=== PATIENT | male | born 1960 | race Caucasian/White ===

== ENCOUNTER 2016-04-25 15:50 | Emergency (ER) | payer MEDICARE, BC ==
[2016-04-25 16:09] VITALS: BP 117/59
--- NOTE | 2016-04-25 18:42 | RAD ---
Indication: Weakness. Single frontal view of the chest performed at 1829 hours was reviewed. Comparison is made with previous exam dated April 07, 2016. There is increasing left pleural effusion noted which is a moderate size. Likely underlying atelectasis is noted. Right lung field is clear. IMPRESSION: INCREASING LEFT PLEURAL EFFUSION.
[2016-04-25 19:37] LABS: Hematocrit 28 % (42-52); Hemoglobin 9.5 g/dl (14.0-18.0); Mean Corpuscular HGB Conc 33 g/dl (31-36); Mean Corpuscular Hemoglobin 38 pg (27-31); Mean Platelet Volume 9 um3 (7.4-10.4); Red Blood Count 2.53 10^6/ul (4.0-5.4); Red Cell Distribution Width 19 % (10.5-15); White Blood Count 5.4 10^3/ul (3.5-10.8)
[2016-04-25 19:39] LABS: Mean Corpuscular Volume 113 fL (80-94)
[2016-04-25 19:52] LABS: ALT 26 U/L (7-52); AST 47 U/L (13-39); Albumin 2.4 g/dL (3.2-5.2); Alkaline Phosphatase 97 U/L (34-104); Amylase 44 U/L (29-103); Anion Gap 3 mmol/L (2-11); BUN/Creatinine Ratio 27.3 (8-20); Blood Urea Nitrogen 21 mg/dL (6-24); C Reactive Protein 50.62 mg/L (< 5.00); CO2 Carbon Dioxide 26 mmol/L (22-32); Calcium 8.6 mg/dL (8.6-10.3); Chloride 103 mmol/L (101-111); EGFR African American 134.4 (>60); EGFR Non-African American 104.5 (>60); Globulin 3.7 g/dL (2-4); Glucose 81 mg/dL (70-100); Lipase < 10 U/L (11.0-82.0); Potassium 4.2 mmol/L (3.5-5.0); Sodium 132 mmol/L (133-145); Total Protein 6.1 g/dL (6.4-8.9)
[2016-04-25 20:06] LABS: Ammonia 77 mol/L (16-53)
[2016-04-25 20:11] LABS: B Type Natriuretic Peptide 315 pg/mL
--- NOTE | 2016-04-25 20:23 | ED ---
Yung Benites Adam, scribed for Jesus Arndt MD on 04/25/16 at 1757 . Complex/Multi-Sys Presentation - HPI Summary HPI Summary: Pt is a 55 year old male sent from his PCP with concerns about his blood work. He went to a routine appt today and his doctor discovered that his WBC count was elevated. Pt also has a decubitus ulcer on his buttocks and states that his PCP was concerned about infection. He denies abdominal pain, N/V/D, constipation , cough, fever, chills, and any other pain. Pt is on the liver transplant list for end stage cirrhosis of the liver. He states that he stopped drinking 1.5 years ago. PMHx also includes anemia, hemachromatosis, pancytopenia, hyponatremia, portal HTN, and esophageal varices. - History Of Current Complaint Chief Complaint: EDGeneral Time Seen by Provider: 04/25/16 17:51 Hx Obtained From: Patient Onset/Duration: Gradual Onset, Lasting Hours, Still Present Timing: Constant Severity Currently: Moderate Severity Initially: Moderate Associated Signs And Symptoms: Negative: Nausea, Vomiting, Diarrhea, Abdominal Pain, Fever - Allergies/Home Medications Allergies/Adverse Reactions: Allergies Allergy/AdvReac Type Severity Reaction Status Date / Time Acetaminophen [From Tylenol] Allergy AVOIDS Verified 04/25/16 15:56 NSAIDs Allergy AVOIDS Verified 04/25/16 15:56 PMH/Surg Hx/FS Hx/Imm Hx Endocrine/Hematology History: Reports: Hx Anemia, Other Endocrine/Hematological Disorders - Hemachromatosis Denies: Hx Anticoagulant Therapy, Hx Blood Transfusions, Hx Diabetes, Hx Systemic Lupus Erythematosus, Hx Thyroid Disease Cardiovascular History: Reports: Hx Hypertension Denies: Hx Aneurysm, Hx Angina, Hx Angioplasty, Hx Auto Implanted Cardiovert Defib, Hx Congestive Heart Failure, Hx Pacemaker/ICD Respiratory History: Denies: Hx Asthma, Hx Chronic Obstructive Pulmonary Disease (COPD) GI History: Reports: Hx Cirrhosis, Hx Gastrointestinal Bleed, Hx Jaundice, Hx Ulcer, Other GI Disorders - esophagitis, ANEMIC, esoophageal varices, hemochromatosis Denies: Hx Gastroesophageal Reflux Disease Comment Only: Hx Diverticulosis - family history of History: Denies: Hx Dialysis, Hx Renal Disease Musculoskeletal History: Reports: Other Musculoskeletal History - right hip, knees have discomfort/pain at times Denies: Hx Rheumatoid Arthritis Sensory History: Reports: Hx Contacts or Glasses Denies: Hx Hearing Aid Opthamlomology History: Reports: Hx Contacts or Glasses Neurological History: Reports: Hx Seizures, Other Neuro Impairments/Disorders - Affected by chronic high ammonia levels Denies: Hx Dementia Psychiatric History: Reports: Hx Anxiety, Hx Depression, Hx Substance Abuse Denies: Hx Panic Disorder - Cancer History Cancer Type, Location and Year: hemochromotosis- high iron levels Hx Chemotherapy: No - Surgical History Surgery Procedure, Year, and Place[facility]: No - Immunization History Date of Tetanus Vaccine: sister states up to date Infectious Disease History: No Infectious Disease History: Denies: Hx Hepatitis, Hx Human Immunodeficiency Virus (HIV), Traveled Outside the [place] in Last 30 Days - Family History Known Family History: Positive: Other - Father 65 with liver CA. - Social History Occupation: Employed Part-time - Self-employed Lives: Alone Alcohol Use: Formerly Hx Substance Use: No Substance Use Type: Reports: None Hx Tobacco Use: No Smoking Status (MU): Never Smoked Tobacco Review of Systems Negative: Fever, Chills Negative: Cough Gastrointestinal: Negative Negative: Abdominal Pain, Vomiting, Diarrhea, Nausea Negative: Arthralgia, Myalgia All Other Systems Reviewed And Are Negative: Yes Physical Exam - Summary Physical Exam Summary: VITAL SIGNS: Reviewed. GENERAL: Patient is a well developed and nourished male who is lying comfortable in the stretcher. Patient is not in any acute respiratory distress. HEAD AND FACE: No signs of trauma. No ecchymosis, hematomas or skull depressions. No sinus tenderness. EYES: PERRLA, EOMI x 2, EARS: Hearing grossly intact. Ear canals and tympanic membranes are within normal limits. MOUTH: Oropharynx within normal limits. NECK: Supple, trachea is midline, no adenopathy, no JVD, no carotid bruit, no c- spine tenderness, neck with full ROM. CHEST: Symmetric, no tenderness at palpation LUNGS: Clear to auscultation bilaterally. No wheezing or crackles. CVS: Regular rate and rhythm, S1 and S2 present, no murmurs or gallops appreciated. ABDOMEN: Soft, non-tender. No signs of distention. No rebound no guarding, and no masses palpated. Bowel sounds are normal. EXTREMITIES: FROM in all major joints, no edema, no cyanosis or clubbing. NEURO: Alert and oriented x 3. No acute neurological deficits. Speech is normal and follows commands. SKIN: Dry and warm, positive jaundice. Positive decubitis ulcer w/o discharge. Triage Information Reviewed: Yes Vital Signs On Initial Exam: Initial Vitals Temp Pulse Resp BP Pulse Ox 97.9 F 77 16 117/59 100 04/25/16 15:59 04/25/16 15:59 04/25/16 15:59 04/25/16 15:59 04/25/16 15:59 Vital Signs Reviewed: Yes Diagnostics - Vital Signs Vital Signs Temp Pulse Resp BP Pulse Ox 04/25/16 15:59 97.9 F 77 16 117/59 100 - Laboratory Lab Results: Lab Results 04/25/16 04/25/16 04/25/16 Range/Units 19:21 19:21 19:21 WBC 5.4 (3.5-10.8) 10^3/ul RBC 2.53 L (4.0-5.4) 10^6/ul Hgb 9.5 L (14.0-18.0) g/dl Hct 28 L (42-52) % MCV 113 H (80-94) fL MCH 38 H (27-31) pg MCHC 33 (31-36) g/dl RDW 19 H (10.5-15) % Plt Count 60 L (150-450) 10^3/ul MPV 9 (7.4-10.4) um3 Neut % (Auto) 68.4 (38-83) % Lymph % (Auto) 14.9 L (25-47) % [place] % (Auto) 12.7 H (1-9) % Eos % (Auto) 3.0 (0-6) % Baso % (Auto) 1.0 (0-2) % Absolute Neuts (auto) 3.7 (1.5-7.7) 10^3/ul Absolute Lymphs (auto) 0.8 L (1.0-4.8) 10^3/ul Absolute Monos (auto) 0.7 (0-0.8) 10^3/ul Absolute Eos (auto) 0.2 (0-0.6) 10^3/ul Absolute Basos (auto) 0.1 (0-0.2) 10^3/ul Absolute Nucleated RBC 0.01 10^3/ul Nucleated RBC % 0.2 Sodium 132 L (133-145) mmol/L Potassium 4.2 (3.5-5.0) mmol/L Chloride 103 (101-111) mmol/L Carbon Dioxide 26 (22-32) mmol/L Anion Gap 3 (2-11) mmol/L BUN 21 (6-24) mg/dL Creatinine 0.77 (0.67-1.17) mg/dL Est GFR ( Amer) 134.4 (>60) Est GFR (Non-Af Amer) 104.5 (>60) BUN/Creatinine Ratio 27.3 H (8-20) Glucose 81 (70-100) mg/dL Lactic Acid (0.5-2.0) mmol/L Calcium 8.6 (8.6-10.3) mg/dL Magnesium 2.0 (1.9-2.7) mg/dL Total Bilirubin 4.20 H (0.2-1.0) mg/dL AST 47 H (13-39) U/L ALT 26 (7-52) U/L Alkaline Phosphatase 97 (34-104) U/L Ammonia 77 H (16-53) mol/L C-Reactive Protein 50.62 H (< 5.00) mg/L B-Natriuretic Peptide Pending Total Protein 6.1 L (6.4-8.9) g/dL Albumin 2.4 L (3.2-5.2) g/dL Globulin 3.7 (2-4) g/dL Albumin/Globulin Ratio 0.6 L (1-3) Amylase 44 (29-103) U/L Lipase < 10 L (11.0-82.0) U/L 04/25/16 Range/Units 19:21 WBC (3.5-10.8) 10^3/ul RBC (4.0-5.4) 10^6/ul Hgb (14.0-18.0) g/dl Hct (42-52) % MCV (80-94) fL MCH (27-31) pg MCHC (31-36) g/dl RDW (10.5-15) % Plt Count (150-450) 10^3/ul MPV (7.4-10.4) um3 Neut % (Auto) (38-83) % Lymph % (Auto) (25-47) % [place] % (Auto) (1-9) % Eos % (Auto) (0-6) % Baso % (Auto) (0-2) % Absolute Neuts (auto) (1.5-7.7) 10^3/ul Absolute Lymphs (auto) (1.0-4.8) 10^3/ul Absolute Monos (auto) (0-0.8) 10^3/ul Absolute Eos (auto) (0-0.6) 10^3/ul Absolute Basos (auto) (0-0.2) 10^3/ul Absolute Nucleated RBC 10^3/ul Nucleated RBC % Sodium (133-145) mmol/L Potassium (3.5-5.0) mmol/L Chloride (101-111) mmol/L Carbon Dioxide (22-32) mmol/L Anion Gap (2-11) mmol/L BUN (6-24) mg/dL Creatinine (0.67-1.17) mg/dL Est GFR ( Amer) (>60) Est GFR (Non-Af Amer) (>60) BUN/Creatinine Ratio (8-20) Glucose (70-100) mg/dL Lactic Acid 2.1 H* (0.5-2.0) mmol/L Calcium (8.6-10.3) mg/dL Magnesium (1.9-2.7) mg/dL Total Bilirubin (0.2-1.0) mg/dL AST (13-39) U/L ALT (7-52) U/L Alkaline Phosphatase (34-104) U/L Ammonia (16-53) mol/L C-Reactive Protein (< 5.00) mg/L B-Natriuretic Peptide Total Protein (6.4-8.9) g/dL Albumin (3.2-5.2) g/dL Globulin (2-4) g/dL Albumin/Globulin Ratio (1-3) Amylase (29-103) U/L Lipase (11.0-82.0) U/L Result Diagrams: 04/25/16 19:21 04/25/16 19:21 Lab Statement: Any lab studies that have been ordered have been reviewed, and results considered in the medical decision making process. - Radiology CXR Radiology Interpretation Completed By: Radiologist - IMPRESSION: INCREASING LEFT PLEURAL EFFUSION Complex Multi-Symp Course/Dx Assessment/Plan: Pt is a 55 year old male sent from his PCP with concerns about his blood work. He went to a routine appt today and his doctor discovered that his WBC count was elevated. Pt also has a decubitus ulcer on his buttocks and states that his PCP was concerned about infection. He denies abdominal pain, N/V /D, constipation, cough, fever, chills, and any other pain. Pt is on the liver transplant list for end stage cirrhosis of the liver. Blood work at his base line. WBCs are normal. He has a mild anemia but its at his base line. Ammonia level also at his base line. I discussed all my findings and test results with the patient. Patient understands and agrees. Patient was instructed to return to the emergency room immediately if any of the symptoms return or worsens. Patient understands and agrees. Plan of care was discussed with the patient and patient understands and agrees with the plan of care. All questions were answered at patient satisfaction. There were no further complaints or concerns. Patient was instructed to follow up with primary care physician within 3 to 5 days. Patient is hemodynamically stable. Patient is alert and oriented x 3. No acute neurological deficits - Diagnoses Provider Diagnoses: Weakness, End-stage liver disease Discharge - Discharge Plan Condition: Stable Disposition: HOME Patient Education Materials: Weakness (ED), Cirrhosis (ED) Referrals: Deya Alvarez MD [Primary Care Provider] - Additional Instructions: Follow up with Dr. Alvarez. The documentation as recorded by the Yung chahal Adam accurately reflects the service I personally performed and the decisions made by me, Jesus Arndt MD.
== END 2016-04-25 20:56 | disposition home or self-care (01) ==
LOC: ED 15:50
DX: K72.90 Hepatic failure, unspecified without coma (principal); J90 Pleural effusion, not elsewhere classified; R53.1 Weakness
CPT/HCPCS: 36415; 71010; 80053; 82140; 82150; 83605; 83690; 83735; 83880; 85025; 86140; 87040; 99283

== ENCOUNTER 2016-05-01 12:32 | Inpatient (IN) | payer MEDICARE, BC ==
[2016-05-01 13:00] LABS: Hematocrit 30 % (42-52); Hemoglobin 10.2 g/dl (14.0-18.0); Mean Corpuscular HGB Conc 34 g/dl (31-36); Mean Corpuscular Hemoglobin 37 pg (27-31); Mean Platelet Volume 9 um3 (7.4-10.4); Red Blood Count 2.74 10^6/ul (4.0-5.4); Red Cell Distribution Width 19 % (10.5-15)
[2016-05-01 13:03] LABS: Comments Flag Yes
[2016-05-01 13:04] LABS: Mean Corpuscular Volume 111 fL (80-94)
[2016-05-01 13:05] LABS: White Blood Count 3.4 10^3/ul (3.5-10.8)
[2016-05-01 13:11] LABS: ALT 25 U/L (7-52); AST 43 U/L (13-39); Albumin 2.2 g/dL (3.2-5.2); Alkaline Phosphatase 84 U/L (34-104); Anion Gap 3 mmol/L (2-11); BUN/Creatinine Ratio 15.9 (8-20); Blood Urea Nitrogen 10 mg/dL (6-24); CO2 Carbon Dioxide 26 mmol/L (22-32); Calcium 9.1 mg/dL (8.6-10.3); Chloride 108 mmol/L (101-111); EGFR African American 169.4 (>60); EGFR Non-African American 131.7 (>60); Globulin 3.6 g/dL (2-4); Glucose 91 mg/dL (70-100); Sodium 137 mmol/L (133-145); Total Protein 5.8 g/dL (6.4-8.9)
[2016-05-01 13:37] LABS: Alcohol < 10 mg/dL (<10)
--- NOTE | 2016-05-01 13:50 | RAD ---
Indication: Confusion. CT of the brain was performed without IV contrast. Ventricular structures are midline. No midline shift is noted. The extra-axial spaces are unremarkable. The study is limited due to motion artifact. No obvious hemorrhage is noted. No midline shift is noted. The paranasal sinuses were visualized are unremarkable. Bony calvaria, ethmoid air cells and frontal sinuses are clear. IMPRESSION: Limited evaluation due to motion artifact with no definite hemorrhage is identified in the visualized portions of the brain.
--- NOTE | 2016-05-01 14:10 | RAD ---
INDICATION: Altered mental status. COMPARISON: Comparison is made with a prior chest x-ray study from April 25, 2016. TECHNIQUE: A portable view of the chest was obtained. FINDINGS: The heart appears to be within normal limits in size. There is a moderate size left pleural effusion which is unchanged from the prior exam. The right lung appears clear. IMPRESSION: MODERATE SIZE LEFT PLEURAL EFFUSION, UNCHANGED.
[2016-05-01] MEDS: Collagenase 250 MG/GM OINT* 30 GM TOPICAL SCH ×2 (20:19→20:29)
[2016-05-01] MEDS: RiFAXimin* 550 MG TAB PO SCH (20:20)
[2016-05-01] MEDS: Silver Sulfadiazine 1%* 20 GM TOPICAL SCH (20:20)
--- NOTE | 2016-05-01 22:34 | HP ---
HISTORY AND PHYSICAL: DATE OF ADMISSION: 05/01/16 TIME OF EVALUATION: 3:45 p.m. PRIMARY CARE PROVIDER: Dr. Deya Alvarez. CHIEF COMPLAINT: Altered mental status. HISTORY OF PRESENT ILLNESS: Mr. Quevedo is a 55-year-old male, well-known to me from multiple prior admissions, who presented to the emergency room with altered mental status. He was [place] [facility] [place] 04/14/16 with hepatic encephalopathy, stage 2 decubitus ulcer, severe protein calorie malnutrition, possible upper GI bleed, and was discharged to [facility] for rehab. The history is obtained from his sister (Shalini Quevedo) at bedside. She states we transferred him to [facility] and 1 hour after discharge, the patient signed out against medical advice and went back home. She states that she has been working with visiting nurses trying to set up his medications and visiting him frequently, but she states that sometime he can be very difficult. At this point, our conversation on his discharge when I told him that I believe he is not safe to drive at this time, he continued to do so and actually drove himself to his appointment with Dr. Alvarez and then did not feel well enough to drive back home, so he called his sister who had to go and pick him up. She thinks he probably stopped taking his lactulose over the weekend as he was expecting visitors to watch the football game with him on Saturday. Yesterday, on Saturday, he went to his appointment at [facility] and at that time, his oil field operator stated that the patient needs to show that he is going to be compliant with treatment. His sister thinks that if he does not show signs of improvement of his compliant in 3 months, [place] may discharge him from their program. She states that at home, he went back to his old habits despite the education he received regarding the importance of a low salt diet. He continued to buy frozen dinners and other foods with high sodium amount. She states that she is being checking his weight at home and he has gained at least 9 pounds since discharge. She states that yesterday she saw that probably his encephalopathy was coming back as he was a little bit more sluggish, but he was able to get back inside his home and took his lactulose. She called him this morning and as he did not pickle maker, she went to check him and found him unresponsive in bed and EMS was called. In the emergency room, his workup was remarkable for elevated ammonia level of 101 and he is being readmitted under the impression of another episode of hepatic encephalopathy secondary to noncompliance. PAST MEDICAL HISTORY: 1. Hemochromatosis. 2. Prior history of alcohol abuse. 3. Liver cirrhosis. 4. Prolonged admission to [facility] in January with serratia infection ( pleural/ascites). 5. Status post TIPS. 6. Multiple admission for frequent episodes of hepatic encephalopathy, most of them associated with noncompliance. 7. Severe protein calorie malnutrition. 8. Stage 2 decubitus ulcer, present on admission. MEDICATION LIST: 1. Acetaminophen 650 mg p.o. q.6 hours p.r.n. pain or fever. 2. Folic acid 1 mg p.o. daily. 3. Furosemide 40 mg p.o. q.a.m. 4. Lactulose 45 mL p.o. t.i.d. 5. Multivitamin 1 tablet p.o. daily. 6. Omeprazole 40 mg p.o. daily. 7. Rifaximin 550 mg p.o. b.i.d. 8. Silvadene to sacral decubitus twice a day. 9. Spironolactone 100 mg p.o. daily. 10. Thiamine 100 mg p.o. daily. ALLERGIES: The patient avoids NSAIDs. FAMILY HISTORY: Mother has a history of colon cancer and father has bladder cancer. SOCIAL HISTORY: Obtained from the sister, he had a history of alcohol abuse. No history of tobacco abuse. Surrogate decision maker is his sister, Shalini Quevedo. Phone number is [phone]. REVIEW OF SYSTEMS: I am unable to obtain due to the patient's altered mental status. PHYSICAL EXAMINATION GENERAL: The patient is a middle-aged male lying in the stretcher, in no acute distress. VITAL SIGNS: Temperature 98.1, heart rate is 74, respiratory rate 16, oxygen saturation is 100% on room air, blood pressure is 113/62. HEENT: Pupils are equal. There is scleral icterus. Mucous membranes are moist. CHEST: Breath sounds present bilaterally with no added sounds. CVS: Normal S1 and S2. Regular rate and rhythm. ABDOMEN: Soft, nontender. There is [id number] amount of ascites, but with no tenderness and bowel sounds are present. EXTREMITIES: There is [id number] bilateral lower extremity edema. NEUROLOGIC: The patient is lethargic, arousable to voice, but very confused. There is asterixis. LABORATORY AND IMAGING DATA: The patient had a CBC that showed WBC of 3.4, hemoglobin of 10.2, hematocrit of 30, platelets of 74. Chemistries showed sodium 137, potassium of 4, chloride of 108, bicarb 26, BUN of 10, creatinine of 0.6, glucose of 91, lactic acid of 1.2. LFTs showed a total bilirubin of 4.6 , AST of 43, ammonia of 101, troponin is 0, albumin is 2.2. Serum alcohol level is less than 10. EKG done on 05/01/16 at 1220 shows normal sinus rhythm at 68 beats per minute with no ST-T changes. No significant change when compared to his prior EKG from 04/09/16. Chest x-ray showed moderate size left pleural effusion unchanged. CT of the brain with limited evaluation due to motion artifact with no definite hemorrhage identified on the visualized portions of the brain. ASSESSMENT AND PLAN: Mr. Quevedo is a 55-year-old male with past medical history of hemochromatosis prior history of alcohol abuse, liver cirrhosis, status post TIPS, multiple admissions for hepatic encephalopathy most of them secondary to noncompliance who presents to the emergency room with another episode. 1. Hepatic encephalopathy. This is most likely secondary to noncompliance. He has no signs of infection or bleeding at this time. He is going to be restarted on lactulose and rifaximin and he usually responds pretty well to treatment. The major question at this time is we need to discuss with the patient and his family what his goal of care is at this time. On his prior admission, my impression was that he had no capacity to refuse SNF placement for rehab considering my concerns of his safety at home and the fact that he had been admitted more than 5 times since November 2014. His protein calorie malnutrition, medication noncompliance, signs of skin breakdown, and although initially he declined intermediate placement, he later on agreed with it and Psychiatry felt that the patient had capacity to make decisions, but it is apparent that his stayed in the intermediate for one hour only. The question at this time is once again if he has capacity to decline those interventions and if he does, he may be a candidate for hospice as he seems to be more interested in quality of life than quantity of life. He has not been compliant with his low salt diet and has told his sister that he could not be on a low salt diet. This subject was already broached on his last visit at [place] and his sister is under the impression that if he continues with his pattern of noncompliance, he will probably be discharged from [place]'s program. She actually says that they offered to close his TIPS to see if he would have less episodes of hepatic encephalopathy, but knowing that his fluid status is going to be difficult to manage as it was before TIPS was done. 2. Stage 2 decubitus ulcer, present on admission. We will continue wound care. 3. Liver cirrhosis. Continue supportive care. 4. Pancytopenia. Secondary to cirrhosis portal hypertension. We will continue to monitor. 5. Severe protein calorie malnutrition. I will check a prealbumin level as he was less than 3 on his prior admission. 6. History of upper GI bleed/erosive esophagitis. We will continue PPI. 7. DVT prophylaxis. The patient has a score of 2 on the DVT prophylaxis Risk Assessment Guide and pharmacological prophylaxis contraindicated due to his thrombocytopenia and history of GI bleed. He will have SCDs. 8. Code status is full at this time. When the patient's mental status is back at baseline, we are going to have a family meeting regarding his code status. TIME SPENT: Approximately 70 minutes were spent with the patient and sister interview, medical records review, physical examination to complete this admission and more than half this time was spent [id number] with the patient and his sister in coordination of care. CC: Dr. Deya Alvarez; Dr. Eloy Tao, [place], [facility] * [id number]/[facility] #: [id number] [facility]
--- NOTE | 2016-05-01 22:37 | RAD ---
INDICATION: Bruising to left ankle and great toe after a fall. COMPARISON: None. TECHNIQUE: 3 views of the left foot and 3 views of the left ankle were obtained. FINDINGS: The ankle mortise is symmetrically aligned. There is no acute fracture or dislocation involving the ankle. Degenerative changes of the foot include enthesophyte formation on the calcaneal tubercle at the origin of the plantar fascia. There is bony reconstruction involving the distal phalanges of the left great toe as well as the second and third toes. The left great toe distal phalanx is subluxation laterally relative to the proximal phalanx. Additional degenerative changes include narrowing of the intertarsal and tarsometatarsal joints. IMPRESSION: DEGENERATIVE CHANGES OF THE LEFT FOOT AND ANKLE DESCRIBED ABOVE INCLUDING APPARENT PARTIAL DISTAL BONY RESORPTION OF THE DISTAL PHALANGES INVOLVING THE GREAT, SECOND AND THIRD LEFT TOES. If the patient's symptoms persist, follow-up imaging is recommended.
[2016-05-02 04:38] LABS: Urine Bilirubin Negative (Negative); Urine Glucose Negative (Negative); Urine Nitrite Negative (Negative)
[2016-05-02 05:26] LABS: Hematocrit 25 % (42-52); Hemoglobin 8.7 g/dl (14.0-18.0); Mean Corpuscular HGB Conc 34 g/dl (31-36); Mean Corpuscular Hemoglobin 37 pg (27-31); Mean Platelet Volume 8 um3 (7.4-10.4); Red Blood Count 2.34 10^6/ul (4.0-5.4); Red Cell Distribution Width 17 % (10.5-15); White Blood Count 3.9 10^3/ul (3.5-10.8)
[2016-05-02 05:27] LABS: Comments Flag Yes; Mean Corpuscular Volume 109 fL (80-94)
[2016-05-02 05:45] LABS: ALT 21 U/L (7-52); AST 36 U/L (13-39); Alkaline Phosphatase 75 U/L (34-104); Anion Gap 3 mmol/L (2-11); BUN/Creatinine Ratio 19.4 (8-20); Blood Urea Nitrogen 12 mg/dL (6-24); CO2 Carbon Dioxide 24 mmol/L (22-32); Calcium 8.8 mg/dL (8.6-10.3); Chloride 109 mmol/L (101-111); EGFR African American 172.6 (>60); EGFR Non-African American 134.2 (>60); Globulin 3.3 g/dL (2-4); Glucose 80 mg/dL (70-100); Sodium 136 mmol/L (133-145); Total Protein 5.3 g/dL (6.4-8.9)
[2016-05-02 06:03] LABS: Prealbumin < 3 mg/dL (18-38)
[2016-05-02] MEDS: Thiamine TAB* 100 MG TAB PO SCH (10:23)
[2016-05-02] MEDS: Omeprazole CAP* 20 MG PO SCH (10:23)
[2016-05-02] MEDS: Spironolactone TAB* 25 MG PO SCH (10:23)
[2016-05-02] MEDS: RiFAXimin* 550 MG TAB PO SCH ×2 (10:24→20:36)
[2016-05-02] MEDS: Silver Sulfadiazine 1%* 20 GM TOPICAL SCH ×2 (10:24→20:45)
[2016-05-02] MEDS: Folic Acid TAB* 1 MG PO SCH (10:24)
[2016-05-02] MEDS: Multivitamins/Minerals TAB PO SCH (14:01)
--- NOTE | 2016-05-02 16:03 | PN ---
Subjective Date of Service: 05/02/16 Interval History: HOSPITALIST PROGRESS NOTE Patient seen and examined at bedside. He is more awake today, but still very confused. Tolerated diet well. Offers no complaints at this time. Family History: Unchanged from Admission Social History: Unchanged from Admission Past Medical History: Unchanged from Admission Objective Active Medications: Folic Acid (Folvite Tab*) 1 mg PO DAILY [facility] Last Admin: 05/02/16 10:24 Dose: 1 mg Lactulose (Lactulose*) 45 ml PO TID [facility] Last Admin: 05/02/16 14:01 Dose: 45 ml Multivitamins/Minerals (Theragran/Minerals Tab*) 1 tab PO DAILY [facility] Last Admin: 05/02/16 14:01 Dose: 1 tab Omeprazole (Prilosec Cap*) 40 mg PO DAILY@0730 [facility] Last Admin: 05/02/16 10:23 Dose: 40 mg Rifaximin (Xifaxan*) 550 mg PO BID [facility] Last Admin: 05/02/16 10:24 Dose: 550 mg Silver Sulfadiazine (Silvadine 1%*) 1 applic TOPICAL BID [facility] Last Admin: 05/02/16 10:24 Dose: 1 applic Spironolactone (Aldactone Tab*) 100 mg PO DAILY [facility] Last Admin: 05/02/16 10:23 Dose: 100 mg Thiamine HCl (Vitamin B-1 Tab*) 100 mg PO DAILY [facility] Last Admin: 05/02/16 10:23 Dose: 100 mg Vital Signs 05/02/16 05/02/16 05/02/16 07:58 08:00 15:35 Temperature 97.8 F Pulse Rate 91 97 Respiratory 16 16 Rate Blood Pressure 125/66 122/64 (mmHg) O2 Sat by Pulse 98 100 Oximetry Oxygen Devices in Use Now: None Appearance: Middle aged male sitting up in bed in NAD. Eyes: - - Scleral icterus Neck: Trachea Midline Respiratory: Symmetrical Chest Expansion and Respiratory Effort, Clear to Auscultation Cardiovascular: RRR - Normal S1 and S2 Abdominal: - - Soft, NT, ascites is present, BS+ Extremities: - - Mild to moderate bilateral LE edema Neurological: - - AAOx2 (self and place), REYES, +asterix Lines/Tubes/Other Access: Clean, Dry and Intact Peripheral IV Nutrition: Taking PO's Result Diagrams: 05/02/16 05:18 05/02/16 05:18 Assess/Plan/Problems-Billing Assessment: Mr. Quevedo is a 55yo M with PMH of hemochromatosis, prior h/o alcohol abuse, liver cirrhosis, prolonged admission to [place] in January with Serratia infection (pleural/ascites), s/p TIPS, hepatic encephalopathy, who presents with another episode of hepatic encephalopathy. - Patient Problems (1) Hepatic encephalopathy Comment: - Probably secondary to non-compliance. - No signs of infection or GI bleed at this time. - Mental status is improving, but not back to baseline. - Continue lactulose and rifaximin. (2) Stage II decubitus ulcer Comment: - Present on admission. - Wound care consult requested. (3) Liver cirrhosis Comment: - Continue supportive care. (4) Pancytopenia Comment: - Secondary to cirrhosis/portal HTN. - Stable. (5) Severe protein-calorie malnutrition Comment: - Weight was 230lbs in November, down to 170lbsin March and now up to 196lbs, but this is due to fluid (ascites and LE edema present at this time). - Prealbumin is still <3. - Will follow dietary recommendations. (6) Safety impairment Comment: - On his prior admission I had concerns with patient's safey at home: this is now his 6th admission here since November (plus he had a prolonged admission at [facility] in January), his nutritional status is declining with prealbumin <3 and skin breakdown, he continues to be non-complaint with low salt diet (has gained more than 20lbs since discharge in March), non- compliant with medications as evidenced by another episode of hepatic encephalopathy. Despite our conversation about my opinion he's not safe to drive , he continued to do so and had to request his sister's help to return home. He went to his appointment at [facility] on 04/30 and his sister tells me they told him to return in 3 months showing he is comitted to his treatment or otherwise he may be discharged from the transplant program for non-compliance. Despite our conversations on his prior admission and his answers during Psychiatry evaluation, he went to [facility] but signed himself out in 1 hour and went home , returning to his pattern of non-compliance. I'm concerned with his safety at home and with the progression of his disease, and if he continues on this downward spiral I'm afraid he'll . He would benefit of a supervised setting for his post hospital care to assist with compliance with diet, medications, appointments, and for rehabilitation needs. Will wait for his encephalopathy to resolve and evaluate his capacity again. If I feel he doesn't have capacity will request Psych eval again. If he's felt to have capacity and refuses SNF placement and all other measures, maybe we should start talking about Palliative care. Status and Disposition: Inpatient. Sister (Antonietta) updated at bedside.
[2016-05-03] MEDS: Spironolactone TAB* 25 MG PO SCH (07:56)
[2016-05-03] MEDS: RiFAXimin* 550 MG TAB PO SCH ×2 (07:56→20:33)
[2016-05-03] MEDS: Thiamine TAB* 100 MG TAB PO SCH (07:57)
[2016-05-03] MEDS: Omeprazole CAP* 20 MG PO SCH (07:57)
[2016-05-03] MEDS: Folic Acid TAB* 1 MG PO SCH (07:57)
[2016-05-03] MEDS: Multivitamins/Minerals TAB PO SCH (07:58)
[2016-05-03] MEDS: Silver Sulfadiazine 1%* 20 GM TOPICAL SCH ×2 (08:03→20:33)
--- NOTE | 2016-05-03 13:31 | PN ---
Subjective Date of Service: 05/03/16 Interval History: HOSPITALIST PROGRESS NOTE Patient seen and examined at bedside. He feels better today, but does not recall the events leading to his hospitalization. Still a little confused. Denies abdominal pain, N/V. Tolerating diet well. Family History: Unchanged from Admission Social History: Unchanged from Admission Past Medical History: Unchanged from Admission Objective Active Medications: Folic Acid (Folvite Tab*) 1 mg PO DAILY [facility] Last Admin: 05/03/16 07:57 Dose: 1 mg Lactulose (Lactulose*) 45 ml PO TID [facility] Last Admin: 05/03/16 07:59 Dose: 45 ml Multivitamins/Minerals (Theragran/Minerals Tab*) 1 tab PO DAILY [facility] Last Admin: 05/03/16 07:58 Dose: 1 tab Omeprazole (Prilosec Cap*) 40 mg PO DAILY@0730 [facility] Last Admin: 05/03/16 07:57 Dose: 40 mg Rifaximin (Xifaxan*) 550 mg PO BID [facility] Last Admin: 05/03/16 07:56 Dose: 550 mg Silver Sulfadiazine (Silvadine 1%*) 1 applic TOPICAL BID [facility] Last Admin: 05/03/16 08:03 Dose: 1 applic Spironolactone (Aldactone Tab*) 100 mg PO DAILY [facility] Last Admin: 05/03/16 07:56 Dose: 100 mg Thiamine HCl (Vitamin B-1 Tab*) 100 mg PO DAILY [facility] Last Admin: 05/03/16 07:57 Dose: 100 mg Vital Signs 05/02/16 05/02/16 05/02/16 15:35 20:00 23:27 Temperature 97.8 F Pulse Rate 97 87 Respiratory 20 20 Rate Blood Pressure 122/64 126/66 (mmHg) O2 Sat by Pulse 100 98 Oximetry 05/03/16 05/03/16 06:51 08:00 Temperature 98.3 F Pulse Rate 75 Respiratory 20 18 Rate Blood Pressure 108/58 (mmHg) O2 Sat by Pulse 98 Oximetry Oxygen Devices in Use Now: None Appearance: Middle aged male sitting up in bed in NAD. Eyes: - - Scleral icterus Ears/Nose/Mouth/Throat: Mucous Membranes Moist Neck: Trachea Midline Respiratory: Symmetrical Chest Expansion and Respiratory Effort, Clear to Auscultation Cardiovascular: RRR - Normal S1 and S2 Abdominal: - - Soft, +ascites, not tender, BS+ Extremities: - - Mild bilateral LE edema Neurological: - - AAOx2 (self and place), REYES Lines/Tubes/Other Access: Clean, Dry and Intact Peripheral IV Nutrition: Taking PO's Result Diagrams: 05/02/16 05:18 05/02/16 05:18 Assess/Plan/Problems-Billing Assessment: Mr. Quevedo is a 55yo M with PMH of hemochromatosis, prior h/o alcohol abuse, liver cirrhosis, prolonged admission to [place] in January with Serratia infection (pleural/ascites), s/p TIPS, hepatic encephalopathy, who presents with another episode of hepatic encephalopathy. - Patient Problems (1) Hepatic encephalopathy Comment: - Probably secondary to non-compliance. - No signs of infection or GI bleed at this time. - Mental status is improving, but not yet back to baseline. - Continue lactulose and rifaximin. (2) Stage II decubitus ulcer Comment: - Present on admission. - Wound care consult appreciated. (3) Liver cirrhosis Comment: - Continue supportive care. (4) Pancytopenia Comment: - Secondary to cirrhosis/portal HTN. - Stable. (5) Severe protein-calorie malnutrition Comment: - Weight was 230lbs in November, down to 170lbsin March and now up to 196lbs, but this is due to fluid (ascites and LE edema present at this time). - Prealbumin is still <3. - Will follow dietary recommendations. (6) Safety impairment Comment: - On his prior admission I had concerns with patient's safey at home: this is now his 6th admission here since November (plus he had a prolonged admission at [place] in January), his nutritional status is declining with prealbumin <3 and skin breakdown, he continues to be non-complaint with low salt diet (has gained more than 20lbs since discharge in March), non- compliant with medications as evidenced by another episode of hepatic encephalopathy. Despite our conversation about my opinion he's not safe to drive , he continued to do so and had to request his sister's help to return home. He went to his appointment at [place] on 04/30 and his sister tells me they told him to return in 3 months showing he is comitted to his treatment or otherwise he may be discharged from the transplant program for non-compliance. Despite our conversations on his prior admission and his answers during Psychiatry evaluation, he went to [facility] but signed himself out AMA in 1 hour and went home, returning to his pattern of non-compliance. I'm concerned with his safety at home and with the progression of his disease, and if he continues on this downward spiral I'm afraid he'll . He would benefit of a supervised setting for his post hospital care to assist with compliance with diet, medications, appointments, and for rehabilitation needs. Will wait for his encephalopathy to resolve and evaluate his capacity again. If I feel he doesn't have capacity will request Psych eval again. If he's felt to have capacity and refuses SNF placement and all other measures, maybe we should start talking about Palliative care. Status and Disposition: Inpatient.
[2016-05-04 05:46] LABS: BUN/Creatinine Ratio 16.1 (8-20); Calcium 8.3 mg/dL (8.6-10.3); EGFR African American 194.1 (>60); EGFR Non-African American 150.9 (>60); Potassium 4.3 mmol/L (3.5-5.0)
[2016-05-04] MEDS: Spironolactone TAB* 25 MG PO SCH (08:19)
[2016-05-04] MEDS: Omeprazole CAP* 20 MG PO SCH (08:19)
[2016-05-04] MEDS: Multivitamins/Minerals TAB PO SCH (08:19)
[2016-05-04] MEDS: Silver Sulfadiazine 1%* 20 GM TOPICAL SCH ×2 (08:19→21:03)
[2016-05-04] MEDS: Thiamine TAB* 100 MG TAB PO SCH (08:20)
[2016-05-04] MEDS: RiFAXimin* 550 MG TAB PO SCH ×2 (08:20→21:17)
[2016-05-04] MEDS: Folic Acid TAB* 1 MG PO SCH (08:20)
--- NOTE | 2016-05-04 16:55 | PN ---
Subjective Date of Service: 05/04/16 Interval History: He offers no c/o. Family History: Unchanged from Admission Social History: Unchanged from Admission Past Medical History: Unchanged from Admission Objective Active Medications: Folic Acid (Folvite Tab*) 1 mg PO DAILY [facility] Last Admin: 05/04/16 08:20 Dose: 1 mg Lactulose (Lactulose*) 45 ml PO TID [facility] Last Admin: 05/04/16 13:37 Dose: 45 ml Multivitamins/Minerals (Theragran/Minerals Tab*) 1 tab PO DAILY [facility] Last Admin: 05/04/16 08:19 Dose: 1 tab Omeprazole (Prilosec Cap*) 40 mg PO DAILY@0730 [facility] Last Admin: 05/04/16 08:19 Dose: 40 mg Rifaximin (Xifaxan*) 550 mg PO BID [facility] Last Admin: 05/04/16 08:20 Dose: 550 mg Silver Sulfadiazine (Silvadine 1%*) 1 applic TOPICAL BID [facility] Last Admin: 05/04/16 08:19 Dose: 1 applic Spironolactone (Aldactone Tab*) 100 mg PO DAILY [facility] Last Admin: 05/04/16 08:19 Dose: 100 mg Thiamine HCl (Vitamin B-1 Tab*) 100 mg PO DAILY [facility] Last Admin: 05/04/16 08:20 Dose: 100 mg Vital Signs 05/03/16 05/03/16 05/04/16 20:00 23:27 07:47 Temperature 98.1 F 97.6 F Pulse Rate 90 83 Respiratory 18 19 16 Rate Blood Pressure 99/43 109/58 (mmHg) O2 Sat by Pulse 96 97 Oximetry 05/04/16 05/04/16 08:20 15:29 Temperature 97.9 F Pulse Rate 93 Respiratory 18 16 Rate Blood Pressure 124/63 (mmHg) O2 Sat by Pulse 100 Oximetry Oxygen Devices in Use Now: None Appearance: Alert, partly up in bed. In good spirits. Looks comfortable. Eyes: No Scleral Icterus Ears/Nose/Mouth/Throat: Clear Oropharnyx, Mucous Membranes Moist Neck: NL Appearance and Movements; NL JVP, No Thyroid Enlargement, Masses Respiratory: Symmetrical Chest Expansion and Respiratory Effort, Clear to Auscultation, Clear to Percussion Extremities: No Edema, No Clubbing, Cyanosis, - Skin: No Rash or Ulcers, No Nodules or Sclerosis, - Neurological: Alert and Oriented x 3, NL Sensation Result Diagrams: 05/02/16 05:18 05/04/16 05:23 Additional Lab and Data: Lab Results 05/01/16 Range/Units 12:41 WBC 3.4 L (3.5-10.8) 10^3/ul RBC 2.74 L (4.0-5.4) 10^6/ul Hgb 10.2 L (14.0-18.0) g/dl Hct 30 L (42-52) % MCV 111 H (80-94) fL MCH 37 H (27-31) pg MCHC 34 (31-36) g/dl RDW 19 H (10.5-15) % Plt Count 74 L (150-450) 10^3/ul MPV 9 (7.4-10.4) um3 Neut % (Auto) 64.1 (38-83) % Lymph % (Auto) 21.8 L (25-47) % [place] % (Auto) 10.2 H (1-9) % Eos % (Auto) 2.8 (0-6) % Baso % (Auto) 1.1 (0-2) % Absolute Neuts (auto) 2.2 (1.5-7.7) 10^3/ul Absolute Lymphs (auto) 0.7 L (1.0-4.8) 10^3/ul Absolute Monos (auto) 0.3 (0-0.8) 10^3/ul Absolute Eos (auto) 0.1 (0-0.6) 10^3/ul Absolute Basos (auto) 0 (0-0.2) 10^3/ul Absolute Nucleated RBC 0 10^3/ul Nucleated RBC % 0.1 Assess/Plan/Problems-Billing Assessment: Mr. Quevedo is a 55yo M with PMH of hemochromatosis, prior h/o alcohol abuse, liver cirrhosis, prolonged admission to [place] in January with Serratia infection (pleural/ascites), s/p TIPS, hepatic encephalopathy, who presents with another episode of hepatic encephalopathy. - Patient Problems (1) Hepatic encephalopathy Current Visit: Yes Status: Chronic Code(s): K72.90 - HEPATIC FAILURE, UNSPECIFIED WITHOUT COMA SNOMED Code(s): 00663476 Comment: - Probably secondary to non-compliance. - No signs of infection or GI bleed at this time. - Mental status is improving, but not yet back to baseline. - Continue lactulose and rifaximin. Low protein diet (2) Stage II decubitus ulcer Current Visit: Yes Status: Acute Code(s): L89.92 - PRESSURE ULCER OF UNSPECIFIED SITE, STAGE 2 SNOMED Code(s): 113743507 Comment: - Present on admission. - Wound care consult appreciated. (3) Pancytopenia Current Visit: Yes Status: Chronic Code(s): D61.818 - OTHER PANCYTOPENIA SNOMED Code(s): 935039266 Comment: - Secondary to cirrhosis/portal HTN. - Stable. (4) Severe protein-calorie malnutrition Current Visit: Yes Status: Acute Code(s): E43 - UNSPECIFIED SEVERE PROTEIN- CALORIE MALNUTRITION SNOMED Code(s): 628211140 Comment: - Weight was 230lbs in November, down to 170lbsin March and now up to 196lbs, but this is due to fluid (ascites and LE edema present at this time) . - Prealbumin is still <3. - Will follow dietary recommendations. Status and Disposition: Inpatient.
--- NOTE | 2016-05-04 17:04 | PN ---
Subjective Date of Service: 05/04/16 Interval History: He denies pain, offers no c/o. Family History: Unchanged from Admission Social History: Unchanged from Admission Past Medical History: Unchanged from Admission Objective Active Medications: Folic Acid (Folvite Tab*) 1 mg PO DAILY [facility] Last Admin: 05/04/16 08:20 Dose: 1 mg Lactulose (Lactulose*) 45 ml PO TID [facility] Last Admin: 05/04/16 13:37 Dose: 45 ml Multivitamins/Minerals (Theragran/Minerals Tab*) 1 tab PO DAILY [facility] Last Admin: 05/04/16 08:19 Dose: 1 tab Omeprazole (Prilosec Cap*) 40 mg PO DAILY@0730 [facility] Last Admin: 05/04/16 08:19 Dose: 40 mg Rifaximin (Xifaxan*) 550 mg PO BID [facility] Last Admin: 05/04/16 08:20 Dose: 550 mg Silver Sulfadiazine (Silvadine 1%*) 1 applic TOPICAL BID [facility] Last Admin: 05/04/16 08:19 Dose: 1 applic Spironolactone (Aldactone Tab*) 100 mg PO DAILY [facility] Last Admin: 05/04/16 08:19 Dose: 100 mg Thiamine HCl (Vitamin B-1 Tab*) 100 mg PO DAILY [facility] Last Admin: 05/04/16 08:20 Dose: 100 mg Vital Signs 05/03/16 05/03/16 05/04/16 20:00 23:27 07:47 Temperature 98.1 F 97.6 F Pulse Rate 90 83 Respiratory 18 19 16 Rate Blood Pressure 99/43 109/58 (mmHg) O2 Sat by Pulse 96 97 Oximetry 05/04/16 05/04/16 08:20 15:29 Temperature 97.9 F Pulse Rate 93 Respiratory 18 16 Rate Blood Pressure 124/63 (mmHg) O2 Sat by Pulse 100 Oximetry Oxygen Devices in Use Now: None Appearance: Alert, partly up in bed. In good spirits. Looks comfortable. Eyes: No Scleral Icterus Respiratory: Symmetrical Chest Expansion and Respiratory Effort, Clear to Auscultation, Clear to Percussion Cardiovascular: NL Sounds; No Murmurs; No JVD, RRR, No Edema, - Extremities: No Edema, No Clubbing, Cyanosis Skin: No Nodules or Sclerosis, - - Surgical scar L medial ankle, sl red Neurological: Alert and Oriented x 3, NL Sensation Result Diagrams: 05/02/16 05:18 05/04/16 05:23 Additional Lab and Data: Lab Results 05/01/16 Range/Units 12:41 WBC 3.4 L (3.5-10.8) 10^3/ul RBC 2.74 L (4.0-5.4) 10^6/ul Hgb 10.2 L (14.0-18.0) g/dl Hct 30 L (42-52) % MCV 111 H (80-94) fL MCH 37 H (27-31) pg MCHC 34 (31-36) g/dl RDW 19 H (10.5-15) % Plt Count 74 L (150-450) 10^3/ul MPV 9 (7.4-10.4) um3 Neut % (Auto) 64.1 (38-83) % Lymph % (Auto) 21.8 L (25-47) % [place] % (Auto) 10.2 H (1-9) % Eos % (Auto) 2.8 (0-6) % Baso % (Auto) 1.1 (0-2) % Absolute Neuts (auto) 2.2 (1.5-7.7) 10^3/ul Absolute Lymphs (auto) 0.7 L (1.0-4.8) 10^3/ul Absolute Monos (auto) 0.3 (0-0.8) 10^3/ul Absolute Eos (auto) 0.1 (0-0.6) 10^3/ul Absolute Basos (auto) 0 (0-0.2) 10^3/ul Absolute Nucleated RBC 0 10^3/ul Nucleated RBC % 0.1 Assess/Plan/Problems-Billing Assessment: Mr. Quevedo is a 55yo M with PMH of hemochromatosis, prior h/o alcohol abuse, liver cirrhosis, prolonged admission to [place] in January with Serratia infection (pleural/ascites), s/p TIPS, hepatic encephalopathy, who presents with another episode of hepatic encephalopathy. - Patient Problems (1) Hepatic encephalopathy Current Visit: Yes Status: Chronic Code(s): K72.90 - HEPATIC FAILURE, UNSPECIFIED WITHOUT COMA SNOMED Code(s): 90767612 Comment: - Probably secondary to non-compliance. - No signs of infection or GI bleed at this time. - Mental status is improving, but not yet back to baseline. - Continue lactulose and rifaximin. Low protein diet (2) Stage II decubitus ulcer Current Visit: Yes Status: Acute Code(s): L89.92 - PRESSURE ULCER OF UNSPECIFIED SITE, STAGE 2 SNOMED Code(s): 340982938 Comment: - Present on admission. - Wound care consult appreciated. (3) Pancytopenia Current Visit: Yes Status: Chronic Code(s): D61.818 - OTHER PANCYTOPENIA SNOMED Code(s): 682520562 Comment: - Secondary to cirrhosis/portal HTN. - Stable. (4) Severe protein-calorie malnutrition Current Visit: Yes Status: Acute Code(s): E43 - UNSPECIFIED SEVERE PROTEIN- CALORIE MALNUTRITION SNOMED Code(s): 157524610 Comment: - Weight was 230lbs in November, down to 170lbsin March and now up to 196lbs, but this is due to fluid (ascites and LE edema present at this time) . - Prealbumin is still <3. - Will follow dietary recommendations. Status and Disposition: Inpatient.
[2016-05-05] MEDS: Spironolactone TAB* 25 MG PO SCH (08:54)
[2016-05-05] MEDS: Thiamine TAB* 100 MG TAB PO SCH (08:54)
[2016-05-05] MEDS: RiFAXimin* 550 MG TAB PO SCH ×2 (08:54→20:27)
[2016-05-05] MEDS: Multivitamins/Minerals TAB PO SCH (08:54)
[2016-05-05] MEDS: Omeprazole CAP* 20 MG PO SCH (08:54)
[2016-05-05] MEDS: Folic Acid TAB* 1 MG PO SCH (08:54)
[2016-05-05] MEDS: Silver Sulfadiazine 1%* 20 GM TOPICAL SCH ×2 (08:56→23:16)
--- NOTE | 2016-05-05 15:33 | PN ---
Subjective Date of Service: 05/05/16 Interval History: No c/o. Pt states he had 2 BM's today. He states he walked around the block twice today. Family History: Unchanged from Admission Social History: Unchanged from Admission Past Medical History: Unchanged from Admission Objective Active Medications: Folic Acid (Folvite Tab*) 1 mg PO DAILY [facility] Last Admin: 05/05/16 08:54 Dose: 1 mg Lactulose (Lactulose*) 45 ml PO TID [facility] Last Admin: 05/05/16 14:41 Dose: 45 ml Multivitamins/Minerals (Theragran/Minerals Tab*) 1 tab PO DAILY [facility] Last Admin: 05/05/16 08:54 Dose: 1 tab Omeprazole (Prilosec Cap*) 40 mg PO DAILY@0730 [facility] Last Admin: 05/05/16 08:54 Dose: 40 mg Rifaximin (Xifaxan*) 550 mg PO BID [facility] Last Admin: 05/05/16 08:54 Dose: 550 mg Silver Sulfadiazine (Silvadine 1%*) 1 applic TOPICAL BID [facility] Last Admin: 05/05/16 08:56 Dose: Not Given Spironolactone (Aldactone Tab*) 100 mg PO DAILY [facility] Last Admin: 05/05/16 08:54 Dose: 100 mg Thiamine HCl (Vitamin B-1 Tab*) 100 mg PO DAILY [facility] Last Admin: 05/05/16 08:54 Dose: 100 mg Vital Signs 05/04/16 05/04/16 05/05/16 22:23 23:20 07:42 Temperature 98.2 F 98.0 F Pulse Rate 87 78 Respiratory 18 16 16 Rate Blood Pressure 110/62 118/61 (mmHg) O2 Sat by Pulse 97 95 Oximetry 05/05/16 08:00 Temperature Pulse Rate Respiratory 16 Rate Blood Pressure (mmHg) O2 Sat by Pulse Oximetry Oxygen Devices in Use Now: None Appearance: Alert, partly up in bed. In good spirits. Looks comfortable. Eyes: - - mild icterus Respiratory: Symmetrical Chest Expansion and Respiratory Effort, Clear to Auscultation, Clear to Percussion Extremities: No Edema, No Clubbing, Cyanosis, - Skin: No Rash or Ulcers, No Nodules or Sclerosis, - Neurological: Alert and Oriented x 3 - mild asterixis., NL Sensation Result Diagrams: 05/02/16 05:18 05/04/16 05:23 Additional Lab and Data: Lab Results 05/01/16 Range/Units 12:41 WBC 3.4 L (3.5-10.8) 10^3/ul RBC 2.74 L (4.0-5.4) 10^6/ul Hgb 10.2 L (14.0-18.0) g/dl Hct 30 L (42-52) % MCV 111 H (80-94) fL MCH 37 H (27-31) pg MCHC 34 (31-36) g/dl RDW 19 H (10.5-15) % Plt Count 74 L (150-450) 10^3/ul MPV 9 (7.4-10.4) um3 Neut % (Auto) 64.1 (38-83) % Lymph % (Auto) 21.8 L (25-47) % [place] % (Auto) 10.2 H (1-9) % Eos % (Auto) 2.8 (0-6) % Baso % (Auto) 1.1 (0-2) % Absolute Neuts (auto) 2.2 (1.5-7.7) 10^3/ul Absolute Lymphs (auto) 0.7 L (1.0-4.8) 10^3/ul Absolute Monos (auto) 0.3 (0-0.8) 10^3/ul Absolute Eos (auto) 0.1 (0-0.6) 10^3/ul Absolute Basos (auto) 0 (0-0.2) 10^3/ul Absolute Nucleated RBC 0 10^3/ul Nucleated RBC % 0.1 Assess/Plan/Problems-Billing Assessment: Mr. Quevedo is a 55yo M with PMH of hemochromatosis, prior h/o alcohol abuse, liver cirrhosis, prolonged admission to [place] in January with Serratia infection (pleural/ascites), s/p TIPS, hepatic encephalopathy, who presents with another episode of hepatic encephalopathy. - Patient Problems (1) Hepatic encephalopathy Current Visit: Yes Status: Chronic Code(s): K72.90 - HEPATIC FAILURE, UNSPECIFIED WITHOUT COMA SNOMED Code(s): 67671924 Comment: - Probably secondary to non-compliance. - No signs of infection or GI bleed at this time. - Continue lactulose and rifaximin. Low protein diet He is probably somewhat impaired due to his hyperammonemia. (2) Stage II decubitus ulcer Current Visit: Yes Status: Acute Code(s): L89.92 - PRESSURE ULCER OF UNSPECIFIED SITE, STAGE 2 SNOMED Code(s): 345789335 Comment: - Present on admission. - Wound care consult appreciated. (3) Pancytopenia Current Visit: Yes Status: Chronic Code(s): D61.818 - OTHER PANCYTOPENIA SNOMED Code(s): 458878065 Comment: - Secondary to cirrhosis/portal HTN. - Stable. (4) Severe protein-calorie malnutrition Current Visit: Yes Status: Acute Code(s): E43 - UNSPECIFIED SEVERE PROTEIN- CALORIE MALNUTRITION SNOMED Code(s): 675339757 Comment: - Weight was 230lbs in November, down to 170lbsin March and now up to 196lbs, but this is due to fluid (ascites and LE edema present at this time) . - Prealbumin is still <3. His liver likely has very impaired protein synthesis , as indicated by high INR. - Will follow dietary recommendations. Status and Disposition: Inpatient.
--- NOTE | 2016-05-05 17:51 | CONSULT ---
Identification - Patient Identification Reason for Psychiatric Consultation: Other - Capacity to make informed medical decisions -: Patient is a 55 year old, M admitted on 05/01/16. 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 He was previously discharged from this hospital last month to [facility] because of his inability to care for himself at home. He reportedly signed himself out the same day and returned home. He is looked after by his sister and has VNS in place. He asserts to he has no objections to going to a Group Home Facility "if that's was recommended." He denies having used alcohol in the past 1.5 years because he understands this will further harm his liver and exacerbate his encephalopathy. He started drinking in his teen years, asserts that his drinking has always been social. He denies legal consequences. He denies the use of tobacco, illicit drugs or prescription medications. He denies previous psychiatric diagnosis other than alcohol dependence, he denies having ever been psychiatrically hospitalized, or received outpatient psychiatric care or taken psychotropic medications. He denies previous pacheco suicide attempt. He is the father of 3 adult daughters, all living independently. He has a sister (who is his healthcare proxy) and a brother, living locally. 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 Past Medical History: Refer to Hospitalist H&P and progress notes. Lab Results: Laboratory Tests 05/02/16 05/02/16 05/02/16 03:55 05:18 05:18 WBC 3.9 RBC 2.34 L Hgb 8.7 L Hct 25 L MCV 109 H MCH 37 H MCHC 34 RDW 17 H Plt Count 73 L MPV 8 Neut % (Auto) 59.5 Lymph % (Auto) 24.9 L [place] % (Auto) 10.4 H Eos % (Auto) 3.9 Baso % (Auto) 1.3 Absolute Neuts (auto) 2.3 Absolute Lymphs (auto) 1.0 Absolute Monos (auto) 0.4 Absolute Eos (auto) 0.2 Absolute Basos (auto) 0.1 Absolute Nucleated RBC 0 Nucleated RBC % 0 INR (Anticoag Therapy) Sodium Potassium Chloride Carbon Dioxide Anion Gap BUN Creatinine Est GFR ( Amer) Est GFR (Non-Af Amer) BUN/Creatinine Ratio Glucose Calcium Total Bilirubin AST ALT Alkaline Phosphatase Ammonia 72 H Total Protein Albumin Globulin Albumin/Globulin Ratio Prealbumin Urine Color Yellow Urine Appearance Clear Urine pH 7.0 Ur Specific [place] 1.011 Urine Protein Negative Urine Ketones Negative Urine Blood Negative Urine Nitrate Negative Urine Bilirubin Negative Urine Urobilinogen Positive H Ur Leukocyte Esterase Negative Urine Glucose Negative 05/02/16 05/02/16 05/03/16 05:18 05:18 05:14 WBC RBC Hgb Hct MCV MCH MCHC RDW Plt Count MPV Neut % (Auto) Lymph % (Auto) [place] % (Auto) Eos % (Auto) Baso % (Auto) Absolute Neuts (auto) Absolute Lymphs (auto) Absolute Monos (auto) Absolute Eos (auto) Absolute Basos (auto) Absolute Nucleated RBC Nucleated RBC % INR (Anticoag Therapy) 1.66 H Sodium 136 Potassium 4.0 Chloride 109 Carbon Dioxide 24 Anion Gap 3 BUN 12 Creatinine 0.62 L Est GFR ( Amer) 172.6 Est GFR (Non-Af Amer) 134.2 BUN/Creatinine Ratio 19.4 Glucose 80 Calcium 8.8 Total Bilirubin 4.60 H AST 36 ALT 21 Alkaline Phosphatase 75 Ammonia 109 H Total Protein 5.3 L Albumin 2.0 L Globulin 3.3 Albumin/Globulin Ratio 0.6 L Prealbumin < 3 L Urine Color Urine Appearance Urine pH Ur Specific [place] Urine Protein Urine Ketones Urine Blood Urine Nitrate Urine Bilirubin Urine Urobilinogen Ur Leukocyte Esterase Urine Glucose 05/04/16 05/04/16 05:23 05:23 WBC RBC Hgb Hct MCV MCH MCHC RDW Plt Count MPV Neut % (Auto) Lymph % (Auto) [place] % (Auto) Eos % (Auto) Baso % (Auto) Absolute Neuts (auto) Absolute Lymphs (auto) Absolute Monos (auto) Absolute Eos (auto) Absolute Basos (auto) Absolute Nucleated RBC Nucleated RBC % INR (Anticoag Therapy) Sodium 131 L Potassium 4.3 Chloride 104 Carbon Dioxide 26 Anion Gap 1 L BUN 9 Creatinine 0.56 L Est GFR ( Amer) 194.1 Est GFR (Non-Af Amer) 150.9 BUN/Creatinine Ratio 16.1 Glucose 100 Calcium 8.3 L Total Bilirubin AST ALT Alkaline Phosphatase Ammonia 134 H Total Protein Albumin Globulin Albumin/Globulin Ratio Prealbumin Urine Color Urine Appearance Urine pH Ur Specific [place] Urine Protein Urine Ketones Urine Blood Urine Nitrate Urine Bilirubin Urine Urobilinogen Ur Leukocyte Esterase Urine Glucose Exam Appearance: Other - Bedriden, but not any acute distress; Hygiene: Normal Grooming: Well Kept Psychomotor Activities: Normal Exhibits Abnormal Movement: No Attitude and Relatedness: Cooperative Eye Contact: Good - Speech Quality: Unpressured Latencies: Normal Quantity: Appropriate Patient's Decription of Mood: "Okay" Observed Affect: Non-labile Patient's Thought Process: Coherent, Goal Directed Thought Content: No Passive Wish, No Suicidal Planning, No Homicidal Ideation, No Paranoid Ideation Experiencing Hallucinations: No, Sensorium is Clear Level of Consciousness: Alert Orientation: Yes Intact Impulse Control: Intact Insight and Judgement: Fair - The patient scores 24/30 on the MMSE, losing points for attention, delayed recall and following commands. Impression - Impression Clinical Impression: 55-year-old man seen in consultation to determine his capacity to make informed medical decisions, given history of signing himself out of a nursing facility after last discharge from this hospital and returning home where he was unable to independently care for himself. During our interview: he was alert, oriented in all spheres, explained in great details that he has liver disease and hepatic encephalopathy and other complications. He avidly denied being suicidal , reported wanting to get well and having a lot to live for. He denied being opposed to placement in a SNF at the time of our interview. I find him capable of making informed medical decisions. He impresses as a previously high functioning individual who is struggling with perceived loss of independence. Suicide Risk Assessment: Static Risk Factors: male, , Dynamic Risk Factors: worsening health issues, threats of losing his independence, shame/guilt. Protective Factors: making future plans, verbalizes hope, responsibility to family, embedded in supportive network, fear of unknown. Suicide Risk: Low at this time 60 min of clinical time spent on this consult. Thank you for the opportunity. Inpatient DSM-IV Dx: Alcohol deprendence in sustained remission; Merits Inpatient Hospitalization: No Plan - Treatment Plan Treatment Plan: As per Hospitalist Service. Medications: Current Medications Folic Acid (Folvite Tab*) 1 mg PO DAILY [facility] Last Admin: 05/05/16 08:54 Dose: 1 mg Lactulose (Lactulose*) 45 ml PO TID [facility] Last Admin: 05/05/16 14:41 Dose: 45 ml Multivitamins/Minerals (Theragran/Minerals Tab*) 1 tab PO DAILY [facility] Last Admin: 05/05/16 08:54 Dose: 1 tab Omeprazole (Prilosec Cap*) 40 mg PO DAILY@0730 [facility] Last Admin: 05/05/16 08:54 Dose: 40 mg Rifaximin (Xifaxan*) 550 mg PO BID [facility] Last Admin: 05/05/16 08:54 Dose: 550 mg Silver Sulfadiazine (Silvadine 1%*) 1 applic TOPICAL BID [facility] Last Admin: 05/05/16 08:56 Dose: Not Given Spironolactone (Aldactone Tab*) 100 mg PO DAILY [facility] Last Admin: 05/05/16 08:54 Dose: 100 mg Thiamine HCl (Vitamin B-1 Tab*) 100 mg PO DAILY [facility] Last Admin: 05/05/16 08:54 Dose: 100 mg
--- NOTE | 2016-05-06 08:41 | PN ---
Subjective Date of Service: 05/06/16 Interval History: No new c/o. Pt states he had 4 BM's yesterday. Pt states he had no idea how he got sick at home. He stopped his lactulose for 1 day when he watched a basketball game with some friends, but that was about a week before he was admitted. Family History: Unchanged from Admission Social History: Unchanged from Admission Past Medical History: Unchanged from Admission Objective Active Medications: Folic Acid (Folvite Tab*) 1 mg PO DAILY [facility] Last Admin: 05/05/16 08:54 Dose: 1 mg Lactulose (Lactulose*) 45 ml PO TID [facility] Last Admin: 05/05/16 20:27 Dose: 45 ml Multivitamins/Minerals (Theragran/Minerals Tab*) 1 tab PO DAILY [facility] Last Admin: 05/05/16 08:54 Dose: 1 tab Omeprazole (Prilosec Cap*) 40 mg PO DAILY@0730 [facility] Last Admin: 05/05/16 08:54 Dose: 40 mg Rifaximin (Xifaxan*) 550 mg PO BID [facility] Last Admin: 05/05/16 20:27 Dose: 550 mg Silver Sulfadiazine (Silvadine 1%*) 1 applic TOPICAL BID [facility] Last Admin: 05/05/16 23:16 Dose: 1 applic Spironolactone (Aldactone Tab*) 100 mg PO DAILY [facility] Last Admin: 05/05/16 08:54 Dose: 100 mg Thiamine HCl (Vitamin B-1 Tab*) 100 mg PO DAILY [facility] Last Admin: 05/05/16 08:54 Dose: 100 mg Vital Signs 05/05/16 05/05/16 05/05/16 15:36 20:00 23:30 Temperature 97.5 F 97.6 F Pulse Rate 88 84 Respiratory 20 18 18 Rate Blood Pressure 122/56 104/55 (mmHg) O2 Sat by Pulse 97 99 Oximetry Oxygen Devices in Use Now: None Appearance: Alert, in a chair. In good spirits. Looks comfortable. Eyes: - - mild icterus Neck: NL Appearance and Movements; NL JVP, No Thyroid Enlargement, Masses Respiratory: Symmetrical Chest Expansion and Respiratory Effort, Clear to Auscultation, Clear to Percussion Extremities: No Edema, No Clubbing, Cyanosis, - Skin: No Rash or Ulcers, No Nodules or Sclerosis, - Neurological: Alert and Oriented x 3, NL Sensation Result Diagrams: 05/02/16 05:18 05/04/16 05:23 Additional Lab and Data: Lab Results 05/01/16 Range/Units 12:41 WBC 3.4 L (3.5-10.8) 10^3/ul RBC 2.74 L (4.0-5.4) 10^6/ul Hgb 10.2 L (14.0-18.0) g/dl Hct 30 L (42-52) % MCV 111 H (80-94) fL MCH 37 H (27-31) pg MCHC 34 (31-36) g/dl RDW 19 H (10.5-15) % Plt Count 74 L (150-450) 10^3/ul MPV 9 (7.4-10.4) um3 Neut % (Auto) 64.1 (38-83) % Lymph % (Auto) 21.8 L (25-47) % [place] % (Auto) 10.2 H (1-9) % Eos % (Auto) 2.8 (0-6) % Baso % (Auto) 1.1 (0-2) % Absolute Neuts (auto) 2.2 (1.5-7.7) 10^3/ul Absolute Lymphs (auto) 0.7 L (1.0-4.8) 10^3/ul Absolute Monos (auto) 0.3 (0-0.8) 10^3/ul Absolute Eos (auto) 0.1 (0-0.6) 10^3/ul Absolute Basos (auto) 0 (0-0.2) 10^3/ul Absolute Nucleated RBC 0 10^3/ul Nucleated RBC % 0.1 Assess/Plan/Problems-Billing Assessment: Mr. Quevedo is a 55yo M with PMH of hemochromatosis, prior h/o alcohol abuse, liver cirrhosis, prolonged admission to [facility] in January with Serratia infection (pleural/ascites), s/p TIPS, hepatic encephalopathy, who presents with another episode of hepatic encephalopathy. - Patient Problems (1) Hepatic encephalopathy Current Visit: Yes Status: Chronic Code(s): K72.90 - HEPATIC FAILURE, UNSPECIFIED WITHOUT COMA SNOMED Code(s): 11957820 Comment: - Probably secondary to non-compliance. - No signs of infection or GI bleed at this time. - Continue lactulose and rifaximin. Low protein diet He is probably somewhat impaired due to his hyperammonemia. I had a lengthy discussion with him about why his present living arrangement is unsafe for him. I think he understands my arguments but still wants to go home. (2) Stage II decubitus ulcer Current Visit: Yes Status: Acute Code(s): L89.92 - PRESSURE ULCER OF UNSPECIFIED SITE, STAGE 2 SNOMED Code(s): 303544638 Comment: - Present on admission. - Wound care consult appreciated. Nurse will remove mepilex and examine wound 05/06. (3) Pancytopenia Current Visit: Yes Status: Chronic Code(s): D61.818 - OTHER PANCYTOPENIA SNOMED Code(s): 588745016 Comment: - Secondary to cirrhosis/portal HTN. - Stable. (4) Severe protein-calorie malnutrition Current Visit: Yes Status: Acute Code(s): E43 - UNSPECIFIED SEVERE PROTEIN- CALORIE MALNUTRITION SNOMED Code(s): 732614630 Comment: - Weight was 230lbs in November, down to 170lbsin March and now up to 196lbs, but this is due to fluid (ascites and LE edema present at this time) . - Prealbumin is still <3. His liver likely has very impaired protein synthesis , as indicated by high INR. - Will follow dietary recommendations. (5) Hyponatremia Current Visit: No Status: Acute Code(s): E87.1 - HYPO-OSMOLALITY AND HYPONATREMIA SNOMED Code(s): 42767792 Comment: BMP 05/07/16. (6) Anemia Current Visit: No Status: Acute Code(s): D64.9 - ANEMIA, UNSPECIFIED SNOMED Code(s): 904680403 Comment: CBC 05/07/16. Status and Disposition: Inpatient.
[2016-05-06] MEDS: Folic Acid TAB* 1 MG PO SCH (09:40)
[2016-05-06] MEDS: Omeprazole CAP* 20 MG PO SCH (09:40)
[2016-05-06] MEDS: RiFAXimin* 550 MG TAB PO SCH (09:40)
[2016-05-06] MEDS: Spironolactone TAB* 25 MG PO SCH (09:40)
[2016-05-06] MEDS: Multivitamins/Minerals TAB PO SCH (09:40)
[2016-05-06] MEDS: Thiamine TAB* 100 MG TAB PO SCH (09:40)
[2016-05-06] MEDS: Silver Sulfadiazine 1%* 20 GM TOPICAL SCH (09:45)
[2016-05-06 09:56] VITALS: BP 100/46
--- NOTE | 2016-05-06 10:08 | PN ---
Progress Note - Progress Note Note: Time spent on discharge 50 minutes.
--- NOTE | 2016-05-06 13:36 | DS ---
CC: Dr. Alvarez; Dr. Contreras DISCHARGE SUMMARY: DATE OF ADMISSION: DATE OF DISCHARGE: 05/06/16 HISTORY: The patient was admitted with altered mental status due to hepatic encephalopathy. I note that it is his 6th admission in 6 months for essentially the same problem. After his last discharge, he was transferred directly to [facility]. After 1 hour there, he signed out against medical advice. He was not well and sister thinks he had not taken his lactulose over the weekend, as he was expecting visitors to watch a sports game on TV. The patient says to me, he did not take his lactulose for entire day. I suspect that it may have been more than that. The patient's presentation was similar to previous times. He was restarted on his exact regimen of lactulose and rifaximin. His ammonia level on admission was 101, it tended to fluctuate. It has not been in the normal range other than once being 53 since November of last year. He was seen by the psychiatrist, who felt that he was mentating normally and had capacity to make medical judgments. I agree that the patient seemed mentally clear. He did have mild asterixis, but appeared to be thinking and reasoning normally. I explained to him that it seemed likely that by not taking his medications properly at home, he was getting sick. He was little surprised to hear that he had been admitted 6 times in 6 months. I encouraged him to make a change in his home living situation, but he was not interested in doing so. There may be financial barriers to this as well. I spoke to his sister who will come to take him home and try to make sure that he complies with his medications. The patient was found to have a stage II buttock ulcer, Mepilex was placed on it , and it seemed to be healing. The visiting nurse can follow up with this on Saturday. He also has an appointment to see Dr. Contreras this coming week. FINAL DIAGNOSES: 1. Hepatic encephalopathy. 2. Stage II decubitus ulcer. 3. Pancytopenia due to cirrhosis. 4. Severe protein-calorie malnutrition. 5. Hyponatremia. 6. Anemia. DISCHARGE MEDICATIONS: 1. Furosemide 40 mg daily. 2. Omeprazole 40 mg daily. 3. Rifaximin 550 mg b.i.d. 4. Multivitamin with mineral 1 tablet daily. 5. Spironolactone 100 mg daily. 6. Silvadene to affected area b.i.d. 7. Thiamine 100 mg daily. 8. Lactulose 45 mL t.i.d. 9. Folic acid 1 mg daily. 10. Acetaminophen 650 mg every 6 hours. [id number]/[facility] #: [id number] [facility]
--- NOTE | 2016-05-16 23:46 | ED ---
IWarren,Nahomy, scribed for Silver Barcenas MD on 05/01/16 at 1317 . Altered Mental Status - HPI Summary HPI Summary: LEVEL 5 CAVEAT secondary to AMS. This 55 y/o male presents to ED via ambulance for AMS. Pt was found by his sister this morning in bed, unable to ambulate out. He appears extremely disoriented at time of initial evaluation, unable to follow any commands and only answering "yes" to all questions. Pt was last seen normal yesterday evening after his appointment at hospital's transplant clinic. PMHx is significant for hemachromatosis, alcoholic cirrhosis, and PUD. He is currently being considered for liver transplant, but he is not on the list as of yet. Sister reports noncompliance to diet. Pt is currently on lactulose and spironolactone, but sister suspects that he has been inconsistently taking it. - History Of Current Complaint Chief Complaint: EDAltMentalStatus Stated Complaint: AMS Hx Obtained From: Family/Blood Splatter Analyst - sister present at bedside, Medical Records Hx From Patient Unobtainable Due To: Altered Mental Status Onset/Duration: Unknown Timing: Constant, Lasting Hours Severity Initially: Moderate Severity Currently: Moderate - Allergies/Home Medications Allergies/Adverse Reactions: Allergies Allergy/AdvReac Type Severity Reaction Status Date / Time Acetaminophen [From Tylenol] Allergy AVOIDS Verified 04/25/16 15:56 NSAIDs Allergy AVOIDS Verified 04/25/16 15:56 Home Medications: Home Medications Acetaminophen TAB* [Tylenol TAB*] 650 mg PO Q6H PRN 05/01/16 [History Confirmed 05/01/16] PMH/Surg Hx/FS Hx/Imm Hx Endocrine/Hematology History: Reports: Hx Anemia, Other Endocrine/Hematological Disorders - Hemachromatosis Denies: Hx Anticoagulant Therapy, Hx Blood Transfusions, Hx Diabetes, Hx Systemic Lupus Erythematosus, Hx Thyroid Disease Cardiovascular History: Reports: Hx Hypertension Denies: Hx Aneurysm, Hx Angina, Hx Angioplasty, Hx Auto Implanted Cardiovert Defib, Hx Congestive Heart Failure, Hx Pacemaker/ICD Respiratory History: Denies: Hx Asthma, Hx Chronic Obstructive Pulmonary Disease (COPD) GI History: Reports: Hx Cirrhosis, Hx Gastrointestinal Bleed, Hx Jaundice, Hx Ulcer, Other GI Disorders - esophagitis, ANEMIC, esoophageal varices, hemochromatosis Denies: Hx Gastroesophageal Reflux Disease Comment Only: Hx Diverticulosis - family history of History: Denies: Hx Dialysis, Hx Renal Disease Musculoskeletal History: Reports: Other Musculoskeletal History - right hip, knees have discomfort/pain at times Denies: Hx Rheumatoid Arthritis Sensory History: Reports: Hx Contacts or Glasses Denies: Hx Hearing Aid Opthamlomology History: Reports: Hx Contacts or Glasses Neurological History: Reports: Hx Seizures, Other Neuro Impairments/Disorders - Affected by chronic high ammonia levels Denies: Hx Dementia Psychiatric History: Reports: Hx Anxiety, Hx Depression, Hx Substance Abuse Denies: Hx Panic Disorder - Cancer History Cancer Type, Location and Year: hemochromotosis- high iron levels Hx Chemotherapy: No - Surgical History Surgery Procedure, Year, and Place: LEFT HAND RING FINGER TENDON [facility] Anesthesia Reactions: No - Immunization History Date of Tetanus Vaccine: sister states up to date Infectious Disease History: Unable to Obtain/Confirm Infectious Disease History: Denies: Hx Hepatitis, Hx Human Immunodeficiency Virus (HIV), Traveled Outside the [place] in Last 30 Days - UNABLE TO CONFIRM AMS - Family History Known Family History: Positive: Other - Father 65 with liver CA. - Social History Alcohol Use: UNKNOWN; PATIENT UNRESPONSIVE Alcohol Amount: former Hx Substance Use: No Substance Use Type: Reports: None Smoking Status (MU): Unknown if Ever Smoked - LEVEL 5 CAVEAT secondary to AMS Review of Systems - ROS Summary Review of Systems Summary: LEVEL 5 CAVEAT secondary to AMS. Negative: Fever Positive: Other - AMS All Other Systems Reviewed And Are Negative: No Physical Exam - Summary Physical Exam Summary: Constitutional: Well-developed, Well-nourished, Alert. (-) Distressed Skin: Warm, Dry, Scleroderma noted HENT: Eyes: Conjunctiva normal Neck: Musculoskeletal ROM normal neck. (-) JVD, (-) Stridor, (-) Tracheal deviation Cardio: Rhythm regular, rate normal, Heart sounds normal; Intact distal pulses; The pedal pulses are 2+ and symmetric. Radial pulses are 2+ and symmetric. (-) Murmur Pulmonary/Chest wall: Effort normal. (-) Respiratory distress, (-) Wheezes, (-) Rales Abd: Soft. (-) Tenderness, (+) Distension, (-) Guarding, (-) Rebound Musculoskeletal: (-) Edema Lymph: (-) Cervical adenopathy Neuro: Alert, Extremely disoriented, unable to follow any commands or answer any questions, (-) Sensory deficit, Psych: Mood and affect Normal Triage Information Reviewed: Yes Vital Signs On Initial Exam: Initial Vitals Temp Pulse Resp BP Pulse Ox 98.1 F 68 12 111/67 100 05/01/16 12:48 05/01/16 12:48 05/01/16 12:48 05/01/16 12:48 05/01/16 12:48 Vital Signs Reviewed: Yes - Anny Coma Scale Coma Scale Total: 12 Diagnostics - Vital Signs Vital Signs Temp Pulse Resp BP Pulse Ox 05/01/16 12:48 98.1 F 68 12 111/ 100 - Laboratory Lab Results: Lab Results 05/01/16 Range/Units 12:41 WBC 3.4 L (3.5-10.8) 10^3/ul RBC 2.74 L (4.0-5.4) 10^6/ul Hgb 10.2 L (14.0-18.0) g/dl Hct 30 L (42-52) % MCV 111 H (80-94) fL MCH 37 H (27-31) pg MCHC 34 (31-36) g/dl RDW 19 H (10.5-15) % Plt Count 74 L (150-450) 10^3/ul MPV 9 (7.4-10.4) um3 Neut % (Auto) 64.1 (38-83) % Lymph % (Auto) 21.8 L (25-47) % [place] % (Auto) 10.2 H (1-9) % Eos % (Auto) 2.8 (0-6) % Baso % (Auto) 1.1 (0-2) % Absolute Neuts (auto) 2.2 (1.5-7.7) 10^3/ul Absolute Lymphs (auto) 0.7 L (1.0-4.8) 10^3/ul Absolute Monos (auto) 0.3 (0-0.8) 10^3/ul Absolute Eos (auto) 0.1 (0-0.6) 10^3/ul Absolute Basos (auto) 0 (0-0.2) 10^3/ul Absolute Nucleated RBC 0 10^3/ul Nucleated RBC % 0.1 Result Diagrams: 05/01/16 12:41 05/01/16 12:41 Lab Statement: Any lab studies that have been ordered have been reviewed, and results considered in the medical decision making process. - Radiology CXR Xray Interpretation: No Acute Changes - MODERATE SIZE LEFT PLEURAL EFFUSION, UNCHANGED. Radiology Interpretation Completed By: Radiologist - CT Brain CT Interpretation: No Acute Changes - Limited evaluation due to motion artifact with no definite hemorrhage is identified in the visualized portions of the brain. CT Interpretation Completed By: Radiologist - EKG 1220 Cardiac Rate: NL - 68 bpm EKG Rhythm: Sinus Rhythm Altered Mental Statu Course/Dx - Course Assessment/Plan: This 55 y/o male presents to ED with moderate to severe altered mental status. Pt is unable to follow commands or answer any questions, and most of collateral is obtained from his sister, who is pt's healthcare proxy. Sister reports considerable noncompliance to diet and his medications, lactulose and spironolactone. Pt is currently being considered for liver transplant, but is not on the list. CXR indicates moderate right sided pleural effusion. CT Brain is limited by motion artifact but indicates negative. Sister states that pt is unable to care for himself. Physical exam findings and bloodwork/imaging findings are discussed with Dr. Hwang, who accepts admission of the pt. - Diagnoses Discharge Diagnoses: Hepatic encephalopathy, medicine noncompliance - Provider Notifications Discussed Care Of Patient With: Dr. Hwang (Hospitalist) at 1515 PM Time Discussed With Above Provider: 15:15 Instructed by Provider To: Admit As Inpatient Discharge - Discharge Plan Condition: Stable Disposition: ADMITTED TO [facility] Referrals: Deya Alvarez MD [Primary Care Provider] - The documentation as recorded by the Warren chahal Soohyun accurately reflects the service I personally performed and the decisions made by , Silver Barcenas MD.
== END 2016-05-06 14:00 | disposition home health service (06) | DRG 441 ==
LOC: ED 12:32 → MED 15:43
PROVIDERS: ADMIT Internal Medicine; ATTEND Internal Medicine
DX: K72.90 Hepatic failure, unspecified without coma (principal); E43 Unspecified severe protein-calorie malnutrition; L89.302 Pressure ulcer of unspecified buttock, stage 2; D61.818 Other pancytopenia; R18.8 Other ascites; E87.1 Hypo-osmolality and hyponatremia; F10.21 Alcohol dependence, in remission; K74.60 Unspecified cirrhosis of liver; Z68.28 Body mass index [BMI] 28.0-28.9, adult; Z91.14 Patient's other noncompliance with medication regimen; Z79.1 Long term (current) use of non-steroidal anti-inflammatories (NSAID); Z79.899 Other long term (current) drug therapy; Z88.6 Allergy status to analgesic agent; Z80.0 Family history of malignant neoplasm of digestive organs; Z80.52 Family history of malignant neoplasm of bladder
CPT/HCPCS: 36415; 70450; 71010; 80048; 80053; 80320; 81003; 82140; 83605; 84134; 84484; 85025; 85610; 87040; 93005; A9270-GY; G0480

== ENCOUNTER 2016-05-21 10:19 | Inpatient (IN) | payer MEDICARE, BC ==
[2016-05-21 11:02] LABS: Hematocrit 29 % (42-52); Hemoglobin 9.9 g/dl (14.0-18.0); Mean Corpuscular HGB Conc 34 g/dl (31-36); Mean Corpuscular Hemoglobin 36 pg (27-31); Mean Platelet Volume 8 um3 (7.4-10.4); Red Blood Count 2.73 10^6/ul (4.0-5.4); Red Cell Distribution Width 17 % (10.5-15); White Blood Count 4.2 10^3/ul (3.5-10.8)
[2016-05-21 11:03] LABS: Comments Flag Yes
[2016-05-21 11:04] LABS: Mean Corpuscular Volume 108 fL (80-94)
[2016-05-21 11:17] LABS: ALT 29 U/L (7-52); AST 50 U/L (13-39); Albumin 2.5 g/dL (3.2-5.2); Alkaline Phosphatase 113 U/L (34-104); Anion Gap 3 mmol/L (2-11); BUN/Creatinine Ratio 23.3 (8-20); Blood Urea Nitrogen 17 mg/dL (6-24); CO2 Carbon Dioxide 28 mmol/L (22-32); Calcium 9.3 mg/dL (8.6-10.3); Chloride 103 mmol/L (101-111); Creatine Kinase 108 U/L (10-223); EGFR African American 142.9 (>60); EGFR Non-African American 111.1 (>60); Globulin 4.1 g/dL (2-4); Glucose 95 mg/dL (70-100); Potassium 4.6 mmol/L (3.5-5.0); Sodium 134 mmol/L (133-145); Total Protein 6.6 g/dL (6.4-8.9)
[2016-05-21 11:18] LABS: Troponin I 0.01 ng/mL (<0.04)
--- NOTE | 2016-05-21 11:36 | RAD ---
Indication: Hepatic encephalopathy. CT of the brain was performed without IV contrast. Comparison is made with previous exam dated May 01, 2016. Ventricular structures are midline. No midline shift is noted. Central and cortical atrophy is noted. Calcification is noted in the right basal ganglia. There is no evidence of intracranial mass or hemorrhage. The study is somewhat limited due to motion artifact. IMPRESSION: No definite intracranial mass or hemorrhage is noted.
[2016-05-21 11:43] LABS: Alcohol < 10 mg/dL (<10)
--- NOTE | 2016-05-21 12:59 | ED ---
Yung Benites Adam, scribed for Amos Nugent MD on 05/21/16 at 1119 . Altered Mental Status - HPI Summary HPI Summary: Pt is a 55 year old male with hepatic encephalopathy presenting with AMS. The pt is confused and the Hx was obtained from his sister. She states that his ammonia levels were high last week so Dr. Alvarez increased his lactulose dosage. His levels continued to fluctuate, though, and when his sister checked on him today she could tell that he had not taken his medication since at least 14:00 yesterday. She also reports finding feces all over the bed, floor, and bathroom. Pt's sister also states that the pt fell sometime recently and sustained wounds to his head, right forearm, and buttocks. The pt is confused but answers basic questions. He states that the fall occurred yesterday and he did hit his head. He states that he currently feels good, has a normal appetite , and has been taking his meds. He reports positive leg edema but states that he is able to walk. He lives alone and has to use stairs there. Negative tobacco use. - History Of Current Complaint Chief Complaint: EDAltMentalStatus Stated Complaint: AMS, FALL YESTERDAY Time Seen by Provider: 05/21/16 11:05 Hx Obtained From: Family/Brim Edge Trimmer Hx From Patient Unobtainable Due To: Altered Mental Status - Level 5 Caveat Onset/Duration: Still Present Timing: Constant, Lasting Days Severity Initially: Moderate Severity Currently: Moderate Character: Confusion Aggravating Factor(s): Medication Change - Noncompliant Alleviating Factor(s): Medication Associated Signs And Symptoms: Positive: Recent Trauma - Fall Related History: Similar Episode/Diagnosed As: - Multiple recent visits with similar presentation related to to hepatic encephalopathy - Allergies/Home Medications Allergies/Adverse Reactions: Allergies Allergy/AdvReac Type Severity Reaction Status Date / Time Acetaminophen [From Tylenol] Allergy AVOIDS Verified 04/25/16 15:56 NSAIDs Allergy AVOIDS Verified 04/25/16 15:56 Home Medications: Home Medications Furosemide TAB* [Lasix TAB*] 45 mg PO Q6HR 05/21/16 [History Confirmed 05/21/16] Lactulose* 40 ml PO TID 05/21/16 [History Confirmed 05/21/16] PMH/Surg Hx/FS Hx/Imm Hx Endocrine/Hematology History: Reports: Hx Anemia, Other Endocrine/Hematological Disorders - Hemachromatosis Denies: Hx Anticoagulant Therapy, Hx Blood Transfusions, Hx Diabetes, Hx Systemic Lupus Erythematosus, Hx Thyroid Disease Cardiovascular History: Reports: Hx Hypertension Denies: Hx Aneurysm, Hx Angina, Hx Angioplasty, Hx Auto Implanted Cardiovert Defib, Hx Congestive Heart Failure, Hx Pacemaker/ICD Respiratory History: Denies: Hx Asthma, Hx Chronic Obstructive Pulmonary Disease (COPD) GI History: Reports: Hx Cirrhosis, Hx Gastrointestinal Bleed, Hx Jaundice, Hx Ulcer, Other GI Disorders - esophagitis, ANEMIC, esoophageal varices, hemochromatosis Denies: Hx Gastroesophageal Reflux Disease Comment Only: Hx Diverticulosis - family history of History: Denies: Hx Dialysis, Hx Renal Disease Musculoskeletal History: Reports: Other Musculoskeletal History - right hip, knees have discomfort/pain at times Denies: Hx Rheumatoid Arthritis Sensory History: Reports: Hx Contacts or Glasses Denies: Hx Hearing Aid Opthamlomology History: Reports: Hx Contacts or Glasses Neurological History: Reports: Hx Seizures, Other Neuro Impairments/Disorders - Affected by chronic high ammonia levels Denies: Hx Dementia Psychiatric History: Reports: Hx Anxiety, Hx Depression, Hx Substance Abuse Denies: Hx Panic Disorder - Cancer History Cancer Type, Location and Year: hemochromotosis- high iron levels Hx Chemotherapy: No - Surgical History Surgery Procedure, Year, and Place[facility] Anesthesia Reactions: No - Immunization History Date of Tetanus Vaccine: sister states up to date Infectious Disease History: No Infectious Disease History: Denies: Hx Hepatitis, Hx Human Immunodeficiency Virus (HIV), Traveled Outside the [place] in Last 30 Days - Family History Known Family History: Positive: Other - Father 65 with liver CA. Diverticulosis. - Social History Occupation: Employed Part-time - Self-employed Lives: Alone Alcohol Amount: Unable to obtain - level 5 caveat Hx Substance Use: No Substance Use Type: Reports: None Hx Tobacco Use: No Smoking Status (MU): Never Smoked Tobacco Review of Systems - ROS Summary Review of Systems Summary: Level 5 Caveat due to AMS Positive: Edema Neurological: Other - Confusion All Other Systems Reviewed And Are Negative: No Physical Exam - Summary Physical Exam Summary: The patient is well-nourished in no acute distress and in no acute pain. The skin is warm and dry and skin color reflects adequate perfusion. HEENT: Conjunctivae jaundiced. Oral mucosa dry. Neck vein distension. Respiratory: Chest is non-tender. Lungs are clear to auscultation and breath sounds are symmetrical and equal. Cardiovascular: Heart is regular rate and rhythm. There is no murmur or rub auscultated. Abdomen: Ascites. Musculoskeletal: Pitting edema in BLE. 3 second capillary refill. Sacral decubitus on left buttocks, almost superficial, pink, good granulation. Small superficial laceration to the left forehead. Skin tags on right arm. Neurological: Patient is confused. Psychiatric: The patient has an appropriate affect and does not exhibit any anxiety or depression. Triage Information Reviewed: Yes Vital Signs On Initial Exam: Initial Vitals Temp Pulse Resp BP Pulse Ox 98.7 F 75 14 112/63 98 05/21/16 10:21 05/21/16 10:21 05/21/16 10:21 05/21/16 10:21 05/21/16 10:21 Vital Signs Reviewed: Yes Completion Of Physical Exam Limited Due To: Level 5 - AMS - [place] Coma Scale Coma Scale Total: 14 Diagnostics - Vital Signs Vital Signs Temp Pulse Resp BP Pulse Ox 05/21/16 10:21 98.7 F 75 14 112/63 98 - Laboratory Lab Results: Lab Results 05/21/16 05/21/16 05/21/16 Range/Units 10:48 10:48 10:48 WBC 4.2 (3.5-10.8) 10^3/ul RBC 2.73 L (4.0-5.4) 10^6/ul Hgb 9.9 L (14.0-18.0) g/dl Hct 29 L (42-52) % MCV 108 H (80-94) fL MCH 36 H (27-31) pg MCHC 34 (31-36) g/dl RDW 17 H (10.5-15) % Plt Count 80 L (150-450) 10^3/ul MPV 8 (7.4-10.4) um3 Neut % (Auto) 66.2 (38-83) % Lymph % (Auto) 18.2 L (25-47) % Cochran % (Auto) 11.9 H (1-9) % Eos % (Auto) 2.6 (0-6) % Baso % (Auto) 1.1 (0-2) % Absolute Neuts (auto) 2.8 (1.5-7.7) 10^3/ul Absolute Lymphs (auto) 0.8 L (1.0-4.8) 10^3/ul Absolute Monos (auto) 0.5 (0-0.8) 10^3/ul Absolute Eos (auto) 0.1 (0-0.6) 10^3/ul Absolute Basos (auto) 0 (0-0.2) 10^3/ul Absolute Nucleated RBC 0.01 10^3/ul Nucleated RBC % 0.2 INR (Anticoag Therapy) (0.89-1.11) Sodium 134 (133-145) mmol/L Potassium 4.6 (3.5-5.0) mmol/L Chloride 103 (101-111) mmol/L Carbon Dioxide 28 (22-32) mmol/L Anion Gap 3 (2-11) mmol/L BUN 17 (6-24) mg/dL Creatinine 0.73 (0.67-1.17) mg/dL Est GFR ( Amer) 142.9 (>60) Est GFR (Non-Af Amer) 111.1 (>60) BUN/Creatinine Ratio 23.3 H (8-20) Glucose 95 (70-100) mg/dL Lactic Acid 1.4 (0.5-2.0) mmol/L Calcium 9.3 (8.6-10.3) mg/dL Total Bilirubin 3.10 H (0.2-1.0) mg/dL AST 50 H (13-39) U/L ALT 29 (7-52) U/L Alkaline Phosphatase 113 H (34-104) U/L Ammonia (16-53) mol/L Total Creatine Kinase 108 (10-223) U/L Troponin I Pending Total Protein 6.6 (6.4-8.9) g/dL Albumin 2.5 L (3.2-5.2) g/dL Globulin 4.1 H (2-4) g/dL Albumin/Globulin Ratio 0.6 L (1-3) Serum Alcohol Pending 05/21/16 05/21/16 Range/Units 10:48 10:48 WBC (3.5-10.8) 10^3/ul RBC (4.0-5.4) 10^6/ul Hgb (14.0-18.0) g/dl Hct (42-52) % MCV (80-94) fL MCH (27-31) pg MCHC (31-36) g/dl RDW (10.5-15) % Plt Count (150-450) 10^3/ul MPV (7.4-10.4) um3 Neut % (Auto) (38-83) % Lymph % (Auto) (25-47) % Cochran % (Auto) (1-9) % Eos % (Auto) (0-6) % Baso % (Auto) (0-2) % Absolute Neuts (auto) (1.5-7.7) 10^3/ul Absolute Lymphs (auto) (1.0-4.8) 10^3/ul Absolute Monos (auto) (0-0.8) 10^3/ul Absolute Eos (auto) (0-0.6) 10^3/ul Absolute Basos (auto) (0-0.2) 10^3/ul Absolute Nucleated RBC 10^3/ul Nucleated RBC % INR (Anticoag Therapy) 1.38 H (0.89-1.11) Sodium (133-145) mmol/L Potassium (3.5-5.0) mmol/L Chloride (101-111) mmol/L Carbon Dioxide (22-32) mmol/L Anion Gap (2-11) mmol/L BUN (6-24) mg/dL Creatinine (0.67-1.17) mg/dL Est GFR ( Amer) (>60) Est GFR (Non-Af Amer) (>60) BUN/Creatinine Ratio (8-20) Glucose (70-100) mg/dL Lactic Acid (0.5-2.0) mmol/L Calcium (8.6-10.3) mg/dL Total Bilirubin (0.2-1.0) mg/dL AST (13-39) U/L ALT (7-52) U/L Alkaline Phosphatase (34-104) U/L Ammonia 207 H (16-53) mol/L Total Creatine Kinase (10-223) U/L Troponin I Total Protein (6.4-8.9) g/dL Albumin (3.2-5.2) g/dL Globulin (2-4) g/dL Albumin/Globulin Ratio (1-3) Serum Alcohol Result Diagrams: 05/21/16 10:48 05/21/16 10:48 Lab Statement: Any lab studies that have been ordered have been reviewed, and results considered in the medical decision making process. - CT BRAIN CT Interpretation Completed By: Radiologist - IMPRESSION: NO DEFINITE INTRACRANIAL MASS OR HEMORRHAGE IS NOTED. - EKG 10:23 Cardiac Rate: NL - 77 BPM EKG Rhythm: Sinus Rhythm - Normal EKG Interpretation: Normal axis. Poor R wave progression - Additional Comments Diagnostic Additional Comments: Troponin I - 0.01 Ammonia - 207 Altered Mental Statu Course/Dx - Course Course Of Treatment: 11:30 - Hospitalist will admit. - Diagnoses Differential Diagnosis/HQI/PQRI: Hypoglycemia, Intracranial Bleed, Metabolic Disorder, Other - hepatic encephalopathy Discharge Diagnoses: Hepatic encephalopathy Discharge - Discharge Plan Condition: Stable Disposition: ADMITTED TO [facility] Referrals: Deya Alvarez MD [Primary Care Provider] - The documentation as recorded by the Yung chahal Adam accurately reflects the service I personally performed and the decisions made by me, Amos Nugent MD.
[2016-05-21] MEDS ORDERED: NS 0.9% 1000 ML* 1,000 ML IV SCH (13:00)
[2016-05-21 13:27] LABS: Magnesium 1.7 mg/dL (1.9-2.7)
[2016-05-21] MEDS ORDERED: Enoxaparin(*) 40 MG/0.4 ML SYR SUBCUT SCH (14:00)
[2016-05-21] MEDS ORDERED: Magnesium Sulfate 2 GM IV* 2 GM/50 ML BAG IVPB ONE (14:39)
--- NOTE | 2016-05-21 16:59 | HP ---
ADMISSION HISTORY AND PHYSICAL: PRIMARY CARE PROVIDER: Dr. Alvarez. ADMITTING PROVIDER: DHAVAL Shoemaker ATTENDING PHYSICIAN: Lucien Hwang MD * (DICTATED BY DHAVAL SHOEMAKER) CHIEF COMPLAINT: Altered mental status. HISTORY OF PRESENT ILLNESS: This is a 55-year-old gentleman with a history of chronic liver failure secondary to liver cirrhosis, secondary to hemochromatosis , and history of alcohol abuse who is status post TIPS and has had frequent hospital admissions for hepatic encephalopathy. The patient's sister who acts as primary packing and stamping machine operator, found the patient earlier this morning in his own feces and was barely arousable. EMS was called and he was transported to the emergency department. The patient has been admitted 6 times since November with hepatic encephalopathy, mostly due to medication noncompliance. The patient lives at home alone and there has been numerous attempts to place him in a shelter facility, but the patient has refused these attempts and continues to return home, basically failing and returning to the emergency department. The patient is followed chronically by primary care provider, Dr. Alvarez, who did labs last week and according to his sister, his ammonia levels were approximately 160. At that time, his lactulose was increased from 3 times daily to every 6 hours and he was also noted to have increased ascites last week and his spironolactone was increased to 125 mg daily, which does seem to have helped. The patient's sister saw him last yesterday afternoon and he had fallen and hit his head and seemed a bit more confused and lethargic. She gave him some lactulose at that time and laid out his additional doses for the rest of the day. When she returned this morning, it did not appear that he taken any of the additional doses that she had laid out for him. The patient is also followed by a photolettering machine operator at [facility]. He did undergo a TIPS procedure approximately 6 months ago and has been considered for transplant, but his question of medication compliance has been a major hindrance to moving forward with advancing on a list for transplant. The patient 's sister has tried on numerous occasions and have a more detailed discussion with Giovanni about his treatment goals for the future. He is not only noncompliant with medications, but also with diet. But his sister states that he simply ignores her when that conversation is brought up. Apparently similar conversations have been broached with his photolettering machine operator at [facility] and is considered closing his TIPS in order to decrease the frequency and severity of his encephalopathy, but the patient was not agreeable to that. The patient's sister states that there have been no signs of recent acute illness and no complaints of abdominal pain, nausea, or vomiting. He does have frequent soft stools related to his lactulose. She also believes that his abdomen looks slightly less distended after increasing his spironolactone as well. PAST MEDICAL HISTORY: 1. Chronic liver failure secondary to liver cirrhosis, secondary to hemochromatosis with history of alcohol abuse, who is now sober. 2. Frequent hospital admissions for hepatic encephalopathy. PAST SURGICAL HISTORY: TIPS in January 2016. HOME MEDICATIONS: 1. Acetaminophen 325 mg p.o. q.6 hours as needed for pain. 2. Folic acid 1 mg p.o. daily. 3. Furosemide 40 mg p.o. daily. 4. Lactulose 45 mL p.o. q.6 hours. 5. Omeprazole 40 mg p.o. daily. 6. Rifaximin 550 mg p.o. twice daily. 7. Spironolactone 125 mg p.o. daily. 8. Thiamine 100 mg p.o. daily. SOCIAL HISTORY: The patient lives alone. He has a sister, Antonietta Quevedo, who is healthy care proxy and really his primary packing and stamping machine operator who lives locally and one other brother. He have 2 other brothers that live out of town as well. The patient's sister states that he is sober and no history of tobacco abuse. REVIEW OF SYSTEMS: As noted above in HPI and is otherwise negative. PHYSICAL EXAMINATION GENERAL: This is a middle-aged gentleman with a kind of waxing and weaning level of alertness, but is in no acute distress, accompanied by his sister, Antonietta. VITAL SIGNS: Initial vitals - temperature 98.7 degrees Fahrenheit, pulse 75 beats per minute, respiratory rate 14 , oxygen saturation 98% on room air, and blood pressure 112/63 mmHg. HEENT: Head is normocephalic. He does have what looks to be a fairly new injury to the left frontal area with some dry blood surrounding, no significant ecchymosis. No significant hematoma appreciated. The patient states that it is nontender in the area. Mucous membranes are pink and moist, however. NECK: Supple and free of lymphadenopathy. No obvious JVD. RESPIRATORY: Lungs are clear to auscultation without wheezes, crackles, or rhonchi. CARDIOVASCULAR: Heart is regular rate and rhythm without murmurs, rubs, or gallops. ABDOMEN: Soft. No obvious ascites and seems to be nontender to palpation. EXTREMITIES: There is trace lower extremity edema noted bilaterally. NEURO: The patient has positive asterixis. He is intermittently alert, but obviously confused. No focal neurologic deficits, but was unable to complete a full neurologic exam due to patient's level of confusion. SKIN: The patient is mildly jaundiced. LABORATORY EVALUATION: CBC shows a white blood cell count of 4,200; hemoglobin of 9.9 g/dL; and platelet count of 80,000. INR is slightly elevated at 1.38. Comprehensive metabolic panel shows a normal sodium of 134 mmol/L, potassium 4.6 mmol/L, BUN 17, and creatinine 0.73. Lactic acid is normal at 1.4. Magnesium is pending. Total bilirubin at 3.1. AST mildly elevated at 50, ALT normal at 29, and alk phos mildly elevated at 113. Ammonia significantly elevated at 207. Serum alcohol level is negative. DIAGNOSTIC STUDIES/IMAGING: CT of the brain shows no acute process. EKG shows a normal sinus rhythm. ASSESSMENT AND PLAN: This is a 55-year-old gentleman well known to our hospital with frequent admissions for hepatic encephalopathy with a history of chronic liver failure secondary to cirrhosis, secondary to hemochromatosis, and alcohol abuse who returns with altered mental status and significantly elevated ammonia at presentation consistent with hepatic encephalopathy. 1. Hepatic encephalopathy - appears to be related to noncompliance with home medications. The patient's level of alertness requires rectal lactulose. He is able to answer some yes or no questions and does respond to his name at this point. I anticipate, he will likely be able to take his oral medications either later this evening or perhaps tomorrow morning. some light maintenance fluids as I do not anticipate him taking anything orally, today just a total of a liter fluids at 75 mL per hour or resume his typical diuretics and a slow- salt diet tomorrow. 2. Chronic liver failure secondary to cirrhosis, secondary to hemochromatosis, and alcohol abuse: The patient is followed by hepatology at [facility] and he is reportedly sober per his sister. 3. Pancytopenia: Secondary to liver failure. 4. Coagulopathy: Secondary to his liver failure. INR is currently 1.38. No obvious signs of bleeding. 5. He has chronic wounds to his right forearm and buttock. Wound Care has been seeing him at home several times weekly and applying Mepilex dressings to each that will be continued during hospital stay. 6. Palliative consult - the patient has frequent hospital admissions and his goals of care do not seem to be entirely clear. The patient's sister has tried to have this conversations with him as well as some of his other medical providers. It seems like he maybe appropriate for hospital service if he does not desire further intervention for his chronic liver disease. We will request a palliative consult to at least discuss a MOLST form. His sister believes that he would like to be a full code, but does not desire any life sustaining measures such as a feeding tube is that required. Now is not the appropriate time to engage patient in conversation due to his level of confusion. 7. Code status. The patient is full code. 8. Health care proxy: The patient's sister, Antonietta. 9. DVT prophylaxis: He is at modest risk despite his coagulopathy and chronic thrombocytopenia for DVT and will be placed on Lovenox 40 mg subcu daily as his platelets are so greater than 50,000. DISPOSITION: The patient is being admitted to inpatient status. ANTICIPATED LENGTH OF STAY: Greater than 2 days for hepatic encephalopathy. DHAVAL SHOEMAKER CC: Dr. Alvarez* [id number]/[facility] #: [id number] MARCO ANTONIO
[2016-05-21] MEDS ORDERED: Lactulose 300 ML for PR* 10 GM/15 ML BTL PR SCH ×2 (17:00)
[2016-05-21] MEDS: Lactulose* 15 ML UDC PO SCH (18:16)
[2016-05-21] MEDS: RiFAXimin* 550 MG TAB PO SCH (20:43)
[2016-05-22] MEDS: Lactulose* 15 ML UDC PO SCH ×4 (00:42→17:00)
[2016-05-22 03:46] LABS: Urine Bilirubin Negative (Negative); Urine Glucose Negative (Negative); Urine Nitrite Negative (Negative)
[2016-05-22] MEDS ORDERED: NS 0.9% 1000 ML* 1,000 ML IV SCH (05:15)
[2016-05-22 06:05] LABS: Hematocrit 28 % (42-52); Hemoglobin 9.2 g/dl (14.0-18.0); Mean Corpuscular HGB Conc 34 g/dl (31-36); Mean Corpuscular Hemoglobin 36 pg (27-31); Mean Platelet Volume 8 um3 (7.4-10.4); Red Blood Count 2.57 10^6/ul (4.0-5.4); Red Cell Distribution Width 17 % (10.5-15); White Blood Count 3.6 10^3/ul (3.5-10.8)
[2016-05-22 06:09] LABS: Comments Flag Yes
[2016-05-22 06:10] LABS: Mean Corpuscular Volume 107 fL (80-94)
[2016-05-22 06:25] LABS: Albumin 2.1 g/dL (3.2-5.2); BUN/Creatinine Ratio 23.2 (8-20); Calcium 8.9 mg/dL (8.6-10.3); EGFR African American 194.1 (>60); EGFR Non-African American 150.9 (>60); Globulin 3.6 g/dL (2-4); Magnesium 1.7 mg/dL (1.9-2.7); Total Bilirubin 3.2 mg/dL (0.2-1.0); Total Protein 5.7 g/dL (6.4-8.9)
[2016-05-22] MEDS: Spironolactone TAB* 25 MG PO SCH (08:49)
[2016-05-22] MEDS: Folic Acid TAB* 1 MG PO SCH (08:49)
[2016-05-22] MEDS: Thiamine TAB* 100 MG TAB PO SCH (08:50)
[2016-05-22] MEDS: Omeprazole CAP* 20 MG PO SCH (08:50)
[2016-05-22] MEDS: Furosemide TAB* 40 MG PO SCH (08:50)
[2016-05-22] MEDS: RiFAXimin* 550 MG TAB PO SCH ×2 (08:50→21:56)
--- NOTE | 2016-05-22 12:47 | PN ---
Subjective Date of Service: 05/22/16 Interval History: Patient seen this afternoon. He denies any complaints. As per nursing he is more alert than this AM although still very slow to respond. No pain. Can tell me where he is, struggles with other orientation questions. Many blank stares. Family History: Unchanged from Admission Social History: Unchanged from Admission Past Medical History: Unchanged from Admission Objective Active Medications: Enoxaparin Sodium (Lovenox(*)) 40 mg SUBCUT Q24H [facility] Last Admin: 05/21/16 13:30 Dose: 40 mg Folic Acid (Folvite Tab*) 1 mg PO DAILY [facility] Last Admin: 05/22/16 08:49 Dose: 1 mg Furosemide (Lasix Tab*) 40 mg PO DAILY [facility] Last Admin: 05/22/16 08:50 Dose: 40 mg Magnesium Sulfate (Magnesium Sulfate 2 Gm Iv*) 2 gm in 50 mls @ 50 mls/hr IVPB ONCE ONE Stop: 05/22/16 13:59 Lactulose (Lactulose*) 45 ml PO Q6H [facility] Last Admin: 05/22/16 11:59 Dose: 45 ml Omeprazole (Prilosec Cap*) 40 mg PO DAILY [facility] Last Admin: 05/22/16 08:50 Dose: 40 mg Rifaximin (Xifaxan*) 550 mg PO BID [facility] Last Admin: 05/22/16 08:50 Dose: 550 mg Spironolactone (Aldactone Tab*) 125 mg PO DAILY [facility] Last Admin: 05/22/16 08:49 Dose: 125 mg Thiamine HCl (Vitamin B-1 Tab*) 100 mg PO DAILY [facility] Last Admin: 05/22/16 08:50 Dose: 100 mg Vital Signs 05/21/16 05/21/16 05/21/16 13:00 13:30 13:57 Temperature Pulse Rate 69 69 68 Respiratory 11 13 13 Rate Blood Pressure 91/55 85/48 93/51 (mmHg) O2 Sat by Pulse 99 100 98 Oximetry 05/22/16 05/22/16 07:46 09:11 Temperature 97.8 F Pulse Rate 80 Respiratory 16 Rate Blood Pressure 122/60 (mmHg) O2 Sat by Pulse 100 Oximetry Oxygen Devices in Use Now: None Appearance: Middle-aged, M, sitting in chair in NAD Eyes: No Scleral Icterus Ears/Nose/Mouth/Throat: Mucous Membranes Moist Neck: NL Appearance and Movements; NL JVP Respiratory: Symmetrical Chest Expansion and Respiratory Effort, Clear to Auscultation Cardiovascular: NL Sounds; No Murmurs; No JVD, RRR Abdominal: NL Sounds; No Tenderness; No Distention Lymphatic: No Cervical Adenopathy Extremities: No Edema Skin: No Rash or Ulcers Neurological: - - Alert, oriented to self and place only, very slow to respond to questioning Result Diagrams: 05/22/16 05:49 05/22/16 05:49 Additional Lab and Data: Assess/Plan/Problems-Billing Assessment: Hepatic encephalopathy in a 55 yo M with hx of cirrhosis (2/2 EtOH and ?HH) - Patient Problems (1) Hepatic encephalopathy Current Visit: No Comment: - Probably secondary to non-compliance. - No signs of infection or GI bleed at this time. - Continue lactulose and rifaximin. - PC consult placed due to repeated hospitalizations and continued non- compliance (2) Cirrhosis Current Visit: No Comment: - Secondary to hemochromatosis and alcoholism. - Continue Furosemide, Aldactone (3) DVT prophylaxis Current Visit: No Status: Acute Priority: Low Onset Date: 12/05/14 Code( s): IBM3384 - SNOMED Code(s): 910713784 Comment: SCDs.
[2016-05-22] MEDS ORDERED: Magnesium Sulfate 2 GM IV* 2 GM/50 ML BAG IVPB ONE (13:00)
[2016-05-23] MEDS: Lactulose* 15 ML UDC PO SCH ×4 (00:39→17:15)
[2016-05-23] MEDS: Furosemide TAB* 40 MG PO SCH (08:05)
[2016-05-23] MEDS: Thiamine TAB* 100 MG TAB PO SCH (08:05)
[2016-05-23] MEDS: Omeprazole CAP* 20 MG PO SCH (08:05)
[2016-05-23] MEDS: Spironolactone TAB* 25 MG PO SCH (08:05)
[2016-05-23] MEDS: RiFAXimin* 550 MG TAB PO SCH (08:05)
[2016-05-23] MEDS: Folic Acid TAB* 1 MG PO SCH (08:05)
--- NOTE | 2016-05-23 10:44 | PN ---
Subjective Date of Service: 05/23/16 Interval History: Patient seen this morning. Says he is feeling better. Seems a bit quicker to respond. Had long discussion about patient's repeated hospitalizations and how he seems to continue to prove that he is unable to stay on top of his medications at home. Discussed rehab options to which he was initially agreeable , however after I made it clear that the plan would be to go there directly from the hospital he as more hesitant. Family History: Unchanged from Admission Social History: Unchanged from Admission Past Medical History: Unchanged from Admission Objective Active Medications: Folic Acid (Folvite Tab*) 1 mg PO DAILY [facility] Last Admin: 05/23/16 08:05 Dose: 1 mg Furosemide (Lasix Tab*) 40 mg PO DAILY [facility] Last Admin: 05/23/16 08:05 Dose: 40 mg Lactulose (Lactulose*) 45 ml PO Q6H [facility] Last Admin: 05/23/16 06:20 Dose: 45 ml Omeprazole (Prilosec Cap*) 40 mg PO DAILY [facility] Last Admin: 05/23/16 08:05 Dose: 40 mg Rifaximin (Xifaxan*) 550 mg PO BID [facility] Last Admin: 05/23/16 08:05 Dose: 550 mg Spironolactone (Aldactone Tab*) 125 mg PO DAILY [facility] Last Admin: 05/23/16 08:05 Dose: 125 mg Thiamine HCl (Vitamin B-1 Tab*) 100 mg PO DAILY [facility] Last Admin: 05/23/16 08:05 Dose: 100 mg Vital Signs 05/22/16 05/22/16 05/22/16 16:01 20:00 20:50 Temperature 97.2 F 97.7 F Pulse Rate 71 76 Respiratory 16 16 16 Rate Blood Pressure 116/64 126/62 (mmHg) O2 Sat by Pulse 100 98 Oximetry 05/22/16 05/23/16 05/23/16 23:58 07:31 08:00 Temperature 97.5 F 98.1 F Pulse Rate 80 87 Respiratory 16 16 Rate Blood Pressure 107/53 121/69 (mmHg) O2 Sat by Pulse 98 97 Oximetry Oxygen Devices in Use Now: None Appearance: Middle-aged, M, sitting in chair in NAD Eyes: No Scleral Icterus Ears/Nose/Mouth/Throat: Mucous Membranes Moist Neck: NL Appearance and Movements; NL JVP Respiratory: Symmetrical Chest Expansion and Respiratory Effort, Clear to Auscultation Cardiovascular: NL Sounds; No Murmurs; No JVD, RRR Abdominal: NL Sounds; No Tenderness; No Distention Lymphatic: No Cervical Adenopathy Extremities: No Edema Skin: No Rash or Ulcers Neurological: - - Alert, oriented, no asterixis Result Diagrams: 05/22/16 05:49 05/22/16 05:49 Additional Lab and Data: Assess/Plan/Problems-Billing Assessment: Hepatic encephalopathy in a 55 yo M with hx of cirrhosis (2/2 EtOH and ?HH) - Patient Problems (1) Hepatic encephalopathy Current Visit: No Comment: - Probably secondary to non-compliance. - No signs of infection or GI bleed at this time. - Continue lactulose and rifaximin. - PC consult placed due to repeated hospitalizations and continued non- compliance - Will discuss further with patient's sister. Awaiting OT eval. (2) Cirrhosis Current Visit: No Comment: - Secondary to hemochromatosis and alcoholism. - Continue Furosemide, Aldactone (3) DVT prophylaxis Current Visit: No Status: Acute Priority: Low Onset Date: 12/05/14 Code( s): [id number] - SNOMED Code(s): 719511192 Comment: SCDs. Status and Disposition: Pending OT eval and ?recommended need for rehab
--- NOTE | 2016-05-23 17:15 | DCNOTE ---
Notified in the afternoon that patient was anxious to leave. On my exam he seemed to be slightly slow to respond still however was completely oriented and appropriate in his answers. He was able to tell me the correct year, month, day of the week and name of the hospital, he did state that Juan Benitez was president (which he stated to OT earlier). He stated that he understood he may need some additional help in order to keep on top of his medications. He is open to someone coming to his house to try to assist. He seemed agreeable to an BRAVO however he refuses to consider going there straight from the hospital. He understands the risks of missing his medications and that his resultant encephalopathy could lead to , especially if his sister is no longer checking in on him. Based on my conversation I felt Mr. Quevedo had decision- making capacity which is in accordance with his multiple psychiatric assessments as well. We do not have the ability to keep him in the hospital against his will and I think the encephalopathy he had on admission has cleared to the point where further monitoring in the hospital is not warranted and would likely just agitate Mr. Quevedo. I spoke with his sister to let her know we would be discharging him and she says she will make sure he has a scheduled appointment with his PCP. I've also sent refills of his Rifaximin and Lactulose to the pharmacy. Hopefully he will heed some of the advice from his family and myself and seriously consider moving into a HLOC soon.
[2016-05-23 17:18] VITALS: BP 115/70
--- NOTE | 2016-05-24 13:02 | DS ---
CC: Dr. Alvarez DISCHARGE SUMMARY: DATE OF ADMISSION: 05/21/16 DATE OF DISCHARGE: 05/23/16 PRIMARY CARE PHYSICIAN: Dr. Alvarez. PRINCIPAL DISCHARGE DIAGNOSIS: Hepatic encephalopathy. SECONDARY DIAGNOSIS: Cirrhosis secondary to hemochromatosis and alcohol abuse. DISCHARGE MEDICATION REGIMEN: 1. Lactulose 45 mL by mouth every 6 hours. 2. Rifaximin 550 mg by mouth two times daily. 3. Tylenol 325 mg by mouth every 6 hours as needed for pain. 4. Thiamine 100 mg by mouth daily. 5. Folic acid 1 mg by mouth daily. 6. Omeprazole 40 mg by mouth daily. 7. Lasix 40 mg by mouth daily. 8. Spironolactone 125 mg by mouth daily. STUDIES DONE DURING HOSPITALIZATION: Head CT, impression: No definite intracranial mass or hemorrh ages noted. HISTORY OF PRESENT ILLNESS AND HOSPITAL SUMMARY: Please see the full history and physical by Skip Moore for full details. Briefly, Mr. Quevedo is a 55-year-old man with past medical history as ab ove and repeated hospitalization for hepatic encephalopathy, who presents to the hospital after his sister found him at home in his own feces and was difficult to arouse. The patient was noted on adm ission to have an elevated ammonia of 207. He was started on his home lactulose with improvement in his encephalopathy over the following 2 days. The patient was evaluated by Physical Therapy and Oc cupational Therapy and cleared for home. He has had repeated psychiatric evaluations for capacity, the last of which was a little over two weeks ago, which all find that the patient has capacity for decision making despite making repeated poor decisions for himself. I had a long conversation with the patient on the day of discharge. He was demanding to leave the h ospital and on my evaluation I felt that his encephalopathy had resolved to the point where keeping him in the hospital was not warranted and may in fact just cause him to become more agitated. I spo ke at length with him about considering moving to an assisted living facility, which he says he woul d certainly consider; however, he refuses to move there straight from the hospital as he states he h as too much to do at home. I spoke at length with his sister, Antonietta, who is becoming very frustrated with the situation as she feels like she is doing all she can to help him; however, he continues to be noncompliant with his m edications at home. The patient will be sent home with the visiting nurse and will try to set up as many services as possible to try to keep him out of the hospital. Occupational Therapy recommended trying to use his phone as an alarm to remember to take his medications. I sent refills of his rif aximin and lactulose to the pharmacy, and Antonietta states that she will ensure that he follows up with Dr. Alvarez in the clinic. TIME SPENT: Total time spent on this discharge, 45 minutes. This is a summary of the hospitalizati on. Please see the full medical record for further details. [id number]/[facility] #: [id number]
== END 2016-05-23 18:05 | disposition home health service (06) | DRG 442 ==
LOC: ED 10:19 → MED 12:34
PROVIDERS: ADMIT Internal Medicine; ATTEND Hospitalist
DX: K72.90 Hepatic failure, unspecified without coma (principal); D61.818 Other pancytopenia; K70.30 Alcoholic cirrhosis of liver without ascites; I10 Essential (primary) hypertension; E83.119 Hemochromatosis, unspecified; Z88.8 Allergy status to other drugs, medicaments and biological substances; F41.9 Anxiety disorder, unspecified; F32.9 Major depressive disorder, single episode, unspecified; S51.801A Unspecified open wound of right forearm, initial encounter; S31.819A Unspecified open wound of right buttock, initial encounter; X58.XXXA Exposure to other specified factors, initial encounter; Z80.0 Family history of malignant neoplasm of digestive organs; Z91.11 Patient's noncompliance with dietary regimen; Z91.14 Patient's other noncompliance with medication regimen; Y92.9 Unspecified place or not applicable
CPT/HCPCS: 36415; 70450; 80053; 80320; 81003; 82140; 82550; 83605; 83735; 84484; 85025; 85610; 93005; A9270-GY; G0480; J1650

== ENCOUNTER 2016-07-07 13:16 | Inpatient (IN) | payer MEDICARE, BC ==
[2016-07-07 14:11] LABS: Comments Flag Yes; Hematocrit 31 % (42-52); Hemoglobin 10.4 g/dl (14.0-18.0); Mean Corpuscular HGB Conc 33 g/dl (31-36); Mean Corpuscular Hemoglobin 35 pg (27-31); Mean Corpuscular Volume 105 fL (80-94); Mean Platelet Volume 9 um3 (7.4-10.4); Red Blood Count 2.97 10^6/ul (4.0-5.4); Red Cell Distribution Width 17 % (10.5-15); White Blood Count 5.7 10^3/ul (3.5-10.8)
[2016-07-07 14:12] LABS: Add Diff/Slide Review? Slide Review Added
[2016-07-07] MEDS ORDERED: LACTULOSE* 30 ML UDC PO ONE (14:12)
[2016-07-07 14:22] LABS: ALT 43 U/L (7-52); Albumin 2.7 g/dL (3.2-5.2); Alkaline Phosphatase 81 U/L (34-104); Blood Urea Nitrogen 19 mg/dL (6-24); CO2 Carbon Dioxide 24 mmol/L (22-32); Calcium 8.6 mg/dL (8.6-10.3); Chloride 108 mmol/L (101-111); EGFR African American 99.4 (>60); EGFR Non-African American 77.3 (>60); Globulin 3.7 g/dL (2-4); Glucose 112 mg/dL (70-100); Sodium 139 mmol/L (133-145); Total Protein 6.4 g/dL (6.4-8.9)
[2016-07-07 14:24] LABS: Troponin I 0.01 ng/mL (<0.04)
[2016-07-07 14:37] LABS: Alcohol < 10 mg/dL (<10)
--- NOTE | 2016-07-07 14:55 | RAD ---
INDICATION: Altered mental status COMPARISON: Multiple previous brain CTs, most recently dated May 21, 2006 TECHNIQUE: Contiguous axial sections of the brain were obtained from the skull base to the vertex without contrast. FINDINGS: The ventricles, cisterns and sulci exhibit involutional changes to a similar degree as the previous CT examination. Periventricular and subcortical white matter hypoattenuation is similar to the previous CT examination and can be seen with chronic microvascular disease. The santizo-white matter differentiation is adequately maintained and there is no sulcal effacement. No significant focal abnormality or mass effect is present. There is no evidence for intracranial hemorrhage. No significant focal osseous abnormality is present. The visualized portion of the paranasal sinuses and mastoid air cells appear clear. IMPRESSION: Stable chronic findings as described above without identification of acute intracranial abnormality.
[2016-07-07] MEDS ORDERED: NS 0.9% IV ONE (15:00)
--- NOTE | 2016-07-07 15:00 | RAD ---
INDICATION: Altered mental status and confusion COMPARISON: Chest x-ray dated May 01, 2016 TECHNIQUE: Single AP view of the chest was obtained. FINDINGS: The heart and mediastinum exhibit normal size and contour. There is persistent faint density overlying the left lung base but overall aeration is improved when compared to the most recent comparison chest x-ray. Elsewhere the lungs are clear. There is no evidence of a large pleural effusion. Visualized bones are normal for the patient's age. IMPRESSION: FAINT PERSISTENT DENSITY AT THE LEFT LUNG BASE BUT WITH OVERALL IMPROVED AERATION WHEN COMPARED TO THE MAY 01, 2016 CHEST X-RAY. ETIOLOGIES COULD INCLUDE PERSISTENT CONSOLIDATION OR ATELECTASIS.
[2016-07-07] MEDS ORDERED: cefTRIAXone(*) 1 GM in NS 0.9% 50 ML* 50 ML IVPB ONE (15:01)
[2016-07-07] MEDS ORDERED: Ondansetron INJ* 2 MG/ML VIAL IV PRN (15:42)
[2016-07-07 15:45] LABS: Magnesium 1.7 mg/dL (1.9-2.7)
[2016-07-07] MEDS ORDERED: NS 0.9% 1000 ML* 1,000 ML IV SCH (15:45)
[2016-07-07 15:47] LABS: Urine Bacteria 1+ (Absent); Urine Bilirubin 1+ (Negative); Urine Glucose Negative (Negative); Urine Nitrite Negative (Negative)
[2016-07-07 16:06] LABS: Benzodiazepine Urine Screen None Detected (None Detect)
[2016-07-07] MEDS ORDERED: LACTULOSE* 30 ML UDC PO SCH (17:00)
[2016-07-07] MEDS: LACTULOSE* 30 ML UDC PO SCH ×2 (18:11→20:06)
[2016-07-07] MEDS: Polymyx/Trimethoprim OPTH* 10 ML BTL LEFT EYE SCH ×2 (18:11→20:18)
[2016-07-07] MEDS: Azithromycin IV(*) 500 MG in NS 0.9% 250 ML* 250 ML IVPB SCH (18:17)
[2016-07-07] MEDS ORDERED: Magnesium Sulfate 2 GM IV* 2 GM/50 ML BAG IVPB ONE (19:26)
--- NOTE | 2016-07-07 19:47 | HP ---
HISTORY AND PHYSICAL: DATE OF ADMISSION: 07/07/16 PRIMARY CARE PROVIDER: Deya Alvarez MD ATTENDING PHYSICIAN WHILE IN THE HOSPITAL: Jenae Alvarado MD* (report dictated by Zack Dockery NP). CHIEF COMPLAINT: Altered mental status. HISTORY OF PRESENTING ILLNESS: Mr. Giovanni Quevedo is a 55-year-old male patient with a history of chronic liver failure secondary to hemochromatosis and EtOH abuse. He comes in with frequent bouts of hepatic encephalopathy. He comes in to the ER today and the sister is stating that he has not been acting himself the last couple of days. He fell 2 days ago, hit his head. He did refuse to come into the ER. He was found down for an undisclosed period of time. His sister got him up and he did fine after that, but she has noticed that when she talks to him on the phone, he has been talking more slow. He has been more confused and acting like he normally does when his ammonia gets high. The patient states that he may have missed some of his medications. He notices that he has been more confused, more tired, more drowsy. He does state that he fell. He states he has been feeling more weak. He denied having any abdominal pain. He states that his legs have increased in size and swelling. He denies any swelling of his abdomen. He states that he has not been feeling short of breath or having any chest pain. Sister states that she has noticed a cough. There has been no recent sick contacts that she is aware of and there has been no reported fevers at home. The patient and his sister do state that they have noticed some erythema and discharge to his left eye and that he has again just seemed more confused, weak, and he has been falling. He denied any chest pain or any nausea, vomiting or diarrhea. He came to the ER today. There was concern because he had altered mental status. He was confused and not near his baseline, so the hospitalist service was asked to evaluate for admission. PAST MEDICAL HISTORY: Significant for; 1. Chronic liver failure. 2. Hemochromatosis. 3. EtOH abuse. 4. Hepatic encephalopathy. PAST SURGICAL HISTORY: 1. The patient has had a TIPS. 2. He has had a Pleurx catheter placed on the left side and removed. 3. He has had a hernia repair. HOME MEDICATIONS: Include; 1. Thiamine 100 mg p.o. daily. 2. Spironolactone 125 mg p.o. daily. 3. Rifaximin 550 mg p.o. b.i.d. 4. Prilosec 40 mg p.o. daily. 5. Lactulose 45 cc p.o. every 6 hours. 6. Lasix 40 mg daily. 7. Folic acid 1 mg p.o. daily. 8. Acetaminophen 325 mg p.o. every 6 hours as needed. ALLERGIES TO MEDICATIONS: Include TYLENOL and NSAIDS. FAMILY HISTORY: His mother had a history of coronary artery disease. Father had a history of bladder cancer. SOCIAL HISTORY: He does live alone. He denies drinking alcohol anymore and he does not smoke cigarettes. Surrogate decision maker is his sister, Antonietta. REVIEW OF SYSTEMS: There is no documented fever, just a fever here of 100.7. There is no significant weight change. No double vision. There is no ear discharge. No rhinorrhea. No sore throat. No thyroid enlargement. He denied having any chest pain. There is orthopnea. No nocturnal dyspnea. There is no abdominal pain, no nausea, no vomiting, no dysuria, no frequency. There was no loss of consciousness, no pruritus, no skin ulcerations. Review of 14 systems completed, all others were negative. PHYSICAL EXAMINATION GENERAL: At this time, Mr. Quevedo is a 55-year-old male patient. He is chronically ill appearing. He is sitting in the ER stretcher. He does not appear to be in any acute distress. VITAL SIGNS: Blood pressure 126/66 with a pulse of 83, respirations 16, O2 sat 98%, and temperature of 100.1. HEENT: Head is atraumatic with exception that he does have an abrasion to the top of his head from the fall. Eyes: Sclerae are anicteric. He does have erythema noted to the conjunctiva to the left eye and some discharge as well. EOMs are intact. Pupils react to light. NECK: Supple. Throat: Oral mucosa appears to be moist. No oropharyngeal erythema. LUNGS: He had crackles noted in the right base and rhonchi. He had equal diaphragmatic expansion. HEART: Sounds S1, S2. Regular rate and rhythm. No murmurs, rubs or gallops. ABDOMEN: His abdomen was soft, it was nondistended. Bowel sounds were present. No ascites was present. EXTREMITIES: He did have 2+ pitting edema bilaterally. He is able to move all 4 extremities with 5/5 strength. NEUROLOGICAL: He will awaken to his name. He is alert to time and place. He is certainly drowsy. He had no gross focal deficits. SKIN: His skin is intact with the exception he has got an abrasion to his right shoulder and he also has an abrasion to the top of his head on the right side and also to the left back as well just underneath the left shoulder blade. Otherwise, his skin is intact. DIAGNOSTIC STUDIES/LAB DATA: Today revealed WBC of 5.7, RBC of 2.97, hemoglobin 10.4, hematocrit 31, and platelet count 91. The INR was 1.65. Sodium 139, potassium pending, chloride 108, bicarb 24, BUN 19, creatinine 1, glucose of 112, lactic 2.3, and calcium 8.6. Total bili 5.60. Mag pending. ALT 43, alk phos 81. His ammonia was 79, it is certainly not the highest it has ever been. His troponin was 0.01. Albumin 2.7. Toxicology negative. He had a brain CT obtained today, which revealed stable chronic findings as described above without identification of acute intracranial abnormality. Chest x- ray today showed same persistent density at the left lung base, but overall with improvement in aeration compared to May 01 exam. Etiologies include persistent consolidation or atelectasis. Old medical records were reviewed. ASSESSMENT AND PLAN: Mr. Quevedo is a 55-year-old male patient with a history of chronic liver disease secondary to hemochromatosis and EtOH abuse, status post TIPS procedure in January, coming in today for complaints of altered mental status. He will be admitted under observation status for: 1. Altered mental status: At this point, he does appear to be encephalopathic , but he had that low-grade fever, so I would like to make that he does not have any underlying infection. I do think a flu swab is appropriate, blood cultures, in addition to this try to get sputum legionella, strep antigens as well and legionella antigens. I think he did have crackles on that right base, so I would like to go ahead and put him empirically on Rocephin and azithromycin and see if a source presents itself. I have increased his lactulose to every 4 hours for the time being. He did say that he may have missed some medications and I will repeat the ammonia in the morning. 2. Chronic liver failure: Again at this point, we will continue his meds as prescribed. I am holding the Lasix in the setting of this acute illness. We will continue the spironolactone and rifaximin, and we will diurese him as needed. He does appear to be on the dry side. 3. History of EtOH abuse: Not an active issue currently. 4. Hemochromatosis: Again, he can follow with his primary. 5. Hepatic encephalopathy: Again, I think this may ultimately be the cause for his altered mental status. Again, I have increased the lactulose. We will continue with this for now. We will repeat his ammonia in the morning, and we will follow his mentation. 6. DVT prophylaxis: I will place him on SCDs. 7. Code status: Full code. 8. Fluids, electrolytes, and nutrition: He can have a low protein diet. TIME SPENT: Time spent on the admission was approximately 60 minutes; greater than half of the time was spent [id number] with the patient obtaining my history and physical, the other half time is spent going over the plan of care with the patient and implementing plan of care. I did discuss the plan of care with my attending, Dr. Alvarado, she is in agreement. ZACK DOCKERY NP CC: Deya Alvarez MD * [id number]/[facility] #: [id number] MARCO ANTONIO
[2016-07-07] MEDS: RiFAXimin* 550 MG TAB PO SCH (20:06)
[2016-07-08] MEDS: LACTULOSE* 30 ML UDC PO SCH ×7 (00:07→23:21)
[2016-07-08] MEDS: Polymyx/Trimethoprim OPTH* 10 ML BTL LEFT EYE SCH ×7 (00:08→23:21)
[2016-07-08 07:05] LABS: Hematocrit 26 % (42-52); Hemoglobin 8.8 g/dl (14.0-18.0); Mean Corpuscular HGB Conc 34 g/dl (31-36); Mean Corpuscular Hemoglobin 36 pg (27-31); Mean Corpuscular Volume 105 fL (80-94); Mean Platelet Volume 8 um3 (7.4-10.4); Red Blood Count 2.47 10^6/ul (4.0-5.4); Red Cell Distribution Width 18 % (10.5-15); White Blood Count 5.5 10^3/ul (3.5-10.8)
[2016-07-08 07:06] LABS: Comments Flag Yes
[2016-07-08 07:07] LABS: Add Diff/Slide Review? Slide Review Added
[2016-07-08 07:19] LABS: BUN/Creatinine Ratio 25.4 (8-20); Calcium 7.9 mg/dL (8.6-10.3); EGFR African American 157.8 (>60); EGFR Non-African American 122.7 (>60); Potassium 3.3 mmol/L (3.5-5.0)
[2016-07-08] MEDS: Spironolactone TAB* 25 MG PO SCH (08:49)
[2016-07-08] MEDS: Thiamine TAB* 100 MG TAB PO SCH (08:49)
[2016-07-08] MEDS: Omeprazole CAP* 20 MG PO SCH (08:50)
[2016-07-08] MEDS: Folic Acid TAB* 1 MG PO SCH (08:50)
[2016-07-08] MEDS: RiFAXimin* 550 MG TAB PO SCH ×2 (08:50→20:15)
[2016-07-08] MEDS: Potassium Chlor TAB* 20 MEQ TAB.ER PO SCH ×2 (08:58→20:16)
--- NOTE | 2016-07-08 09:55 | PN ---
Subjective Date of Service: 07/08/16 Interval History: HOSPITALIST PROGRESS NOTE Patient seen and examined at bedside. He offers no complaints today. Admits he skipped lactulose doses because he doesn't like the diarrhea. States he received a letter from [place] a month ago discharging him from the program. Family History: Unchanged from Admission Social History: Unchanged from Admission Past Medical History: Unchanged from Admission Objective Active Medications: Folic Acid (Folvite Tab*) 1 mg PO DAILY [facility] Last Admin: 07/08/16 08:50 Dose: 1 mg Sodium Chloride (Ns 0.9% 1000 Ml*) 1,000 mls @ 75 mls/hr IV PER RATE [facility] Last Admin: 07/07/16 18:25 Dose: 75 mls/hr Azithromycin 500 mg/ Sodium (Chloride) 250 mls @ 250 mls/hr IVPB Q24H [facility] Last Admin: 07/07/16 18:17 Dose: 250 mls/hr Lactulose (Lactulose*) 30 ml PO Q4H [facility] Last Admin: 07/08/16 08:49 Dose: 30 ml Omeprazole (Prilosec Cap*) 40 mg PO DAILY [facility] Last Admin: 07/08/16 08:50 Dose: 40 mg Ondansetron HCl (Zofran Inj*) 4 mg IV Q6H PRN PRN Reason: NAUSEA Polymyxin/Trimethoprim Sulfate (Polytrim Ophth*) 1 drop LEFT EYE Q4H [facility] Last Admin: 07/08/16 08:50 Dose: 1 drop Potassium Chloride (Klor Con Er Tab*) 40 meq PO BID [facility] Stop: 07/08/16 21:01 Last Admin: 07/08/16 08:58 Dose: 40 meq Rifaximin (Xifaxan*) 550 mg PO BID [facility] Last Admin: 07/08/16 08:50 Dose: 550 mg Spironolactone (Aldactone Tab*) 125 mg PO DAILY [facility] Last Admin: 07/08/16 08:49 Dose: 125 mg Thiamine HCl (Vitamin B-1 Tab*) 100 mg PO DAILY [facility] Last Admin: 07/08/16 08:49 Dose: 100 mg Vital Signs 07/07/16 07/08/16 07/08/16 23:34 03:25 07:45 Temperature 99.1 F 97.3 F Pulse Rate 94 78 74 Respiratory 16 16 20 Rate Blood Pressure 117/50 106/55 106/56 (mmHg) O2 Sat by Pulse 96 99 99 Oximetry Oxygen Devices in Use Now: None Appearance: Middle aged male, appears older than stated age, sitting up in a chair eating breakfast. Eyes: No Scleral Icterus Ears/Nose/Mouth/Throat: Mucous Membranes Moist Neck: Trachea Midline Respiratory: Symmetrical Chest Expansion and Respiratory Effort, Clear to Auscultation Cardiovascular: RRR - Normal S1 and S2 Abdominal: NL Sounds; No Tenderness; No Distention Skin: - - Right frontal abrasion Neurological: - - AAOx2 (self and place), REYES Lines/Tubes/Other Access: Clean, Dry and Intact Peripheral IV Nutrition: Taking PO's Result Diagrams: 07/08/16 06:57 07/08/16 06:57 Assess/Plan/Problems-Billing Assessment: Mr. Quevedo is a 55yo M with PMH of hemochromatosis, prior h/o alcohol abuse, liver cirrhosis, s/p TIPS, multiple admission for hepatic encephalopathy secondary to non-compliance, who presents with altered MS. - Patient Problems (1) Hepatic encephalopathy Comment: - His ammonia it's not at its highest, but he has had altered MS with lower ammonia levels and normal MS with higher ones. - No other cause for confusion at this time. - CT brain negative. - Probably secondary to non-compliance. - No signs of infection or GI bleed at this time. - Continue lactulose and rifaximin. (2) Cirrhosis Current Visit: No Status: Acute Comment: - Secondary to hemochromatosis and alcoholism. - Continue Aldactone. (3) DVT prophylaxis Comment: - SCDs. (4) Patient is full code Status and Disposition: Inpatient.
[2016-07-08] MEDS ORDERED: NS 0.9% 1000 ML* 1,000 ML IV SCH (14:00)
[2016-07-08] MEDS: Azithromycin IV(*) 500 MG in NS 0.9% 250 ML* 250 ML IVPB SCH (17:02)
[2016-07-08] MEDS ORDERED: Acetaminophen TAB* 325 MG PO PRN (23:34)
[2016-07-09] MEDS: LACTULOSE* 30 ML UDC PO SCH ×5 (04:59→19:54)
[2016-07-09] MEDS: Polymyx/Trimethoprim OPTH* 10 ML BTL LEFT EYE SCH ×5 (04:59→19:54)
[2016-07-09 06:28] LABS: BUN/Creatinine Ratio 25.4 (8-20); Calcium 7.9 mg/dL (8.6-10.3); EGFR African American 182.7 (>60); EGFR Non-African American 142.1 (>60); Potassium 4.1 mmol/L (3.5-5.0)
[2016-07-09] MEDS: Folic Acid TAB* 1 MG PO SCH (08:19)
[2016-07-09] MEDS: Furosemide TAB* 40 MG PO SCH (08:20)
[2016-07-09] MEDS: RiFAXimin* 550 MG TAB PO SCH ×2 (08:21→19:54)
[2016-07-09] MEDS: Omeprazole CAP* 20 MG PO SCH (08:21)
[2016-07-09] MEDS: Spironolactone TAB* 25 MG PO SCH (08:22)
[2016-07-09] MEDS: Thiamine TAB* 100 MG TAB PO SCH (08:23)
--- NOTE | 2016-07-09 10:54 | PN ---
Subjective Date of Service: 07/09/16 Interval History: HOSPITALIST PROGRESS NOTE Patient seen and examined at bedside. He offers no new complaints at this time. Less confused, close to his baseline. Tolerating diet well. Family History: Unchanged from Admission Social History: Unchanged from Admission Past Medical History: Unchanged from Admission Objective Active Medications: Acetaminophen (Tylenol Tab*) 325 mg PO Q6H PRN PRN Reason: FEVER/PAIN Last Admin: 07/08/16 23:45 Dose: 325 mg Folic Acid (Folvite Tab*) 1 mg PO DAILY [facility] Last Admin: 07/09/16 08:19 Dose: 1 mg Furosemide (Lasix Tab*) 40 mg PO DAILY [facility] Last Admin: 07/09/16 08:20 Dose: 40 mg Lactulose (Lactulose*) 30 ml PO Q4H [facility] Last Admin: 07/09/16 08:18 Dose: 30 ml Omeprazole (Prilosec Cap*) 40 mg PO DAILY [facility] Last Admin: 07/09/16 08:21 Dose: 40 mg Ondansetron HCl (Zofran Inj*) 4 mg IV Q6H PRN PRN Reason: NAUSEA Polymyxin/Trimethoprim Sulfate (Polytrim Ophth*) 1 drop LEFT EYE Q4H [facility] Last Admin: 07/09/16 08:19 Dose: 1 drop Rifaximin (Xifaxan*) 550 mg PO BID [facility] Last Admin: 07/09/16 08:21 Dose: 550 mg Spironolactone (Aldactone Tab*) 125 mg PO DAILY [facility] Last Admin: 07/09/16 08:22 Dose: 125 mg Thiamine HCl (Vitamin B-1 Tab*) 100 mg PO DAILY [facility] Last Admin: 07/09/16 08:23 Dose: 100 mg Vital Signs 07/09/16 07/09/16 07/09/16 07:31 08:06 09:31 Temperature 97.9 F Pulse Rate 77 Respiratory 16 Rate Blood Pressure 111/55 (mmHg) O2 Sat by Pulse 98 99 95 Oximetry Oxygen Devices in Use Now: None Appearance: Middle aged male sitting up in a chair in NAD. Eyes: - - Mild jaundice Ears/Nose/Mouth/Throat: Mucous Membranes Moist Neck: Trachea Midline Respiratory: Symmetrical Chest Expansion and Respiratory Effort, Clear to Auscultation Cardiovascular: NL Sounds; No Murmurs; No JVD, RRR Abdominal: NL Sounds; No Tenderness; No Distention Extremities: - - Trace to mild edema Neurological: Alert and Oriented x 3, NL Muscle Strength and Tone Lines/Tubes/Other Access: Clean, Dry and Intact Peripheral IV Nutrition: Taking PO's Result Diagrams: 07/08/16 06:57 07/09/16 05:58 Assess/Plan/Problems-Billing Assessment: Mr. Quevedo is a 55yo M with PMH of hemochromatosis, prior h/o alcohol abuse, liver cirrhosis, s/p TIPS, multiple admission for hepatic encephalopathy secondary to non-compliance, who presents with altered MS. - Patient Problems (1) Hepatic encephalopathy Comment: - His ammonia it's not at its highest, but he has had altered MS with lower ammonia levels and normal MS with higher ones. - No other cause for confusion at this time. - CT brain negative. - Probably secondary to non-compliance. - No signs of infection or GI bleed at this time. - Continue lactulose and rifaximin. - Improving. (2) Cirrhosis (3) DVT prophylaxis Comment: - SCDs. (4) Patient is full code (5) Physical deconditioning Comment: - PT input appreciated - recommended STR - patient in agreement at this time. Status and Disposition: Inpatient.
[2016-07-10] MEDS: Polymyx/Trimethoprim OPTH* 10 ML BTL LEFT EYE SCH ×4 (00:29→11:59)
[2016-07-10] MEDS: LACTULOSE* 30 ML UDC PO SCH ×4 (00:29→11:59)
[2016-07-10 08:05] VITALS: BP 129/59
[2016-07-10] MEDS: Omeprazole CAP* 20 MG PO SCH (08:15)
[2016-07-10] MEDS: Thiamine TAB* 100 MG TAB PO SCH (08:15)
[2016-07-10] MEDS: Spironolactone TAB* 25 MG PO SCH (08:16)
[2016-07-10] MEDS: RiFAXimin* 550 MG TAB PO SCH (08:16)
[2016-07-10] MEDS: Furosemide TAB* 40 MG PO SCH (08:19)
[2016-07-10] MEDS: Folic Acid TAB* 1 MG PO SCH (08:19)
--- NOTE | 2016-07-10 10:48 | PN ---
Subjective Date of Service: 07/10/16 Interval History: HOSPITALIST PROGRESS NOTE Patient seen and examined at bedside. He feels well today, denies complaints. Family History: Unchanged from Admission Social History: Unchanged from Admission Past Medical History: Unchanged from Admission Objective Active Medications: Acetaminophen (Tylenol Tab*) 325 mg PO Q6H PRN PRN Reason: FEVER/PAIN Last Admin: 07/08/16 23:45 Dose: 325 mg Folic Acid (Folvite Tab*) 1 mg PO DAILY [facility] [place] Last Admin: 07/10/16 08:19 Dose: 1 mg Furosemide (Lasix Tab*) 40 mg PO DAILY [facility] [place] Last Admin: 07/10/16 08:19 Dose: 40 mg Lactulose (Lactulose*) 30 ml PO Q4H [facility] [place] Last Admin: 07/10/16 08:18 Dose: 30 ml Omeprazole (Prilosec Cap*) 40 mg PO DAILY [facility] [place] Last Admin: 07/10/16 08:15 Dose: 40 mg Ondansetron HCl (Zofran Inj*) 4 mg IV Q6H PRN PRN Reason: NAUSEA Polymyxin/Trimethoprim Sulfate (Polytrim Ophth*) 1 drop LEFT EYE Q4H [facility] [place] Last Admin: 07/10/16 08:18 Dose: 1 drop Rifaximin (Xifaxan*) 550 mg PO BID [facility] [place] Last Admin: 07/10/16 08:16 Dose: 550 mg Spironolactone (Aldactone Tab*) 125 mg PO DAILY [facility] [place] Last Admin: 07/10/16 08:16 Dose: 125 mg Thiamine HCl (Vitamin B-1 Tab*) 100 mg PO DAILY [facility] [place] Last Admin: 07/10/16 08:15 Dose: 100 mg Vital Signs 07/09/16 07/09/16 07/09/16 15:40 19:10 20:00 Temperature 97.5 F 97.8 F Pulse Rate 83 81 Respiratory 16 16 18 Rate Blood Pressure 111/59 118/52 (mmHg) O2 Sat by Pulse 98 99 Oximetry 07/09/16 07/09/16 07/10/16 20:12 23:43 07:40 Temperature 98.9 F 98.0 F Pulse Rate 90 90 Respiratory 14 18 Rate Blood Pressure 119/51 129/59 (mmHg) O2 Sat by Pulse 99 95 96 Oximetry Oxygen Devices in Use Now: None Appearance: Middle aged male sitting up in a chair in NAD. Eyes: - - Mild jaundice Ears/Nose/Mouth/Throat: Mucous Membranes Moist Neck: Trachea Midline Respiratory: Symmetrical Chest Expansion and Respiratory Effort, Clear to Auscultation Cardiovascular: RRR - Normal S1 and S2 Abdominal: NL Sounds; No Tenderness; No Distention Extremities: No Edema Neurological: Alert and Oriented x 3, NL Muscle Strength and Tone Lines/Tubes/Other Access: Clean, Dry and Intact Peripheral IV Nutrition: Taking PO's Result Diagrams: 07/08/16 06:57 07/09/16 05:58 Assess/Plan/Problems-Billing Assessment: Mr. Quevedo is a 55yo M with PMH of hemochromatosis, prior h/o alcohol abuse, liver cirrhosis, s/p TIPS, multiple admission for hepatic encephalopathy secondary to non-compliance, who presents with altered MS. - Patient Problems (1) Hepatic encephalopathy Comment: - No other cause for confusion at this time. - CT brain negative. - Probably secondary to non-compliance. - No signs of infection or GI bleed at this time. - Continue lactulose and rifaximin. - Improving. (2) Cirrhosis (3) DVT prophylaxis Comment: - SCDs. (4) Patient is full code (5) Physical deconditioning Comment: - PT input appreciated - recommended STR - patient in agreement at this time. Status and Disposition: Inpatient.
--- NOTE | 2016-07-10 12:08 | DS ---
DATE OF ADMISSION: 07/07/2016. DATE OF DISCHARGE: 07/10/2016. DISCHARGE DIAGNOSES: Episode of hepatic encephalopathy, secondary to noncompliance; mild left eye conjunctivitis. SECONDARY DIAGNOSES: 1. Hemochromatosis. 2. Prior history of alcohol abuse. 3. Liver cirrhosis, status post TIPS. 4. Multiple admissions for hepatic encephalopathy secondary to noncompliance. MEDICATIONS: 1. Acetaminophen 325 mg p.o. q.6 hours prn pain or fever. 2. Folic acid 1 mg p.o. daily. 3. Furosemide 40 mg p.o. daily. 4. Lactulose 45 ml p.o. q.6 hours. 5. Omeprazole 40 mg p.o. daily. 6. Polytrim ophthalmological one drop to the left eye q.4 hour for 5 days. 7. Rifaximin 550 mg p.o. b.i.d. 8. Spironolactone 125 mg p.o. daily. 9. Thiamine 100 mg p.o. daily. HOSPITAL COURSE: Mr. Quevedo is a 55-year-old male well-known to the hospitalist service with a past medical history as stated above who presented to the emergency room after being found in his bathtub by his sister. The patient has had almost monthly admissions with similar presentations since February 2016. The usual culprit is hepatic encephalopathy secondary to noncompliance with Lactulose and Rifaximin. On this admission, his ammonia level was 79 and he has had much higher values in the past, but it is also true that he has had episodes of encephalopathy with a lower ammonia and a normal mental status with a much higher ammonia level. His H and H was at its baseline and did not suggest a GI bleed. He did not have any signs of infection and after his TIPS, he has been doing well on a fluid status point of view with no more ascites and lower extremity edema. The patient was started on Lactulose and he had significant improvement of his mental status and is now back to his baseline. He does admit skipping multiple doses of Lactulose to avoid diarrhea. His urine culture grew E. coli, but only 10 to 25,000 colonies and this does not suggest urinary tract infection. The patient continues to have progressive decline at home. He has shown further signs of skin breakdown with abrasions on his back and buttocks, a blister on his left heel, and an abrasion to his forehead. He was noted to be weak and although he was able to ambulate, he did complain that his legs were weak towards the end of his walking. He was seen in consultation by Physical Therapy and felt to have physical therapy needs. He is in agreement to returning to [facility] [place] at this time for rehabilitation. The patient states that he was discharged from the program at [facility] and this is confirmed by his sister. On his last visit with the liver transplant service, they felt that he was not showing the compliance needed to be a transplant candidate and the top steep tender felt that at this point the best option would be to discharge him. The patient was seen by Psychiatry multiple times on prior admission and I believe he does have the capacity at this time to continue to make bad decisions after discharge as he has been doing for a while. He is aware of the risks (including but not limited to worsening of his liver disease, progression of disease and ), but he is not willing to change his ways at this point. PHYSICAL EXAMINATION: General: The patient is a middle-aged male, sitting up in a chair in no acute distress. Vital Signs: Temperature 98.0, heart rate is 90, respiratory rate is 18, oxygen saturation is 96 percent on room air, blood pressure is 129/59. CVS: Normal S1, S2. Regular rate and rhythm. Chest: Breath sounds present bilaterally with no added sounds. Abdomen: Soft, bowel sounds are present. Extremities: No edema. Neuro: He is alert, awake and oriented times three. Able to move all four extremities. DIET: Low salt diet. ACTIVITY: As tolerated. DISPOSITION: To home. STATUS WHILE IN HOSPITAL: Inpatient. Please keep in mind this is a summarized version of this patient's hospital stay. If you need more information, please feel free to call me at [phone] or please obtain the full medical records. Approximately 45 minutes were spent to complete this discharge. CC: Dr. Alvarez; Dr. Troy Covarrubias; [facility] [place]* [id number]/[facility] #: [id number] [facility]win
--- NOTE | 2016-07-12 11:46 | ED ---
Matthew Benites Michael, scribed for Rosalee Trimble MD on 07/07/16 at 1428 . Altered Mental Status - HPI Summary HPI Summary: 55 y/o male was BIBA to the ED presenting with AMS that started two days ago. The pt has had gradual increase in confusion and weakness per sister. Three days ago the pt had a mechanical fall and hit his head. The fall was unwitnessed , but the sister states she saw a "pool" of blood on the floor when she visited him. Then the pt could not remember how to make phone calls 2 days ago. Then today, the pt had another unwitnessed fall, and the sister found him in the bathtub. The pt had abrasions on his back and right forehead. The PMHx is significant for alcohol abuse and hemochromatosis. - History Of Current Complaint Chief Complaint: EDAltMentalStatus Stated Complaint: AMS/WEAKNESS Time Seen by Provider: 07/07/16 14:02 Hx Obtained From: Family/Bookkeeper - sister, Medical Records Hx From Patient Unobtainable Due To: Altered Mental Status Onset/Duration: Gradually Timing: Constant Severity Initially: Mild Severity Currently: Moderate Character: Confusion Aggravating Factor(s): Unknown Alleviating Factor(s): Nothing Associated Signs And Symptoms: Negative: Negative - confusion. weakness. abrasions. - Allergies/Home Medications Allergies/Adverse Reactions: Allergies Allergy/AdvReac Type Severity Reaction Status Date / Time Acetaminophen [From Tylenol] Allergy AVOIDS Verified 04/25/16 15:56 NSAIDs Allergy AVOIDS Verified 04/25/16 15:56 PMH/Surg Hx/FS Hx/Imm Hx Endocrine/Hematology History: Reports: Hx Anemia, Other Endocrine/Hematological Disorders - Hemachromatosis Denies: Hx Anticoagulant Therapy, Hx Blood Transfusions, Hx Diabetes, Hx Systemic Lupus Erythematosus, Hx Thyroid Disease Cardiovascular History: Reports: Hx Hypertension Denies: Hx Aneurysm, Hx Angina, Hx Angioplasty, Hx Auto Implanted Cardiovert Defib, Hx Congestive Heart Failure, Hx Pacemaker/ICD Respiratory History: Denies: Hx Asthma, Hx Chronic Obstructive Pulmonary Disease (COPD) GI History: Reports: Hx Cirrhosis, Hx Gastrointestinal Bleed, Hx Jaundice, Hx Ulcer Denies: Hx Gastroesophageal Reflux Disease Comment Only: Hx Diverticulosis - family history of, Other GI Disorders - Hepatic enchephalopathy History: Denies: Hx Dialysis, Hx Renal Disease Musculoskeletal History: Reports: Other Musculoskeletal History - right hip, knees have discomfort/pain at times Denies: Hx Rheumatoid Arthritis Sensory History: Reports: Hx Contacts or Glasses Denies: Hx Hearing Aid Opthamlomology History: Reports: Hx Contacts or Glasses Neurological History: Reports: Hx Seizures, Other Neuro Impairments/Disorders - Affected by chronic high ammonia levels Denies: Hx Dementia Psychiatric History: Reports: Hx Anxiety, Hx Depression, Hx Substance Abuse Denies: Hx Panic Disorder - Cancer History Cancer Type, Location and Year: hemochromotosis- high iron levels Hx Chemotherapy: No - Surgical History Surgery Procedure, Year, and Place: LEFT HAND RING FINGER TENDON ATTACHEMENT- [facility] Anesthesia Reactions: No - Immunization History Date of Tetanus Vaccine: sister states up to date Infectious Disease History: No Infectious Disease History: Denies: Hx Hepatitis, Hx Human Immunodeficiency Virus (HIV), Traveled Outside the [place] in Last 30 Days - Family History Known Family History: Positive: Other - Father 65 with liver CA. Diverticulosis. - Social History Occupation: Unemployed Lives: Alone Alcohol Use: Unable to confirm Alcohol Amount: Unable to obtain - level 5 caveat Hx Substance Use: No Substance Use Type: Reports: None Hx Tobacco Use: No Smoking Status (MU): Never Smoked Tobacco Review of Systems Positive: Other - abrasions Neurological: Other - confusion Positive: Weakness All Other Systems Reviewed And Are Negative: Yes Physical Exam Triage Information Reviewed: Yes Vital Signs On Initial Exam: Initial Vitals Temp Pulse Resp BP Pulse Ox 100.1 F 79 16 126/66 98 07/07/16 13:53 07/07/16 13:53 07/07/16 13:53 07/07/16 13:53 07/07/16 13:53 Vital Signs Reviewed: Yes Appearance: Positive: Well-Appearing, No Pain Distress Skin: Positive: Warm, Skin Color Reflects Adequate Perfusion, Dry, Other - 4 cm tear left side on rib 6 mid posterior-4cm circumference. Abrasion posterior right shoulder-3cm. contusion left shoulder. scap with abrasion right forehead 5 cm. Eyes: Positive: Discharge - left conjunctiva ENT: Positive: Hearing grossly normal, TMs normal Neck: Positive: Supple, Nontender Respiratory/Lung Sounds: Positive: Clear to Auscultation, Breath Sounds Present. Negative: Rales, Rhonchi Cardiovascular: Positive: RRR, Other - no gallops. Negative: Murmur, Rub Abdomen Description: Positive: Nontender, Soft, Other: - no rebound. Negative: Guarding Bowel Sounds: Positive: Present Musculoskeletal: Positive: Strength/ROM Intact, Other - 2+ pitting edema going up to buttock Neurological: Positive: Sensory/Motor Intact, Alert, Oriented to Person Place, Time, CN Intact II-III Psychiatric: Positive: Affect/Mood Appropriate Diagnostics - Vital Signs Vital Signs Temp Pulse Resp BP Pulse Ox 07/07/16 13:53 100.1 F 79 16 126/66 98 - Laboratory Lab Results: Lab Results 07/07/16 07/07/16 07/07/16 Range/Units 13:47 13:47 13:47 WBC 5.7 (3.5-10.8) 10^3/ul RBC 2.97 L (4.0-5.4) 10^6/ul Hgb 10.4 L (14.0-18.0) g/dl Hct 31 L (42-52) % MCV 105 H (80-94) fL MCH 35 H (27-31) pg MCHC 33 (31-36) g/dl RDW 17 H (10.5-15) % Plt Count 91 L (150-450) 10^3/ul MPV 9 (7.4-10.4) um3 Neut % (Auto) 73.2 (38-83) % Lymph % (Auto) 11.2 L (25-47) % [place] % (Auto) 14.6 H (1-9) % Eos % (Auto) 0.4 (0-6) % Baso % (Auto) 0.6 (0-2) % Absolute Neuts (auto) 4.1 (1.5-7.7) 10^3/ul Absolute Lymphs (auto) 0.6 L (1.0-4.8) 10^3/ul Absolute Monos (auto) 0.8 (0-0.8) 10^3/ul Absolute Eos (auto) 0 (0-0.6) 10^3/ul Absolute Basos (auto) 0 (0-0.2) 10^3/ul Absolute Nucleated RBC 0.01 10^3/ul Nucleated RBC % 0.1 INR (Anticoag Therapy) 1.65 H (0.89-1.11) Sodium 139 (133-145) mmol/L Potassium TNP Chloride 108 (101-111) mmol/L Carbon Dioxide 24 (22-32) mmol/L Anion Gap TNP BUN 19 (6-24) mg/dL Creatinine 1.00 (0.67-1.17) mg/dL Est GFR ( Amer) 99.4 (>60) Est GFR (Non-Af Amer) 77.3 (>60) BUN/Creatinine Ratio 19.0 (8-20) Glucose 112 H (70-100) mg/dL Lactic Acid (0.5-2.0) mmol/L Calcium 8.6 (8.6-10.3) mg/dL Magnesium TNP Total Bilirubin 5.60 H (0.2-1.0) mg/dL AST TNP ALT 43 (7-52) U/L Alkaline Phosphatase 81 (34-104) U/L Ammonia Total Creatine Kinase (10-223) U/L Troponin I 0.01 (<0.04) ng/mL Total Protein 6.4 (6.4-8.9) g/dL Albumin 2.7 L (3.2-5.2) g/dL Globulin 3.7 (2-4) g/dL Albumin/Globulin Ratio 0.7 L (1-3) Urine Color Urine Appearance Urine pH (5-9) Ur Specific [place] (1.010-1.030) Urine Protein (Negative) Urine Ketones (Negative) Urine Blood (Negative) Urine Nitrate (Negative) Urine Bilirubin (Negative) Urine Urobilinogen (Negative) Ur Leukocyte Esterase (Negative) Urine WBC (Auto) (Absent) Urine RBC (Auto) (Absent) Ur Squamous Epith Cells (Absent) Urine Bacteria (Absent) Urine Glucose (Negative) Urine Ascorbic Acid (Negative) Urine Opiates Screen (None Detect) Ur Barbiturates Screen (None Detect) Ur Phencyclidine Scrn (None Detect) Ur Amphetamines Screen (None Detect) U Benzodiazepines Scrn (None Detect) Urine Cocaine Screen (None Detect) U Cannabinoids Screen (None Detect) Serum Alcohol < 10 (<10) mg/dL Influenza A (Rapid) (Negative) Influenza B (Rapid) (Negative) 07/07/16 07/07/16 07/07/16 Range/Units 13:47 13:47 14:50 WBC (3.5-10.8) 10^3/ul RBC (4.0-5.4) 10^6/ul Hgb (14.0-18.0) g/dl Hct (42-52) % MCV (80-94) fL MCH (27-31) pg MCHC (31-36) g/dl RDW (10.5-15) % Plt Count (150-450) 10^3/ul MPV (7.4-10.4) um3 Neut % (Auto) (38-83) % Lymph % (Auto) (25-47) % [place] % (Auto) (1-9) % Eos % (Auto) (0-6) % Baso % (Auto) (0-2) % Absolute Neuts (auto) (1.5-7.7) 10^3/ul Absolute Lymphs (auto) (1.0-4.8) 10^3/ul Absolute Monos (auto) (0-0.8) 10^3/ul Absolute Eos (auto) (0-0.6) 10^3/ul Absolute Basos (auto) (0-0.2) 10^3/ul Absolute Nucleated RBC 10^3/ul Nucleated RBC % INR (Anticoag Therapy) (0.89-1.11) Sodium (133-145) mmol/L Potassium 3.7 Chloride (101-111) mmol/L Carbon Dioxide (22-32) mmol/L Anion Gap BUN (6-24) mg/dL Creatinine (0.67-1.17) mg/dL Est GFR ( Amer) (>60) Est GFR (Non-Af Amer) (>60) BUN/Creatinine Ratio (8-20) Glucose (70-100) mg/dL Lactic Acid 2.3 H* (0.5-2.0) mmol/L Calcium (8.6-10.3) mg/dL Magnesium 1.7 L Total Bilirubin (0.2-1.0) mg/dL AST 114 H ALT (7-52) U/L Alkaline Phosphatase (34-104) U/L Ammonia TNP Total Creatine Kinase 3135 H (10-223) U/L Troponin I (<0.04) ng/mL Total Protein (6.4-8.9) g/dL Albumin (3.2-5.2) g/dL Globulin (2-4) g/dL Albumin/Globulin Ratio (1-3) Urine Color Urine Appearance Urine pH (5-9) Ur Specific [place] (1.010-1.030) Urine Protein (Negative) Urine Ketones (Negative) Urine Blood (Negative) Urine Nitrate (Negative) Urine Bilirubin (Negative) Urine Urobilinogen (Negative) Ur Leukocyte Esterase (Negative) Urine WBC (Auto) (Absent) Urine RBC (Auto) (Absent) Ur Squamous Epith Cells (Absent) Urine Bacteria (Absent) Urine Glucose (Negative) Urine Ascorbic Acid (Negative) Urine Opiates Screen (None Detect) Ur Barbiturates Screen (None Detect) Ur Phencyclidine Scrn (None Detect) Ur Amphetamines Screen (None Detect) U Benzodiazepines Scrn (None Detect) Urine Cocaine Screen (None Detect) U Cannabinoids Screen (None Detect) Serum Alcohol (<10) mg/dL Influenza A (Rapid) (Negative) Influenza B (Rapid) (Negative) 07/07/16 07/07/16 07/07/16 Range/Units 14:50 15:36 15:36 WBC (3.5-10.8) 10^3/ul RBC (4.0-5.4) 10^6/ul Hgb (14.0-18.0) g/dl Hct (42-52) % MCV (80-94) fL MCH (27-31) pg MCHC (31-36) g/dl RDW (10.5-15) % Plt Count (150-450) 10^3/ul MPV (7.4-10.4) um3 Neut % (Auto) (38-83) % Lymph % (Auto) (25-47) % [place] % (Auto) (1-9) % Eos % (Auto) (0-6) % Baso % (Auto) (0-2) % Absolute Neuts (auto) (1.5-7.7) 10^3/ul Absolute Lymphs (auto) (1.0-4.8) 10^3/ul Absolute Monos (auto) (0-0.8) 10^3/ul Absolute Eos (auto) (0-0.6) 10^3/ul Absolute Basos (auto) (0-0.2) 10^3/ul Absolute Nucleated RBC 10^3/ul Nucleated RBC % INR (Anticoag Therapy) (0.89-1.11) Sodium (133-145) mmol/L Potassium Chloride (101-111) mmol/L Carbon Dioxide (22-32) mmol/L Anion Gap BUN (6-24) mg/dL Creatinine (0.67-1.17) mg/dL Est GFR ( Amer) (>60) Est GFR (Non-Af Amer) (>60) BUN/Creatinine Ratio (8-20) Glucose (70-100) mg/dL Lactic Acid (0.5-2.0) mmol/L Calcium (8.6-10.3) mg/dL Magnesium Total Bilirubin (0.2-1.0) mg/dL AST ALT (7-52) U/L Alkaline Phosphatase (34-104) U/L Ammonia 79 H Total Creatine Kinase (10-223) U/L Troponin I (<0.04) ng/mL Total Protein (6.4-8.9) g/dL Albumin (3.2-5.2) g/dL Globulin (2-4) g/dL Albumin/Globulin Ratio (1-3) Urine Color Radha Urine Appearance Cloudy Urine pH 5.0 (5-9) Ur Specific [place] 1.030 (1.010-1.030) Urine Protein 1+(30 mg/dl) H (Negative) Urine Ketones Trace H (Negative) Urine Blood Negative (Negative) Urine Nitrate Negative (Negative) Urine Bilirubin 1+ (Negative) Urine Urobilinogen Positive H (Negative) Ur Leukocyte Esterase Negative (Negative) Urine WBC (Auto) Trace(0-5/hpf) (Absent) Urine RBC (Auto) 2+(6-10/hpf) H (Absent) Ur Squamous Epith Cells Present H (Absent) Urine Bacteria 1+ H (Absent) Urine Glucose Negative (Negative) Urine Ascorbic Acid * H (Negative) Urine Opiates Screen None detected (None Detect) Ur Barbiturates Screen None detected (None Detect) Ur Phencyclidine Scrn None detected (None Detect) Ur Amphetamines Screen None detected (None Detect) U Benzodiazepines Scrn None detected (None Detect) Urine Cocaine Screen None detected (None Detect) U Cannabinoids Screen None detected (None Detect) Serum Alcohol (<10) mg/dL Influenza A (Rapid) (Negative) Influenza B (Rapid) (Negative) 07/07/16 07/08/16 07/08/16 Range/Units 15:36 06:57 06:57 WBC 5.5 (3.5-10.8) 10^3/ul RBC 2.47 L (4.0-5.4) 10^6/ul Hgb 8.8 L (14.0-18.0) g/dl Hct 26 L (42-52) % MCV 105 H (80-94) fL MCH 36 H (27-31) pg MCHC 34 (31-36) g/dl RDW 18 H (10.5-15) % Plt Count 56 L (150-450) 10^3/ul MPV 8 (7.4-10.4) um3 Neut % (Auto) 59.6 (38-83) % Lymph % (Auto) 21.2 L (25-47) % [place] % (Auto) 13.5 H (1-9) % Eos % (Auto) 4.4 (0-6) % Baso % (Auto) 1.3 (0-2) % Absolute Neuts (auto) 3.3 (1.5-7.7) 10^3/ul Absolute Lymphs (auto) 1.2 (1.0-4.8) 10^3/ul Absolute Monos (auto) 0.7 (0-0.8) 10^3/ul Absolute Eos (auto) 0.2 (0-0.6) 10^3/ul Absolute Basos (auto) 0.1 (0-0.2) 10^3/ul Absolute Nucleated RBC 0.01 10^3/ul Nucleated RBC % 0.1 INR (Anticoag Therapy) 1.78 H (0.89-1.11) Sodium (133-145) mmol/L Potassium Chloride (101-111) mmol/L Carbon Dioxide (22-32) mmol/L Anion Gap BUN (6-24) mg/dL Creatinine (0.67-1.17) mg/dL Est GFR ( Amer) (>60) Est GFR (Non-Af Amer) (>60) BUN/Creatinine Ratio (8-20) Glucose (70-100) mg/dL Lactic Acid (0.5-2.0) mmol/L Calcium (8.6-10.3) mg/dL Magnesium Total Bilirubin (0.2-1.0) mg/dL AST ALT (7-52) U/L Alkaline Phosphatase (34-104) U/L Ammonia Total Creatine Kinase (10-223) U/L Troponin I (<0.04) ng/mL Total Protein (6.4-8.9) g/dL Albumin (3.2-5.2) g/dL Globulin (2-4) g/dL Albumin/Globulin Ratio (1-3) Urine Color Urine Appearance Urine pH (5-9) Ur Specific [place] (1.010-1.030) Urine Protein (Negative) Urine Ketones (Negative) Urine Blood (Negative) Urine Nitrate (Negative) Urine Bilirubin (Negative) Urine Urobilinogen (Negative) Ur Leukocyte Esterase (Negative) Urine WBC (Auto) (Absent) Urine RBC (Auto) (Absent) Ur Squamous Epith Cells (Absent) Urine Bacteria (Absent) Urine Glucose (Negative) Urine Ascorbic Acid (Negative) Urine Opiates Screen (None Detect) Ur Barbiturates Screen (None Detect) Ur Phencyclidine Scrn (None Detect) Ur Amphetamines Screen (None Detect) U Benzodiazepines Scrn (None Detect) Urine Cocaine Screen (None Detect) U Cannabinoids Screen (None Detect) Serum Alcohol (<10) mg/dL Influenza A (Rapid) Negative (Negative) Influenza B (Rapid) Negative (Negative) 07/08/16 07/08/16 07/09/16 Range/Units 06:57 06:57 05:58 WBC (3.5-10.8) 10^3/ul RBC (4.0-5.4) 10^6/ul Hgb (14.0-18.0) g/dl Hct (42-52) % MCV (80-94) fL MCH (27-31) pg MCHC (31-36) g/dl RDW (10.5-15) % Plt Count (150-450) 10^3/ul MPV (7.4-10.4) um3 Neut % (Auto) (38-83) % Lymph % (Auto) (25-47) % [place] % (Auto) (1-9) % Eos % (Auto) (0-6) % Baso % (Auto) (0-2) % Absolute Neuts (auto) (1.5-7.7) 10^3/ul Absolute Lymphs (auto) (1.0-4.8) 10^3/ul Absolute Monos (auto) (0-0.8) 10^3/ul Absolute Eos (auto) (0-0.6) 10^3/ul Absolute Basos (auto) (0-0.2) 10^3/ul Absolute Nucleated RBC 10^3/ul Nucleated RBC % INR (Anticoag Therapy) (0.89-1.11) Sodium 137 133 (133-145) mmol/L Potassium 3.3 L 4.1 Chloride 108 107 (101-111) mmol/L Carbon Dioxide 25 23 (22-32) mmol/L Anion Gap 4 3 BUN 17 15 (6-24) mg/dL Creatinine 0.67 0.59 L (0.67-1.17) mg/dL Est GFR ( Amer) 157.8 182.7 (>60) Est GFR (Non-Af Amer) 122.7 142.1 (>60) BUN/Creatinine Ratio 25.4 H 25.4 H (8-20) Glucose 123 H 93 (70-100) mg/dL Lactic Acid (0.5-2.0) mmol/L Calcium 7.9 L 7.9 L (8.6-10.3) mg/dL Magnesium Total Bilirubin (0.2-1.0) mg/dL AST ALT (7-52) U/L Alkaline Phosphatase (34-104) U/L Ammonia 80 H Total Creatine Kinase 1716 H 1101 H (10-223) U/L Troponin I (<0.04) ng/mL Total Protein (6.4-8.9) g/dL Albumin (3.2-5.2) g/dL Globulin (2-4) g/dL Albumin/Globulin Ratio (1-3) Urine Color Urine Appearance Urine pH (5-9) Ur Specific [place] (1.010-1.030) Urine Protein (Negative) Urine Ketones (Negative) Urine Blood (Negative) Urine Nitrate (Negative) Urine Bilirubin (Negative) Urine Urobilinogen (Negative) Ur Leukocyte Esterase (Negative) Urine WBC (Auto) (Absent) Urine RBC (Auto) (Absent) Ur Squamous Epith Cells (Absent) Urine Bacteria (Absent) Urine Glucose (Negative) Urine Ascorbic Acid (Negative) Urine Opiates Screen (None Detect) Ur Barbiturates Screen (None Detect) Ur Phencyclidine Scrn (None Detect) Ur Amphetamines Screen (None Detect) U Benzodiazepines Scrn (None Detect) Urine Cocaine Screen (None Detect) U Cannabinoids Screen (None Detect) Serum Alcohol (<10) mg/dL Influenza A (Rapid) (Negative) Influenza B (Rapid) (Negative) 07/09/16 Range/Units 05:58 WBC (3.5-10.8) 10^3/ul RBC (4.0-5.4) 10^6/ul Hgb (14.0-18.0) g/dl Hct (42-52) % MCV (80-94) fL MCH (27-31) pg MCHC (31-36) g/dl RDW (10.5-15) % Plt Count (150-450) 10^3/ul MPV (7.4-10.4) um3 Neut % (Auto) (38-83) % Lymph % (Auto) (25-47) % [place] % (Auto) (1-9) % Eos % (Auto) (0-6) % Baso % (Auto) (0-2) % Absolute Neuts (auto) (1.5-7.7) 10^3/ul Absolute Lymphs (auto) (1.0-4.8) 10^3/ul Absolute Monos (auto) (0-0.8) 10^3/ul Absolute Eos (auto) (0-0.6) 10^3/ul Absolute Basos (auto) (0-0.2) 10^3/ul Absolute Nucleated RBC 10^3/ul Nucleated RBC % INR (Anticoag Therapy) (0.89-1.11) Sodium (133-145) mmol/L Potassium Chloride (101-111) mmol/L Carbon Dioxide (22-32) mmol/L Anion Gap BUN (6-24) mg/dL Creatinine (0.67-1.17) mg/dL Est GFR ( Amer) (>60) Est GFR (Non-Af Amer) (>60) BUN/Creatinine Ratio (8-20) Glucose (70-100) mg/dL Lactic Acid (0.5-2.0) mmol/L Calcium (8.6-10.3) mg/dL Magnesium Total Bilirubin (0.2-1.0) mg/dL AST ALT (7-52) U/L Alkaline Phosphatase (34-104) U/L Ammonia 68 H Total Creatine Kinase (10-223) U/L Troponin I (<0.04) ng/mL Total Protein (6.4-8.9) g/dL Albumin (3.2-5.2) g/dL Globulin (2-4) g/dL Albumin/Globulin Ratio (1-3) Urine Color Urine Appearance Urine pH (5-9) Ur Specific [place] (1.010-1.030) Urine Protein (Negative) Urine Ketones (Negative) Urine Blood (Negative) Urine Nitrate (Negative) Urine Bilirubin (Negative) Urine Urobilinogen (Negative) Ur Leukocyte Esterase (Negative) Urine WBC (Auto) (Absent) Urine RBC (Auto) (Absent) Ur Squamous Epith Cells (Absent) Urine Bacteria (Absent) Urine Glucose (Negative) Urine Ascorbic Acid (Negative) Urine Opiates Screen (None Detect) Ur Barbiturates Screen (None Detect) Ur Phencyclidine Scrn (None Detect) Ur Amphetamines Screen (None Detect) U Benzodiazepines Scrn (None Detect) Urine Cocaine Screen (None Detect) U Cannabinoids Screen (None Detect) Serum Alcohol (<10) mg/dL Influenza A (Rapid) (Negative) Influenza B (Rapid) (Negative) Result Diagrams: 07/08/16 06:57 07/09/16 05:58 Lab Statement: Any lab studies that have been ordered have been reviewed, and results considered in the medical decision making process. - Radiology CXR Xray Interpretation: Positive (See Comments) - FAINT PERSISTENT DENSITY AT THE LEFT LUNG BASE BUT WITH OVERALL IMPROVED AERATION WHEN COMPARED TO THE MAY 01, 2016 CHEST X-RAY. ETIOLOGIES COULD INCLUDE PERSISTENT CONSOLIDATION OR ATELECTASIS. Radiology Interpretation Completed By: Radiologist - CT Brain CT CT Interpretation: No Acute Changes - Stable chronic findings as described above without identification of acute intracranial abnormality. CT Interpretation Completed By: Radiologist Altered Mental Statu Course/Dx - Diagnoses Discharge Diagnoses: Hepatic encephalopathy, Head injury Discharge - Discharge Plan Condition: Stable Disposition: ADMITTED TO [facility] Discharge Disposition Comment: Pt is accepted by Hospitalist as an admission The documentation as recorded by the Matthew chahal Michael accurately reflects the service I personally performed and the decisions made by me, Rosalee Trimble MD.
== END 2016-07-10 13:30 | disposition home or self-care (01) | DRG 443 ==
LOC: ED 13:16 → MED 15:13 → OBSVTOIN 07-09 07:11
PROVIDERS: ADMIT Internal Medicine; ATTEND Internal Medicine
DX: K72.90 Hepatic failure, unspecified without coma (principal); E83.119 Hemochromatosis, unspecified; H10.9 Unspecified conjunctivitis; K70.30 Alcoholic cirrhosis of liver without ascites; F10.10 Alcohol abuse, uncomplicated; Z79.1 Long term (current) use of non-steroidal anti-inflammatories (NSAID); Z79.899 Other long term (current) drug therapy; Z88.6 Allergy status to analgesic agent; Z88.8 Allergy status to other drugs, medicaments and biological substances; Z82.49 Family history of ischemic heart disease and other diseases of the circulatory system; Z80.52 Family history of malignant neoplasm of bladder
CPT/HCPCS: 36415; 70450; 71010; 80048; 80053; 80307; 80320; 81003; 81015; 82140; 82550; 83605; 83735; 84484; 85025; 85610; 87040; 87077; 87086; 87186; 87502; 87899; 94760; A9270-GY; G0378; G0480; J0456; J0696

== ENCOUNTER 2016-07-15 19:03 | Emergency (ER) | payer MEDICARE, BC ==
[2016-07-15] MEDS ORDERED: methylPREDNISolone SOD SUCC* 125 MG 2 ML VIAL IV ONE (19:20)
--- NOTE | 2016-07-15 19:48 | RAD ---
INDICATION: Shortness of breath. COMPARISON: There is is made with a prior chest x-ray study from July 07, 2016. TECHNIQUE: Dual-energy PA and lateral views of the chest were obtained. FINDINGS: The heart appears to be within normal limits in size. The lungs are underinflated. There is a moderate size left pleural effusion which has increased in size from the prior exam. There is a small associated infiltrate most consistent with atelectasis. The right lung appears clear. IMPRESSION: MODERATE SIZE LEFT PLEURAL EFFUSION INCREASED IN SIZE.
[2016-07-15 19:57] LABS: Hematocrit 29 % (42-52); Hemoglobin 9.3 g/dl (14.0-18.0); Mean Corpuscular HGB Conc 33 g/dl (31-36); Mean Corpuscular Hemoglobin 35 pg (27-31); Mean Platelet Volume 8 um3 (7.4-10.4); Red Blood Count 2.71 10^6/ul (4.0-5.4); Red Cell Distribution Width 18 % (10.5-15); White Blood Count 7.8 10^3/ul (3.5-10.8)
[2016-07-15 19:58] LABS: Comments Flag Yes; Mean Corpuscular Volume 106 fL (80-94)
[2016-07-15 20:13] LABS: Albumin 2.3 g/dL (3.2-5.2); BUN/Creatinine Ratio 16.9 (8-20); Calcium 8.1 mg/dL (8.6-10.3); EGFR African American 123.3 (>60); EGFR Non-African American 95.8 (>60); Globulin 3.4 g/dL (2-4); Potassium 3.8 mmol/L (3.5-5.0); Total Bilirubin 3.7 mg/dL (0.2-1.0); Total Protein 5.7 g/dL (6.4-8.9)
[2016-07-15 20:14] LABS: Troponin I 0.01 ng/mL (<0.04)
--- NOTE | 2016-07-15 21:15 | ED ---
Tori Benites Erika, scribed for Chong Borja MD on 07/15/16 at 1943 . Shortness of Breath - HPI Summary HPI Summary: Patient is a 55-year-old male presenting to the ED with a CC of SOB. Per [place], patient has been wheezing and had SOB the past few days, and has been given multiple nebulizer treatments. Symptoms worsened this afternoon so patient was brought to the ED. Pt reports he was coughing a lot before transfer. EMS reports that they gave patient 2 duoneb treatments en route, which partially alleviated the symptoms. - History of Current Complaint Chief Complaint: EDShortnessOfBreath Time Seen by Provider: 07/15/16 19:15 Hx Obtained From: Patient, EMS, Medical Records Onset/Duration: Gradual Onset, Lasting Days, Worse Since - this afternoon Timing: Intermittent Episodes Lasting: - minutes/hours Current Severity: Moderate Dyspnea At: Rest Alleviating Factors: EMS Tx Associated Signs & Symptoms: Cough (Nonproductive), Wheezing - Allergy/Home Medications Allergies/Adverse Reactions: Allergies Allergy/AdvReac Type Severity Reaction Status Date / Time Acetaminophen [From Tylenol] Allergy AVOIDS Verified 04/25/16 15:56 NSAIDs Allergy AVOIDS Verified 04/25/16 15:56 PMH/Surg Hx/FS Hx/Imm Hx Endocrine/Hematology History: Reports: Hx Anemia, Other Endocrine/Hematological Disorders - Hemochromatosis Denies: Hx Anticoagulant Therapy, Hx Blood Transfusions, Hx Diabetes, Hx Systemic Lupus Erythematosus, Hx Thyroid Disease Cardiovascular History: Reports: Hx Hypertension Denies: Hx Aneurysm, Hx Angina, Hx Angioplasty, Hx Auto Implanted Cardiovert Defib, Hx Congestive Heart Failure, Hx Pacemaker/ICD Respiratory History: Reports: Hx Pleural Effusion Denies: Hx Asthma, Hx Chronic Obstructive Pulmonary Disease (COPD) GI History: Reports: Hx Cirrhosis, Hx Gastrointestinal Bleed, Hx Jaundice, Hx Ulcer Denies: Hx Gastroesophageal Reflux Disease Comment Only: Hx Diverticulosis - family history of, Other GI Disorders - Hepatic enchephalopathy History: Denies: Hx Dialysis, Hx Renal Disease Musculoskeletal History: Reports: Other Musculoskeletal History - right hip, knees have discomfort/pain at times Denies: Hx Rheumatoid Arthritis Sensory History: Reports: Hx Contacts or Glasses Denies: Hx Hearing Aid Opthamlomology History: Reports: Hx Contacts or Glasses Neurological History: Reports: Hx Seizures, Other Neuro Impairments/Disorders - Affected by chronic high ammonia levels Denies: Hx Dementia Psychiatric History: Reports: Hx Anxiety, Hx Depression, Hx Substance Abuse Denies: Hx Panic Disorder - Cancer History Cancer Type, Location and Year: hemochromotosis- high iron levels Hx Chemotherapy: No - Surgical History Surgery Procedure, Year, and Place: LEFT HAND RING FINGER TENDON ATTACHEMENT- [facility] Anesthesia Reactions: No - Immunization History Date of Tetanus Vaccine: sister states up to date Infectious Disease History: No Infectious Disease History: Denies: Hx Hepatitis, Hx Human Immunodeficiency Virus (HIV), Traveled Outside the [place] in Last 30 Days - Family History Known Family History: Positive: Other - Father 65 with liver CA. Diverticulosis. - Social History [facility]: [facility] Hx Substance Use: No Substance Use Type: Reports: None Hx Tobacco Use: No Smoking Status (MU): Never Smoked Tobacco Review of Systems Positive: Fever Respiratory: Other - wheezing Positive: Shortness Of Breath, Cough All Other Systems Reviewed And Are Negative: Yes Physical Exam Triage Information Reviewed: Yes Vital Signs On Initial Exam: Initial Vitals Temp Pulse Resp BP Pulse Ox 100 F 96 24 146/72 100 07/15/16 19:10 07/15/16 19:10 07/15/16 19:10 07/15/16 19:10 07/15/16 19:10 Vital Signs Reviewed: Yes Appearance: Positive: No Pain Distress, Ill-Appearing - chronically Skin: Positive: Warm, Pale Head/Face: Positive: Normal Head/Face Inspection Eyes: Positive: JU ENT: Positive: Pharynx normal Neck: Positive: Supple Respiratory/Lung Sounds: Positive: Wheezes - few bilat exp, mild decrease bs lt lower lung field Cardiovascular: Positive: RRR Abdomen Description: Positive: Nontender, Soft Musculoskeletal: Positive: Strength/ROM Intact Neurological: Positive: Alert, Oriented to Person Place, Time Diagnostics - Vital Signs Vital Signs Temp Pulse Resp BP Pulse Ox 07/15/16 19:10 100 F 95 24 146/72 100 - Laboratory Lab Results: Lab Results 07/15/16 07/15/16 07/15/16 Range/Units 19:50 19:50 19:50 WBC 7.8 (3.5-10.8) 10^3/ul RBC 2.71 L (4.0-5.4) 10^6/ul Hgb 9.3 L (14.0-18.0) g/dl Hct 29 L (42-52) % MCV 106 H (80-94) fL MCH 35 H (27-31) pg MCHC 33 (31-36) g/dl RDW 18 H (10.5-15) % Plt Count 72 L D (150-450) 10^3/ul MPV 8 (7.4-10.4) um3 Neut % (Auto) 67.1 (38-83) % Lymph % (Auto) 11.9 L (25-47) % Terrell % (Auto) 18.1 H (1-9) % Eos % (Auto) 2.1 (0-6) % Baso % (Auto) 0.8 (0-2) % Absolute Neuts (auto) 5.3 (1.5-7.7) 10^3/ul Absolute Lymphs (auto) 0.9 L (1.0-4.8) 10^3/ul Absolute Monos (auto) 1.4 H (0-0.8) 10^3/ul Absolute Eos (auto) 0.2 (0-0.6) 10^3/ul Absolute Basos (auto) 0.1 (0-0.2) 10^3/ul Absolute Nucleated RBC 0 10^3/ul Nucleated RBC % 0 Sodium 130 L (133-145) mmol/L Potassium 3.8 (3.5-5.0) mmol/L Chloride 99 L (101-111) mmol/L Carbon Dioxide 27 (22-32) mmol/L Anion Gap 4 (2-11) mmol/L BUN 14 (6-24) mg/dL Creatinine 0.83 (0.67-1.17) mg/dL Est GFR ( Amer) 123.3 (>60) Est GFR (Non-Af Amer) 95.8 (>60) BUN/Creatinine Ratio 16.9 (8-20) Glucose 124 H (70-100) mg/dL Lactic Acid 2.2 H* (0.5-2.0) mmol/L Calcium 8.1 L (8.6-10.3) mg/dL Total Bilirubin 3.70 H (0.2-1.0) mg/dL AST 93 H (13-39) U/L ALT 51 (7-52) U/L Alkaline Phosphatase 98 (34-104) U/L Troponin I 0.01 (<0.04) ng/mL Total Protein 5.7 L (6.4-8.9) g/dL Albumin 2.3 L (3.2-5.2) g/dL Globulin 3.4 (2-4) g/dL Albumin/Globulin Ratio 0.7 L (1-3) Result Diagrams: 07/15/16 19:50 07/15/16 19:50 Lab Statement: Any lab studies that have been ordered have been reviewed, and results considered in the medical decision making process. - Radiology CXR Radiology Interpretation Completed By: Radiologist - IMPRESSION: MODERATE SIZE LEFT PLEURAL EFFUSION INCREASED IN SIZE. - EKG 20:30 Cardiac Rate: NL - at 93 bpm EKG Rhythm: Sinus Rhythm Re-Evaluation - Re-Evaluation First Eval Re-Evaluation Time: 20:50 Comment: Discussed results with patient. Will trial taking patient off O2 and re -evaluate Second Eval Re-Evaluation Time: 21:13 Change: Improved Comment: Patient will be discharged Course/Dx - Course Assessment/Plan: A 55 y/o M presents to the ED with a CC of SOB. Patient has a Hx pleural effusion. He is given duoneb treatments by EMS and receives solumedrol in the ED. EKG shows NSR. CXR shows pleural effusion. Patient is taken of O2 in the ED and does well, so is discharged with closer follow up. - Diagnoses Provider Diagnoses: Pleural effusion, left, Liver cirrhosis Discharge - Discharge Plan Condition: Stable Disposition: HOME Patient Education Materials: Dyspnea (ED), Pleural Effusion (ED) Referrals: Deya Alvarez MD [Primary Care Provider] - Additional Instructions: Please follow up with your PCP this week. The documentation as recorded by the Tori chahal Erika accurately reflects the service I personally performed and the decisions made by me, Chong Borja MD.
[2016-07-15 23:31] VITALS: BP 123/65
== END 2016-07-15 22:30 | disposition home or self-care (01) ==
LOC: ED 19:03
DX: J90 Pleural effusion, not elsewhere classified (principal); K74.60 Unspecified cirrhosis of liver; R06.02 Shortness of breath; R05 Cough; R06.2 Wheezing; R50.9 Fever, unspecified
CPT/HCPCS: 36415; 71020; 80053; 83605; 84484; 85025; 93005; 96374; 99282; J2930

== ENCOUNTER 2016-08-21 11:34 | Inpatient (IN) | payer MEDICARE, BC, OTHER ==
[2016-08-21] MEDS: NS 0.9% 1000 ML* 1,000 ML IV SCH ×2 (12:55→19:44)
[2016-08-21 13:37] LABS: Hematocrit 31 % (42-52); Hemoglobin 10.5 g/dl (14.0-18.0); Mean Corpuscular HGB Conc 34 g/dl (31-36); Mean Corpuscular Hemoglobin 35 pg (27-31); Mean Corpuscular Volume 103 fL (80-94); Mean Platelet Volume 8 um3 (7.4-10.4); Red Blood Count 3.02 10^6/ul (4.0-5.4); Red Cell Distribution Width 18 % (10.5-15)
--- NOTE | 2016-08-21 13:40 | RAD ---
HISTORY: Altered mental status COMPARISONS: None TECHNIQUE: Multiple contiguous axial CT scans were obtained of the head without intravenous contrast. FINDINGS: HEMORRHAGE/INFARCT: There is no hemorrhage or acute infarct. MASSES/SHIFT: There is no mass or shift. EXTRA-AXIAL SPACES: There are no extra-axial fluid collections. SULCI AND VENTRICLES: The sulci and ventricles are normal in size and position for the patient's stated age. CEREBRUM: There are no focal parenchymal abnormalities. BRAINSTEM: There are no focal parenchymal abnormalities. CEREBELLUM: There are no focal parenchymal abnormalities. VESSELS: The vessels are grossly normal. PARANASAL SINUSES: The paranasal sinuses are clear. ORBITS: The orbits are unremarkable. BONES AND SOFT TISSUE: No bone or soft tissue abnormalities are noted. OTHER: None IMPRESSION: NO ACUTE INTRACRANIAL PATHOLOGY.
--- NOTE | 2016-08-21 13:47 | RAD ---
INDICATION: Altered mental status COMPARISON: Chest x-ray July 15, 2016; chest x-ray May 01, 2016 TECHNIQUE: An AP portable view obtained at 1315 hours is submitted. FINDINGS: Bones/Soft Tissues: There are no acute bony findings. Cardiomediastinal: The cardiomediastinal silhouette is normal. Lungs: There is minimal atelectasis left lung base perhaps with a tiny pleural effusion. There is significantly improved aeration. The remaining lungs are clear. Pleura: There are no pleural effusions. Other: The soft tissues are unchanged with a presumed portosystemic shunt and evidence of prior embolization procedure. IMPRESSION: COMPLETE RESOLUTION OF LEFT BASILAR ABNORMALITIES. THE EXAMINATION IS OTHERWISE UNCHANGED.
[2016-08-21 13:51] LABS: ALT 24 U/L (7-52); AST 52 U/L (13-39); Albumin 2.4 g/dL (3.2-5.2); Alkaline Phosphatase 103 U/L (34-104); Anion Gap 5 mmol/L (2-11); BUN/Creatinine Ratio 25.7 (8-20); Blood Urea Nitrogen 18 mg/dL (6-24); C Reactive Protein 19.38 mg/L (< 5.00); CO2 Carbon Dioxide 25 mmol/L (22-32); Calcium 9.3 mg/dL (8.6-10.3); Chloride 105 mmol/L (101-111); Creatine Kinase 81 U/L (10-223); EGFR Non-African American 116.7 (>60); Globulin 3.8 g/dL (2-4); Glucose 94 mg/dL (70-100); Lipase < 10 U/L (11.0-82.0); Magnesium 1.8 mg/dL (1.9-2.7); Potassium 4.4 mmol/L (3.5-5.0); Sodium 135 mmol/L (133-145); Total Protein 6.2 g/dL (6.4-8.9)
[2016-08-21 13:52] LABS: Acetaminophen < 15 mcg/mL; Alcohol < 10 mg/dL (<10)
[2016-08-21 13:52] LABS: Ammonia 70 mol/L (16-53)
[2016-08-21 13:57] LABS: B Type Natriuretic Peptide 70 pg/mL
[2016-08-21 14:02] LABS: TSH (Thyroid Stimulating Horm) 0.07 mcIU/mL (0.34-5.60)
--- NOTE | 2016-08-21 14:45 | ED ---
Lourdes Benites Auryana, scribed for Reji Yan MD on 08/21/16 at 1245 . Altered Mental Status - HPI Summary HPI Summary: 55 year old male VERENA with weakness and AMS. He was last seen normal at 14:30 yesterday by home healthcare aids - found AMS today by aids at 10:30. Sister states that he is currently on Tramadol for his right ankle and is in home PT x2 week- typically walks with a walker but was unable to walk today. Patient denies any pain today. Sister states that home RN/Aids were concerned about a wound on his buttock. His sister states that he has missed the lsat 2 days of medication and has had similar episodes of AMS and confusion with missed doses. PMHx of hepatic encephalopathy. History given by EMS and sister. Patient is a level 5 caveat due to AMS and confusion. - History Of Current Complaint Chief Complaint: EDWeakness Stated Complaint: WEAKNESS, GENERAL ILLNESS Time Seen by Provider: 08/21/16 12:25 Hx Obtained From: Family/Cycling Instructor - sister, EMS Hx From Patient Unobtainable Due To: Altered Mental Status Last Known Well Date: yesterday at 14:30 Onset/Duration: Still Present Severity Initially: Mild Severity Currently: Mild Character: Confusion Aggravating Factor(s): Unknown, Medication Change - possibly due to missed doses of daily medication - for 2 days Alleviating Factor(s): Unknown Associated Signs And Symptoms: Positive: Negative - denies any pain Related History: Similar Episode/Diagnosed As: - see HPI - Allergies/Home Medications Allergies/Adverse Reactions: Allergies Allergy/AdvReac Type Severity Reaction Status Date / Time Acetaminophen [From Tylenol] Allergy AVOIDS Verified 04/25/16 15:56 NSAIDs Allergy AVOIDS Verified 04/25/16 15:56 Home Medications: Home Medications Multivitamins/Minerals TAB* [Theragran/minerals TAB*] 1 tab PO DAILY 08/21/16 [ History Confirmed 08/21/16] PMH/Surg Hx/FS Hx/Imm Hx Endocrine/Hematology History: Reports: Hx Anemia, Other Endocrine/Hematological Disorders - Hemochromatosis Denies: Hx Anticoagulant Therapy, Hx Blood Transfusions, Hx Diabetes, Hx Systemic Lupus Erythematosus, Hx Thyroid Disease Cardiovascular History: Reports: Hx Hypertension Denies: Hx Aneurysm, Hx Angina, Hx Angioplasty, Hx Auto Implanted Cardiovert Defib, Hx Congestive Heart Failure, Hx Pacemaker/ICD Respiratory History: Reports: Hx Pleural Effusion Denies: Hx Asthma, Hx Chronic Obstructive Pulmonary Disease (COPD) GI History: Reports: Hx Cirrhosis, Hx Gastrointestinal Bleed, Hx Jaundice, Hx Ulcer Denies: Hx Gastroesophageal Reflux Disease Comment Only: Hx Diverticulosis - family history of, Other GI Disorders - Hepatic enchephalopathy History: Denies: Hx Dialysis, Hx Renal Disease Musculoskeletal History: Reports: Other Musculoskeletal History - right hip, knees have discomfort/pain at times Denies: Hx Rheumatoid Arthritis Sensory History: Reports: Hx Contacts or Glasses Denies: Hx Hearing Aid Opthamlomology History: Reports: Hx Contacts or Glasses Neurological History: Reports: Hx Seizures, Other Neuro Impairments/Disorders - Affected by chronic high ammonia levels Denies: Hx Dementia Psychiatric History: Reports: Hx Anxiety, Hx Depression, Hx Substance Abuse Denies: Hx Panic Disorder - Cancer History Cancer Type, Location and Year: hemochromotosis- high iron levels Hx Chemotherapy: No - Surgical History Surgery Procedure, Year, and Place: LEFT HAND RING FINGER TENDON ATTACHEMENT- [facility] Anesthesia Reactions: No - Immunization History Date of Tetanus Vaccine: sister states up to date Infectious Disease History: No Infectious Disease History: Denies: Hx Hepatitis, Hx Human Immunodeficiency Virus (HIV), Traveled Outside the [place] in Last 30 Days - Family History Known Family History: Positive: Other - Father 65 with liver CA. Diverticulosis. - Social History Occupation: Retired Lives: Assisted Living - home health care Aids, RN , and PT Alcohol Use: None Alcohol Amount: Unable to obtain - level 5 caveat Hx Substance Use: No Substance Use Type: Reports: None Hx Tobacco Use: No Smoking Status (MU): Never Smoked Tobacco Review of Systems - ROS Summary Review of Systems Summary: PATIENT IS A LEVEL 5 CAVEAT DUE TO AMS AND CONFUSION Negative: Fever Negative: Arthralgia, Myalgia Positive: Other - WOUND O BUTTOCK - PER SISTER AND HOME HEALTHCARE AIDS All Other Systems Reviewed And Are Negative: No Physical Exam Triage Information Reviewed: Yes Vital Signs On Initial Exam: Initial Vitals Temp Pulse Resp BP Pulse Ox 97 F 80 16 124/78 100 08/21/16 11:53 08/21/16 11:53 08/21/16 11:53 08/21/16 11:53 08/21/16 11:53 Vital Signs Reviewed: Yes Appearance: Positive: Well-Appearing, No Pain Distress Skin: Positive: Warm, Skin Color Reflects Adequate Perfusion, Dry, Other - 2 IN X 1.5 IN X INCH DEEP wound on the buttock - no drainage - minimal surrounding erythema Head/Face: Positive: Normal Head/Face Inspection Eyes: Positive: EOMI, JU ENT: Positive: Normal ENT inspection Neck: Positive: Supple, Nontender Respiratory/Lung Sounds: Positive: Clear to Auscultation, Breath Sounds Present Cardiovascular: Positive: RRR Musculoskeletal: Positive: Normal, Strength/ROM Intact - moves all 4 extremities Neurological: Positive: Sensory/Motor Intact, Other - patient is confused. Negative: Alert, Oriented to Person Place, Time Diagnostics - Vital Signs Vital Signs Temp Pulse Resp BP Pulse Ox 08/21/16 12:00 97.8 F 80 16 124/78 100 08/21/16 11:53 97 F 80 16 124/78 100 - Laboratory Lab Results: Lab Results 08/21/16 08/21/16 08/21/16 Range/Units 12:47 12:47 13:00 WBC (3.5-10.8) 10^3/ul RBC (4.0-5.4) 10^6/ul Hgb (14.0-18.0) g/dl Hct (42-52) % MCV (80-94) fL MCH (27-31) pg MCHC (31-36) g/dl RDW (10.5-15) % Plt Count (150-450) 10^3/ul MPV (7.4-10.4) um3 Neut % (Auto) (38-83) % Lymph % (Auto) (25-47) % [place] % (Auto) (1-9) % Eos % (Auto) (0-6) % Baso % (Auto) (0-2) % Absolute Neuts (auto) (1.5-7.7) 10^3/ul Absolute Lymphs (auto) (1.0-4.8) 10^3/ul Absolute Monos (auto) (0-0.8) 10^3/ul Absolute Eos (auto) (0-0.6) 10^3/ul Absolute Basos (auto) (0-0.2) 10^3/ul Absolute Nucleated RBC 10^3/ul Nucleated RBC % INR (Anticoag Therapy) 1.45 H (0.89-1.11) APTT 36.5 H (26.0-36.3) seconds Sodium (133-145) mmol/L Potassium (3.5-5.0) mmol/L Chloride (101-111) mmol/L Carbon Dioxide (22-32) mmol/L Anion Gap (2-11) mmol/L BUN (6-24) mg/dL Creatinine (0.67-1.17) mg/dL Est GFR ( Amer) (>60) Est GFR (Non-Af Amer) (>60) BUN/Creatinine Ratio (8-20) Glucose (70-100) mg/dL Lactic Acid 2.0 (0.5-2.0) mmol/L Calcium (8.6-10.3) mg/dL Magnesium (1.9-2.7) mg/dL Total Bilirubin (0.2-1.0) mg/dL AST (13-39) U/L ALT (7-52) U/L Alkaline Phosphatase (34-104) U/L Ammonia 70 H (16-53) mol/L Total Creatine Kinase (10-223) U/L CK-MB (CK-2) (0.6-6.3) ng/mL Troponin I (<0.04) ng/mL C-Reactive Protein (< 5.00) mg/L B-Natriuretic Peptide 70 ( - 100) pg/mL Total Protein (6.4-8.9) g/dL Albumin (3.2-5.2) g/dL Globulin (2-4) g/dL Albumin/Globulin Ratio (1-3) Lipase (11.0-82.0) U/L TSH (0.34-5.60) mcIU/mL Acetaminophen mcg/mL Serum Alcohol (<10) mg/dL 08/21/16 08/21/16 Range/Units 13:00 13:26 WBC 5.0 (3.5-10.8) 10^3/ul RBC 3.02 L (4.0-5.4) 10^6/ul Hgb 10.5 L (14.0-18.0) g/dl Hct 31 L (42-52) % MCV 103 H (80-94) fL MCH 35 H (27-31) pg MCHC 34 (31-36) g/dl RDW 18 H (10.5-15) % Plt Count 100 L (150-450) 10^3/ul MPV 8 (7.4-10.4) um3 Neut % (Auto) 68.0 (38-83) % Lymph % (Auto) 19.5 L (25-47) % [place] % (Auto) 9.2 H (1-9) % Eos % (Auto) 2.1 (0-6) % Baso % (Auto) 1.2 (0-2) % Absolute Neuts (auto) 3.4 (1.5-7.7) 10^3/ul Absolute Lymphs (auto) 1.0 (1.0-4.8) 10^3/ul Absolute Monos (auto) 0.5 (0-0.8) 10^3/ul Absolute Eos (auto) 0.1 (0-0.6) 10^3/ul Absolute Basos (auto) 0.1 (0-0.2) 10^3/ul Absolute Nucleated RBC 0.01 10^3/ul Nucleated RBC % 0.3 INR (Anticoag Therapy) (0.89-1.11) APTT (26.0-36.3) seconds Sodium 135 (133-145) mmol/L Potassium 4.4 (3.5-5.0) mmol/L Chloride 105 (101-111) mmol/L Carbon Dioxide 25 (22-32) mmol/L Anion Gap 5 (2-11) mmol/L BUN 18 (6-24) mg/dL Creatinine 0.70 (0.67-1.17) mg/dL Est GFR ( Amer) 150.0 (>60) Est GFR (Non-Af Amer) 116.7 (>60) BUN/Creatinine Ratio 25.7 H (8-20) Glucose 94 (70-100) mg/dL Lactic Acid (0.5-2.0) mmol/L Calcium 9.3 (8.6-10.3) mg/dL Magnesium 1.8 L (1.9-2.7) mg/dL Total Bilirubin 5.70 H (0.2-1.0) mg/dL AST 52 H (13-39) U/L ALT 24 (7-52) U/L Alkaline Phosphatase 103 (34-104) U/L Ammonia (16-53) mol/L Total Creatine Kinase 81 (10-223) U/L CK-MB (CK-2) 4.9 (0.6-6.3) ng/mL Troponin I 0.00 (<0.04) ng/mL C-Reactive Protein 19.38 H (< 5.00) mg/L B-Natriuretic Peptide ( - 100) pg/mL Total Protein 6.2 L (6.4-8.9) g/dL Albumin 2.4 L (3.2-5.2) g/dL Globulin 3.8 (2-4) g/dL Albumin/Globulin Ratio 0.6 L (1-3) Lipase < 10 L (11.0-82.0) U/L TSH 0.07 L (0.34-5.60) mcIU/mL Acetaminophen < 15 mcg/mL Serum Alcohol < 10 (<10) mg/dL Result Diagrams: 08/21/16 13:26 08/21/16 13:00 Lab Statement: Any lab studies that have been ordered have been reviewed, and results considered in the medical decision making process. - Radiology CXR Xray Interpretation: No Acute Changes - IMPRESSION: COMPLETE RESOLUTION OF LEFT BASILAR ABNORMALITIES. THE EXAMINATION IS OTHERWISE UNCHANGED. Radiology Interpretation Completed By: Radiologist - CT BRAIN CT Interpretation: No Acute Changes CT Interpretation Completed By: Radiologist - EKG 12:25 EKG Interpretation: NSR @ 72 BPM, NML ST segment, no ectopy Altered Mental Statu Course/Dx - Course Course Of Treatment: NO CRITICAL CARE TIME Assessment/Plan: ADMIT HOSPITALIST STABLE - Diagnoses Discharge Diagnoses: Altered mental status, Hepatic encephalopathy Discharge - Discharge Plan Condition: Stable Disposition: ADMITTED TO [facility] Referrals: Deya Alvarez MD [Primary Care Provider] - The documentation as recorded by the Lourdes chahal Auryana accurately reflects the service I personally performed and the decisions made by , Reji Yan MD.
[2016-08-21] MEDS ORDERED: Magnesium Sulfate 2 GM IV* 2 GM/50 ML BAG IVPB ONE (15:54)
[2016-08-21 16:22] LABS: Urine Bilirubin Negative (Negative); Urine Glucose Negative (Negative); Urine Nitrite Negative (Negative)
[2016-08-21] MEDS: Lactulose* 15 ML UDC PO SCH ×2 (17:39→22:55)
[2016-08-21] MEDS ORDERED: Heparin VIAL(*) 5000 UNITS/ML VIAL (FIVE THOUSAND) SUBCUT SCH (22:00)
[2016-08-21] MEDS: Enoxaparin(*) 40 MG/0.4 ML SYR SUBCUT SCH (22:55)
[2016-08-21] MEDS: RiFAXimin* 550 MG TAB PO SCH (22:55)
--- NOTE | 2016-08-21 23:03 | HP ---
MEDICINE HISTORY AND PHYSICAL: DATE OF ADMISSION: 08/21/16 PROVIDER: Jazlyn Herring NP ATTENDING PHYSICIAN: Dr. Pavel Mulligan * (dictated by Jazlyn Herring NP). PRIMARY CARE PHYSICIAN: Dr. Deya Alvarez. CHIEF COMPLAINT: Altered mental status and weakness. HISTORY OF PRESENT ILLNESS: Mr. Quevedo is a 55-year-old male patient with a history significant for chronic liver failure secondary to alcohol abuse and hemochromatosis. The patient is significantly altered at this time and has been unable to provide much of a history. The patient's history of present illness was mostly provided by ER staff and the patient's sister and healthcare proxy, Antonietta. The patient's history reports that the patient was last seen normal at approximately 0230 yesterday on 08/20/16 by the home health nurses and aides that come to see him. The patient was found today by the physical therapist around 10:30 who noted that he was very somnolent and lying in bed. The patient had notable incontinence of both urine and stool. When the sister went to the house, she states that she looked at his medication box and noted that he has likely missed past two days of medications. The patient was recently hospitalized here at [facility] and discharged to [facility] on 07/10/16 where he stayed for approximately 28 days. Per the sister, the patient was offered assistance in placement and have looked at [facility]. However, the patient refused this and stated he wanted to go home. The patient met with [facility] staff and social workers and comp field case manager who helped to develop a "safe plan," which included home health aides and nursing for physical therapy, assistance with ADLs, wound care and medication management. The sister states, however, that the patient continues to appear unsafe at home. He is noncompliant with his walker. Apparently, he is noncompliant with his medications. She is concerned for his continued safety as this has happened multiple times and he continues to pose a safety risk. Mr. Quevedo does respond when asked questions, but is unable to tell me if anything is hurting him or if he has any acute complaints or concerns. He does , however, wince with certain movements. In the ER, the patient's ammonia was noted to be 70. PAST MEDICAL HISTORY: Significant for: 1. Chronic liver failure. 2. Alcohol abuse. 3. Hemochromatosis. 4. Hepatic encephalopathy with multiple admissions. PAST SURGICAL HISTORY: Includes: 1. TIPS procedure. 2. Pleurx catheter placement and removal. 3. Hernia repair. HOME MEDICATIONS: 1. Thiamine 100 mg daily. 2. Multivitamin 1 tab daily. 3. Rifaximin 550 mg b.i.d. 4. Omeprazole 40 mg daily. 5. Lactulose 45 mL q.6 hours. 6. Folic acid 1 mg daily. 7. Spironolactone 125 mg daily. 8. Furosemide 40 mg daily. ALLERGIES: Include ACETAMINOPHEN and NSAIDS which the patient should avoid given his medical history. FAMILY HISTORY: Per the record shows a history of coronary artery disease in the patient's mother and a father with a history of bladder cancer. SOCIAL HISTORY: Mr. Quevedo is living alone, although he does have home health aides and visiting nurse services. There is no apparent alcohol use, although he does have a history significant for alcohol use. He does not smoke cigarettes. His sister, Antonietta, is his surrogate decision maker and healthcare proxy. REVIEW OF SYSTEMS: The patient is unable to offer any significant or definite review of systems. The patient's sister reports the patient has complained of multiple wounds and bruising as well as weakness and gait instability. PHYSICAL EXAMINATION GENERAL: Mr. Quevedo is a 55-year-old male patient. He has jaundice and chronically ill appearing. He is lying in the ED stretcher in no acute distress. VITAL SIGNS: Temperature 97.8, heart rate 68, respiratory rate 16, blood pressure 136/61, and O2 saturation 99% on room air. HEENT: Head is atraumatic and normocephalic. Face is symmetrical. Pupils are equal, round, and reactive to light. There is scleral icterus. Extraocular movements are intact. Oral mucosa appears moist. NECK: Supple. No lymphadenopathy appreciated. RESPIRATORY: Lungs are clear to auscultation with no accessory muscle use. CARDIAC: S1, S2. Heart sounds regular rate and rhythm. No murmurs, rubs or gallops. The patient has 1+ distal pulses. No pitting edema. ABDOMEN: Soft, nondistended, nontender. Bowel sounds are present times all 4 quadrants. MUSCULOSKELETAL: The patient appears to have full range of motion. NEUROLOGIC: The patient is able to move all extremities. He is alert. He is slow with responses. No gross focal deficits noted. The patient has difficulty following directions. SKIN: The patient has multiple abrasions and ecchymotic areas to the face, bilateral upper extremities, abdomen, buttocks, bilateral hips, knees, and right ankle. The patient has a stage 1 pressure ulcer to the inner right buttock and stage 2 to 3 pressure ulcer that measures approximately 4 x 2 x 0.5 cm to the right lateral buttock. LABORATORY DATA AND DIAGNOSTIC STUDIES: CBC: WBC 5.0, hemoglobin 10.5, hematocrit 31, platelet count 100. INR 1.45, PTT 36.5. CMP: Sodium 135, potassium 4.4, chloride 105, CO2 25, BUN 18, creatinine 0.7, glucose 94. Lactic acid 2.0, calcium 9.3, magnesium 5.8. Total bilirubin is 5.7. AST 52, ALT 24, alk phos 103, ammonia 70, total CK 81, troponin 0.00. CRP 19.38, BNP 70 , albumin 2.4, lipase less than 10, TSH 0.07. Chest x-ray shows complete resolution of left basilar abnormalities. The examination is otherwise unchanged from previous. CT of the brain shows no acute intracranial pathology. EKG shows sinus rhythm, borderline low voltage. Old medical records were reviewed. ASSESSMENT AND PLAN: Mr. Quevedo is 55-year-old male patient with a history significant for chronic liver disease, hemochromatosis, alcohol abuse, status post TIPS procedure in January 2016 who presents today with concerns for altered mental status and weakness. We will admit him as an inpatient with anticipation for placement. Plan is as follows: 1. Hepatic encephalopathy. The patient does have elevated ammonia, which is likely secondary to medication nonadherence. We will continue him on his home lactulose dose of 45 mL q.6 hours and we may increase this in frequency as needed. Recheck his ammonia level tomorrow. I do not appreciate any other acute complaints. His bilirubin is elevated, which may be secondary to the patient's noncompliance of his medication regimen. We will recheck his LFTs tomorrow as well. 2. Altered mental status. Again, this does appear to be secondary to encephalopathy related to the patient's liver disease. He has no fever. We will check UA to check for another underlying infections. He has no acute respiratory concerns. He does have wounds that are concerning, so we will obtain a wound care consult for the pressure ulcers to his buttocks. We will also order neuro checks q.4 hours. 3. Chronic liver failure. Continue home medications as previously prescribed. 4. Hypomagnesemia. Replace mag. Recheck in the a.m. 5. Weakness appears to be secondary to patient's altered mental status and medication noncompliance. We will obtain a PT/OT consult. 6. DVT prophylaxis. The patient is ordered SCDs. 7. Code status. A MOLST was completed by the patient's sister per her request and indicates the patient is to be a full code with a trial of intubation. 8. Fluid, electrolyte, nutrition: The patient can have a low sodium diet. 9. Disposition: Admit to inpatient with potential placement. The patient's sister is very concerned for his safety at home and would like to proceed with additional placement opportunities for him. TIME SPENT: Time spent on this admission was approximately 70 minutes, more than half the time was spent [id number] with the patient obtaining history and physical, performing physical examination, and reviewing the plan of care. Plan of care was also reviewed with my attending, Dr. Mulligan, who is in agreement. JAZLYN HERRING NP CC: Dr. Deya Alvarez; Dr. Troy Covarrubias* [id number]/[facility] #: [id number] [facility] HILLSIDE HOSPITALGodwin
[2016-08-22] MEDS: NS 0.9% 1000 ML* 1,000 ML IV SCH ×2 (03:10→12:06)
[2016-08-22] MEDS: Lactulose* 15 ML UDC PO SCH ×5 (04:56→21:12)
[2016-08-22] MEDS: Omeprazole CAP* 20 MG PO SCH (05:28)
[2016-08-22 06:12] LABS: Comments Flag Yes; Hematocrit 27 % (42-52); Mean Corpuscular HGB Conc 34 g/dl (31-36); Mean Corpuscular Hemoglobin 35 pg (27-31); Mean Corpuscular Volume 103 fL (80-94); Mean Platelet Volume 8 um3 (7.4-10.4); Red Blood Count 2.59 10^6/ul (4.0-5.4); Red Cell Distribution Width 18 % (10.5-15); White Blood Count 4.6 10^3/ul (3.5-10.8)
[2016-08-22 06:29] LABS: Albumin 2.1 g/dL (3.2-5.2); BUN/Creatinine Ratio 18.8 (8-20); Calcium 8.4 mg/dL (8.6-10.3); Direct Bilirubin 1.6 mg/dL (0.03-0.18); EGFR African American 152.5 (>60); EGFR Non-African American 118.6 (>60); Globulin 3.4 g/dL (2-4); Indirect Bilirubin 2.6 mg/dL (0.3-1.0); Magnesium 1.8 mg/dL (1.9-2.7); Potassium 4.1 mmol/L (3.5-5.0); Total Bilirubin 4.2 mg/dL (0.2-1.0); Total Protein 5.5 g/dL (6.4-8.9)
[2016-08-22] MEDS ORDERED: Magnesium Sulfate 2 GM IV* 2 GM/50 ML BAG IVPB ONE (07:12)
[2016-08-22] MEDS: Multivitamins/Minerals TAB PO SCH (07:57)
[2016-08-22] MEDS: Folic Acid TAB* 1 MG PO SCH (07:57)
[2016-08-22] MEDS: RiFAXimin* 550 MG TAB PO SCH ×2 (07:57→21:12)
[2016-08-22] MEDS: Furosemide TAB* 40 MG PO SCH (07:57)
[2016-08-22] MEDS: Thiamine TAB* 100 MG TAB PO SCH (07:57)
[2016-08-22] MEDS: Spironolactone TAB* 25 MG PO SCH (07:57)
--- NOTE | 2016-08-22 09:37 | PN ---
Subjective Date of Service: 08/22/16 Interval History: Patient seen and examined at bedside. He is more alert today. When asked if he had any CP, SOB, or localized pain, he states, "No." He is eating breakfast and tolerating it well. I spoke with Antonietta, pt's sister/HCP, who has spoken to about placement. Patient is currently in agreement with this plan. She has also requested a palliative care consult. Family History: Unchanged from Admission Social History: Unchanged from Admission Past Medical History: Unchanged from Admission Objective Active Medications: Enoxaparin Sodium (Lovenox(*)) 40 mg SUBCUT Q24H [facility] Last Admin: 08/21/16 22:55 Dose: 40 mg Folic Acid (Folvite Tab*) 1 mg PO DAILY BEA Last Admin: 08/22/16 07:57 Dose: 1 mg Furosemide (Lasix Tab*) 40 mg PO DAILY BEA Last Admin: 08/22/16 07:57 Dose: 40 mg Sodium Chloride (Ns 0.9% 1000 Ml*) 1,000 mls @ 150 mls/hr IV PER RATE BEA Last Admin: 08/22/16 03:10 Dose: 150 mls/hr Lactulose (Lactulose*) 45 ml PO Q4H BEA Last Admin: 08/22/16 07:58 Dose: 45 ml Multivitamins/Minerals (Theragran/Minerals Tab*) 1 tab PO DAILY BEA Last Admin: 08/22/16 07:57 Dose: 1 tab Omeprazole (Prilosec Cap*) 40 mg PO DAILY@0600 BEA Last Admin: 08/22/16 05:28 Dose: 40 mg Rifaximin (Xifaxan*) 550 mg PO BID BEA Last Admin: 08/22/16 07:57 Dose: 550 mg Spironolactone (Aldactone Tab*) 125 mg PO DAILY BEA Last Admin: 08/22/16 07:57 Dose: 125 mg Thiamine HCl (Vitamin B-1 Tab*) 100 mg PO DAILY BEA Last Admin: 08/22/16 07:57 Dose: 100 mg Vital Signs 08/21/16 08/21/16 08/21/16 16:00 16:12 16:52 Temperature 97.7 F Pulse Rate 80 70 Respiratory 17 16 Rate Blood Pressure 136/61 132/66 (mmHg) O2 Sat by Pulse 100 Oximetry 08/21/16 08/21/16 08/21/16 16:57 20:00 20:28 Temperature 97.7 F 98.3 F Pulse Rate 70 82 Respiratory 16 18 16 Rate Blood Pressure 132/66 105/48 (mmHg) O2 Sat by Pulse 100 100 Oximetry 08/21/16 08/22/16 23:43 03:18 Temperature 97.9 F 97.7 F Pulse Rate 86 82 Respiratory 18 16 Rate Blood Pressure 121/67 112/54 (mmHg) O2 Sat by Pulse 100 100 Oximetry Oxygen Devices in Use Now: None Appearance: Jaundiced, chronically ill appearing male, sitting up in bed, NAD Eyes: - - scleral icterus present Ears/Nose/Mouth/Throat: Mucous Membranes Moist Neck: NL Appearance and Movements; NL JVP Respiratory: Symmetrical Chest Expansion and Respiratory Effort, Clear to Auscultation Cardiovascular: NL Sounds; No Murmurs; No JVD, RRR Abdominal: NL Sounds; No Tenderness; No Distention Extremities: No Edema Skin: - - multiple abrasions and bruises, stage 2-3 pressure ulcer to buttock Neurological: - - Alert, oriented to self, place, disoriented to time and situation Lines/Tubes/Other Access: Clean, Dry and Intact Peripheral IV Nutrition: Taking PO's Result Diagrams: 08/22/16 06:04 08/22/16 06:04 Additional Lab and Data: Lab Results 08/21/16 08/21/16 08/21/16 Range/Units 12:47 12:47 13:00 WBC (3.5-10.8) 10^3/ul RBC (4.0-5.4) 10^6/ul Hgb (14.0-18.0) g/dl Hct (42-52) % MCV (80-94) fL MCH (27-31) pg MCHC (31-36) g/dl RDW (10.5-15) % Plt Count (150-450) 10^3/ul MPV (7.4-10.4) um3 Neut % (Auto) (38-83) % Lymph % (Auto) (25-47) % Emery % (Auto) (1-9) % Eos % (Auto) (0-6) % Baso % (Auto) (0-2) % Absolute Neuts (auto) (1.5-7.7) 10^3/ul Absolute Lymphs (auto) (1.0-4.8) 10^3/ul Absolute Monos (auto) (0-0.8) 10^3/ul Absolute Eos (auto) (0-0.6) 10^3/ul Absolute Basos (auto) (0-0.2) 10^3/ul Absolute Nucleated RBC 10^3/ul Nucleated RBC % INR (Anticoag Therapy) 1.45 H (0.89-1.11) APTT 36.5 H (26.0-36.3) seconds Sodium (133-145) mmol/L Potassium (3.5-5.0) mmol/L Chloride (101-111) mmol/L Carbon Dioxide (22-32) mmol/L Anion Gap (2-11) mmol/L BUN (6-24) mg/dL Creatinine (0.67-1.17) mg/dL Est GFR ( Amer) (>60) Est GFR (Non-Af Amer) (>60) BUN/Creatinine Ratio (8-20) Glucose (70-100) mg/dL Lactic Acid 2.0 (0.5-2.0) mmol/L Calcium (8.6-10.3) mg/dL Magnesium (1.9-2.7) mg/dL Total Bilirubin (0.2-1.0) mg/dL AST (13-39) U/L ALT (7-52) U/L Alkaline Phosphatase (34-104) U/L Ammonia 70 H (16-53) mol/L Total Creatine Kinase (10-223) U/L CK-MB (CK-2) (0.6-6.3) ng/mL Troponin I (<0.04) ng/mL C-Reactive Protein (< 5.00) mg/L B-Natriuretic Peptide 70 ( - 100) pg/mL Total Protein (6.4-8.9) g/dL Albumin (3.2-5.2) g/dL Globulin (2-4) g/dL Albumin/Globulin Ratio (1-3) Lipase (11.0-82.0) U/L TSH (0.34-5.60) mcIU/mL Acetaminophen mcg/mL Serum Alcohol (<10) mg/dL 05/09/17 05/09/17 Range/Units 13:00 13:26 WBC 5.0 (3.5-10.8) 10^3/ul RBC 3.02 L (4.0-5.4) 10^6/ul Hgb 10.5 L (14.0-18.0) g/dl Hct 31 L (42-52) % MCV 103 H (80-94) fL MCH 35 H (27-31) pg MCHC 34 (31-36) g/dl RDW 18 H (10.5-15) % Plt Count 100 L (150-450) 10^3/ul MPV 8 (7.4-10.4) um3 Neut % (Auto) 68.0 (38-83) % Lymph % (Auto) 19.5 L (25-47) % Emery % (Auto) 9.2 H (1-9) % Eos % (Auto) 2.1 (0-6) % Baso % (Auto) 1.2 (0-2) % Absolute Neuts (auto) 3.4 (1.5-7.7) 10^3/ul Absolute Lymphs (auto) 1.0 (1.0-4.8) 10^3/ul Absolute Monos (auto) 0.5 (0-0.8) 10^3/ul Absolute Eos (auto) 0.1 (0-0.6) 10^3/ul Absolute Basos (auto) 0.1 (0-0.2) 10^3/ul Absolute Nucleated RBC 0.01 10^3/ul Nucleated RBC % 0.3 INR (Anticoag Therapy) (0.89-1.11) APTT (26.0-36.3) seconds Sodium 135 (133-145) mmol/L Potassium 4.4 (3.5-5.0) mmol/L Chloride 105 (101-111) mmol/L Carbon Dioxide 25 (22-32) mmol/L Anion Gap 5 (2-11) mmol/L BUN 18 (6-24) mg/dL Creatinine 0.70 (0.67-1.17) mg/dL Est GFR ( Amer) 150.0 (>60) Est GFR (Non-Af Amer) 116.7 (>60) BUN/Creatinine Ratio 25.7 H (8-20) Glucose 94 (70-100) mg/dL Lactic Acid (0.5-2.0) mmol/L Calcium 9.3 (8.6-10.3) mg/dL Magnesium 1.8 L (1.9-2.7) mg/dL Total Bilirubin 5.70 H (0.2-1.0) mg/dL AST 52 H (13-39) U/L ALT 24 (7-52) U/L Alkaline Phosphatase 103 (34-104) U/L Ammonia (16-53) mol/L Total Creatine Kinase 81 (10-223) U/L CK-MB (CK-2) 4.9 (0.6-6.3) ng/mL Troponin I 0.00 (<0.04) ng/mL C-Reactive Protein 19.38 H (< 5.00) mg/L B-Natriuretic Peptide ( - 100) pg/mL Total Protein 6.2 L (6.4-8.9) g/dL Albumin 2.4 L (3.2-5.2) g/dL Globulin 3.8 (2-4) g/dL Albumin/Globulin Ratio 0.6 L (1-3) Lipase < 10 L (11.0-82.0) U/L TSH 0.07 L (0.34-5.60) mcIU/mL Acetaminophen < 15 mcg/mL Serum Alcohol < 10 (<10) mg/dL Assess/Plan/Problems-Billing Assessment: Mr. Quevedo is a 55 yo male with a PMH of chronic liver disease s/p TIPS procedure, ETOH abuse, hemochromatosis, and hepatic encephalopathy who presented to the ED on 08/21/16 with AMS and weakness secondary to hepatic encephalopathy, likely secondary to medication nonadherence. - Patient Problems (1) Altered mental status Code(s): R41.82 - ALTERED MENTAL STATUS, UNSPECIFIED Comment: Improved today, likely secondary to hepatic encephalopathy from medication non- adherence. Ammonia 103 today, continue lactulose and rifaximin. UA negative, no other acute pathology noted. CT brain negative. (2) Hepatic encephalopathy Code(s): K72.90 - HEPATIC FAILURE, UNSPECIFIED WITHOUT COMA Comment: Appears improved today, following re-initiation of medications. Patient admits to not taking meds at home. No other cause for confusion at this time. CT brain negative. No other signs of infection. Continue lactulose and rifaximin. (3) Stage II decubitus ulcer Code(s): L89.92 - PRESSURE ULCER OF UNSPECIFIED SITE, STAGE 2 Comment: Present on admission. Wound care consult appreciated. Check prealbumin, patient appears to have protein-calorie malnutrition. (4) History of liver disease Code(s): Z87.19 - PERSONAL HISTORY OF OTHER DISEASES OF THE DIGESTIVE SYSTEM Comment: Continue spironolactone, furosemide, MVI, thiamine and omeprazole. (5) Liver cirrhosis Comment: Continue supportive care. (6) DVT prophylaxis Code(s): AAO5554 - Comment: SQ Lovenox with close monitoring of platelets (7) Full code status Code(s): Z78.9 - OTHER SPECIFIED HEALTH STATUS Status and Disposition: Inpatient admission. Anticipate LOS >2 days.
--- NOTE | 2016-08-22 15:53 | CONS ---
CONSULTATION REPORT: DATE OF CONSULT: 08/22/16 REASON FOR CONSULTATION: Hepatic encephalopathy, history of alcohol-induced cirrhosis. HISTORY OF PRESENT ILLNESS: Mr. Quevedo is a 55-year-old gentleman, well-known to me from previous admissions. He has a history of cirrhosis. He has a remote history of variceal bleed and had difficulty in 2016 with refractory ascites and therefore underwent a TIPS procedure. He has done well without any recurrence of ascites but he has had recurrent admissions of hepatic encephalopathy. He had been discharged to a shelter at which time he apparently was doing clinically well on a regimen of lactulose and Xifaxan. However in the last 2 weeks he was discharged home and apparently was noncompliant with several of his medicines including lactulose. He therefore came to the emergency room weak with evidence of encephalopathy and somnolence. His admission ammonia level was 70. He had no evidence of infection and was admitted and placed on lactulose. Clinically, he has improved in the last 24 hours. He is able to tell me at this point that he admits he was noncompliant with his medicines. He denies any evidence of GI bleeding, abdominal pain, fevers or chills. PAST MEDICAL HISTORY: Chronic liver disease from alcoholism. SURGICAL HISTORY: TIPS procedure. HOME MEDICATIONS: 1. Thiamine. 2. Multivitamin. 3. Rifaximin 550 twice a day. 4. Omeprazole. 5. Lactulose 45 mL every 6 hours. 6. Spironolactone. 7. Lasix. PHYSICAL EXAMINATION: He is a confused though awake gentleman. He recognized me and he is in no acute distress. He is icteric. His temperature is 98.2, blood pressure is 112/48, heart rate is 82 and regular. He has some small ecchymoses, some telangiectasias. The lungs are clear. His cardiac exam reveals a regular rhythm without murmurs. Abdomen shows no shifting dullness or tenderness. Extremities reveal no significant edema. He does have asterixes. DIAGNOSTIC STUDIES/LAB DATA: Data from this morning include a white count of 4.6, hemoglobin of 9. INR of 1.45. Bilirubin of 4.2, AST of 49, ALT of 23, ammonia of 103. Urinalysis negative for esterase. Chest x-ray clear. 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 The etiology likely is from noncompliance with his medicines. There is no evidence of infection or suggestions of a GI bleeding. At this point, I agree with reinitiating his medicines and enforcing the need for him to be on these therapies. He might require more home supports to supervise his taking of his medicines. [id number]/[facility] #: [id number] MARCO ANTONIO
[2016-08-22] MEDS: Enoxaparin(*) 40 MG/0.4 ML SYR SUBCUT SCH (18:01)
[2016-08-23] MEDS: Lactulose* 15 ML UDC PO SCH ×5 (01:28→18:06)
[2016-08-23] MEDS: Omeprazole CAP* 20 MG PO SCH (05:27)
[2016-08-23] MEDS: Thiamine TAB* 100 MG TAB PO SCH (07:49)
[2016-08-23] MEDS: Multivitamins/Minerals TAB PO SCH (07:49)
[2016-08-23] MEDS: RiFAXimin* 550 MG TAB PO SCH ×2 (07:49→21:27)
[2016-08-23] MEDS: Furosemide TAB* 40 MG PO SCH (07:50)
[2016-08-23] MEDS: Spironolactone TAB* 25 MG PO SCH (07:50)
[2016-08-23] MEDS: Folic Acid TAB* 1 MG PO SCH (07:50)
--- NOTE | 2016-08-23 11:48 | PN ---
Subjective Date of Service: 08/23/16 Interval History: Patient seen and examined at bedside. He is more alert and is able to better recall the events of yesterday. He admits to not taking his medication and states Dr. Hadley really stressed the importance of this. He states he is open to considering rehab at a different facility but states that he did not like [facility]. We discussed the concern that he has had multiple admissions and complications from medication non-adherence; he states he understands that this is a problem. He reports that "I need to take my meds." He is unable to offer suggestions at this time on how to improve his safety at home or to ensure that he can be compliant with medications. He states he is adverse to places like [place] because "there's a high geriatric population there" and felt like that's "not for me." I had a pacheco discussion with him and confronted him with the concern that he is at risk for injury or potentially if he goes home and does not follow his treatment/medication regimen. He states, "I know." He reports that he cooks and has access to food - he could not remember how he gets the food but states that his sister, Agustina, "takes care of me." He admits to having trouble picking out the right foods. He appreciated the nutrition consult today. Denies CP, SOB, abd pain, n/v. Patient's sister Agustina called after I left room. She reports that patient called her this morning and appears to be trying to "manipulate his way back home." She expressed frustration and asked if we could have someone determine his decision making capacity. I did explain that I did attempt to do this this morning, but she felt that an official psych consult may help her family in their next steps. We also discussed the possibility of referral to [facility]. She asked about palliative care; I explained that the patient appears fairly stable with liver disease (MELD 16) and may not qualify for palliative care. However, we have put the referral in. Family History: Unchanged from Admission Social History: Unchanged from Admission Past Medical History: Unchanged from Admission Objective Active Medications: Enoxaparin Sodium (Lovenox(*)) 40 mg SUBCUT Q24H [facility] Last Admin: 08/22/16 18:01 Dose: 40 mg Folic Acid (Folvite Tab*) 1 mg PO DAILY [facility] Last Admin: 08/23/16 07:50 Dose: 1 mg Furosemide (Lasix Tab*) 40 mg PO DAILY [facility] Last Admin: 08/23/16 07:50 Dose: 40 mg Lactulose (Lactulose*) 45 ml PO Q4H [facility] Last Admin: 08/23/16 07:50 Dose: 45 ml Multivitamins/Minerals (Theragran/Minerals Tab*) 1 tab PO DAILY [facility] Last Admin: 08/23/16 07:49 Dose: 1 tab Omeprazole (Prilosec Cap*) 40 mg PO DAILY@0600 [facility] Last Admin: 08/23/16 05:27 Dose: 40 mg Rifaximin (Xifaxan*) 550 mg PO BID [facility] Last Admin: 08/23/16 07:49 Dose: 550 mg Spironolactone (Aldactone Tab*) 125 mg PO DAILY [facility] Last Admin: 08/23/16 07:50 Dose: 125 mg Thiamine HCl (Vitamin B-1 Tab*) 100 mg PO DAILY [facility] Last Admin: 08/23/16 07:49 Dose: 100 mg Vital Signs 08/22/16 08/22/16 08/22/16 15:37 19:39 20:00 Temperature 98.3 F 98.0 F Pulse Rate 104 83 Respiratory 16 16 16 Rate Blood Pressure 123/50 120/59 (mmHg) O2 Sat by Pulse 96 100 Oximetry 08/22/16 08/23/16 08/23/16 23:16 03:34 07:09 Temperature 97.5 F 97.3 F 97.9 F Pulse Rate 81 73 85 Respiratory 16 16 18 Rate Blood Pressure 105/51 116/53 116/64 (mmHg) O2 Sat by Pulse 100 98 100 Oximetry 08/23/16 08:00 Temperature Pulse Rate Respiratory 16 Rate Blood Pressure (mmHg) O2 Sat by Pulse Oximetry Oxygen Devices in Use Now: None Appearance: Chronically ill appearing male, sitting up in bed, NAD Eyes: - - right eye discharge Ears/Nose/Mouth/Throat: Mucous Membranes Moist Respiratory: Symmetrical Chest Expansion and Respiratory Effort, Clear to Auscultation Cardiovascular: NL Sounds; No Murmurs; No JVD, RRR Abdominal: NL Sounds; No Tenderness; No Distention Extremities: - - 1+ BLE edema Neurological: - - Alert, oriented to self, place. Lines/Tubes/Other Access: Clean, Dry and Intact Peripheral IV Nutrition: Taking PO's Result Diagrams: 08/22/16 06:04 08/22/16 06:04 Additional Lab and Data: Lab Results 08/21/16 08/21/16 08/21/16 Range/Units 12:47 12:47 13:00 WBC (3.5-10.8) 10^3/ul RBC (4.0-5.4) 10^6/ul Hgb (14.0-18.0) g/dl Hct (42-52) % MCV (80-94) fL MCH (27-31) pg MCHC (31-36) g/dl RDW (10.5-15) % Plt Count (150-450) 10^3/ul MPV (7.4-10.4) um3 Neut % (Auto) (38-83) % Lymph % (Auto) (25-47) % Cooke % (Auto) (1-9) % Eos % (Auto) (0-6) % Baso % (Auto) (0-2) % Absolute Neuts (auto) (1.5-7.7) 10^3/ul Absolute Lymphs (auto) (1.0-4.8) 10^3/ul Absolute Monos (auto) (0-0.8) 10^3/ul Absolute Eos (auto) (0-0.6) 10^3/ul Absolute Basos (auto) (0-0.2) 10^3/ul Absolute Nucleated RBC 10^3/ul Nucleated RBC % INR (Anticoag Therapy) 1.45 H (0.89-1.11) APTT 36.5 H (26.0-36.3) seconds Sodium (133-145) mmol/L Potassium (3.5-5.0) mmol/L Chloride (101-111) mmol/L Carbon Dioxide (22-32) mmol/L Anion Gap (2-11) mmol/L BUN (6-24) mg/dL Creatinine (0.67-1.17) mg/dL Est GFR ( Amer) (>60) Est GFR (Non-Af Amer) (>60) BUN/Creatinine Ratio (8-20) Glucose (70-100) mg/dL Lactic Acid 2.0 (0.5-2.0) mmol/L Calcium (8.6-10.3) mg/dL Magnesium (1.9-2.7) mg/dL Total Bilirubin (0.2-1.0) mg/dL AST (13-39) U/L ALT (7-52) U/L Alkaline Phosphatase (34-104) U/L Ammonia 70 H (16-53) mol/L Total Creatine Kinase (10-223) U/L CK-MB (CK-2) (0.6-6.3) ng/mL Troponin I (<0.04) ng/mL C-Reactive Protein (< 5.00) mg/L B-Natriuretic Peptide 70 ( - 100) pg/mL Total Protein (6.4-8.9) g/dL Albumin (3.2-5.2) g/dL Globulin (2-4) g/dL Albumin/Globulin Ratio (1-3) Lipase (11.0-82.0) U/L TSH (0.34-5.60) mcIU/mL Acetaminophen mcg/mL Serum Alcohol (<10) mg/dL 08/21/16 08/21/16 Range/Units 13:00 13:26 WBC 5.0 (3.5-10.8) 10^3/ul RBC 3.02 L (4.0-5.4) 10^6/ul Hgb 10.5 L (14.0-18.0) g/dl Hct 31 L (42-52) % MCV 103 H (80-94) fL MCH 35 H (27-31) pg MCHC 34 (31-36) g/dl RDW 18 H (10.5-15) % Plt Count 100 L (150-450) 10^3/ul MPV 8 (7.4-10.4) um3 Neut % (Auto) 68.0 (38-83) % Lymph % (Auto) 19.5 L (25-47) % Cooke % (Auto) 9.2 H (1-9) % Eos % (Auto) 2.1 (0-6) % Baso % (Auto) 1.2 (0-2) % Absolute Neuts (auto) 3.4 (1.5-7.7) 10^3/ul Absolute Lymphs (auto) 1.0 (1.0-4.8) 10^3/ul Absolute Monos (auto) 0.5 (0-0.8) 10^3/ul Absolute Eos (auto) 0.1 (0-0.6) 10^3/ul Absolute Basos (auto) 0.1 (0-0.2) 10^3/ul Absolute Nucleated RBC 0.01 10^3/ul Nucleated RBC % 0.3 INR (Anticoag Therapy) (0.89-1.11) APTT (26.0-36.3) seconds Sodium 135 (133-145) mmol/L Potassium 4.4 (3.5-5.0) mmol/L Chloride 105 (101-111) mmol/L Carbon Dioxide 25 (22-32) mmol/L Anion Gap 5 (2-11) mmol/L BUN 18 (6-24) mg/dL Creatinine 0.70 (0.67-1.17) mg/dL Est GFR ( Amer) 150.0 (>60) Est GFR (Non-Af Amer) 116.7 (>60) BUN/Creatinine Ratio 25.7 H (8-20) Glucose 94 (70-100) mg/dL Lactic Acid (0.5-2.0) mmol/L Calcium 9.3 (8.6-10.3) mg/dL Magnesium 1.8 L (1.9-2.7) mg/dL Total Bilirubin 5.70 H (0.2-1.0) mg/dL AST 52 H (13-39) U/L ALT 24 (7-52) U/L Alkaline Phosphatase 103 (34-104) U/L Ammonia (16-53) mol/L Total Creatine Kinase 81 (10-223) U/L CK-MB (CK-2) 4.9 (0.6-6.3) ng/mL Troponin I 0.00 (<0.04) ng/mL C-Reactive Protein 19.38 H (< 5.00) mg/L B-Natriuretic Peptide ( - 100) pg/mL Total Protein 6.2 L (6.4-8.9) g/dL Albumin 2.4 L (3.2-5.2) g/dL Globulin 3.8 (2-4) g/dL Albumin/Globulin Ratio 0.6 L (1-3) Lipase < 10 L (11.0-82.0) U/L TSH 0.07 L (0.34-5.60) mcIU/mL Acetaminophen < 15 mcg/mL Serum Alcohol < 10 (<10) mg/dL Assess/Plan/Problems-Billing Assessment: Mr. Quevedo is a 55 yo male with a PMH of chronic liver disease s/p TIPS procedure, ETOH abuse, hemochromatosis, and hepatic encephalopathy who presented to the ED on 08/21/16 with AMS and weakness secondary to hepatic encephalopathy, likely secondary to medication nonadherence. - Patient Problems (1) Altered mental status Code(s): R41.82 - ALTERED MENTAL STATUS, UNSPECIFIED Comment: Improving, likely secondary to hepatic encephalopathy from medication non- adherence. Ammonia 64 today, continue lactulose and rifaximin. UA negative, no other acute pathology noted. CT brain negative. (2) Hepatic encephalopathy Code(s): K72.90 - HEPATIC FAILURE, UNSPECIFIED WITHOUT COMA Comment: Appears improved today, following re-initiation of medications. Patient admits to not taking meds at home. No other cause for confusion at this time. CT brain negative. No other signs of infection. Continue lactulose and rifaximin. (3) Stage II decubitus ulcer Code(s): L89.92 - PRESSURE ULCER OF UNSPECIFIED SITE, STAGE 2 Comment: Present on admission. Wound care consult appreciated. Prealbumin low, patient with protein-calorie malnutrition. Nutrition consult. (4) History of liver disease Code(s): Z87.19 - PERSONAL HISTORY OF OTHER DISEASES OF THE DIGESTIVE SYSTEM Comment: Continue spironolactone, furosemide, MVI, thiamine and omeprazole. (5) Liver cirrhosis Comment: Continue supportive care. (6) Severe protein-calorie malnutrition Code(s): E43 - UNSPECIFIED SEVERE PROTEIN-CALORIE MALNUTRITION Comment: Weight is 186, previously 170-196 per previous records. Suspect variation secondary to fluid retention in the past. Prealbumin is 4. His liver likely has very impaired protein synthesis. Nutrition consult, appreciate dietary recommendations. (7) DVT prophylaxis Code(s): QYZ1026 - Comment: SQ Lovenox with close monitoring of platelets (8) Full code status Code(s): Z78.9 - OTHER SPECIFIED HEALTH STATUS Status and Disposition: Inpatient admission. Anticipate LOS >2 days. Discharge planning in process. Psych consult requested by family. Plan for discharge to rehab vs home with services. ANDREA/CM following.
[2016-08-23 12:52] LABS: Add Diff/Slide Review? Manual Diff Added; Comments Flag Yes; Hematocrit 25 % (42-52); Hemoglobin 8.5 g/dl (14.0-18.0); Mean Corpuscular HGB Conc 33 g/dl (31-36); Mean Corpuscular Hemoglobin 35 pg (27-31); Mean Corpuscular Volume 104 fL (80-94); Mean Platelet Volume 8 um3 (7.4-10.4); Red Blood Count 2.45 10^6/ul (4.0-5.4); Red Cell Distribution Width 18 % (10.5-15); White Blood Count 4.4 10^3/ul (3.5-10.8)
[2016-08-23 13:42] LABS: Eosinophils % 1 % (0-6); Neutrophil % 63 % (38-83)
[2016-08-23 13:44] LABS: Add Path Review? YES; Macrocytosis 1+
[2016-08-23] MEDS: Ciprofloxacin 0.3% OPTH.SOL* 2.5 ML BTL RIGHT EYE SCH ×3 (13:47→21:27)
--- NOTE | 2016-08-23 16:53 | CONS ---
CC: Deya Alvarez MD PALLIATIVE CARE CONSULTATION: DATE OF CONSULT: 08/23/16 PRIMARY CARE PHYSICIAN: Deya Alvarez MD REQUESTING PHYSICIAN FOR CONSULTATION: Simona Nesbitt NP. HOSPITAL COURSE: This is a 55-year-old male with a past medical history of chronic liver failure secondary to hemochromatosis and alcohol use who has had recurrent admissions for hepatic encephalopathy, presented again to the emergency room on the for altered mental status and weakness. On admission , the patient was significantly altered and could not provide the history. His healthcare proxy is his sister, Antonietta, who states that the physical therapist noted him to be very somnolent, lying in bed and was incontinent of both urine and stool and it was noted that he missed 2 days of his medications. This is the patient's fourth admission this year for hepatic encephalopathy due to noncompliance of his medications. He was at [facility] and had the capacity to leave [facility]. He does not want to go to [place] and the daughter is trying to figure out a safe environment for him for concern of his noncompliance at home with his recent admissions. On my encounter, the patient states that when I asked why he does not take his medications, he states he has no good reason why. When I asked him what happens when he does not take his medications, he is not able to articulate the consequences of him ending up being in the hospital and getting sicker. He states that when he does not take them, he states that everything is status quo and everything is fine. I asked him why he is coming back to the hospital, he states that he thinks his sister just overreacts and that he is fine and that he does not feel like he needs to be in the halfway and he has been doing just fine at home and that he is still working and doing well. He states initially he had some pain in his feet on admission, but that has been better. He denies any falls. He is now using a walker when ambulating. When discussed his code status, he wants everything done. When explaining more in depth about with his comorbidities and my concern of survival, he started talking about his physical therapy and how he had been doing well. The patient denies any chest pain. No shortness of breath. Otherwise, remaining review of systems negative. PAST MEDICAL HISTORY: 1. Chronic liver failure. 2. History of alcohol abuse. 3. History of hemochromatosis. 4. This is his fourth admission this year for hepatic encephalopathy and altered mental status. PAST SURGICAL HISTORY: 1. TIPS in January 2016. 2. PleurX catheter placement and removal. 3. Hernia repair. MEDICATIONS: 1. Ciprofloxacin 1 drop to the right eye every 4 hours. 2. Lovenox 40 mg daily. 3. Folic acid 1 mg daily. 4. Lasix 40 mg daily. 5. Lactulose 45 mL q.6 hours. 6. Multivitamin. 7. Omeprazole 40 mg daily. 8. Rifaximin 550 mg p.o. b.i.d. 9. Spironolactone 125 mg daily. 10. Thiamine 100 mg daily. ALLERGIES: ACETAMINOPHEN and NSAIDs. FAMILY HISTORY: Reviewed and noncontributory. SOCIAL HISTORY: As mentioned, the patient lives at home alone. He has VNS services and PT services that come in to the house. His MOLST form is a full code. CPR with trial intubation. His healthcare proxy is his sister, Antonietta. Cellphone number is [phone]. He last drank alcohol 2 years ago. No history of smoking or illicit drug use. The patient ambulates with a walker. REVIEW OF SYSTEMS: As mentioned in the HPI. PHYSICAL EXAM: Vitals: Temperature 97.9, pulse rate 85, respiratory rate 18, oxygen saturation 100% on room air, blood pressure 116/64. General: No acute distress, but resting comfortably. HEENT: Pupils equal and reactive. Mild conjunctival icterus. Head normocephalic. Oropharynx: Mucous membranes moist. Neck: Supple. No lymphadenopathy. Cardiac: Soft systolic murmur heard throughout. Regular rate and rhythm. Respiratory: Diminished breath sounds. No wheezes, rhonchi, or rales. Abdomen: Soft, nondistended, nontender. Extremities: No clubbing, cyanosis, or edema. +1 DPs. Neurologic: Alert and oriented x3. No gross focal neurologic deficits. DIAGNOSTIC STUDIES/LAB DATA: White count 4.4, hemoglobin 8.5, hematocrit 25, platelets 90. INR is 1.45. Sodium 138, potassium 4.1, chloride 109, bicarb 24 , BUN 13, creatinine 0.69. Total bilirubin is 4.2. Total protein 2.4. TSH is 0.07. ASSESSMENT: This is a 55-year-old male with a past medical history of chronic liver disease with a remote history of alcohol use and hemochromatosis, who presents for the fourth time this year with altered mental status, found again to be in hepatic encephalopathy secondary to noncompliance. I am concerned the patient does not have capacity to make his own medical decisions at this time, and I agree with the Psychiatry evaluation. He did have Psych evaluate him back in April and he did have the capacity at that time. He was able to articulate his medical problems. At this time, he is not able to do that. He does not understand the consequences of his actions. There is reasonable and clear concern for his care at home with his pressure ulcers, abrasions, and his noncompliance and his recurrent admissions almost every month this past year that his being home is not a safe discharge plan unless there is more care at home. I was unable to get in touch with the sister, Antonietta, to discuss this further. I agree with Psych evaluating for capacity and if he does not have capacity, I would address his MOLST form with the sister. If he remains compliant and does well, he is not likely to be a candidate for hospice at this time. He is a good candidate for the [facility] program to follow him once he is in a safer environment with being compliant on his medications and follow up with him for hospice eligibility. I also took the liberty of adding on a free T4 in the setting of his low TSH, which could be complicating his presentation as well if does have any evidence of hyperthyroidism. I will try again to get in touch with the sister to discuss my findings and recommend following up psychiatry's evaluation. Thank you for this consultation. I will follow along with you. PATIENT TIME: Greater than 90 minutes spent doing the consultation, more than half the time spent in direct patient contact. [id number]/[facility] #: [id number] MARCO ANTONIO
[2016-08-23] MEDS: Enoxaparin(*) 40 MG/0.4 ML SYR SUBCUT SCH (18:07)
--- NOTE | 2016-08-23 21:03 | RAD ---
INDICATION: Distal RIGHT leg edema and pain. Assess for DVT. COMPARISON: April 13, 2012 TECHNIQUE: Mosley scale, color Doppler, and spectral analysis of the deep veins of the RIGHT lower extremity. Vessel compression, phasicity, and augmentation assessed. REPORT: The RIGHT common femoral, great saphenous, profunda femoral, femoral, popliteal, peroneal, and posterior tibial veins are patent. 5.6 x 2.5 x 4.7 cm complex RIGHT popliteal cyst similar to the prior exam. Extensive subcutaneous edema at the lateral distal RIGHT calf. Patency of the LEFT common femoral vein documented. IMPRESSION: 1. No evidence for RIGHT lower extremity deep venous thrombosis. 2. 5.6 x 2.5 x 4.7 cm complex RIGHT popliteal cyst similar to the prior exam. 3. Extensive subcutaneous edema at the lateral distal RIGHT calf.
[2016-08-24] MEDS: Ciprofloxacin 0.3% OPTH.SOL* 2.5 ML BTL RIGHT EYE SCH ×4 (01:16→14:10)
[2016-08-24] MEDS: Lactulose* 15 ML UDC PO SCH ×4 (01:16→14:08)
[2016-08-24] MEDS ORDERED: Morphine INJ* 2 MG/ML 1 ML SYRINGE ONE (04:16)
[2016-08-24 06:07] LABS: Hematocrit 24 % (42-52); Hemoglobin 8.3 g/dl (14.0-18.0); Mean Corpuscular HGB Conc 34 g/dl (31-36); Mean Corpuscular Hemoglobin 35 pg (27-31); Mean Corpuscular Volume 103 fL (80-94); Mean Platelet Volume 8 um3 (7.4-10.4); Red Blood Count 2.36 10^6/ul (4.0-5.4); Red Cell Distribution Width 18 % (10.5-15); White Blood Count 4.7 10^3/ul (3.5-10.8)
[2016-08-24 06:08] LABS: Comments Flag Yes
[2016-08-24] MEDS: Omeprazole CAP* 20 MG PO SCH (06:30)
[2016-08-24 06:36] LABS: Albumin 1.9 g/dL (3.2-5.2); EGFR African American 221.2 (>60); Globulin 3.2 g/dL (2-4); Potassium 4.2 mmol/L (3.5-5.0); Total Bilirubin 3.1 mg/dL (0.2-1.0); Total Protein 5.1 g/dL (6.4-8.9)
[2016-08-24] MEDS: Spironolactone TAB* 25 MG PO SCH (08:57)
[2016-08-24] MEDS: Folic Acid TAB* 1 MG PO SCH (08:58)
[2016-08-24] MEDS: Multivitamins/Minerals TAB PO SCH (08:58)
[2016-08-24] MEDS: Thiamine TAB* 100 MG TAB PO SCH (08:58)
[2016-08-24] MEDS: RiFAXimin* 550 MG TAB PO SCH (08:58)
[2016-08-24] MEDS: Furosemide TAB* 40 MG PO SCH (08:58)
--- NOTE | 2016-08-24 09:02 | PN ---
Subjective Date of Service: 08/24/16 Interval History: Patient seen and examined at bedside. He reports right knee pain, originally stating that "it just started hurting" but then amending this by stating "it's been happening for awhile." Patient is able to walk and weight bear on the knee. He admits to falling on the knee "awhile back." Denies CP, SOB, n/v. Family History: Unchanged from Admission Social History: Unchanged from Admission Past Medical History: Unchanged from Admission Objective Active Medications: Ciprofloxacin HCl (Cipro 0.3% Opth*) 1 drop RIGHT EYE Q4HR [facility] Last Admin: 08/24/16 06:31 Dose: 1 drop Enoxaparin Sodium (Lovenox(*)) 40 mg SUBCUT Q24H [facility] Last Admin: 08/23/16 18:07 Dose: 40 mg Folic Acid (Folvite Tab*) 1 mg PO DAILY [facility] Last Admin: 08/23/16 07:50 Dose: 1 mg Furosemide (Lasix Tab*) 40 mg PO DAILY [facility] Last Admin: 08/23/16 07:50 Dose: 40 mg Lactulose (Lactulose*) 45 ml PO Q4H [facility] Multivitamins/Minerals (Theragran/Minerals Tab*) 1 tab PO DAILY [facility] Last Admin: 08/23/16 07:49 Dose: 1 tab Omeprazole (Prilosec Cap*) 40 mg PO DAILY@0600 [facility] Last Admin: 08/24/16 06:30 Dose: 40 mg Rifaximin (Xifaxan*) 550 mg PO BID [facility] Last Admin: 08/23/16 21:27 Dose: 550 mg Spironolactone (Aldactone Tab*) 125 mg PO DAILY [facility] Last Admin: 08/23/16 07:50 Dose: 125 mg Thiamine HCl (Vitamin B-1 Tab*) 100 mg PO DAILY [facility] Last Admin: 08/23/16 07:49 Dose: 100 mg Vital Signs 08/23/16 08/23/16 08/23/16 16:36 19:38 20:00 Temperature 98.0 F 98.1 F Pulse Rate 101 93 Respiratory 16 20 20 Rate Blood Pressure 132/57 131/58 (mmHg) O2 Sat by Pulse 100 100 Oximetry 08/23/16 08/24/16 08/24/16 23:16 03:34 04:18 Temperature 98.2 F 98.5 F Pulse Rate 94 95 Respiratory 16 16 16 Rate Blood Pressure 102/50 127/50 (mmHg) O2 Sat by Pulse 95 98 Oximetry 08/24/16 05:18 Temperature Pulse Rate Respiratory 16 Rate Blood Pressure (mmHg) O2 Sat by Pulse Oximetry Oxygen Devices in Use Now: None Appearance: Chronically ill appearing male, lying in bed, NAD Eyes: PERRLA Ears/Nose/Mouth/Throat: Mucous Membranes Moist Neck: NL Appearance and Movements; NL JVP Respiratory: Symmetrical Chest Expansion and Respiratory Effort, Clear to Auscultation Cardiovascular: NL Sounds; No Murmurs; No JVD, RRR Abdominal: NL Sounds; No Tenderness; No Distention Extremities: - - BLE edema, R>L, right knee swelling Neurological: - - Alert, oriented to self/place. Mildly disoriented to time. Lines/Tubes/Other Access: Clean, Dry and Intact Peripheral IV Nutrition: Taking PO's Result Diagrams: 08/24/16 05:33 08/24/16 05:33 Additional Lab and Data: Lab Results 08/21/16 08/21/16 08/21/16 Range/Units 12:47 12:47 13:00 WBC (3.5-10.8) 10^3/ul RBC (4.0-5.4) 10^6/ul Hgb (14.0-18.0) g/dl Hct (42-52) % MCV (80-94) fL MCH (27-31) pg MCHC (31-36) g/dl RDW (10.5-15) % Plt Count (150-450) 10^3/ul MPV (7.4-10.4) um3 Neut % (Auto) (38-83) % Lymph % (Auto) (25-47) % Roberts % (Auto) (1-9) % Eos % (Auto) (0-6) % Baso % (Auto) (0-2) % Absolute Neuts (auto) (1.5-7.7) 10^3/ul Absolute Lymphs (auto) (1.0-4.8) 10^3/ul Absolute Monos (auto) (0-0.8) 10^3/ul Absolute Eos (auto) (0-0.6) 10^3/ul Absolute Basos (auto) (0-0.2) 10^3/ul Absolute Nucleated RBC 10^3/ul Nucleated RBC % INR (Anticoag Therapy) 1.45 H (0.89-1.11) APTT 36.5 H (26.0-36.3) seconds Sodium (133-145) mmol/L Potassium (3.5-5.0) mmol/L Chloride (101-111) mmol/L Carbon Dioxide (22-32) mmol/L Anion Gap (2-11) mmol/L BUN (6-24) mg/dL Creatinine (0.67-1.17) mg/dL Est GFR ( Amer) (>60) Est GFR (Non-Af Amer) (>60) BUN/Creatinine Ratio (8-20) Glucose (70-100) mg/dL Lactic Acid 2.0 (0.5-2.0) mmol/L Calcium (8.6-10.3) mg/dL Magnesium (1.9-2.7) mg/dL Total Bilirubin (0.2-1.0) mg/dL AST (13-39) U/L ALT (7-52) U/L Alkaline Phosphatase (34-104) U/L Ammonia 70 H (16-53) mol/L Total Creatine Kinase (10-223) U/L CK-MB (CK-2) (0.6-6.3) ng/mL Troponin I (<0.04) ng/mL C-Reactive Protein (< 5.00) mg/L B-Natriuretic Peptide 70 ( - 100) pg/mL Total Protein (6.4-8.9) g/dL Albumin (3.2-5.2) g/dL Globulin (2-4) g/dL Albumin/Globulin Ratio (1-3) Lipase (11.0-82.0) U/L TSH (0.34-5.60) mcIU/mL Acetaminophen mcg/mL Serum Alcohol (<10) mg/dL 08/21/16 08/21/16 Range/Units 13:00 13:26 WBC 5.0 (3.5-10.8) 10^3/ul RBC 3.02 L (4.0-5.4) 10^6/ul Hgb 10.5 L (14.0-18.0) g/dl Hct 31 L (42-52) % MCV 103 H (80-94) fL MCH 35 H (27-31) pg MCHC 34 (31-36) g/dl RDW 18 H (10.5-15) % Plt Count 100 L (150-450) 10^3/ul MPV 8 (7.4-10.4) um3 Neut % (Auto) 68.0 (38-83) % Lymph % (Auto) 19.5 L (25-47) % Roberts % (Auto) 9.2 H (1-9) % Eos % (Auto) 2.1 (0-6) % Baso % (Auto) 1.2 (0-2) % Absolute Neuts (auto) 3.4 (1.5-7.7) 10^3/ul Absolute Lymphs (auto) 1.0 (1.0-4.8) 10^3/ul Absolute Monos (auto) 0.5 (0-0.8) 10^3/ul Absolute Eos (auto) 0.1 (0-0.6) 10^3/ul Absolute Basos (auto) 0.1 (0-0.2) 10^3/ul Absolute Nucleated RBC 0.01 10^3/ul Nucleated RBC % 0.3 INR (Anticoag Therapy) (0.89-1.11) APTT (26.0-36.3) seconds Sodium 135 (133-145) mmol/L Potassium 4.4 (3.5-5.0) mmol/L Chloride 105 (101-111) mmol/L Carbon Dioxide 25 (22-32) mmol/L Anion Gap 5 (2-11) mmol/L BUN 18 (6-24) mg/dL Creatinine 0.70 (0.67-1.17) mg/dL Est GFR ( Amer) 150.0 (>60) Est GFR (Non-Af Amer) 116.7 (>60) BUN/Creatinine Ratio 25.7 H (8-20) Glucose 94 (70-100) mg/dL Lactic Acid (0.5-2.0) mmol/L Calcium 9.3 (8.6-10.3) mg/dL Magnesium 1.8 L (1.9-2.7) mg/dL Total Bilirubin 5.70 H (0.2-1.0) mg/dL AST 52 H (13-39) U/L ALT 24 (7-52) U/L Alkaline Phosphatase 103 (34-104) U/L Ammonia (16-53) mol/L Total Creatine Kinase 81 (10-223) U/L CK-MB (CK-2) 4.9 (0.6-6.3) ng/mL Troponin I 0.00 (<0.04) ng/mL C-Reactive Protein 19.38 H (< 5.00) mg/L B-Natriuretic Peptide ( - 100) pg/mL Total Protein 6.2 L (6.4-8.9) g/dL Albumin 2.4 L (3.2-5.2) g/dL Globulin 3.8 (2-4) g/dL Albumin/Globulin Ratio 0.6 L (1-3) Lipase < 10 L (11.0-82.0) U/L TSH 0.07 L (0.34-5.60) mcIU/mL Acetaminophen < 15 mcg/mL Serum Alcohol < 10 (<10) mg/dL Assess/Plan/Problems-Billing Assessment: Mr. Quevedo is a 55 yo male with a PMH of chronic liver disease s/p TIPS procedure, ETOH abuse, hemochromatosis, and hepatic encephalopathy who presented to the ED on 08/21/16 with AMS and weakness secondary to hepatic encephalopathy, likely secondary to medication nonadherence. - Patient Problems (1) Altered mental status Code(s): R41.82 - ALTERED MENTAL STATUS, UNSPECIFIED Comment: Improving, likely secondary to hepatic encephalopathy from medication non- adherence. Ammonia level does not appear to be directly correlated with patient's mental status. Continue lactulose and rifaximin. UA negative, no other acute pathology noted. CT brain negative. (2) Hepatic encephalopathy Code(s): K72.90 - HEPATIC FAILURE, UNSPECIFIED WITHOUT COMA Comment: Appears improved today, following re-initiation of medications. Patient admits to not taking meds at home. No other cause for confusion at this time. CT brain negative. No other signs of infection. Continue lactulose and rifaximin. (3) Stage II decubitus ulcer Code(s): L89.92 - PRESSURE ULCER OF UNSPECIFIED SITE, STAGE 2 Comment: Present on admission. Wound care consult appreciated. Continue mepilex. Prealbumin low, patient with protein-calorie malnutrition. Nutrition consult. (4) History of liver disease Code(s): Z87.19 - PERSONAL HISTORY OF OTHER DISEASES OF THE DIGESTIVE SYSTEM Comment: Continue spironolactone, furosemide, MVI, thiamine and omeprazole. (5) Liver cirrhosis Comment: Continue supportive care. (6) Severe protein-calorie malnutrition Code(s): E43 - UNSPECIFIED SEVERE PROTEIN-CALORIE MALNUTRITION Comment: Weight is 186, previously 170-196 per previous records. Suspect variation secondary to fluid retention in the past. Prealbumin is 4. His liver likely has very impaired protein synthesis. Nutrition consult, appreciate dietary recommendations. (7) DVT prophylaxis Code(s): XDD6366 - Comment: SQ Lovenox with close monitoring of platelets (8) Full code status Code(s): Z78.9 - OTHER SPECIFIED HEALTH STATUS Status and Disposition: Inpatient admission. Anticipate LOS >2 days. Discharge planning in process. Psych consult requested by family. Plan for discharge to rehab vs home with services. SW/CM following.
[2016-08-24 09:07] VITALS: BP 109/51
--- NOTE | 2016-08-24 10:08 | RAD ---
HISTORY: Right knee pain and swelling COMPARISONS: July 21, 2015 VIEWS: 2, Frontal and lateral views of the right knee FINDINGS: BONE DENSITY: Normal. BONES: There is no displaced fracture. JOINTS: There is moderate to advanced tricompartment lesser arthritis, most pronounced within the patellofemoral compartment. ALIGNMENT: There is no dislocation. SOFT TISSUES: Unremarkable. OTHER FINDINGS: None. IMPRESSION: OSTEOARTHRITIS. NO ACUTE OSSEOUS INJURY. IF SYMPTOMS PERSIST, RECOMMEND REPEAT IMAGING.
--- NOTE | 2016-08-24 12:07 | PN ---
Hospitalist Progress Note Patient with low TSH and elevated free T4. Results reviewed with attending. Due to acute illness, this may be a false representation of thyroid. TSH not previously elevated in records. Patient denies fever, neck/thyroid pain, chest pain, palpitations. Pt and family opted to pursue further testing as outpatient , which is reasonable, as patient is hemodynamically stable. Follow-up thyroid studies in 4 weeks, scripts included with discharge. Plan for d/c to [facility] for rehab. Patient is willing to go today. No other acute concerns.
--- NOTE | 2016-08-24 13:03 | DS ---
DATE OF ADMISSION: 08/21/2016. DATE OF DISCHARGE: 08/24/2016. PROVIDER: Jazlyn Herring NP. ATTENDING PHYSICIAN: Dr. Kenney Hwang* (as dictated by Jazlyn Herring NP). CONSULTING PHYSICIANS: Dr. Guevara Hadley, Gastroenterology and Dr. Chacha Galicia, Palliative Care. PRIMARY CARE PHYSICIAN: Dr. Deya Alvarez. PRIMARY DISCHARGE DIAGNOSES: 1. Hepatic encephalopathy likely secondary to medication nonadherence. 2. Severe protein calorie malnutrition. 3. Stage 2 decubitus ulcer. 4. Abnormal thyroid function tests SECONDARY DISCHARGE DIAGNOSES: 1. Chronic liver failure. 2. History of alcohol abuse. 3. Hemochromatosis. 4. History of TIPS procedure in 2016. HOME MEDICATIONS AT DISCHARGE: 1. Thiamin 100 mg daily. 2. Multivitamin one tab daily. 3. Rifaximin 550 mg b.i.d. 4. Omeprazole 40 mg daily. 5. Lactulose 45 ml q.6 hours. 6. Folic acid 1 mg daily. 7. Spironolactone 125 mg daily. 8. Furosemide 40 mg daily. NEW MEDICATION AT DISCHARGE: Ensure Enlive t.i.d. for treatment of malnutrition. HOSPITAL COURSE OF STAY: For full details, please refer to the history and physical provided on 08/21/2016. In summary, Mr. Quevedo is a 55-year-old male who has had multiple hospital admissions in the past secondary to chronic liver disease and hepatic encephalopathy secondary to medication nonadherence. The patient is status post a TIPS procedure in 2016. However, the patient has had issues with medication noncompliance and safety concerns at home. He was recently hospitalized at [facility] in June and discharged to [facility] on 07/10, where he stayed for approximately 28 days. The patient was recommended to stay at [facility] or be referred to assisted living; however, the patient refused and a safe discharge plan was attempted which included home health aids , physical therapy and nursing. However, the patient presented to the hospital on 08/21/2016 after being found at home, lying in bed, incontinent of his urine and stool. The patient was altered and apparently had missed multiple days of medication. The patient was admitted and restarted back on his home medications. We did increase the frequency of his Lactulose which did help with the patient's encephalopathy and mental state. The patient has continued to improve in his mental capacity and cognition with each passing day. Per the sister and per our observations here, the patient's ammonia level does not necessarily correlate to the patient's mental status. His ammonia level was high the following day, but the patient was clearer with mentation. However, it is clear that the patient does better when he is taking all of his medications as prescribed as opposed to when he misses doses. We appreciated a Gastroenterology consult by Dr. Hadley who indicated his concern for the patient 's noncompliance. It was recommended by GI that he requires more home support or a different home setting in order to supervise his taking of medications. The patient has no evidence of infection or suggestions of GI bleeding. Per the family's request, the patient did have a Palliative Care consult as a potential option if the patient refused placement. Concerns expressed by the Palliative Care team as well that the patient lacks capacity to make safe decisions. We did have a Psychiatry consult in order to determine the patient' s capacity. However, the patient's family met with him on 08/24/2012 and they discussed a transfer to [facility] for rehabilitation which the patient is in agreement with. They have requested that this be done as soon as possible and would prefer him to be there as opposed to staying here in the hospital. At this time, they are in agreement with holding off on the Psychiatry evaluation so transfer to [facility] can occur. T/he patient is in agreement with the plan to go to [facility]. It would be beneficial perhaps in the future to obtain another Psychiatry consult in order to evaluate for capacity. The patient did express his desire to be a full code at this time and was able to verbalize understanding of what this actually entails. A new MOLST was completed which indicates CPR and trial intubation and BiPAP. The patient did present to the hospital with a low TSH. A free T4 was added on and this morning was noted to be elevated at 2.11. I did discuss with the family that the patient may be at risk for thyroiditis and possibly hyperthyroidism. However, the patient has no neck pain, inflammation or notable goiter. He is not tachycardic and he is hemodynamically stable. This may more likely represent a thyroiditis or sick thyroid condition. We did discuss that the patient will require further evaluation. They are in agreement with having the patient have follow-up laboratory work in the next four weeks in order to recheck his thyroid functions. He may also require a nuclear medicine thyroid uptake scan in order to further evaluate this. This can be done as an outpatient. The patient appears to be within his baseline mental state per the family. He is afebrile. The patient did have complaints of lower extremity pain that comes and goes secondary to falls at home. His x-ray and venous Doppler studies are negative for DVT or any acute fractures. The patient is able to weight-bear on the effected extremity which is the right lower extremity. There is a notable right popliteal cyst that has been present for quite some time. No other new findings. DIAGNOSTIC TESTING DURING THIS ADMISSION: 1. CT brain: No acute intracranial pathology. 2. Chest x-ray: Complete resolution of the left basilar abnormalities. The examination is otherwise unchanged. 3. Venous Doppler study of the right lower extremity: (1) No evidence for right lower extremity DVT. (2) 5.6 x 2.5 x 4.7 cm complex right popliteal cyst similar to the prior exam. (3) Extensive subcutaneous edema at the lateral distal right calf. 4. Knee x-ray: Osteoarthritis. No acute osseous injury. If symptoms persist , recommend repeat imaging. CONCERNS AT DISCHARGE: Mr. Quevedo will be discharged to [facility] for rehab on 08/24/2016. He should follow-up with the facility provider or his primary care provider, Dr. Alvarez, within one week. TESTS TO FOLLOW-UP ON: The patient is to have repeat thyroid function test in four weeks. If he continues to have elevated T4 and low TSH, the patient is recommended to have a thyroid nuclear uptake scan. DIET: Low sodium, high protein diet. ACTIVITY: As tolerated. CONDITION ON DISCHARGE: Improved, stable. DISPOSITION: To [facility]. TIME SPENT: Time spent on this discharge was approximately 60 minutes. This includes [id number] time with the patient and family discussing discharge options and reviewing the plan of care. Over 35 minutes were spent in consultation with the family and patient. This is only a brief summary of the patient's hospital course of stay. For full details, please refer to the full medical record. If you have any further questions or need further assistance, please feel free to contact me at [phone]. JAZLYN HERRING NP CC: Dr. Troy Covarrubias; Dr. Deya Alvarez* [id number]/[facility] #: [id number] MARCO ANTONIO
== END 2016-08-24 14:30 | DRG 432 ==
LOC: ED 11:34 → MED 14:47 → OBSVTOIN 15:46
PROVIDERS: ADMIT Internal Medicine; ATTEND Internal Medicine
DX: K70.30 Alcoholic cirrhosis of liver without ascites (principal); E43 Unspecified severe protein-calorie malnutrition; K70.40 Alcoholic hepatic failure without coma; L89.312 Pressure ulcer of right buttock, stage 2; E83.119 Hemochromatosis, unspecified; I10 Essential (primary) hypertension; F41.9 Anxiety disorder, unspecified; F32.9 Major depressive disorder, single episode, unspecified; E83.42 Hypomagnesemia; M71.21 Synovial cyst of popliteal space [Baker], right knee; R32 Unspecified urinary incontinence; S00.81XA Abrasion of other part of head, initial encounter; S30.811A Abrasion of abdominal wall, initial encounter; S30.810A Abrasion of lower back and pelvis, initial encounter; S70.212A Abrasion, left hip, initial encounter; S70.211A Abrasion, right hip, initial encounter; S80.212A Abrasion, left knee, initial encounter; S80.211A Abrasion, right knee, initial encounter; S90.511A Abrasion, right ankle, initial encounter; R15.9 Full incontinence of feces; Z88.6 Allergy status to analgesic agent; Z88.8 Allergy status to other drugs, medicaments and biological substances; Z80.0 Family history of malignant neoplasm of digestive organs; Z83.79 Family history of other diseases of the digestive system; Z82.49 Family history of ischemic heart disease and other diseases of the circulatory system; Z80.52 Family history of malignant neoplasm of bladder; Z91.14 Patient's other noncompliance with medication regimen; Z68.23 Body mass index [BMI] 23.0-23.9, adult; E06.9 Thyroiditis, unspecified; M17.11 Unilateral primary osteoarthritis, right knee; Y92.9 Unspecified place or not applicable; X58.XXXA Exposure to other specified factors, initial encounter
CPT/HCPCS: 36415; 70450; 71010; 80048; 80053; 80076; 80320; 80329; 81003; 82140; 82550; 82553; 83605; 83690; 83735; 83880; 84134; 84439; 84443; 84484; 85025; 85060; 85610; 85730; 86140; 93005; A9270-GY; G0480; J1650; J2270

== ENCOUNTER 2016-09-22 21:15 | Inpatient (IN) | payer MEDICARE, OTHER ==
[2016-09-22] MEDS ORDERED: NS 0.9% 1000 ML* 1,000 ML IV ONE (21:17)
[2016-09-22] MEDS ORDERED: Thiamine IV* 100 MG, Folic Acid IV* 1 MG, Multiple Vitamin IV ADULT* 10 ML in NS 0.9% 1... IV ONE (21:25)
[2016-09-22] MEDS ORDERED: Magnesium Sulfate 2 GM IV* 2 GM/50 ML BAG IVPB ONE (21:26)
[2016-09-22 21:42] LABS: Hematocrit 30 % (42-52); Hemoglobin 10.3 g/dl (14.0-18.0); Mean Corpuscular HGB Conc 34 g/dl (31-36); Mean Corpuscular Hemoglobin 35 pg (27-31); Mean Corpuscular Volume 103 fL (80-94); Mean Platelet Volume 9 um3 (7.4-10.4); Red Blood Count 2.95 10^6/ul (4.0-5.4); Red Cell Distribution Width 17 % (10.5-15); White Blood Count 8.4 10^3/ul (3.5-10.8)
[2016-09-22 21:50] LABS: Comments Flag Yes
[2016-09-22 21:58] LABS: ALT 34 U/L (7-52); AST 59 U/L (13-39); Albumin 2.6 g/dL (3.2-5.2); Alkaline Phosphatase 106 U/L (34-104); Anion Gap 6 mmol/L (2-11); BUN/Creatinine Ratio 16.9 (8-20); Blood Urea Nitrogen 21 mg/dL (6-24); CO2 Carbon Dioxide 22 mmol/L (22-32); Calcium 9.3 mg/dL (8.6-10.3); Chloride 100 mmol/L (101-111); Creatine Kinase 80 U/L (10-223); EGFR African American 77.6 (>60); EGFR Non-African American 60.3 (>60); Globulin 3.3 g/dL (2-4); Glucose 109 mg/dL (70-100); Sodium 128 mmol/L (133-145); Total Protein 5.9 g/dL (6.4-8.9)
[2016-09-22 22:00] LABS: Troponin I 0.01 ng/mL (<0.04)
--- NOTE | 2016-09-22 22:01 | RAD ---
HISTORY: Altered mental status, history of hepatic encephalopathy COMPARISONS: August 21, 2016 TECHNIQUE: Multiple contiguous axial CT scans were obtained of the head without intravenous contrast. FINDINGS: HEMORRHAGE/INFARCT: There is no hemorrhage or acute infarct. MASSES/SHIFT: There is no mass or shift. EXTRA-AXIAL SPACES: There are no extra-axial fluid collections. SULCI AND VENTRICLES: There is diffuse and proportional enlargement of the sulci and ventricles. CEREBRUM: There are no focal parenchymal abnormalities. BRAINSTEM: There are no focal parenchymal abnormalities. CEREBELLUM: There are no focal parenchymal abnormalities. VESSELS: The vessels are grossly normal. PARANASAL SINUSES: The paranasal sinuses are clear. ORBITS: The orbits are unremarkable. BONES AND SOFT TISSUE: No bone or soft tissue abnormalities are noted. OTHER: None IMPRESSION: NO ACUTE INTRACRANIAL PATHOLOGY.
[2016-09-22 22:22] LABS: Acetaminophen < 15 mcg/mL; Alcohol < 10 mg/dL (<10)
[2016-09-22 23:18] LABS: Magnesium 1.8 mg/dL (1.9-2.7)
--- NOTE | 2016-09-23 00:08 | HP ---
H&P (Free Text) History and Physical: PCP: Tete Alvarez MD Date/Time of Evaluation: 09/22/2016 6317 CC: confusion HPI: Mr Quevedo is a 56YO male HX hemochromatosis w/ 2nd cirrhosis & chronic hepatic failure who is pleasantly confused, oriented to person only, and unable to participate in this history beyond current status information. Therefore this history is largely supplemented by ED staff and the available medical record. Mr Quevedo was admitted to [facility] 08/21-08/24/2016 for hepatic encephalopathy, transferred to [facility] on discharge at the encouragement of his sister/HCP , and discharged from [facility] 11 days ago. His sister has been checking on him noting progressive confusion over the past few days. Today she found him much more confused with unexplained LUE wounds. He has a history of self-D/C' ing his lactulose 2nd not likely the therapeutic effect of diarrhea. His ammonia level is 154. PMedHx hemochromotosis alcohol abuse cirrhosis hepatic encephalopathy GERD Ambulatory Orders Nursing to reconcile. Omeprazole CAP* [Prilosec CAP* 20 MG] 40 mg PO DAILY 06/11/12 RiFAXimin* [Xifaxan*] 550 mg PO BID #60 tab 01/01/16 Spironolactone (NF) [Spironolactone 50 MG (NF)] 125 mg PO DAILY 02/16/16 Thiamine TAB* [Vitamin B-1 TAB 100 MG*] 100 mg PO DAILY tab 03/07/16 Folic Acid TAB* [Folvite TAB*] 1 mg PO DAILY tab 04/13/16 Furosemide TAB* [Lasix TAB*] 40 mg PO DAILY 05/21/16 Lactulose* 45 ml PO Q6H #8 bottle 05/23/16 Multivitamins/Minerals TAB* [Theragran/minerals TAB*] 1 tab PO DAILY 08/21/16 Allergies Acetaminophen [From Tylenol] Allergy (Verified 04/25/16 15:56) AVOIDS NSAIDs Allergy (Verified 04/25/16 15:56) AVOIDS PSurgHx Pleurx cather placement & removal L hand surgery hernia repair TIPS SocHx: former smoker, quit alcohol ~1 year ago, no recreational drugs; lives with his ; full code status FamHx: positive for CAD & bladder CA ROS: as above, otherwise reviewed and all were negative Constitutional: NAD, normally developed, overweight white male vitals: Vital Signs Temp 36.7 C 09/22/16 21:21 Pulse 86 09/22/16 23:00 Resp 16 09/22/16 23:00 BP 114/56 09/22/16 21:24 Pulse Ox 98 09/22/16 23:00 Intake & Output 09/22/16 09/22/16 09/23/16 11:59 23:59 11:59 Weight 81.647 kg HEENM: atraumatic; sclera/conjunctiva: mildly icteric/mildly injected OU; hearing: clinically mildly decreased; oropharynx: clear, mucosa tacky Neck: soft tissue: no nuchal rigidity; thyroid: normal Pulmonary: clear to auscultation B, fair to good aeration, no accessory muscle use CV: RR/RR, normal S1S2, no carotid bruit, no jugular venous distention, 2+ B DP/ PT, no edema Abdominal: soft, non-distended, non-tender, no rebound/guarding/rigidity, normoactive bowel sounds, no hepatosplenomegaly or masses, no costovertebral angle tenderness Musculoskeletal: general: grossly intact; gait: borderline stability Integumental: normal appearance and texture, mild jaundice Psychiatric orientation: AA&O to person only affect: flat mood: acquiescent eye contact: fair content: unreliable responses: slowed insight: poor Testing: Lab Results 09/22/16 09/22/16 09/22/16 Range/Units 21:28 21:28 21:28 WBC 8.4 (3.5-10.8) 10^3/ul RBC 2.95 L (4.0-5.4) 10^6/ul Hgb 10.3 L (14.0-18.0) g/dl Hct 30 L (42-52) % MCV 103 H (80-94) fL MCH 35 H (27-31) pg MCHC 34 (31-36) g/dl RDW 17 H (10.5-15) % Plt Count 68 L (150-450) 10^3/ul MPV 9 (7.4-10.4) um3 Neut % (Auto) 79.1 (38-83) % Lymph % (Auto) 11.3 L (25-47) % [place] % (Auto) 8.7 (1-9) % Eos % (Auto) 0.7 (0-6) % Baso % (Auto) 0.2 (0-2) % Absolute Neuts (auto) 6.6 (1.5-7.7) 10^3/ul Absolute Lymphs (auto) 0.9 L (1.0-4.8) 10^3/ul Absolute Monos (auto) 0.7 (0-0.8) 10^3/ul Absolute Eos (auto) 0.1 (0-0.6) 10^3/ul Absolute Basos (auto) 0 (0-0.2) 10^3/ul Absolute Nucleated RBC 0 10^3/ul Nucleated RBC % 0 INR (Anticoag Therapy) 1.63 H (0.89-1.11) Sodium 128 L (133-145) mmol/L Potassium 5.0 (3.5-5.0) mmol/L Chloride 100 L (101-111) mmol/L Carbon Dioxide 22 (22-32) mmol/L Anion Gap 6 (2-11) mmol/L BUN 21 (6-24) mg/dL Creatinine 1.24 H (0.67-1.17) mg/dL Est GFR ( Amer) 77.6 (>60) Est GFR (Non-Af Amer) 60.3 (>60) BUN/Creatinine Ratio 16.9 (8-20) Glucose 109 H (70-100) mg/dL Lactic Acid (0.5-2.0) mmol/L Calcium 9.3 (8.6-10.3) mg/dL Magnesium 1.8 L (1.9-2.7) mg/dL Total Bilirubin 4.50 H (0.2-1.0) mg/dL AST 59 H (13-39) U/L ALT 34 (7-52) U/L Alkaline Phosphatase 106 H (34-104) U/L Ammonia (16-53) mol/L Total Creatine Kinase 80 (10-223) U/L Troponin I 0.01 (<0.04) ng/mL Total Protein 5.9 L (6.4-8.9) g/dL Albumin 2.6 L (3.2-5.2) g/dL Globulin 3.3 (2-4) g/dL Albumin/Globulin Ratio 0.8 L (1-3) Acetaminophen < 15 mcg/mL Serum Alcohol < 10 (<10) mg/dL 09/22/16 09/22/16 Range/Units 21:28 21:28 WBC (3.5-10.8) 10^3/ul RBC (4.0-5.4) 10^6/ul Hgb (14.0-18.0) g/dl Hct (42-52) % MCV (80-94) fL MCH (27-31) pg MCHC (31-36) g/dl RDW (10.5-15) % Plt Count (150-450) 10^3/ul MPV (7.4-10.4) um3 Neut % (Auto) (38-83) % Lymph % (Auto) (25-47) % [place] % (Auto) (1-9) % Eos % (Auto) (0-6) % Baso % (Auto) (0-2) % Absolute Neuts (auto) (1.5-7.7) 10^3/ul Absolute Lymphs (auto) (1.0-4.8) 10^3/ul Absolute Monos (auto) (0-0.8) 10^3/ul Absolute Eos (auto) (0-0.6) 10^3/ul Absolute Basos (auto) (0-0.2) 10^3/ul Absolute Nucleated RBC 10^3/ul Nucleated RBC % INR (Anticoag Therapy) (0.89-1.11) Sodium (133-145) mmol/L Potassium (3.5-5.0) mmol/L Chloride (101-111) mmol/L Carbon Dioxide (22-32) mmol/L Anion Gap (2-11) mmol/L BUN (6-24) mg/dL Creatinine (0.67-1.17) mg/dL Est GFR ( Amer) (>60) Est GFR (Non-Af Amer) (>60) BUN/Creatinine Ratio (8-20) Glucose (70-100) mg/dL Lactic Acid 2.0 (0.5-2.0) mmol/L Calcium (8.6-10.3) mg/dL Magnesium (1.9-2.7) mg/dL Total Bilirubin (0.2-1.0) mg/dL AST (13-39) U/L ALT (7-52) U/L Alkaline Phosphatase (34-104) U/L Ammonia 154 H (16-53) mol/L Total Creatine Kinase (10-223) U/L Troponin I (<0.04) ng/mL Total Protein (6.4-8.9) g/dL Albumin (3.2-5.2) g/dL Globulin (2-4) g/dL Albumin/Globulin Ratio (1-3) Acetaminophen mcg/mL Serum Alcohol (<10) mg/dL Impression: 56M presenting with confusion 2nd hepatic encephalopathy DIAGNOSIS & PLAN Primary confusion 2nd hepatic encephalopathy 2nd hemochromotosis & alcohol abuse : restart lactulose at 45cc PO Q6H : IVFs : trend ammonia : no clinical evidence of SBP or other infection : supportive care Secondary GERD : continue omeprazole Admission Rational: inpatient for hepatic encephalopathy not anticipated to improve adequately to allow for discharge w/i 48h DVTp: SCDs Code Status: full HCP: sister
[2016-09-23] MEDS ORDERED: Albuterol 2.5 MG/3 ML NEB.SOL* (0.083%) INH PRN (00:29)
[2016-09-23] MEDS ORDERED: Acetaminophen TAB* 325 MG PO PRN (00:29)
[2016-09-23] MEDS ORDERED: CMCS: Melatonin (NF) 3 MG TAB PO PRN (00:29)
[2016-09-23] MEDS ORDERED: NS 0.9% 1000 ML* 1,000 ML IV SCH (00:30)
[2016-09-23 03:44] LABS: Urine Bilirubin Negative (Negative); Urine Glucose Negative (Negative); Urine Nitrite Negative (Negative)
--- NOTE | 2016-09-23 04:32 | ED ---
Janki Benites Rebecca, scribed for Amos Nugent MD on 09/22/16 at 2156 . Altered Mental Status - HPI Summary HPI Summary: Pt is a 55 y/o M BIBA who presents to ED for moderate AMS characterized as confusion and disorientation. Per EMS, the pt's sister called EMS over concern of elevated ammonia levels. [facility] and but was [facility] 11 days ago and has since been living alone. His sister found him today , when she went to check on him, which is when she proceeded to contact EMS. Pt denies any falls or head trauma. He denies being on any blood thinners. Level 5 caveat due to AMS. - History Of Current Complaint Chief Complaint: EDAltMentalStatus Stated Complaint: AMS Time Seen by Provider: 09/22/16 21:17 Hx Obtained From: Patient, EMS Hx From Patient Unobtainable Due To: Altered Mental Status Onset/Duration: Unknown Severity Initially: Moderate Severity Currently: Moderate Character: Confusion Associated Signs And Symptoms: Negative: Recent Trauma - Allergies/Home Medications Allergies/Adverse Reactions: Allergies Allergy/AdvReac Type Severity Reaction Status Date / Time Acetaminophen [From Tylenol] AdvReac AVOIDS Verified 09/23/16 00:32 NSAIDs AdvReac AVOIDS Verified 09/23/16 00:32 PMH/Surg Hx/FS Hx/Imm Hx Endocrine/Hematology History: Reports: Hx Anemia, Other Endocrine/Hematological Disorders - Hemochromatosis Denies: Hx Anticoagulant Therapy, Hx Blood Transfusions, Hx Diabetes, Hx Systemic Lupus Erythematosus, Hx Thyroid Disease Cardiovascular History: Reports: Hx Hypertension Denies: Hx Aneurysm, Hx Angina, Hx Angioplasty, Hx Auto Implanted Cardiovert Defib, Hx Congestive Heart Failure, Hx Pacemaker/ICD Respiratory History: Reports: Hx Pleural Effusion Denies: Hx Asthma, Hx Chronic Obstructive Pulmonary Disease (COPD) GI History: Reports: Hx Cirrhosis, Hx Gastrointestinal Bleed, Hx Jaundice, Hx Ulcer Denies: Hx Gastroesophageal Reflux Disease Comment Only: Hx Diverticulosis - family history of, Other GI Disorders - Hepatic enchephalopathy History: Denies: Hx Dialysis, Hx Renal Disease Musculoskeletal History: Reports: Other Musculoskeletal History - right hip, knees have discomfort/pain at times Denies: Hx Rheumatoid Arthritis Sensory History: Reports: Hx Contacts or Glasses Denies: Hx Hearing Aid Opthamlomology History: Reports: Hx Contacts or Glasses Neurological History: Reports: Hx Seizures, Other Neuro Impairments/Disorders - Affected by chronic high ammonia levels Denies: Hx Dementia Psychiatric History: Reports: Hx Anxiety, Hx Depression, Hx Substance Abuse Denies: Hx Panic Disorder - Cancer History Cancer Type, Location and Year: hemochromotosis- high iron levels Hx Chemotherapy: No - Surgical History Surgery Procedure, Year, and Place: LEFT HAND RING FINGER TENDON ATTACHEMENT- [facility] Anesthesia Reactions: No - Immunization History Date of Tetanus Vaccine: sister states up to date Infectious Disease History: No Infectious Disease History: Denies: Hx Hepatitis, Hx Human Immunodeficiency Virus (HIV), Traveled Outside the [place] in Last 30 Days - Family History Known Family History: Positive: Other - Father 65 with liver CA. Diverticulosis. - Social History Lives: Alone Alcohol Use: None Alcohol Amount: Previously used to drink Hx Substance Use: No Substance Use Type: Reports: None Hx Tobacco Use: No Smoking Status (MU): Never Smoked Tobacco Review of Systems - ROS Summary Review of Systems Summary: Level 5 caveat due to AMS Neurological: Other - AMS - confusion and disorientation All Other Systems Reviewed And Are Negative: No Physical Exam - Summary Physical Exam Summary: The patient is well-nourished in no acute pain and looks slightly jaundice. The skin is warm and dry. Ecchymosis in the R distal tibia without tenderness and an abrasion on the R knee. HEENT: The head shows an abrasion on his head on the parietal area. The pupils are equal and reactive. The conjunctivae are without drainage and reveal scleral icterus. Nares are patent and without drainage. Mouth reveals dry mucous membranes and the throat is without erythema and exudate. The external ears are intact. The ear canals are patent and without drainage. Neck is supple with full range of motion and non-tender. There are no carotid bruits. There is slight neck vein distension. Respiratory: Chest is non-tender. Lungs are clear to auscultation and breath sounds are symmetrical and equal. Cardiovascular: Hear is regular rate and rhythm. There is no murmur or rub auscultated. There is no peripheral edema and pulses are symmetrical and equal. Abdomen: The abdomen is soft and non-tender. There are normal bowel sounds heard in all four quadrants and there is no organomegaly palpated, including hepatomegaly and splenomegaly. Musculoskeletal: There is no back pain noted. FROM bilaterally in the LE. There is good capillary refill. There is no peripheral edema or calf tenderness elicited. Neurological: Patient is disoriented. The patient has symmetrical motor strength in all four extremities. Cranial nerves are grossly intact. Deep tendon reflexes are symmetrical and equal in all four extremities. He has very deliberate speech. No focal weakness. Psychiatric: The patient has an appropriate affect and does not exhibit any anxiety or depression. Triage Information Reviewed: Yes Vital Signs On Initial Exam: Initial Vitals Temp 98.0 F 09/22/16 21:18 Vital Signs Reviewed: Yes Diagnostics - Vital Signs Vital Signs Temp Pulse Resp BP Pulse Ox 09/22/16 21:25 18 09/22/16 21:24 114/56 09/22/16 21:21 98.0 F 84 22 112/57 100 09/22/16 21:18 98.0 F - Laboratory Lab Results: Lab Results 09/22/16 09/22/16 09/22/16 Range/Units 21:28 21:28 21:28 WBC 8.4 (3.5-10.8) 10^3/ul RBC 2.95 L (4.0-5.4) 10^6/ul Hgb 10.3 L (14.0-18.0) g/dl Hct 30 L (42-52) % MCV 103 H (80-94) fL MCH 35 H (27-31) pg MCHC 34 (31-36) g/dl RDW 17 H (10.5-15) % Plt Count 68 L (150-450) 10^3/ul MPV 9 (7.4-10.4) um3 Neut % (Auto) 79.1 (38-83) % Lymph % (Auto) 11.3 L (25-47) % [place] % (Auto) 8.7 (1-9) % Eos % (Auto) 0.7 (0-6) % Baso % (Auto) 0.2 (0-2) % Absolute Neuts (auto) 6.6 (1.5-7.7) 10^3/ul Absolute Lymphs (auto) 0.9 L (1.0-4.8) 10^3/ul Absolute Monos (auto) 0.7 (0-0.8) 10^3/ul Absolute Eos (auto) 0.1 (0-0.6) 10^3/ul Absolute Basos (auto) 0 (0-0.2) 10^3/ul Absolute Nucleated RBC 0 10^3/ul Nucleated RBC % 0 INR (Anticoag Therapy) 1.63 H (0.89-1.11) Sodium 128 L (133-145) mmol/L Potassium 5.0 (3.5-5.0) mmol/L Chloride 100 L (101-111) mmol/L Carbon Dioxide 22 (22-32) mmol/L Anion Gap 6 (2-11) mmol/L BUN 21 (6-24) mg/dL Creatinine 1.24 H (0.67-1.17) mg/dL Est GFR ( Amer) 77.6 (>60) Est GFR (Non-Af Amer) 60.3 (>60) BUN/Creatinine Ratio 16.9 (8-20) Glucose 109 H (70-100) mg/dL Lactic Acid (0.5-2.0) mmol/L Calcium 9.3 (8.6-10.3) mg/dL Magnesium 1.8 L (1.9-2.7) mg/dL Total Bilirubin 4.50 H (0.2-1.0) mg/dL AST 59 H (13-39) U/L ALT 34 (7-52) U/L Alkaline Phosphatase 106 H (34-104) U/L Ammonia (16-53) mol/L Total Creatine Kinase 80 (10-223) U/L Troponin I 0.01 (<0.04) ng/mL Total Protein 5.9 L (6.4-8.9) g/dL Albumin 2.6 L (3.2-5.2) g/dL Globulin 3.3 (2-4) g/dL Albumin/Globulin Ratio 0.8 L (1-3) Acetaminophen < 15 mcg/mL Serum Alcohol < 10 (<10) mg/dL 09/22/16 09/22/16 Range/Units 21:28 21:28 WBC (3.5-10.8) 10^3/ul RBC (4.0-5.4) 10^6/ul Hgb (14.0-18.0) g/dl Hct (42-52) % MCV (80-94) fL MCH (27-31) pg MCHC (31-36) g/dl RDW (10.5-15) % Plt Count (150-450) 10^3/ul MPV (7.4-10.4) um3 Neut % (Auto) (38-83) % Lymph % (Auto) (25-47) % [place] % (Auto) (1-9) % Eos % (Auto) (0-6) % Baso % (Auto) (0-2) % Absolute Neuts (auto) (1.5-7.7) 10^3/ul Absolute Lymphs (auto) (1.0-4.8) 10^3/ul Absolute Monos (auto) (0-0.8) 10^3/ul Absolute Eos (auto) (0-0.6) 10^3/ul Absolute Basos (auto) (0-0.2) 10^3/ul Absolute Nucleated RBC 10^3/ul Nucleated RBC % INR (Anticoag Therapy) (0.89-1.11) Sodium (133-145) mmol/L Potassium (3.5-5.0) mmol/L Chloride (101-111) mmol/L Carbon Dioxide (22-32) mmol/L Anion Gap (2-11) mmol/L BUN (6-24) mg/dL Creatinine (0.67-1.17) mg/dL Est GFR ( Amer) (>60) Est GFR (Non-Af Amer) (>60) BUN/Creatinine Ratio (8-20) Glucose (70-100) mg/dL Lactic Acid 2.0 (0.5-2.0) mmol/L Calcium (8.6-10.3) mg/dL Magnesium (1.9-2.7) mg/dL Total Bilirubin (0.2-1.0) mg/dL AST (13-39) U/L ALT (7-52) U/L Alkaline Phosphatase (34-104) U/L Ammonia 154 H (16-53) mol/L Total Creatine Kinase (10-223) U/L Troponin I (<0.04) ng/mL Total Protein (6.4-8.9) g/dL Albumin (3.2-5.2) g/dL Globulin (2-4) g/dL Albumin/Globulin Ratio (1-3) Acetaminophen mcg/mL Serum Alcohol (<10) mg/dL Result Diagrams: 09/22/16 21:28 09/22/16 21:28 Lab Statement: Any lab studies that have been ordered have been reviewed, and results considered in the medical decision making process. - CT Brain CT CT Interpretation: No Acute Changes - NO ACUTE INTRACRANIAL PATHOLOGY. CT Interpretation Completed By: Radiologist - EKG 0002 Cardiac Rate: NL - 74 bpm EKG Rhythm: Sinus Rhythm EKG Interpretation: Normal axis, poor R wave progression, no STEMI Altered Mental Statu Course/Dx - Course Assessment/Plan: Pt is a 55 y/o M BIBA who presents to ED for moderate AMS characterized as confusion and disorientation. Per EMS, the pt's sister called EMS over concern of elevated ammonia levels. EMS [facility] and but was released 11 days ago and has since been living alone. Pt denies any falls or head trauma. He denies being on any blood thinners. Level 5 caveat due to AMS. MRSA negative. Brain CT reveals no acute findings. EKG reveals poor R wave progression with no STEMI. Discussed care of pt with Dr. Morse who accepts pt for admission. Pt will be admitted with Dx of encephalopathy. 30 minutes critical care time. - Diagnoses Differential Diagnosis/HQI/PQRI: Hypoglycemia, Intoxication, Intracranial Bleed , Metabolic Disorder Discharge Diagnoses: Encephalopathy, Cirrhosis - Provider Notifications Discussed Care Of Patient With: Shyam Morse Time Discussed With Above Provider: 23:03 Instructed by Provider To: Admit As Inpatient - Critical Care Time Critical Care Time: 30-74 min - 30 minutes Discharge - Discharge Plan Condition: Stable Disposition: [facility]MITTED TO [facility] The documentation as recorded by the Janki chahal Rebecca accurately reflects the service I personally performed and the decisions made by , Amos Nugent MD.
[2016-09-23 06:23] LABS: Hematocrit 29 % (42-52); Hemoglobin 9.9 g/dl (14.0-18.0); Mean Corpuscular HGB Conc 34 g/dl (31-36); Mean Corpuscular Hemoglobin 35 pg (27-31); Mean Corpuscular Volume 104 fL (80-94); Mean Platelet Volume 9 um3 (7.4-10.4); Red Cell Distribution Width 17 % (10.5-15); White Blood Count 6.4 10^3/ul (3.5-10.8)
[2016-09-23 06:27] LABS: Comments Flag Yes
[2016-09-23 06:33] LABS: BUN/Creatinine Ratio 21.4 (8-20); Calcium 9.2 mg/dL (8.6-10.3); EGFR African American 95.7 (>60); EGFR Non-African American 74.4 (>60); Potassium 4.2 mmol/L (3.5-5.0)
[2016-09-23] MEDS: Folic Acid TAB* 1 MG PO SCH (09:15)
[2016-09-23] MEDS: Thiamine TAB* 100 MG TAB PO SCH (09:15)
[2016-09-23] MEDS: RiFAXimin* 550 MG TAB PO SCH ×2 (09:15→20:45)
[2016-09-23] MEDS: Omeprazole CAP* 20 MG PO SCH (09:16)
[2016-09-23] MEDS: Spironolactone TAB* 25 MG PO SCH (09:16)
--- NOTE | 2016-09-23 13:11 | PN ---
Subjective Date of Service: 09/23/16 Interval History: Patient seen and examined at bedside. Pt states that he feels well. Giovanni states that he is taking 45 ml lactulose at home 4 times daily. He reports to having 3-4 BMs already today. Denies fever, chills, shortness of breath, chest discomfort, N/V/D. Family History: Unchanged from Admission Social History: Unchanged from Admission Past Medical History: Unchanged from Admission Objective Active Medications: Acetaminophen (Tylenol Tab*) 325 mg PO Q6H PRN Reason: FEVER/PAIN Albuterol (Ventolin 2.5 Mg/3 Ml Neb.Katarzyna*) 2.5 mg INH Q2H PRN Reason: SOB/ WHEEZING Folic Acid (Folvite Tab*) 1 mg PO DAILY BEA Sodium Chloride (Ns 0.9% 1000 Ml*) 1,000 mls @ 125 mls/hr IV PER RATE BEA Lactulose (Lactulose*) 45 ml PO Q6H BEA Melatonin (Melatonin (Nf)) 3 mg PO BEDTIME PRN; Protocol Reason: Sleep Omeprazole (Prilosec Cap*) 40 mg PO DAILY BEA Rifaximin (Xifaxan*) 550 mg PO BID BEA Spironolactone (Aldactone Tab*) 125 mg PO DAILY BEA Thiamine HCl (Vitamin B-1 Tab*) 100 mg PO DAILY BEA Vital Signs 09/22/16 09/22/16 09/23/16 23:32 23:53 00:00 Temperature Pulse Rate 81 84 Respiratory 18 20 Rate Blood Pressure 121/85 (mmHg) O2 Sat by Pulse 94 100 Oximetry 09/23/16 09/23/16 09/23/16 00:01 00:30 01:00 Temperature Pulse Rate 85 Respiratory Rate Blood Pressure 110/64 114/92 118/81 (mmHg) O2 Sat by Pulse 100 Oximetry 09/23/16 09/23/16 02:15 02:18 Temperature 97.5 F 97.5 F Pulse Rate 81 81 Respiratory 17 17 Rate Blood Pressure 130/59 130/59 (mmHg) O2 Sat by Pulse 100 100 Oximetry Oxygen Devices in Use Now: None Appearance: NAD, sitting up in chair Eyes: PERRLA, - - Mild scleral icterus Ears/Nose/Mouth/Throat: Mucous Membranes Moist Respiratory: Symmetrical Chest Expansion and Respiratory Effort, Clear to Auscultation Cardiovascular: NL Sounds; No Murmurs; No JVD, RRR Abdominal: NL Sounds; No Tenderness; No Distention Extremities: No Edema Skin: No Rash or Ulcers Neurological: NL Muscle Strength and Tone, - - Alert and Oriented to Person and Place Lines/Tubes/Other Access: Clean, Dry and Intact Peripheral IV - site benign Nutrition: Taking PO's Result Diagrams: 09/23/16 05:33 09/23/16 05:33 Additional Lab and Data: Microbiology and Other Data: Microbiology 09/22/16 23:30 Nasal Screen MRSA (PCR)([place]) - Final Nasal Mrsa Negative Assess/Plan/Problems-Billing Assessment: Mr. Quevedo is a 56 yo male with PMH significant for cirrhosis, hepatic encephalopathy, GERD and hemochromotosis who presented to the emergency room with complaints of progressing confusion. - Patient Problems (1) Altered mental status Code(s): R41.82 - ALTERED MENTAL STATUS, UNSPECIFIED SNOMED Code(s): 907597539 Comment: - Improving, likely secondary to hepatic encephalopathy from medication non- adherence. - Ammonia level does not appear to be directly correlated with patient's mental status. - UA negative, no other acute pathology noted. CT brain negative. - Continue lactulose and rifaximin. (2) Hepatic encephalopathy Code(s): K72.90 - HEPATIC FAILURE, UNSPECIFIED WITHOUT COMA SNOMED Code(s): 60688480 Comment: - Appears improved today, following re-initiation of medications. Patient reports taking meds at home as directed. - No other cause for confusion at this time. - CT brain negative. No other signs of infection. - Continue lactulose and rifaximin. (3) GERD (gastroesophageal reflux disease) Code(s): K21.9 - GASTRO-ESOPHAGEAL REFLUX DISEASE WITHOUT ESOPHAGITIS SNOMED Code(s): 482370940 Comment: - Continue omeprazole (4) DVT prophylaxis Code(s): FTE5963 - SNOMED Code(s): 650738150 Comment: - TEDs (5) Full code status Code(s): Z78.9 - OTHER SPECIFIED HEALTH STATUS SNOMED Code(s): 963045901 Status and Disposition: Inpatient. Discharge to home when medically stable.
[2016-09-24 05:52] LABS: Hematocrit 25 % (42-52); Hemoglobin 8.6 g/dl (14.0-18.0); Mean Corpuscular HGB Conc 34 g/dl (31-36); Mean Corpuscular Hemoglobin 35 pg (27-31); Mean Corpuscular Volume 103 fL (80-94); Mean Platelet Volume 8 um3 (7.4-10.4); Red Blood Count 2.47 10^6/ul (4.0-5.4); Red Cell Distribution Width 17 % (10.5-15); White Blood Count 4.1 10^3/ul (3.5-10.8)
[2016-09-24 05:54] LABS: Comments Flag Yes
[2016-09-24 06:03] LABS: BUN/Creatinine Ratio 21.5 (8-20); Calcium 8.6 mg/dL (8.6-10.3); EGFR Non-African American 101.1 (>60); Potassium 4.8 mmol/L (3.5-5.0)
[2016-09-24] MEDS: Spironolactone TAB* 25 MG PO SCH (09:16)
[2016-09-24] MEDS: RiFAXimin* 550 MG TAB PO SCH ×2 (09:16→22:31)
[2016-09-24] MEDS: Omeprazole CAP* 20 MG PO SCH (09:16)
[2016-09-24] MEDS: Thiamine TAB* 100 MG TAB PO SCH (09:17)
[2016-09-24] MEDS: Folic Acid TAB* 1 MG PO SCH (09:17)
[2016-09-24 12:43] LABS: TSH (Thyroid Stimulating Horm) 0.03 mcIU/mL (0.34-5.60)
[2016-09-24 12:50] LABS: Free T4 1.43 ng/dL (0.61-1.12)
--- NOTE | 2016-09-24 14:48 | CONS ---
PSYCHIATRIC CONSULTATION: DATE OF CONSULT: DATE OF DICTATION: 09/24/16 IDENTIFYING DATA: Giovanni Quevedo is a 56-year-old male with a history of chronic hepatic failure and hepatic encephalopathy. He is currently under hospitalist care, having presented on 09/22/16 with chief complaint of confusion. Psychiatric consultation was requested today for evaluation of Mr. Quevedo's mental capacity to refuse a medically indicated custodial referral. INFORMATION SOURCES: I interviewed the patient, reviewed previous psychiatric capacity consultations and the history and physical to this admission, and I had a case discussion with Dr. Chacha Galicia. I understand that Mr. Quevedo has been readmitted to the hospital approximately 10 days after release from a custodial, after he was found with altered mental status at home. He has apparently not been able to maintain his medication regimen appropriately in that setting and has had numerous admissions to the medical service this year. It is the opinion of the treatment team that custodial placement is medically indicated and the patient is unable to meet his own needs at home, with no safe arrangements available to meet his basic needs in that setting. He has been informed of the various elements of this evaluation (concerns and conclusions) by his primary treatment team. For the purpose of the evaluation, I introduced myself to Mr. Quevedo and explained that his capacity was under evaluation with regard to custodial placement decision. He indicated that he understood that framework, but appeared surprised in that he told me that he had no sense that anyone was concerned about his mental capacity, his need for custodial care, or his safety / risks at home. For the purposes of evaluating Mr. Alass mental capacity to refuse a currently medically indicated custodial placement: 1. He makes a fairly clear choice. He says he "probably" would refuse a custodial placement if offered today. 2. Mr. Quevedo fails to manage the facts. He cannot state his full medical diagnosis (does know he has liver disease) and he states he is unaware that any medical condition has caused him any functional or cognitive impairment. Further, he states that his risks when independently living at home are similar to those of any person of average health in the community and he says that he is in no way more vulnerable than the average person. He acknowledges that he has failed to maintain his medications appropriately in the community, but insists that he has been at no risk at all. 3. Mr. Quevedo fails to appreciate the risks that he has been exposed to or understand the nature of his risk profile and how it differs from other people' s. 4. Mr. Quevedo has failed to process and manage the information that he has been given in a rational and self-preserving manner as we would expect from an average individual. CAPACITY FINDING: Giovanni Quevedo lacks mental capacity at this time to refuse a medically indicated custodial treatment on the basis of cognitive impairment , presumably pursuant to hepatic encephalopathy or chronic alcohol related encephalopathy. Thank you for the opportunity to participate in Mr. Quevedo's overall care and management. Please contact me or my coverage group if there are any additional questions or concerns. [id number]/[facility] #: [id number] MARCO ANTONIO
--- NOTE | 2016-09-24 15:05 | CONS ---
CC: Deya Alvarez MD; Isabel Jarvis NP; [facility] * PALLIATIVE CARE CONSULTATION: DATE OF CONSULTATION: 09/24/16 REFERRING PHYSICIAN: Isabel Jarvis NP. PRIMARY CARE PHYSICIAN: Deya Alvarez MD. HOSPITAL COURSE: This is a 56-year-old male with a past medical history of hepatic encephalopathy secondary to alcohol abuse, with recurrent admissions, who presented from home on 09/22/16 to [facility]'s Emergency Room for confusion and somnolence. This is patient's fifth admission this year for hepatic encephalopathy and somnolence. I spoke with the sister, Antonietta, who is healthcare proxy and power of regulatory attorney, who states on last admission back in August he was at [facility] for 3 weeks and was doing well. They felt that he was managing his activities of daily living and they sent him home. He was home for 3 days when she found him in bed, somnolent. It appeared that none of his lactulose medications had been administered. She states that she has been concerned about his capacity in making decisions for well over a year. He has had several admissions over the past several years for noncompliance resulting in encephalopathy. She states he makes irrational financial and medical decisions and lost 2000 dollars recently in an investment. She states he has poor nutritional status and he would not eat the frozen meals that she provides to him and he only eats [employer]. She is concerned that he has proven multiple times that he is not safe at home as he is noncompliant with his medications at home and he needs a much closer supervised setting even when he is doing well with his activities of daily living. On my encounter with Mr. Quevedo, I had asked him why he was in the hospital and he states that he was in this department doing well and he, all of a sudden, felt like he was going to pass out and that hit him all of a sudden. He states that he has been taking his medications religiously and denies taking any of his medications. I asked him what happens if he misses a dose and he states he has a hard time writing, but otherwise he is okay. He denies ever having issues with confusion and states he feels good. He says that he has been cooking for himself, showering, and doing everything for himself, with the exception of driving. He denies any pain or chest pain. No shortness of breath. He has been having some issues with loose stools. No nausea or vomiting. Otherwise remaining review of systems is negative. PAST MEDICAL HISTORY: 1. History of recurrent admissions for hepatic encephalopathy, this will be his fifth admission this year, in 2017. 2. History of hemochromatosis. 3. History of alcohol abuse, states his last drink was 2 years ago. 4. History of cirrhosis. 5. GERD. 6. History of hyperthyroidism. INPATIENT MEDICATIONS: 1. Tylenol 650 mg every 6 hours as needed. 2. Albuterol every 2 hours as needed. 3. Folic acid 1 mg daily. 4. Lactulose 45 mL q.6 hours. 5. Melatonin 3 mg at bedtime as needed for sleep. 6. Omeprazole 40 mg daily. 7. Rifaximin 550 mg p.o. b.i.d. 8. Spironolactone 25 mg daily. 9. Thiamine 100 mg daily. ALLERGIES: ACETAMINOPHEN and NSAIDS. SOCIAL HISTORY: The patient has been at [facility] with home for 3 days before this admission. He tells me he stopped drinking alcohol more than 2 years ago. No smoking or illicit drug use. He has 3 brothers and 1 sister. His sister, Antonietta Rios, is the main healthcare proxy/power of regulatory attorney , phone number . MOLST form, when I spoke with the patient, although I do not think he has capacity, he states he is a full code. This needs to be readdressed once it is confirmed he lacks capacity. FAMILY HISTORY: His father has a history of alcohol use. REVIEW OF SYSTEMS: As mentioned in the HPI. PHYSICAL EXAMINATION: Vitals: Temperature 98.2, pulse rate 82, respiratory rate 18, oxygen saturation 97% on room air, blood pressure 99/58. General: In no acute distress, resting comfortably. HEENT: Pupils are equal and reactive. Anicteric. Head normocephalic. Oropharynx: Mucous membranes are moist. Neck : Supple. No lymphadenopathy. Cardiac: Regular rate and rhythm. Soft systolic murmur heard throughout. Respiratory: Diminished breath sounds. No wheezes, rhonchi or rales. Abdomen: Soft, nontender, nondistended. Extremities : Trace pretibial edema. Neurologic: Alert and oriented x3. No focal neurologic deficits. DIAGNOSTIC STUDIES/LAB DATA: White count 4.1, hemoglobin 8.6, hematocrit 25, platelets 55. INR 1.66. Sodium 131, potassium 4.8, chloride 108, bicarb 23, BUN 17, creatinine 0.79, ammonia 102, albumin 2.6 on admission. Alcohol level was negative. RADIOGRAPHIC DATA: Head CT: No acute intracranial pathology. ASSESSMENT: This is a 56-year-old male with a past medical history of hepatic encephalopathy with recurrent admissions due to noncompliance, who presents for the fifth time this year with confusion secondary to noncompliance leading to hepatic encephalopathy. I spoke with the sister, Antonietta, at length regarding my concern that I feel that he lacks capacity and the insight to make appropriate medical decisions for himself. She agrees with this. The patient needs a more supervised setting and would recommend, once he does transition to less supervised setting, that Psychiatry should be involved to reevaluate his capacity making skills. I did ask Psychiatry to come and confirm his lack of capacity. If they agree that he lacks capacity then I would readdress the MOLST form with Antonietta to discuss his code status again. He does have findings of malnourishment based on his albumin of 2.6, and also findings of hyperthyroidism that I would recommend repeating and following up as well with. Again, as mentioned, the patient has proven to not be safe to be at home and needs a more closely supervised environment. He is not eligible for hospice at this time, but is a good candidate for the PATH referral program. Thank you for this consultation. I will follow along with you. PATIENT TIME: Greater than 90 minutes were spent doing the consultation, more than half that time spent in direct patient contact. [id number]/[facility] #: [id number] MARCO ANTONIO
--- NOTE | 2016-09-24 15:38 | PN ---
Subjective Date of Service: 09/24/16 Interval History: Patient seen and examined at bedside. Pt states that he is feeling well. He states that he came to the hospital because his ammonia level was elevated. He reports taking his medications appropriately including his lactulose recently, but reports not taking them correctly in the past. Denies fever, chills, shortness of breath, chest discomfort, N/V. Pt states that his sister often overreacts, but he feels he has been taking care of himself well at home. Family History: Unchanged from Admission Social History: Unchanged from Admission Past Medical History: Unchanged from Admission Objective Active Medications: Acetaminophen (Tylenol Tab*) 325 mg PO Q6H PRN Reason: FEVER/PAIN Albuterol (Ventolin 2.5 Mg/3 Ml Neb.Katarzyna*) 2.5 mg INH Q2H PRN Reason: SOB/ WHEEZING Folic Acid (Folvite Tab*) 1 mg PO DAILY BEA Lactulose (Lactulose*) 45 ml PO Q6H BEA Melatonin (Melatonin (Nf)) 3 mg PO BEDTIME PRN; Protocol Reason: Sleep Omeprazole (Prilosec Cap*) 40 mg PO DAILY BEA Rifaximin (Xifaxan*) 550 mg PO BID BEA Spironolactone (Aldactone Tab*) 125 mg PO DAILY BEA Thiamine HCl (Vitamin B-1 Tab*) 100 mg PO DAILY [facility] Vital Signs 09/23/16 09/23/16 09/23/16 19:16 21:43 23:20 Temperature 98.5 F 98.3 F Pulse Rate 76 88 Respiratory 20 17 20 Rate Blood Pressure 111/61 99/53 (mmHg) O2 Sat by Pulse 100 97 Oximetry 09/24/16 09/24/16 09/24/16 01:15 03:43 07:43 Temperature 98.9 F 98.2 F Pulse Rate 78 77 82 Respiratory 20 16 18 Rate Blood Pressure 105/47 99/58 (mmHg) O2 Sat by Pulse 97 97 97 Oximetry 09/24/16 08:00 Temperature Pulse Rate Respiratory 18 Rate Blood Pressure (mmHg) O2 Sat by Pulse Oximetry Oxygen Devices in Use Now: None Appearance: NAD, laying in bed Ears/Nose/Mouth/Throat: Mucous Membranes Moist Respiratory: Symmetrical Chest Expansion and Respiratory Effort, Clear to Auscultation Cardiovascular: NL Sounds; No Murmurs; No JVD, RRR Abdominal: NL Sounds; No Tenderness; No Distention Extremities: No Edema Skin: No Rash or Ulcers Neurological: Alert and Oriented x 3, NL Muscle Strength and Tone Lines/Tubes/Other Access: Clean, Dry and Intact Peripheral IV - site benign Nutrition: Taking PO's Result Diagrams: 09/24/16 05:39 09/24/16 05:39 Additional Lab and Data: Microbiology and Other Data: Microbiology 09/22/16 23:30 Nasal Screen MRSA (PCR)(URSULA) - Final Nasal Mrsa Negative Assess/Plan/Problems-Billing Assessment: Mr. Quevedo is a 56 yo male with PMH significant for cirrhosis, hepatic encephalopathy, GERD and hemochromotosis who presented to the emergency room with complaints of progressing confusion. - Patient Problems (1) Altered mental status Code(s): R41.82 - ALTERED MENTAL STATUS, UNSPECIFIED SNOMED Code(s): 027055560 Comment: - Improving, likely secondary to hepatic encephalopathy from medication non- adherence. - Ammonia level does not appear to be directly correlated with patient's mental status. - UA negative, no other acute pathology noted. CT brain negative. - Continue lactulose and rifaximin. - Psychiatry consult, Pt lacks capcity to decline NHP. (2) Hepatic encephalopathy Code(s): K72.90 - HEPATIC FAILURE, UNSPECIFIED WITHOUT COMA SNOMED Code(s): 03150588 Comment: - Appears improved today, following re-initiation of medications. Patient reports taking meds at home as directed. - No other cause for confusion at this time. - CT brain negative. No other signs of infection. - Continue lactulose and rifaximin. (3) GERD (gastroesophageal reflux disease) Code(s): K21.9 - GASTRO-ESOPHAGEAL REFLUX DISEASE WITHOUT ESOPHAGITIS SNOMED Code(s): 989905132 Comment: - Continue omeprazole (4) DVT prophylaxis Code(s): APX9794 - SNOMED Code(s): 067871527 Comment: - TEDs (5) Full code status Code(s): Z78.9 - OTHER SPECIFIED HEALTH STATUS SNOMED Code(s): 880781589 Status and Disposition: Inpatient. Pt will need to have placement.
[2016-09-25 08:05] VITALS: BP 101/45
[2016-09-25] MEDS: RiFAXimin* 550 MG TAB PO SCH (09:04)
[2016-09-25] MEDS: Spironolactone TAB* 25 MG PO SCH (09:04)
[2016-09-25] MEDS: Thiamine TAB* 100 MG TAB PO SCH (09:05)
[2016-09-25] MEDS: Omeprazole CAP* 20 MG PO SCH (09:05)
[2016-09-25] MEDS: Folic Acid TAB* 1 MG PO SCH (09:05)
--- NOTE | 2016-09-25 12:02 | PN ---
Subjective Date of Service: 09/25/16 Interval History: Patient seen and examined at bedside. Pt states that he is feeling well. He continues to not understand why people are concerned about his well being and feels that he can take care of himself. Denies fever, chills, shortness of breath, chest discomfort, N/V. Pt states that he had 4 BMs yesterday and 1 so far today. Family History: Unchanged from Admission Social History: Unchanged from Admission Past Medical History: Unchanged from Admission Objective Active Medications: Acetaminophen (Tylenol Tab*) 325 mg PO Q6H PRN Reason: FEVER/PAIN Albuterol (Ventolin 2.5 Mg/3 Ml Neb.Katarzyna*) 2.5 mg INH Q2H PRN Reason: SOB/ WHEEZING Folic Acid (Folvite Tab*) 1 mg PO DAILY BEA Lactulose (Lactulose*) 45 ml PO Q6H BEA Melatonin (Melatonin (Nf)) 3 mg PO BEDTIME PRN; Protocol Reason: Sleep Omeprazole (Prilosec Cap*) 40 mg PO DAILY BEA Rifaximin (Xifaxan*) 550 mg PO BID BEA Spironolactone (Aldactone Tab*) 125 mg PO DAILY BEA Thiamine HCl (Vitamin B-1 Tab*) 100 mg PO DAILY BEA Vital Signs 09/24/16 09/24/16 09/24/16 15:34 20:00 20:28 Temperature 97.7 F Pulse Rate 80 79 Respiratory 19 16 14 Rate Blood Pressure 110/51 (mmHg) O2 Sat by Pulse 99 97 Oximetry 09/24/16 09/24/16 09/25/16 20:59 23:34 03:30 Temperature 97.5 F 98.4 F 98.1 F Pulse Rate 82 81 84 Respiratory 20 16 16 Rate Blood Pressure 106/52 103/52 106/53 (mmHg) O2 Sat by Pulse 99 98 96 Oximetry 09/25/16 09/25/16 07:33 08:00 Temperature 97.5 F Pulse Rate 78 Respiratory 16 16 Rate Blood Pressure 101/45 (mmHg) O2 Sat by Pulse 100 Oximetry Oxygen Devices in Use Now: None Appearance: NAD, laying in bed Eyes: - - Slight scleral icterus Ears/Nose/Mouth/Throat: Mucous Membranes Moist Respiratory: Symmetrical Chest Expansion and Respiratory Effort, Clear to Auscultation Cardiovascular: NL Sounds; No Murmurs; No JVD, RRR Abdominal: NL Sounds; No Tenderness; No Distention Extremities: No Edema Skin: No Rash or Ulcers Neurological: Alert and Oriented x 3, NL Muscle Strength and Tone Lines/Tubes/Other Access: Clean, Dry and Intact Peripheral IV - site benign Nutrition: Taking PO's Result Diagrams: 09/24/16 05:39 09/24/16 05:39 Additional Lab and Data: Microbiology and Other Data: Microbiology 09/22/16 23:30 Nasal Screen MRSA (PCR)(URSULA) - Final Nasal Mrsa Negative Assess/Plan/Problems-Billing Assessment: Mr. Quevedo is a 56 yo male with PMH significant for cirrhosis, hepatic encephalopathy, GERD and hemochromotosis who presented to the emergency room with complaints of progressing confusion. - Patient Problems (1) Altered mental status Code(s): R41.82 - ALTERED MENTAL STATUS, UNSPECIFIED SNOMED Code(s): 408589487 Comment: - Improving, likely secondary to hepatic encephalopathy from medication non- adherence. - Ammonia level does not appear to be directly correlated with patient's mental status. - UA negative, no other acute pathology noted. CT brain negative. - Continue lactulose and rifaximin. - Psychiatry consult, Pt lacks capcity to decline NHP. (2) Hepatic encephalopathy Code(s): K72.90 - HEPATIC FAILURE, UNSPECIFIED WITHOUT COMA SNOMED Code(s): 65465065 Comment: - Appears improved today, following re-initiation of medications. Patient reports taking meds at home as directed. - No other cause for confusion at this time. - CT brain negative. No other signs of infection. - Continue lactulose and rifaximin. (3) GERD (gastroesophageal reflux disease) Code(s): K21.9 - GASTRO-ESOPHAGEAL REFLUX DISEASE WITHOUT ESOPHAGITIS SNOMED Code(s): 847031242 Comment: - Continue omeprazole (4) DVT prophylaxis Code(s): [id number] - SNOMED Code(s): 188755607 Comment: - TEDs (5) Full code status Code(s): Z78.9 - OTHER SPECIFIED HEALTH STATUS SNOMED Code(s): 174935504 Status and Disposition: Inpatient. Stable for discharge to [facility] today.
--- NOTE | 2016-09-25 15:02 | DS ---
CC: Dr. Deya Alvarez; [facility]* DATE OF ADMISSION: 09/22/2016. DATE OF DISCHARGE: 09/25/2016. AGE: 56. ATTENDING PHYSICIAN: Dr. Graham Hammond * (dictated by Louis Quintanilla NP). PRIMARY DIAGNOSES: 1. Hepatic encephalopathy. 2. Medication noncompliance. SECONDARY DIAGNOSES: 1. Hemochromatosis. 2. Alcohol abuse. 3. Cirrhosis. STUDY DONE WHILE IN THE HOSPITAL: Brain CT on 09/22/2016: Radiologist's impression: No acute intracranial pathology. DISCHARGE MEDICATIONS: Continued home medications: 1. Multivitamin one tablet oral daily. 2. Lactulose 45 ml oral every 6 hours. 3. Furosemide 40 mg oral daily. 4. Folic acid 1 mg oral daily. 5. Thiamin 100 mg oral daily. 6. Spironolactone 125 mg oral daily. 7. Rifaximin 550 mg oral twice daily. 8. Omeprazole 40 mg oral daily. 9. Melatonin 3 mg oral daily at bedtime as needed for sleep. HISTORY OF PRESENT ILLNESS/HOSPITAL COURSE: Mr. Quevedo is a 56-year-old male with a past medical history significant for hemochromatosis with secondary cirrhosis and chronic hepatic failure who was recently admitted to [facility] from August 21 to August 24 for hepatic encephalopathy and was later transferred to [facility] on discharge at the encouragement of his sister. The patient was discharged from [facility] approximately ten days prior to presentation back to the hospital. The patient's sister had been checking in on him and had noted a progression of confusion over several days. When he was found to be much more confused and had an unexplained left upper extremity wound, she decided to bring him to the emergency room for further evaluation of his symptoms. While in the emergency room, the patient had a brain CT showing no acute findings. His ammonia was found to be 154. The patient was noted to have hyponatremia with a sodium of 128. The Hospitalists were asked to evaluate the patient for admission. During the patient's hospitalization, his confusion has improved. He is alert and oriented to person, place and time. The patient does not understand that he is unable to care for himself. Due to concerns of the patient's ability to self-care as he often takes himself off of his Lactulose due to disliking the therapeutic side effect of diarrhea. The patient was seen in consultation by Dr. Cedric Austin with Psychiatry who felt that MR. Quevedo lacked mental capacity to refuse medically indicated usp placement. The patient was also seen in consultation by Dr. Chacha Galicia with Palliative Care Services who felt that at this time he did not meet qualifications for hospice services, but was a good candidate for the PATH referral program. It is to note that in the past the patient was noted to hypothyroid with low TSH and elevated T4's. It does not appear that the patient has had an Endocrinology consultation in the past. The patient was also noted to be malnourished with a low albumin of 2.6. During the patient's stay, his ammonia decreased from 154 on presentation to 102, although it is to note that the patient's level of confusion does not often correlate with his ammonia levels. The patient's other labs have been insignificant. It is felt that Mr. Quevedo is no longer able to care for himself at home safely and that he is best suited with usp placement at this time. Mr. Quevedo is stable for discharge to [facility] today. Vital signs are as follows: Temperature 97.5, heart rate 78, respiratory rate 16, O2 sat 100 percent on room air, blood pressure 101/45. DISCHARGE PLAN: Mr. Quevedo will be discharged to [facility] today. As far as the patient's hepatic encephalopathy, he should be continued on 45 ml of Lactulose every six hours with a goal of four to five bowel movements daily. The patient should also be continued on his Rifaximin in addition to Spironolactone and Furosemide for his liver disease. At this time, the patient had no signs of SBP. He was not placed on any antibiotics. As far as the patient's malnutrition, I recommend having nutrition follow with him. For the patient's hyperthyroidism, I recommend he have an outpatient consultation with Dr. Phillip. Dr. Phillip is currently out of town and unavailable for consultation. The patient should be seen in follow- up by his primary care provider, Dr. Alvarez, or [facility] provider within the next week. Again at this time, the patient has been deemed to lack capacity to decline usp placement. ACTIVITY: As tolerated. DIET: Regular. This is a summarized report of a complex medical history and hospital stay. For further details, please see the entire medical record. Time for this discharge is 50 minutes, greater than half of that was spent face- to- face with the patient discussing discharge plans and instructions. CONDITION ON DISCHARGE: Stable. LOUIS QUINTANILLA, HOLLY [id number]/[facility] #: [id number] GOUVERNEUR HEALTHGodwin
== END 2016-09-25 15:36 | DRG 442 ==
LOC: ED 21:15 → MED 23:02
PROVIDERS: ADMIT Hospitalist; ATTEND Hospitalist
DX: K72.90 Hepatic failure, unspecified without coma (principal); E46 Unspecified protein-calorie malnutrition; T47.3X6A Underdosing of saline and osmotic laxatives, initial encounter; E83.119 Hemochromatosis, unspecified; K74.60 Unspecified cirrhosis of liver; K21.9 Gastro-esophageal reflux disease without esophagitis; F10.21 Alcohol dependence, in remission; E05.90 Thyrotoxicosis, unspecified without thyrotoxic crisis or storm; Z81.1 Family history of alcohol abuse and dependence; Z79.899 Other long term (current) drug therapy; Z88.6 Allergy status to analgesic agent; Z87.891 Personal history of nicotine dependence; Z80.52 Family history of malignant neoplasm of bladder; Z82.49 Family history of ischemic heart disease and other diseases of the circulatory system; Z91.128 Patient's intentional underdosing of medication regimen for other reason; Y92.009 Unspecified place in unspecified non-institutional (private) residence as the place of occurrence of the external cause; X58.XXXA Exposure to other specified factors, initial encounter
CPT/HCPCS: 36415; 70450; 80048; 80053; 80320; 80329; 81003; 82140; 82550; 83605; 83735; 84439; 84443; 84484; 85025; 85610; 87641; 93005; 94760; A9270-GY; G0480

== ENCOUNTER 2017-04-18 13:04 | Inpatient (IN) | payer MEDICARE ==
[2017-04-18] MEDS ORDERED: NS 0.9% 1000 ML* 1,000 ML IV ONE (13:31)
[2017-04-18 14:24] LABS: Hematocrit 37 % (42-52); Hemoglobin 12.9 g/dl (14.0-18.0); Mean Corpuscular HGB Conc 35 g/dl (31-36); Mean Corpuscular Hemoglobin 36 pg (27-31); Mean Corpuscular Volume 102 fL (80-94); Mean Platelet Volume 8 um3 (7.4-10.4); Platelet Count 87 10^3/ul (150-450); Red Blood Count 3.62 10^6/ul (4.0-5.4); Red Cell Distribution Width 18 % (10.5-15); White Blood Count 10.5 10^3/ul (3.5-10.8)
--- NOTE | 2017-04-18 14:24 | RAD ---
HISTORY: Altered mental status COMPARISONS: September 22, 2016 TECHNIQUE: Multiple contiguous axial CT scans were obtained of the head without intravenous contrast. FINDINGS: HEMORRHAGE/INFARCT: There is no hemorrhage or acute infarct. MASSES/SHIFT: There is no mass or shift. EXTRA-AXIAL SPACES: There are no extra-axial fluid collections. SULCI AND VENTRICLES: There is mild diffuse and proportional enlargement of the sulci and ventricles. CEREBRUM: There is mild hypoattenuation of the periventricular and subcortical white matter. BRAINSTEM: There are no focal parenchymal abnormalities. CEREBELLUM: There are no focal parenchymal abnormalities. VESSELS: The vessels are grossly normal. PARANASAL SINUSES: The paranasal sinuses are clear. ORBITS: The orbits are unremarkable. BONES AND SOFT TISSUE: No bone or soft tissue abnormalities are noted. OTHER: None IMPRESSION: NO ACUTE INTRACRANIAL PATHOLOGY.
[2017-04-18 14:25] LABS: EGFR Non-African American 59.5 (>60)
[2017-04-18 14:46] LABS: INR 1.62 (0.77-1.02)
--- NOTE | 2017-04-18 14:52 | RAD ---
Indication: Mental status change. Fall. Comparison: August 21, 2016 chest radiograph and December 30, 2015 CT abdomen. Technique: Upright AP 1345 hours Report: Elevated lung volumes and rarefaction of interstitial markings. No alveolar consolidation, focal pulmonary lesion, pleural effusion, or thorax. The heart, pulmonary vasculature, and mediastinal contours are unremarkable. Metallic coils at level of previously documented esophageal varices and TIPS stent noted. IMPRESSION: 1. Stigmata of chronic obstructive pulmonary disease and emphysema. No acute cardiopulmonary process evident. 2. Stigmata of hepatic cirrhosis with TIPS stent and esophageal varices coils. Consider hepatic encephalopathy.
[2017-04-18 15:09] LABS: Urine Appearance Cloudy; Urine Blood Negative (Negative); Urine Color Amber; Urine Ketones Negative (Negative); Urine Protein Negative (Negative); Urine Urobilinogen Positive (Negative)
[2017-04-18 15:26] LABS: ABS Basophils 0.1 10^3/ul (0-0.2); ABS Eosinophils 0.1 10^3/ul (0-0.6); ABS Lymphocytes 1.2 10^3/ul (1.0-4.8); ABS Monocytes 1.3 10^3/ul (0-0.8); ABS Neutrophils 7.9 10^3/ul (1.5-7.7); ABS Nucleated RBC 0 10^3/ul; Eosinophil % 0.7 % (0-6); Lymphocyte % 11.6 % (25-47); Nucleated Red Blood Cells % 0.1
--- NOTE | 2017-04-18 15:29 | RAD ---
HISTORY: Altered mental status, trauma, facial trauma COMPARISONS: None TECHNIQUE: Multiple contiguous axial CT scans were obtained of the cervical spine without intravenous contrast, with coronal and sagittal multiplanar reformations. FINDINGS: BRAIN: The visualized brain is unremarkable CENTRAL CANAL: Evaluation of the central canal is limited on CT technique, however there is no obvious canalicular mass or epidural hemorrhage. ALIGNMENT: The alignment is normal, without subluxation or dislocation. VERTEBRAL BODIES: The odontoid process is intact. The atlantoaxial intervals are symmetric. The vertebral bodies are normal in attenuation, without fracture. There is mild anterolateral marginal osteophyte formation.. JOINTS: There is mild uncovertebral and facet osteoarthritic change. MUSCULATURE: Unremarkable INTERVERTEBRAL DISCS: There is diffuse loss of intervertebral disc height. AXIAL IMAGES: There is multilevel degenerative disc disease and osteoarthritis, without osseous neural foraminal narrowing or central canal stenosis. SOFT TISSUES: The visualized soft tissues of the neck are unremarkable. The prevertebral fat stripe is preserved. OTHER: None. IMPRESSION: MILD DEGENERATIVE DISC DISEASE AND OSTEOARTHRITIS. NO ACUTE OSSEOUS INJURY TO THE CERVICAL SPINE.
--- NOTE | 2017-04-18 15:40 | RAD ---
INDICATION: Facial trauma. COMPARISON: There are no prior studies available for comparison. TECHNIQUE: Contiguous axial sections of the axial images of the facial bones were obtained and reconstructed in the coronal and sagittal planes. FINDINGS: Soft tissue swelling is noted overlying the left orbit. The howard of the orbits and maxillary sinuses appear intact. The zygomatic arches appear intact. There is no evidence for a fracture of the mandible. There is severe arthritic change within the temporomandibular joints. The nasal bones appear intact. There is moderate to severe deviation of the nasal septum which is convex toward the left along its anterior portion and toward the right along its posterior portion. The pterygoid plates appear intact. There is mild mucosal thickening within the maxillary and ethmoid sinuses. The frontal and sphenoid sinuses appear clear. The visualized portion of the mastoid air cells appear clear. IMPRESSION: NO EVIDENCE OF FRACTURE.
--- NOTE | 2017-04-18 16:54 | ED ---
Home Benites Abhishek, scribed for Neha Love MD on 04/18/17 at 1604 . Altered Mental Status - HPI Summary HPI Summary: This patient is a 56 year old M BIBA with a chief complaint of altered mental state since today. The patient was found on the floor today by his sister. The patient is slow to respond to questions and we were unable to obtain hx from patient due to altered mental state. Hx is obtained from EMS report. EMS reports states he was watching football on . The patient rates the pain 0/10 in severity. Symptoms aggravated by nothing. Symptoms alleviated by nothing. Patient reports edema and bruising in the left eye, and denies extremity pain. - History Of Current Complaint Chief Complaint: EDAltMentalStatus Stated Complaint: FALL, AMS Time Seen by Provider: 04/18/17 13:22 Hx Obtained From: Patient Hx From Patient Unobtainable Due To: Altered Mental Status Onset/Duration: Unknown Severity Currently: None Aggravating Factor(s): Nothing Alleviating Factor(s): Nothing - Allergies/Home Medications Allergies/Adverse Reactions: Allergies Allergy/AdvReac Type Severity Reaction Status Date / Time Acetaminophen [From Tylenol] AdvReac AVOIDS Verified 09/23/16 00:32 NSAIDs AdvReac AVOIDS Verified 09/23/16 00:32 Home Medications: Home Medications Folic Acid 400 mcg PO DAILY 04/18/17 [History Confirmed 04/18/17] Magnesium Oxide TAB* [MagOx 400 TAB*] 400 mg PO BID 04/18/17 [History Confirmed 04/18/17] PMH/Surg Hx/FS Hx/Imm Hx Endocrine/Hematology History: Reports: Hx Anemia, Other Endocrine/Hematological Disorders - Hemochromatosis Denies: Hx Anticoagulant Therapy, Hx Blood Transfusions, Hx Diabetes, Hx Systemic Lupus Erythematosus, Hx Thyroid Disease Cardiovascular History: Reports: Hx Hypertension, Other Cardiovascular Problems/ Disorders - hemochromatosis Denies: Hx Aneurysm, Hx Angina, Hx Angioplasty, Hx Auto Implanted Cardiovert Defib, Hx Congestive Heart Failure, Hx Pacemaker/ICD Respiratory History: Reports: Hx Pleural Effusion Denies: Hx Asthma, Hx Chronic Obstructive Pulmonary Disease (COPD) GI History: Reports: Hx Cirrhosis, Hx Gastrointestinal Bleed, Hx Jaundice, Hx Ulcer Denies: Hx Gastroesophageal Reflux Disease Comment Only: Hx Diverticulosis - family history of, Other GI Disorders - Hepatic enchephalopathy History: Denies: Hx Dialysis, Hx Renal Disease Musculoskeletal History: Reports: Other Musculoskeletal History - right hip, knees have discomfort/pain at times Denies: Hx Rheumatoid Arthritis Sensory History: Reports: Hx Contacts or Glasses Denies: Hx Hearing Aid Opthamlomology History: Reports: Hx Contacts or Glasses Neurological History: Reports: Hx Seizures, Other Neuro Impairments/Disorders - Affected by chronic high ammonia levels Denies: Hx Dementia Psychiatric History: Reports: Hx Anxiety, Hx Depression, Hx Substance Abuse Denies: Hx Panic Disorder - Cancer History Cancer Type, Location and Year: hemochromotosis- high iron levels Hx Chemotherapy: No - Surgical History Surgery Procedure, Year, and Place: LEFT HAND RING FINGER TENDON ATTACHEMENT- [facility] Hx Anesthesia Reactions: No - Immunization History Date of Tetanus Vaccine: unknown Infectious Disease History: Unable to Obtain/Confirm Infectious Disease History: Denies: Hx Hepatitis, Hx Human Immunodeficiency Virus (HIV), Traveled Outside the [place] in Last 30 Days - Family History Known Family History: Positive: Other - Father 65 with liver CA. Diverticulosis. - Social History Alcohol Use: None Alcohol Amount: Previously used to drink Hx Substance Use: No Substance Use Type: Reports: None Hx Tobacco Use: No Smoking Status (MU): Never Smoked Tobacco Review of Systems - ROS Summary Review of Systems Summary: LEVEL 5 CAVEAT - Altered Mental State Musculoskeletal: Other - Negative extremity pain Positive: Edema - left eye Positive: Bruising - left eye Psychological: Other - altered mental state All Other Systems Reviewed And Are Negative: No Physical Exam - Summary Physical Exam Summary: Appearance: Alert, conversive, nontoxic appearing Skin: Ecchymosis over the left ocular, mostly infraorbital, Abrasions on his left, blistering to his left upper thigh HEENT: EOMI, PERRL,Dry mucous membranes Neck: No masses on the neck, supple Respiratory: Clear to auscultation, breath sounds present, no rales, no rhonchi , no wheezes Cardiovascular: RRR, pulses are symmetrical in both lower and upper extremities Abdomen: Soft, non-tender Bowel Sounds: Present Musculoskeletal: No CVA tenderness, no obvious deformity, moving all extremities in a grossly normal manner. Edema to the left ear, Edema to left arm non tender, Edema to right arm no deformities Neurological: A&Ox3, CN II-XII Intact, moving all extremities symmetrically Psychiatric: Normal affect and mood, Altered mental state Turns his head appropriately Triage Information Reviewed: Yes Vital Signs On Initial Exam: Initial Vitals BP 125/65 04/18/17 13:19 Vital Signs Reviewed: Yes - Anny Coma Scale Coma Scale Total: 14 Diagnostics - Vital Signs Vital Signs Temp Pulse Resp BP Pulse Ox 04/18/17 14:30 20 106/45 04/18/17 14:25 65 13 119/53 99 04/18/17 14:00 66 16 49/37 100 04/18/17 13:30 71 17 133/68 99 04/18/17 13:22 67 9 99 04/18/17 13:21 98.9 F 81 20 125/65 100 04/18/17 13:19 125/65 - Laboratory Lab Results: Lab Results 04/18/17 04/18/17 04/18/17 Range/Units 14:00 14:00 14:00 WBC 10.5 (3.5-10.8) 10^3/ul RBC 3.62 L (4.0-5.4) 10^6/ul Hgb 12.9 L (14.0-18.0) g/dl Hct 37 L (42-52) % MCV 102 H (80-94) fL MCH 36 H (27-31) pg MCHC 35 (31-36) g/dl RDW 18 H (10.5-15) % Plt Count 87 L (150-450) 10^3/ul MPV 8 (7.4-10.4) um3 Neut % (Auto) 75.0 (38-83) % Lymph % (Auto) 11.6 L (25-47) % [place] % (Auto) 12.0 H (1-9) % Eos % (Auto) 0.7 (0-6) % Baso % (Auto) 0.7 (0-2) % Absolute Neuts (auto) 7.9 H (1.5-7.7) 10^3/ul Absolute Lymphs (auto) 1.2 (1.0-4.8) 10^3/ul Absolute Monos (auto) 1.3 H (0-0.8) 10^3/ul Absolute Eos (auto) 0.1 (0-0.6) 10^3/ul Absolute Basos (auto) 0.1 (0-0.2) 10^3/ul Absolute Nucleated RBC 0 10^3/ul Nucleated RBC % 0.1 INR (Anticoag Therapy) (0.77-1.02) APTT (26.0-36.3) seconds Sodium 134 (133-145) mmol/L Potassium 4.8 (3.5-5.0) mmol/L Chloride 103 (101-111) mmol/L Carbon Dioxide 22 (22-32) mmol/L Anion Gap 9 (2-11) mmol/L BUN 47 H (6-24) mg/dL Creatinine 1.25 H (0.67-1.17) mg/dL Est GFR ( Amer) 76.6 (>60) Est GFR (Non-Af Amer) 59.5 (>60) BUN/Creatinine Ratio 37.6 H (8-20) Glucose 97 (70-100) mg/dL Lactic Acid (0.5-2.0) mmol/L Calcium 9.3 (8.6-10.3) mg/dL Magnesium 2.2 (1.9-2.7) mg/dL Total Bilirubin 8.60 H (0.2-1.0) mg/dL AST 172 H (13-39) U/L ALT 64 H (7-52) U/L Alkaline Phosphatase 82 (34-104) U/L Troponin I 0.01 (<0.04) ng/mL B-Natriuretic Peptide 42 ( - 100) pg/mL Total Protein 6.5 (6.4-8.9) g/dL Albumin 2.8 L (3.2-5.2) g/dL Globulin 3.7 (2-4) g/dL Albumin/Globulin Ratio 0.8 L (1-3) TSH 1.96 (0.34-5.60) mcIU/mL Urine Color Urine Appearance Urine pH (5-9) Ur Specific [place] (1.010-1.030) Urine Protein (Negative) Urine Ketones (Negative) Urine Blood (Negative) Urine Nitrate (Negative) Urine Bilirubin (Negative) Urine Urobilinogen (Negative) Ur Leukocyte Esterase (Negative) Urine Glucose (Negative) Urine Opiates Screen (None Detect) Ur Barbiturates Screen (None Detect) Ur Phencyclidine Scrn (None Detect) Ur Amphetamines Screen (None Detect) U Benzodiazepines Scrn (None Detect) Urine Cocaine Screen (None Detect) U Cannabinoids Screen (None Detect) Serum Alcohol < 10 (<10) mg/dL 04/18/17 04/18/17 04/18/17 Range/Units 14:00 14:00 14:37 WBC (3.5-10.8) 10^3/ul RBC (4.0-5.4) 10^6/ul Hgb (14.0-18.0) g/dl Hct (42-52) % MCV (80-94) fL MCH (27-31) pg MCHC (31-36) g/dl RDW (10.5-15) % Plt Count (150-450) 10^3/ul MPV (7.4-10.4) um3 Neut % (Auto) (38-83) % Lymph % (Auto) (25-47) % [place] % (Auto) (1-9) % Eos % (Auto) (0-6) % Baso % (Auto) (0-2) % Absolute Neuts (auto) (1.5-7.7) 10^3/ul Absolute Lymphs (auto) (1.0-4.8) 10^3/ul Absolute Monos (auto) (0-0.8) 10^3/ul Absolute Eos (auto) (0-0.6) 10^3/ul Absolute Basos (auto) (0-0.2) 10^3/ul Absolute Nucleated RBC 10^3/ul Nucleated RBC % INR (Anticoag Therapy) 1.62 H (0.77-1.02) APTT 38.6 H (26.0-36.3) seconds Sodium (133-145) mmol/L Potassium (3.5-5.0) mmol/L Chloride (101-111) mmol/L Carbon Dioxide (22-32) mmol/L Anion Gap (2-11) mmol/L BUN (6-24) mg/dL Creatinine (0.67-1.17) mg/dL Est GFR ( Amer) (>60) Est GFR (Non-Af Amer) (>60) BUN/Creatinine Ratio (8-20) Glucose (70-100) mg/dL Lactic Acid 3.5 H* (0.5-2.0) mmol/L Calcium (8.6-10.3) mg/dL Magnesium (1.9-2.7) mg/dL Total Bilirubin (0.2-1.0) mg/dL AST (13-39) U/L ALT (7-52) U/L Alkaline Phosphatase (34-104) U/L Troponin I (<0.04) ng/mL B-Natriuretic Peptide ( - 100) pg/mL Total Protein (6.4-8.9) g/dL Albumin (3.2-5.2) g/dL Globulin (2-4) g/dL Albumin/Globulin Ratio (1-3) TSH (0.34-5.60) mcIU/mL Urine Color Urine Appearance Urine pH (5-9) Ur Specific [place] (1.010-1.030) Urine Protein (Negative) Urine Ketones (Negative) Urine Blood (Negative) Urine Nitrate (Negative) Urine Bilirubin (Negative) Urine Urobilinogen (Negative) Ur Leukocyte Esterase (Negative) Urine Glucose (Negative) Urine Opiates Screen None detected (None Detect) Ur Barbiturates Screen None detected (None Detect) Ur Phencyclidine Scrn None detected (None Detect) Ur Amphetamines Screen None detected (None Detect) U Benzodiazepines Scrn None detected (None Detect) Urine Cocaine Screen None detected (None Detect) U Cannabinoids Screen None detected (None Detect) Serum Alcohol (<10) mg/dL 04/18/17 Range/Units 14:37 WBC (3.5-10.8) 10^3/ul RBC (4.0-5.4) 10^6/ul Hgb (14.0-18.0) g/dl Hct (42-52) % MCV (80-94) fL MCH (27-31) pg MCHC (31-36) g/dl RDW (10.5-15) % Plt Count (150-450) 10^3/ul MPV (7.4-10.4) um3 Neut % (Auto) (38-83) % Lymph % (Auto) (25-47) % [place] % (Auto) (1-9) % Eos % (Auto) (0-6) % Baso % (Auto) (0-2) % Absolute Neuts (auto) (1.5-7.7) 10^3/ul Absolute Lymphs (auto) (1.0-4.8) 10^3/ul Absolute Monos (auto) (0-0.8) 10^3/ul Absolute Eos (auto) (0-0.6) 10^3/ul Absolute Basos (auto) (0-0.2) 10^3/ul Absolute Nucleated RBC 10^3/ul Nucleated RBC % INR (Anticoag Therapy) (0.77-1.02) APTT (26.0-36.3) seconds Sodium (133-145) mmol/L Potassium (3.5-5.0) mmol/L Chloride (101-111) mmol/L Carbon Dioxide (22-32) mmol/L Anion Gap (2-11) mmol/L BUN (6-24) mg/dL Creatinine (0.67-1.17) mg/dL Est GFR ( Amer) (>60) Est GFR (Non-Af Amer) (>60) BUN/Creatinine Ratio (8-20) Glucose (70-100) mg/dL Lactic Acid (0.5-2.0) mmol/L Calcium (8.6-10.3) mg/dL Magnesium (1.9-2.7) mg/dL Total Bilirubin (0.2-1.0) mg/dL AST (13-39) U/L ALT (7-52) U/L Alkaline Phosphatase (34-104) U/L Troponin I (<0.04) ng/mL B-Natriuretic Peptide ( - 100) pg/mL Total Protein (6.4-8.9) g/dL Albumin (3.2-5.2) g/dL Globulin (2-4) g/dL Albumin/Globulin Ratio (1-3) TSH (0.34-5.60) mcIU/mL Urine Color Radha Urine Appearance Cloudy Urine pH 5.0 (5-9) Ur Specific [place] 1.030 (1.010-1.030) Urine Protein Negative (Negative) Urine Ketones Negative (Negative) Urine Blood Negative (Negative) Urine Nitrate Negative (Negative) Urine Bilirubin Negative (Negative) Urine Urobilinogen Positive H (Negative) Ur Leukocyte Esterase Negative (Negative) Urine Glucose Negative (Negative) Urine Opiates Screen (None Detect) Ur Barbiturates Screen (None Detect) Ur Phencyclidine Scrn (None Detect) Ur Amphetamines Screen (None Detect) U Benzodiazepines Scrn (None Detect) Urine Cocaine Screen (None Detect) U Cannabinoids Screen (None Detect) Serum Alcohol (<10) mg/dL Result Diagrams: 04/18/17 14:00 04/18/17 14:00 Lab Statement: Any lab studies that have been ordered have been reviewed, and results considered in the medical decision making process. - Radiology Chest X-ray Radiology Interpretation Completed By: Radiologist - Chest X-ray reveals 1. Stigmata of chronic obstructive pulmonary disease and emphysema. No acute cardiopulmonary process evident. 2. Stigmata of hepatic cirrhosis with TIPS stent and esophageal varices coils. Consider hepatic encephalopathy. ED physician has reviewed this radiology report and agrees. - CT Brain CT CT Interpretation Completed By: Radiologist - Brain CT reveals NO ACUTE INTRACRANIAL PATHOLOGY. ED physician has reviewed this radiology report and agrees. Maxillofacial CT CT Interpretation Completed By: Radiologist - Maxillofacial CT reveals NO EVIDENCE OF FRACTURE. ED physician has reviewed this radiology report and agrees. Cervical Spine CT CT Interpretation Completed By: Radiologist - Cervical spine CT reveals MILD DEGENERATIVE DISC DISEASE AND OSTEOARTHRITIS. NO ACUTE OSSEOUS INJURY TO THE CERVICAL SPINE. ED physician has reviewed this radiology report and agrees. - EKG 1336 EKG Rhythm: Sinus Rhythm - 65 bpm EKG Interpretation: normal QRS, QTc, and normal EKG Altered Mental Statu Course/Dx - Course Course Of Treatment: We dicussed patient care with Dr. Nunez at 1605 and she accepts patient care. Patient is currently in an altered mental state and we were unable to recieve much of the hx of the history from him. The patient will be admitted to the [facility] [place], [place]. The dx will be altered mental status, dehydration, abnormal liver function, cirrhosis, and hepatic encephalopathy. - Diagnoses Discharge Diagnoses: Hepatic encephalopathy, Cirrhosis, Dehydration, Abnormal liver function, Altered mental status - Provider Notifications Discussed Care Of Patient With: Amber Nunez - we discussed patient care and Dr. Nunez accepts patient care. Time Discussed With Above Provider: 16:05 Instructed by Provider To: Admit As Inpatient - Critical Care Time Critical Care Time: 30-74 min - multiple re-evaluations, review of medical records, consultation with hospitalist. reususcitation for hypotension Discharge - Discharge Plan Condition: Critical Disposition: ADMITTED TO [facility] Referrals: Deya Alvarez MD [Primary Care Provider] - The documentation as recorded by the Home chahal Abhishek accurately reflects the service I personally performed and the decisions made by , Neha Love MD.
[2017-04-18] MEDS ORDERED: Ondansetron INJ* 2 MG/ML VIAL IV PRN (16:56)
[2017-04-18] MEDS ORDERED: NS 0.9% 1000 ML* 1,000 ML IV SCH (17:15)
--- NOTE | 2017-04-18 21:20 | HP ---
CC: Deya Alvarez MD * HISTORY AND PHYSICAL: DATE OF ADMISSION: 04/18/17 PRIMARY CARE PROVIDER: Deya Alvarez MD ATTENDING PHYSICIAN WHILE IN THE HOSPITAL: Amber Nunez MD * (report dictated by Zack Dockery NP) CHIEF COMPLAINT: 1. Fall. 2. Unknown downtime. HISTORY OF PRESENT ILLNESS: Mr. Quevedo is a 56-year-old male patient, who was brought into the ER today when there was concerns by the patient's sister that when she came to evaluate him today and see him, it was noted that he was on the ground and he was not acting himself, he was confused. Apparently, the history is difficult to obtain from the patient because he does appear to be encephalopathic, but I am able to piece it together that he was at [facility] , at some point he was discharged to [place] and then at some point he left [place] for unclear reason. I tried to call the sister to clarify this. Apparently, he was found today on the floor. It was unknown how he got there, how long he had been there, but it was noted that he had an ecchymosis to left side of his face. He had swelling to his left arm and he had abrasions noted to his left lower extremity and he had some blisters noted to his left leg. The sister was obviously concerned and called 911. There was concern initially that maybe he had not been taking his medications, which he has done in the past. In interviewing with the patient, he says he has been taking his meds. He says he has not been having any diarrhea or vomiting. Denies any stomach pain. Denies any fevers or chills. He says he has not been having any rhinorrhea, sore throat, shortness of breath or chest discomfort. He says that he was sleeping on the floor, that is why he was on the floor. He says to his knowledge, he did not fall. It is unclear what actually did happen, but there was concern from the ED's part because he did appear to be encephalopathic, his ammonia was 110 and we were asked to evaluate for admission. He appeared to be in decompensated liver failure. PAST MEDICAL HISTORY: Significant for: 1. Cirrhotic liver failure. 2. Liver cirrhosis. 3. Hemochromatosis. 4. ETOH abuse. 5. History of hepatic encephalopathy. PAST SURGICAL HISTORY: 1. He has had a TIPS procedure. 2. He has had a Pleurx catheter placed and removed. 3. He had a hernia repair. HOME MEDICATIONS: According to the list that we were able to obtain, include: 1. Magnesium oxide 400 mg p.o. b.i.d. 2. Lactulose 45 cc every 6 hours. 3. Lasix 40 mg p.o. daily. 4. Folic acid 400 mcg p.o. daily. 5. Spironolactone 125 mg p.o. daily. 6. Rifaximin 550 mg p.o. b.i.d. 7. Prilosec 40 mg p.o. daily. 8. Vitamin B1, 100 mg p.o. daily. ALLERGIES TO MEDICATIONS: Includes NSAIDS and TYLENOL. FAMILY HISTORY: His mother had a history of CAD. Father had a history of bladder cancer. SOCIAL HISTORY: He is a former alcoholic. He has not drank, he says in a couple of years. He does not smoke. Surrogate decision maker is his sister, Antonietta. REVIEW OF SYSTEMS: There is no documented fever. He denied any significant weight change. There was no double vision. There was no ear discharge. He denies having any rhinorrhea. No sore throat. No thyroid enlargement. Denied having any chest pain. There was no orthopnea. No nocturnal dyspnea. There was no abdominal pain. No nausea. No vomiting. No dysuria. No frequency. There was no seizure. No loss of consciousness. No pruritus. There was skin ulceration per my HPI. Review of 14 systems completed, all others negative. PHYSICAL EXAMINATION GENERAL: At this time, Mr. Davila is a 56-year-old male patient. He appears to be older than stated age. He is sitting in the ED stretcher. He does not appear to be in any acute distress. VITAL SIGNS: Blood pressure 120/66, pulse 70, respirations 14, O2 sat 100%, temperature 98.9. HEENT: Head: Atraumatic, normocephalic. He does have ecchymosis noted to the left side of his face, particularly around his left eye and to his left forehead. Eyes: EOMs are intact. Jaundice was noted in the sclerae, it was icteric. Pupils reactive to light. Throat: Oral mucosa appears to be moist. NECK: Supple. LUNGS: Clear to auscultation. No wheezes, rales, or rhonchi. HEART: Sounds S1, S2. Regular rate and rhythm. No murmurs, rubs, or gallops. ABDOMEN: Soft, flat, and nontender. Bowel sounds present. EXTREMITIES: Pulses were 2+ throughout. He does have abrasions noted to the bilateral lower knees. He does have some blistering noted to the left thigh as well. He also does have 5/5 strength. NEUROLOGICAL: He is drowsy. He knows his name. He is confused to place and time. He does drift off during mid sentence. He has no gross focal deficits. No facial drooping. No weakness to one side. No focal weaknesses were noted. SKIN: Intact with the exception he has got multiple blistering noted to the left thigh. Also abrasion noted to the knees bilaterally and he also has some abrasions noted to that left arm. He has ecchymosis to his left face. DIAGNOSTIC STUDIES/LAB DATA: WBC of 10.5, RBC of 3.62, hemoglobin 12.9, hematocrit 37, and platelet count 87,000. The INR was 1.62. PTT of 38.6. Sodium was 134, potassium of 4.8, chloride of 103, bicarb 22, BUN 47, creatinine 1.25, glucose 97, lactic 3.5, calcium 9.3, mag 2.2, total bili is 8.6 which is up from his baseline. His AST was 172, ALT 64. His alk phos was 82. His ammonia was 110 which is as high as it has been in sometime. His CK was 2259. His troponin was 0.01. His BNP was 42. He did have a lactic of 3.5. His urine showed positive urobilinogen. Toxicology screen negative. He had multiple imagings in the ED. He had a brain CT, showed no acute intracranial pathology. He had a chest x-ray which showed stigmata of chronic obstructive pulmonary disease and emphysema. No acute cardiopulmonary process. He is having a stigmata of hepatic cirrhosis with TIPS stent and esophageal varices coils, consider hepatic encephalopathy. He did have a maxillofacial CT , which showed no evidence of fracture and a cervical spine CT, which showed mild degenerative disk disease and osteoarthritis. No acute osseous injury to the cervical spine. He had an EKG obtained today, which showed sinus rhythm with a rate of 65, no ST elevation or T-wave inversions. Old medical records were reviewed. ASSESSMENT AND PLAN: Mr. Quveedo is a 56-year-old male patient coming in to the ED today with complaints of fall at some point and confusion, found by his sister, she called 911 because it was unclear how long he was on the floor for. We were asked to evaluate for admission. He will be admitted under inpatient status for: 1. Hepatic encephalopathy with decompensated liver failure: I suspect this is probably all related to medication noncompliance as he has had this history previously. I do not see any obvious source of infection. I will check him for the flu swab just to be sure as this has been pretty severe this year. He does not appear to have any other obvious source of infection and does not appear to be bleeding at this point. His abdomen was soft and benign, so I do not think he needs antibiotics. If he spikes a fever, he gets broad spectrum antibiotics and then I will probably get a tap of his abdomen, but he does not seem to have much fluid there. I will get him back on lactulose. Repeat ammonia in the morning. Hydrate the patient and repeat the CMP, repeat the ammonia after lactulose. We will get him back on his diuretics tomorrow. If his CK comes down and his creatinine stays stable, get him back on his diuretics and his rifaximin. 2. Mild rhabdomyolysis: Again, his CK was over 2000. We will hydrate the patient, trend these every 6 hours and continue to follow. 3. [id number] liver failure: It is probably from med noncompliance. We will continue to monitor for any fevers or signs of infection or bleeding, but I do not see that as the obvious culprit at this point. 4. History of ETOH abuse: Follow with the primary. He is currently no longer drinking. He is on thiamine and folate. 5. DVT prophylaxis: SCDs. 6. Code status: Full code. 7. Fluids, electrolytes, and nutrition: Low protein diet. TIME SPENT: Time spent on this admission was 60 minutes, greater than half of the time was spent [id number] with the patient obtaining my history and physical, the other half time is spent going over the plan of care with the patient and implementing plan of care. I did discuss the plan of care with my attending, Dr. Nunez, she is in agreement. ZACK DOCKERY NP [id number]/[facility] #: [id number] MARCO ANTONIO
[2017-04-18] MEDS: Magnesium Oxide TAB* 400 MG PO SCH (22:30)
[2017-04-18] MEDS: RiFAXimin* 550 MG TAB PO SCH (22:30)
[2017-04-18] MEDS: NS 0.9% 1000 ML* 1,000 ML IV SCH (22:53)
[2017-04-19] MEDS: NS 0.9% 1000 ML* 1,000 ML IV SCH ×3 (01:15→05:14)
[2017-04-19 07:08] LABS: INR 1.75 (0.77-1.02)
[2017-04-19 07:17] LABS: ABS Basophils 0.1 10^3/ul (0-0.2); ABS Eosinophils 0.3 10^3/ul (0-0.6); ABS Lymphocytes 1.6 10^3/ul (1.0-4.8); ABS Nucleated RBC 0 10^3/ul; EGFR Non-African American 75.3 (>60); Eosinophil % 3.9 % (0-6); Hematocrit 28 % (42-52); Hemoglobin 10.3 g/dl (14.0-18.0); Mean Corpuscular HGB Conc 37 g/dl (31-36); Mean Corpuscular Hemoglobin 38 pg (27-31); Mean Corpuscular Volume 103 fL (80-94); Mean Platelet Volume 8 um3 (7.4-10.4); Nucleated Red Blood Cells % 0.1; Platelet Count 60 10^3/ul (150-450); Red Blood Count 2.74 10^6/ul (4.0-5.4); Red Cell Distribution Width 18 % (10.5-15)
[2017-04-19] MEDS: Omeprazole CAP* 20 MG PO SCH (07:31)
[2017-04-19] MEDS: Spironolactone TAB* 25 MG PO SCH (07:31)
[2017-04-19] MEDS: Magnesium Oxide TAB* 400 MG PO SCH ×2 (07:32→22:53)
[2017-04-19] MEDS: Thiamine TAB* 100 MG TAB PO SCH (07:32)
[2017-04-19] MEDS: FOLIC ACID 400 MCG PO SCH (07:32)
[2017-04-19] MEDS: RiFAXimin* 550 MG TAB PO SCH ×2 (07:32→22:53)
[2017-04-19] MEDS ORDERED: Furosemide TAB* 40 MG PO SCH (09:00)
--- NOTE | 2017-04-19 16:50 | PN ---
Subjective Date of Service: 04/19/17 Interval History: Pt feels well, stated that a heavy box fell on him when he was trying to place it on a shelf above his head. Denies falling. Just moved to a new apartment ( independent) from an assisted living facility one week ago. stated he couldn't afford the assisted living apartment. Objective Active Medications: Lactulose (Lactulose*) 30 ml PO QID [facility] Last Admin: 04/19/17 12:35 Dose: 30 ml Magnesium Oxide (Magox 400 Tab*) 400 mg PO BID [facility] Last Admin: 04/19/17 07:32 Dose: 400 mg Non-Formulary Medication (Folic Acid [Folic Acid]) 400 mcg PO DAILY [facility] Last Admin: 04/19/17 07:32 Dose: Not Given Omeprazole (Prilosec Cap*) 40 mg PO DAILY@0730 [facility] Last Admin: 04/19/17 07:31 Dose: 40 mg Ondansetron HCl (Zofran Inj*) 4 mg IV Q6H PRN PRN Reason: NAUSEA Rifaximin (Xifaxan*) 550 mg PO BID [facility] Last Admin: 04/19/17 07:32 Dose: 550 mg Spironolactone (Aldactone Tab*) 125 mg PO DAILY [facility] Last Admin: 04/19/17 07:31 Dose: 125 mg Thiamine HCl (Vitamin B-1 Tab*) 100 mg PO DAILY [facility] Last Admin: 04/19/17 07:32 Dose: 100 mg Vital Signs - 8 hr 04/19/17 16:12 Temperature 97.6 F Pulse Rate 89 Respiratory 18 Rate Blood Pressure 118/61 (mmHg) O2 Sat by Pulse 100 Oximetry Oxygen Devices in Use Now: None Appearance: 56 yo M in nAD, AAOx3,slow to respond Eyes: PERRLA, - - sclera icteris Ears/Nose/Mouth/Throat: NL Teeth, Lips, Gums, Mucous Membranes Moist Neck: NL Appearance and Movements; NL JVP, Trachea Midline Respiratory: Symmetrical Chest Expansion and Respiratory Effort, Clear to Auscultation Cardiovascular: NL Sounds; No Murmurs; No JVD, RRR Abdominal: - - soft ascites present Lymphatic: No Cervical Adenopathy Extremities: No Clubbing, Cyanosis, - - left arm edema, left elbow contusion, b/ l knee edema Skin: No Nodules or Sclerosis, - - multiple ecchymoses, skin tears on b/l foerarms and legs. Ecchymosis surrounding left face and eye. Neurological: Alert and Oriented x 3, NL Muscle Strength and Tone Result Diagrams: 04/19/17 06:51 04/19/17 06:51 Additional Lab and Data: Lab Results 04/18/17 04/18/17 04/18/17 Range/Units 14:00 14:00 14:00 WBC 10.5 (3.5-10.8) 10^3/ul RBC 3.62 L (4.0-5.4) 10^6/ul Hgb 12.9 L (14.0-18.0) g/dl Hct 37 L (42-52) % MCV 102 H (80-94) fL MCH 36 H (27-31) pg MCHC 35 (31-36) g/dl RDW 18 H (10.5-15) % Plt Count 87 L (150-450) 10^3/ul MPV 8 (7.4-10.4) um3 Neut % (Auto) 75.0 (38-83) % Lymph % (Auto) 11.6 L (25-47) % [place] % (Auto) 12.0 H (1-9) % Eos % (Auto) 0.7 (0-6) % Baso % (Auto) 0.7 (0-2) % Absolute Neuts (auto) 7.9 H (1.5-7.7) 10^3/ul Absolute Lymphs (auto) 1.2 (1.0-4.8) 10^3/ul Absolute Monos (auto) 1.3 H (0-0.8) 10^3/ul Absolute Eos (auto) 0.1 (0-0.6) 10^3/ul Absolute Basos (auto) 0.1 (0-0.2) 10^3/ul Absolute Nucleated RBC 0 10^3/ul Nucleated RBC % 0.1 INR (Anticoag Therapy) (0.77-1.02) APTT (26.0-36.3) seconds Sodium 134 (133-145) mmol/L Potassium 4.8 (3.5-5.0) mmol/L Chloride 103 (101-111) mmol/L Carbon Dioxide 22 (22-32) mmol/L Anion Gap 9 (2-11) mmol/L BUN 47 H (6-24) mg/dL Creatinine 1.25 H (0.67-1.17) mg/dL Est GFR ( Amer) 76.6 (>60) Est GFR (Non-Af Amer) 59.5 (>60) BUN/Creatinine Ratio 37.6 H (8-20) Glucose 97 (70-100) mg/dL Lactic Acid (0.5-2.0) mmol/L Calcium 9.3 (8.6-10.3) mg/dL Magnesium 2.2 (1.9-2.7) mg/dL Total Bilirubin 8.60 H (0.2-1.0) mg/dL AST 172 H (13-39) U/L ALT 64 H (7-52) U/L Alkaline Phosphatase 82 (34-104) U/L Troponin I 0.01 (<0.04) ng/mL B-Natriuretic Peptide 42 ( - 100) pg/mL Total Protein 6.5 (6.4-8.9) g/dL Albumin 2.8 L (3.2-5.2) g/dL Globulin 3.7 (2-4) g/dL Albumin/Globulin Ratio 0.8 L (1-3) TSH 1.96 (0.34-5.60) mcIU/mL Urine Color Urine Appearance Urine pH (5-9) Ur Specific [place] (1.010-1.030) Urine Protein (Negative) Urine Ketones (Negative) Urine Blood (Negative) Urine Nitrate (Negative) Urine Bilirubin (Negative) Urine Urobilinogen (Negative) Ur Leukocyte Esterase (Negative) Urine Glucose (Negative) Urine Opiates Screen (None Detect) Ur Barbiturates Screen (None Detect) Ur Phencyclidine Scrn (None Detect) Ur Amphetamines Screen (None Detect) U Benzodiazepines Scrn (None Detect) Urine Cocaine Screen (None Detect) U Cannabinoids Screen (None Detect) Serum Alcohol < 10 (<10) mg/dL 04/18/17 04/18/17 04/18/17 Range/Units 14:00 14:00 14:37 WBC (3.5-10.8) 10^3/ul RBC (4.0-5.4) 10^6/ul Hgb (14.0-18.0) g/dl Hct (42-52) % MCV (80-94) fL MCH (27-31) pg MCHC (31-36) g/dl RDW (10.5-15) % Plt Count (150-450) 10^3/ul MPV (7.4-10.4) um3 Neut % (Auto) (38-83) % Lymph % (Auto) (25-47) % [place] % (Auto) (1-9) % Eos % (Auto) (0-6) % Baso % (Auto) (0-2) % Absolute Neuts (auto) (1.5-7.7) 10^3/ul Absolute Lymphs (auto) (1.0-4.8) 10^3/ul Absolute Monos (auto) (0-0.8) 10^3/ul Absolute Eos (auto) (0-0.6) 10^3/ul Absolute Basos (auto) (0-0.2) 10^3/ul Absolute Nucleated RBC 10^3/ul Nucleated RBC % INR (Anticoag Therapy) 1.62 H (0.77-1.02) APTT 38.6 H (26.0-36.3) seconds Sodium (133-145) mmol/L Potassium (3.5-5.0) mmol/L Chloride (101-111) mmol/L Carbon Dioxide (22-32) mmol/L Anion Gap (2-11) mmol/L BUN (6-24) mg/dL Creatinine (0.67-1.17) mg/dL Est GFR ( Amer) (>60) Est GFR (Non-Af Amer) (>60) BUN/Creatinine Ratio (8-20) Glucose (70-100) mg/dL Lactic Acid 3.5 H* (0.5-2.0) mmol/L Calcium (8.6-10.3) mg/dL Magnesium (1.9-2.7) mg/dL Total Bilirubin (0.2-1.0) mg/dL AST (13-39) U/L ALT (7-52) U/L Alkaline Phosphatase (34-104) U/L Troponin I (<0.04) ng/mL B-Natriuretic Peptide ( - 100) pg/mL Total Protein (6.4-8.9) g/dL Albumin (3.2-5.2) g/dL Globulin (2-4) g/dL Albumin/Globulin Ratio (1-3) TSH (0.34-5.60) mcIU/mL Urine Color Urine Appearance Urine pH (5-9) Ur Specific [place] (1.010-1.030) Urine Protein (Negative) Urine Ketones (Negative) Urine Blood (Negative) Urine Nitrate (Negative) Urine Bilirubin (Negative) Urine Urobilinogen (Negative) Ur Leukocyte Esterase (Negative) Urine Glucose (Negative) Urine Opiates Screen None detected (None Detect) Ur Barbiturates Screen None detected (None Detect) Ur Phencyclidine Scrn None detected (None Detect) Ur Amphetamines Screen None detected (None Detect) U Benzodiazepines Scrn None detected (None Detect) Urine Cocaine Screen None detected (None Detect) U Cannabinoids Screen None detected (None Detect) Serum Alcohol (<10) mg/dL 04/18/17 Range/Units 14:37 WBC (3.5-10.8) 10^3/ul RBC (4.0-5.4) 10^6/ul Hgb (14.0-18.0) g/dl Hct (42-52) % MCV (80-94) fL MCH (27-31) pg MCHC (31-36) g/dl RDW (10.5-15) % Plt Count (150-450) 10^3/ul MPV (7.4-10.4) um3 Neut % (Auto) (38-83) % Lymph % (Auto) (25-47) % [place] % (Auto) (1-9) % Eos % (Auto) (0-6) % Baso % (Auto) (0-2) % Absolute Neuts (auto) (1.5-7.7) 10^3/ul Absolute Lymphs (auto) (1.0-4.8) 10^3/ul Absolute Monos (auto) (0-0.8) 10^3/ul Absolute Eos (auto) (0-0.6) 10^3/ul Absolute Basos (auto) (0-0.2) 10^3/ul Absolute Nucleated RBC 10^3/ul Nucleated RBC % INR (Anticoag Therapy) (0.77-1.02) APTT (26.0-36.3) seconds Sodium (133-145) mmol/L Potassium (3.5-5.0) mmol/L Chloride (101-111) mmol/L Carbon Dioxide (22-32) mmol/L Anion Gap (2-11) mmol/L BUN (6-24) mg/dL Creatinine (0.67-1.17) mg/dL Est GFR ( Amer) (>60) Est GFR (Non-Af Amer) (>60) BUN/Creatinine Ratio (8-20) Glucose (70-100) mg/dL Lactic Acid (0.5-2.0) mmol/L Calcium (8.6-10.3) mg/dL Magnesium (1.9-2.7) mg/dL Total Bilirubin (0.2-1.0) mg/dL AST (13-39) U/L ALT (7-52) U/L Alkaline Phosphatase (34-104) U/L Troponin I (<0.04) ng/mL B-Natriuretic Peptide ( - 100) pg/mL Total Protein (6.4-8.9) g/dL Albumin (3.2-5.2) g/dL Globulin (2-4) g/dL Albumin/Globulin Ratio (1-3) TSH (0.34-5.60) mcIU/mL Urine Color Radha Urine Appearance Cloudy Urine pH 5.0 (5-9) Ur Specific [place] 1.030 (1.010-1.030) Urine Protein Negative (Negative) Urine Ketones Negative (Negative) Urine Blood Negative (Negative) Urine Nitrate Negative (Negative) Urine Bilirubin Negative (Negative) Urine Urobilinogen Positive H (Negative) Ur Leukocyte Esterase Negative (Negative) Urine Glucose Negative (Negative) Urine Opiates Screen (None Detect) Ur Barbiturates Screen (None Detect) Ur Phencyclidine Scrn (None Detect) Ur Amphetamines Screen (None Detect) U Benzodiazepines Scrn (None Detect) Urine Cocaine Screen (None Detect) U Cannabinoids Screen (None Detect) Serum Alcohol (<10) mg/dL Microbiology and Other Data: Microbiology 04/18/17 17:33 Influenza Types A,B Antigen ([facility]SULA) - Final Nasal Specimen received for Influenza A/B Molecular testing Assess/Plan/Problems-Billing Assessment: Mr. Quevedo is a 56 yo male with PMH significant for cirrhosis, hepatic encephalopathy, GERD and hemochromatosis who presented to the emergency room with complaints of progressing confusion, falls - Patient Problems (1) Hepatic encephalopathy Comment: Appears resolved today despite ammonia level still high, cont lactulose , rifaximin (2) Pancytopenia Comment: - Secondary to cirrhosis/portal HTN. - Stable. (3) DVT prophylaxis Comment: SCD's, no pharmacologic prophylaxis due to thrombocytopenia (4) Hyponatremia Comment: chronic, stable due to cirrhosis (5) Physical deconditioning Comment: PT/OT ordered (6) Active heathcare surrogate Comment: Pt rescinded his HCP with his sister Antonietta and wishes his daughter Teresa to be his surrogate Status and Disposition: inpatient
[2017-04-20] MEDS: Omeprazole CAP* 20 MG PO SCH (07:54)
[2017-04-20] MEDS: Spironolactone TAB* 25 MG PO SCH (07:54)
[2017-04-20] MEDS: Thiamine TAB* 100 MG TAB PO SCH (07:54)
[2017-04-20] MEDS: RiFAXimin* 550 MG TAB PO SCH ×2 (07:55→23:11)
[2017-04-20] MEDS: Magnesium Oxide TAB* 400 MG PO SCH ×2 (07:55→23:11)
[2017-04-20] MEDS: FOLIC ACID 400 MCG PO SCH (07:55)
[2017-04-20 11:46] LABS: Hematocrit 27 % (42-52); Hemoglobin 9.7 g/dl (14.0-18.0); Mean Corpuscular HGB Conc 37 g/dl (31-36); Mean Corpuscular Hemoglobin 37 pg (27-31); Mean Corpuscular Volume 102 fL (80-94); Mean Platelet Volume 8 um3 (7.4-10.4); Platelet Count 60 10^3/ul (150-450); Red Blood Count 2.61 10^6/ul (4.0-5.4); Red Cell Distribution Width 18 % (10.5-15); White Blood Count 6.5 10^3/ul (3.5-10.8)
[2017-04-20 12:09] LABS: EGFR Non-African American 102.6 (>60)
[2017-04-20] MEDS ORDERED: NS 0.9% 1000 ML* 1,000 ML IV SCH (15:15)
--- NOTE | 2017-04-20 15:15 | PN ---
Subjective Date of Service: 04/20/17 Interval History: Pt is more encephalopathic today, falls asleep mid sentence, mildly disoriented Objective Active Medications: Lactulose (Lactulose*) 30 ml PO QID [facility] Last Admin: 04/20/17 12:45 Dose: 30 ml Magnesium Oxide (Magox 400 Tab*) 400 mg PO BID [facility] Last Admin: 04/20/17 07:55 Dose: 400 mg Non-Formulary Medication (Folic Acid [Folic Acid]) 400 mcg PO DAILY [facility] Last Admin: 04/20/17 07:55 Dose: Not Given Omeprazole (Prilosec Cap*) 40 mg PO DAILY@0730 [facility] Last Admin: 04/20/17 07:54 Dose: 40 mg Ondansetron HCl (Zofran Inj*) 4 mg IV Q6H PRN PRN Reason: NAUSEA Rifaximin (Xifaxan*) 550 mg PO BID [facility] Last Admin: 04/20/17 07:55 Dose: 550 mg Spironolactone (Aldactone Tab*) 125 mg PO DAILY [facility] Last Admin: 04/20/17 07:54 Dose: 125 mg Thiamine HCl (Vitamin B-1 Tab*) 100 mg PO DAILY [facility] Last Admin: 04/20/17 07:54 Dose: 100 mg Vital Signs - 8 hr 04/20/17 04/20/17 07:15 08:00 Temperature 98.0 F Pulse Rate 79 Respiratory 16 18 Rate Blood Pressure 104/53 (mmHg) O2 Sat by Pulse 97 Oximetry Oxygen Devices in Use Now: None Appearance: 56 yo M in nAD, aAOx2, falls asleep in mid sentence Eyes: PERRLA, - - sclera icteric Ears/Nose/Mouth/Throat: NL Teeth, Lips, Gums, Mucous Membranes Moist Neck: NL Appearance and Movements; NL JVP, Trachea Midline Respiratory: Symmetrical Chest Expansion and Respiratory Effort, Clear to Auscultation Cardiovascular: NL Sounds; No Murmurs; No JVD, RRR Abdominal: - - soft ascites present Lymphatic: No Cervical Adenopathy Extremities: No Clubbing, Cyanosis, - - b/l leg edema +1 Skin: No Nodules or Sclerosis, - - multiple skin tears and ecchymoses on b/l forearms and legs, ecchymosis -L eye Neurological: NL Muscle Strength and Tone Result Diagrams: 04/27/17 06:47 04/27/17 06:47 Additional Lab and Data: Lab Results 04/18/17 04/18/17 04/18/17 Range/Units 14:00 14:00 14:00 WBC 10.5 (3.5-10.8) 10^3/ul RBC 3.62 L (4.0-5.4) 10^6/ul Hgb 12.9 L (14.0-18.0) g/dl Hct 37 L (42-52) % MCV 102 H (80-94) fL MCH 36 H (27-31) pg MCHC 35 (31-36) g/dl RDW 18 H (10.5-15) % Plt Count 87 L (150-450) 10^3/ul MPV 8 (7.4-10.4) um3 Neut % (Auto) 75.0 (38-83) % Lymph % (Auto) 11.6 L (25-47) % [place] % (Auto) 12.0 H (1-9) % Eos % (Auto) 0.7 (0-6) % Baso % (Auto) 0.7 (0-2) % Absolute Neuts (auto) 7.9 H (1.5-7.7) 10^3/ul Absolute Lymphs (auto) 1.2 (1.0-4.8) 10^3/ul Absolute Monos (auto) 1.3 H (0-0.8) 10^3/ul Absolute Eos (auto) 0.1 (0-0.6) 10^3/ul Absolute Basos (auto) 0.1 (0-0.2) 10^3/ul Absolute Nucleated RBC 0 10^3/ul Nucleated RBC % 0.1 INR (Anticoag Therapy) (0.77-1.02) APTT (26.0-36.3) seconds Sodium 134 (133-145) mmol/L Potassium 4.8 (3.5-5.0) mmol/L Chloride 103 (101-111) mmol/L Carbon Dioxide 22 (22-32) mmol/L Anion Gap 9 (2-11) mmol/L BUN 47 H (6-24) mg/dL Creatinine 1.25 H (0.67-1.17) mg/dL Est GFR ( Amer) 76.6 (>60) Est GFR (Non-Af Amer) 59.5 (>60) BUN/Creatinine Ratio 37.6 H (8-20) Glucose 97 (70-100) mg/dL Lactic Acid (0.5-2.0) mmol/L Calcium 9.3 (8.6-10.3) mg/dL Magnesium 2.2 (1.9-2.7) mg/dL Total Bilirubin 8.60 H (0.2-1.0) mg/dL AST 172 H (13-39) U/L ALT 64 H (7-52) U/L Alkaline Phosphatase 82 (34-104) U/L Troponin I 0.01 (<0.04) ng/mL B-Natriuretic Peptide 42 ( - 100) pg/mL Total Protein 6.5 (6.4-8.9) g/dL Albumin 2.8 L (3.2-5.2) g/dL Globulin 3.7 (2-4) g/dL Albumin/Globulin Ratio 0.8 L (1-3) TSH 1.96 (0.34-5.60) mcIU/mL Urine Color Urine Appearance Urine pH (5-9) Ur Specific [place] (1.010-1.030) Urine Protein (Negative) Urine Ketones (Negative) Urine Blood (Negative) Urine Nitrate (Negative) Urine Bilirubin (Negative) Urine Urobilinogen (Negative) Ur Leukocyte Esterase (Negative) Urine Glucose (Negative) Urine Opiates Screen (None Detect) Ur Barbiturates Screen (None Detect) Ur Phencyclidine Scrn (None Detect) Ur Amphetamines Screen (None Detect) U Benzodiazepines Scrn (None Detect) Urine Cocaine Screen (None Detect) U Cannabinoids Screen (None Detect) Serum Alcohol < 10 (<10) mg/dL 04/18/17 04/18/17 04/18/17 Range/Units 14:00 14:00 14:37 WBC (3.5-10.8) 10^3/ul RBC (4.0-5.4) 10^6/ul Hgb (14.0-18.0) g/dl Hct (42-52) % MCV (80-94) fL MCH (27-31) pg MCHC (31-36) g/dl RDW (10.5-15) % Plt Count (150-450) 10^3/ul MPV (7.4-10.4) um3 Neut % (Auto) (38-83) % Lymph % (Auto) (25-47) % [place] % (Auto) (1-9) % Eos % (Auto) (0-6) % Baso % (Auto) (0-2) % Absolute Neuts (auto) (1.5-7.7) 10^3/ul Absolute Lymphs (auto) (1.0-4.8) 10^3/ul Absolute Monos (auto) (0-0.8) 10^3/ul Absolute Eos (auto) (0-0.6) 10^3/ul Absolute Basos (auto) (0-0.2) 10^3/ul Absolute Nucleated RBC 10^3/ul Nucleated RBC % INR (Anticoag Therapy) 1.62 H (0.77-1.02) APTT 38.6 H (26.0-36.3) seconds Sodium (133-145) mmol/L Potassium (3.5-5.0) mmol/L Chloride (101-111) mmol/L Carbon Dioxide (22-32) mmol/L Anion Gap (2-11) mmol/L BUN (6-24) mg/dL Creatinine (0.67-1.17) mg/dL Est GFR ( Amer) (>60) Est GFR (Non-Af Amer) (>60) BUN/Creatinine Ratio (8-20) Glucose (70-100) mg/dL Lactic Acid 3.5 H* (0.5-2.0) mmol/L Calcium (8.6-10.3) mg/dL Magnesium (1.9-2.7) mg/dL Total Bilirubin (0.2-1.0) mg/dL AST (13-39) U/L ALT (7-52) U/L Alkaline Phosphatase (34-104) U/L Troponin I (<0.04) ng/mL B-Natriuretic Peptide ( - 100) pg/mL Total Protein (6.4-8.9) g/dL Albumin (3.2-5.2) g/dL Globulin (2-4) g/dL Albumin/Globulin Ratio (1-3) TSH (0.34-5.60) mcIU/mL Urine Color Urine Appearance Urine pH (5-9) Ur Specific [place] (1.010-1.030) Urine Protein (Negative) Urine Ketones (Negative) Urine Blood (Negative) Urine Nitrate (Negative) Urine Bilirubin (Negative) Urine Urobilinogen (Negative) Ur Leukocyte Esterase (Negative) Urine Glucose (Negative) Urine Opiates Screen None detected (None Detect) Ur Barbiturates Screen None detected (None Detect) Ur Phencyclidine Scrn None detected (None Detect) Ur Amphetamines Screen None detected (None Detect) U Benzodiazepines Scrn None detected (None Detect) Urine Cocaine Screen None detected (None Detect) U Cannabinoids Screen None detected (None Detect) Serum Alcohol (<10) mg/dL 04/18/17 Range/Units 14:37 WBC (3.5-10.8) 10^3/ul RBC (4.0-5.4) 10^6/ul Hgb (14.0-18.0) g/dl Hct (42-52) % MCV (80-94) fL MCH (27-31) pg MCHC (31-36) g/dl RDW (10.5-15) % Plt Count (150-450) 10^3/ul MPV (7.4-10.4) um3 Neut % (Auto) (38-83) % Lymph % (Auto) (25-47) % [place] % (Auto) (1-9) % Eos % (Auto) (0-6) % Baso % (Auto) (0-2) % Absolute Neuts (auto) (1.5-7.7) 10^3/ul Absolute Lymphs (auto) (1.0-4.8) 10^3/ul Absolute Monos (auto) (0-0.8) 10^3/ul Absolute Eos (auto) (0-0.6) 10^3/ul Absolute Basos (auto) (0-0.2) 10^3/ul Absolute Nucleated RBC 10^3/ul Nucleated RBC % INR (Anticoag Therapy) (0.77-1.02) APTT (26.0-36.3) seconds Sodium (133-145) mmol/L Potassium (3.5-5.0) mmol/L Chloride (101-111) mmol/L Carbon Dioxide (22-32) mmol/L Anion Gap (2-11) mmol/L BUN (6-24) mg/dL Creatinine (0.67-1.17) mg/dL Est GFR ( Amer) (>60) Est GFR (Non-Af Amer) (>60) BUN/Creatinine Ratio (8-20) Glucose (70-100) mg/dL Lactic Acid (0.5-2.0) mmol/L Calcium (8.6-10.3) mg/dL Magnesium (1.9-2.7) mg/dL Total Bilirubin (0.2-1.0) mg/dL AST (13-39) U/L ALT (7-52) U/L Alkaline Phosphatase (34-104) U/L Troponin I (<0.04) ng/mL B-Natriuretic Peptide ( - 100) pg/mL Total Protein (6.4-8.9) g/dL Albumin (3.2-5.2) g/dL Globulin (2-4) g/dL Albumin/Globulin Ratio (1-3) TSH (0.34-5.60) mcIU/mL Urine Color Radha Urine Appearance Cloudy Urine pH 5.0 (5-9) Ur Specific [place] 1.030 (1.010-1.030) Urine Protein Negative (Negative) Urine Ketones Negative (Negative) Urine Blood Negative (Negative) Urine Nitrate Negative (Negative) Urine Bilirubin Negative (Negative) Urine Urobilinogen Positive H (Negative) Ur Leukocyte Esterase Negative (Negative) Urine Glucose Negative (Negative) Urine Opiates Screen (None Detect) Ur Barbiturates Screen (None Detect) Ur Phencyclidine Scrn (None Detect) Ur Amphetamines Screen (None Detect) U Benzodiazepines Scrn (None Detect) Urine Cocaine Screen (None Detect) U Cannabinoids Screen (None Detect) Serum Alcohol (<10) mg/dL Microbiology and Other Data: Microbiology 04/18/17 17:33 Influenza Types A,B Antigen ([facility]A) - Final Nasal Specimen received for Influenza A/B Molecular testing Assess/Plan/Problems-Billing Assessment: Mr. Quevedo is a 56 yo male with PMH significant for cirrhosis, hepatic encephalopathy, GERD and hemochromatosis who presented to the emergency room with complaints of progressing confusion, falls - Patient Problems (1) Hepatic encephalopathy Comment: worsening today. Increasing Lactulose, cont Rifaximin (2) Pancytopenia Comment: - Secondary to cirrhosis/portal HTN - Stable (3) DVT prophylaxis Comment: - SCD's, no pharmacologic prophylaxis due to thrombocytopenia (4) Hyponatremia Comment: chronic, stable due to cirrhosis (5) Physical deconditioning Comment: - PT/OT ordered (6) Active heathcare surrogate Comment: Pt rescinded his HCP with his sister Antonietta and wishes his daughter Teresa to be his surrogate Status and Disposition: inpatient
--- NOTE | 2017-04-20 23:10 | PN ---
Progress Note - Progress Note Date of Service: 04/20/17 Note: CAT response Mr Quevedo, 56M HX alcoholic cirrhosis w/ numerous admission for encephalopathy here now for same, has been declining for ~24h, has not been able to receive his last 2 doses of lactulose PO per nursing 2nd lethargy, and has not had a bowel movement in 2 days only responds to painful stimuli, does not arouse to answer questions. Vitals are stable. Last ammonia check 04/19 was 118. ECG benign. Repeat labs appear stable excepting his ammonia has expectedly increased and is at 280. Order given for 300cc lactulose in 700cc sterile water for 60min retention enema Q4H x3.
[2017-04-20 23:23] LABS: ABS Basophils 0.1 10^3/ul (0-0.2); ABS Eosinophils 0.1 10^3/ul (0-0.6); ABS Lymphocytes 1.2 10^3/ul (1.0-4.8); ABS Neutrophils 5.9 10^3/ul (1.5-7.7); ABS Nucleated RBC 0 10^3/ul; Eosinophil % 1.2 % (0-6); Hematocrit 28 % (42-52); Hemoglobin 10.2 g/dl (14.0-18.0); Lymphocyte % 14.5 % (25-47); Mean Corpuscular HGB Conc 36 g/dl (31-36); Mean Corpuscular Hemoglobin 37 pg (27-31); Mean Corpuscular Volume 103 fL (80-94); Mean Platelet Volume 8 um3 (7.4-10.4); Nucleated Red Blood Cells % 0; Platelet Count 73 10^3/ul (150-450); Red Blood Count 2.76 10^6/ul (4.0-5.4); Red Cell Distribution Width 18 % (10.5-15); White Blood Count 8.2 10^3/ul (3.5-10.8)
[2017-04-21] MEDS: Lactulose 300 ML for PR* 10 GM/15 ML BTL PR SCH ×2 (01:38→05:53)
[2017-04-21] MEDS ORDERED: Succinylcholine* 20 MG/ML 10 ML VIAL ONE ×2 (03:59→04:23)
[2017-04-21] MEDS ORDERED: Etomidate* 2 MG/ML 20 ML VIAL (40 MG) ONE (04:23)
[2017-04-21] MEDS ORDERED: Propofol* 100 ML ONE (04:35)
[2017-04-21] MEDS: Propofol* 1000 MG (10 MG/ML 100 ml) @ Per Protocol (in ICU Pyxis) IV SCH ×5 (04:40→21:18)
--- NOTE | 2017-04-21 05:11 | PN ---
Progress Note - Progress Note Date of Service: 04/21/17 Note: INTUBATION PROCEDURE NOTE INDICATION: hepatic coma ATTENDING PHYSICIAN: Shyam Morse II, MD CONSENT: The procedure was performed emergently and the permission was implied because of the emergent nature. PROCUDURE SUMMARY: My hands were washed immediately prior to the procedure. [place] precautions were practiced. The patient was on a bus driver/monitor including continuous pulse oximetry. Integrity of endotracheal tube balloon was demonstrated. Rapid sequence intubation was conducted. The patient received 10mg etomidate & 50mg succinylcholine for adequate paralysis. Cricoid pressure was maintained from time of induction agent was given to time of cuff balloon inflation. Using a Glidescope and size 8.5 endotracheal tube with stylet, the patient was intubated on the first attempt. The stylet was removed and cuff balloon was inflated. Appropriate endotracheal tube position was confirmed by direct visualization of vocal cord passage, fogging of the tube, CO2 colometric indicator, and symmetric breath sounds. The tube was secured at 23cm at the lips. Post intubation chest x-ray confirmed appropriate placement.
[2017-04-21] MEDS: NS 0.9% 1000 ML* 1,000 ML IV SCH ×2 (06:02→10:33)
[2017-04-21 06:25] LABS: ABS Basophils 0 10^3/ul (0-0.2); ABS Eosinophils 0.2 10^3/ul (0-0.6); ABS Monocytes 0.7 10^3/ul (0-0.8); ABS Neutrophils 4.4 10^3/ul (1.5-7.7); ABS Nucleated RBC 0 10^3/ul; Eosinophil % 2.6 % (0-6); Hematocrit 28 % (42-52); Lymphocyte % 16.1 % (25-47); Mean Corpuscular HGB Conc 36 g/dl (31-36); Mean Corpuscular Hemoglobin 37 pg (27-31); Mean Corpuscular Volume 102 fL (80-94); Mean Platelet Volume 8 um3 (7.4-10.4); Nucleated Red Blood Cells % 0; Platelet Count 68 10^3/ul (150-450); Red Blood Count 2.71 10^6/ul (4.0-5.4); Red Cell Distribution Width 18 % (10.5-15); White Blood Count 6.4 10^3/ul (3.5-10.8)
[2017-04-21 06:33] LABS: EGFR Non-African American 89.3 (>60)
[2017-04-21] MEDS ORDERED: Lactulose* 15 ML UDC ONE (06:42)
[2017-04-21] MEDS ORDERED: Chlorhexidine MOUTHWASH 0.12%* 15 ML UDC ONE (06:43)
[2017-04-21] MEDS: Chlorhexidine MOUTHWASH 0.12%* 15 ML UDC TOPICAL SCH ×5 (06:47→21:16)
[2017-04-21] MEDS: Thiamine TAB* 100 MG TAB PO SCH (07:59)
[2017-04-21] MEDS: FOLIC ACID 400 MCG PO SCH (07:59)
[2017-04-21] MEDS: Magnesium Oxide TAB* 400 MG PO SCH ×2 (07:59→21:15)
[2017-04-21] MEDS: Spironolactone TAB* 25 MG PO SCH (07:59)
--- NOTE | 2017-04-21 08:14 | RAD ---
INDICATION: Endotracheal tube placement. COMPARISON: Comparison is made with a prior chest x-ray study from April 18, 2017. TECHNIQUE: A portable view of the chest was obtained. FINDINGS: There is an endotracheal tube present. The catheter tip projects over the midline at the level of the clavicular heads. There is a nasogastric tube which projects over the lower mediastinum and is faintly visualized likely within the distal esophagus. There are several metallic densities which project over the base of the heart and upper abdomen. The heart is within normal limits in size. There is a small infiltrate in the left lower lobe which appears new. IMPRESSION: 1. STATUS POST INTUBATION AND NASOGASTRIC TUBE PLACEMENT. THE NASOGASTRIC TUBE IS LIKELY WITHIN THE DISTAL ESOPHAGUS. 2. LEFT LOWER LOBE INFILTRATE, NEW.
--- NOTE | 2017-04-21 08:16 | RAD ---
INDICATION: Check orogastric and endotracheal tube. COMPARISON: Comparison is made with a prior study from one hour earlier. TECHNIQUE: A portable view of the chest was obtained. FINDINGS: There is an endotracheal tube which projects over the midline at the level of the clavicular heads. There is an orogastric tube. The catheter tip projects in the left upper quadrant over the stomach. The heart is within normal limits in size. The lungs are underinflated. There is a small infiltrate at the left lung base. No pleural effusion is seen. IMPRESSION: 1. ENDOTRACHEAL AND OROGASTRIC TUBE CATHETERS NOTED. 2. SMALL LEFT BASILAR INFILTRATE.
[2017-04-21] MEDS ORDERED: Pantoprazole IV* 40 MG IV SCH (09:00)
[2017-04-21] MEDS: RiFAXimin* 550 MG TAB SCH ×2 (10:58→21:16)
--- NOTE | 2017-04-21 13:01 | PN ---
Progress Note - Progress Note Date of Service: 04/21/17 Note: CRITICAL CARE MEDICINE Date: 04/21/17 Time: 900 SUBJECTIVE: Patient seen and examined. PHYSICAL EXAM: Vital Signs: Reviewed. stable Neurologic: awakens some off prop but encephalopathic HEENT: pupils equal. Sclera icteric. Trachea midline, intubated. left sided facial ecchymosis in evolution Cardiovascular: distant, S1 S2 Respiratory: coarse but clear Abdomen: Soft, obese, nt. no appreciable fluid wave. Extremities: Warm. Access: piv LABS: Reviewed. IMAGING: Reviewed. MEDICATIONS: Reviewed. ASSESSMENT: 56 M with underlying etoh cirrhosis with acute hepatic encephalopathy towards grade 4-5 last pm requiring intubation with acute resp failure PLAN: Neurologic: can keep with propofol to avoid agitation. more time with lactlose clearance. no ct needed at this time. Cardiovascular: perfusing. bp maintain. vol status ok but avoid overload. dc ivf Respiratory: tolerating with cmv. vent limited sec to ms. time. protection. Gastrointestinal: lactulose and rifaximin and time for bowels. bili a little better. suppl. sup and time. Renal/Metabolic: lytles ok other then hypoNa that will stay. Infectious Disease: no abx required Hematology: plt chronic. can place on hsq. Endocrine: ok Musculoskeletal: avoid deconditioning. multiple chronic skin ailments from excoriations. Psych/Social: social work f/u Supportive and preventative care as ordered. SUP: ppi VTE prophylaxis: heparin Diaz catheter given critical illness, monitoring needs for accurate assessment of CLAUDINE and KDIGO criteria for critically ill patients and to avoid potential harms of urinary retention, skin breakdown/ulcers. Disposition: ICU Code Status: Full presently Critical Care Time: 35min Raoul Tapia DO
[2017-04-21] MEDS: Heparin VIAL(*) 5000 UNITS/ML VIAL (FIVE THOUSAND) SUBCUT SCH ×2 (15:35→21:16)
[2017-04-22] MEDS: Chlorhexidine MOUTHWASH 0.12%* 15 ML UDC TOPICAL SCH ×6 (03:17→21:37)
[2017-04-22 05:31] LABS: ABS Basophils 0.1 10^3/ul (0-0.2); ABS Eosinophils 0.3 10^3/ul (0-0.6); ABS Lymphocytes 0.8 10^3/ul (1.0-4.8); ABS Monocytes 0.6 10^3/ul (0-0.8); ABS Neutrophils 4.9 10^3/ul (1.5-7.7); ABS Nucleated RBC 0 10^3/ul; Eosinophil % 4.2 % (0-6); Hematocrit 28 % (42-52); Hemoglobin 9.9 g/dl (14.0-18.0); Lymphocyte % 11.8 % (25-47); Mean Corpuscular HGB Conc 35 g/dl (31-36); Mean Corpuscular Hemoglobin 37 pg (27-31); Mean Corpuscular Volume 104 fL (80-94); Mean Platelet Volume 8 um3 (7.4-10.4); Nucleated Red Blood Cells % 0; Platelet Count 61 10^3/ul (150-450); Red Blood Count 2.67 10^6/ul (4.0-5.4); Red Cell Distribution Width 19 % (10.5-15); White Blood Count 6.6 10^3/ul (3.5-10.8)
[2017-04-22 05:41] LABS: EGFR Non-African American 118.2 (>60)
[2017-04-22] MEDS: Heparin VIAL(*) 5000 UNITS/ML VIAL (FIVE THOUSAND) SUBCUT SCH ×3 (06:04→21:37)
[2017-04-22] MEDS: Propofol* 1000 MG (10 MG/ML 100 ml) @ Per Protocol (in ICU Pyxis) IV SCH ×2 (07:53→17:56)
[2017-04-22] MEDS ORDERED: Furosemide IV* 10 MG/ML VIAL (40 MG) IV SLOW PU ONE (11:09)
--- NOTE | 2017-04-22 11:19 | PN ---
Progress Note - Progress Note Date of Service: 04/22/17 Note: CRITICAL CARE MEDICINE Date: 04/21/17 Time: 1100 SUBJECTIVE: Patient seen and examined. PHYSICAL EXAM: Vital Signs: Reviewed. stable Neurologic: awakens still off prop but not following commands yet. encephalopathic HEENT: pupils equal. Sclera icteric. Trachea midline, intubated. left sided facial ecchymosis in evolution same Cardiovascular: distant, S1 S2 Respiratory: coarse and dec with mild rhonchi Abdomen: Soft, obese, nt. no appreciable fluid wave. Extremities: Warm. Access: piv LABS: Reviewed. IMAGING: Reviewed. MEDICATIONS: Reviewed. ASSESSMENT: 56 M Acute hepatic encephalopathy Etoh cirrhosis - h/o tips Acute resp failure Malnutrition mod degree Nonadherence to medical regimen PLAN: Neurologic: off prop. lactlose continued. ammonia level improving and f/u clinical encephalopathy degree. Again, CT not required yet unless not improving with time. Cardiovascular: perfusing. bp maintain. vol status ok and can mobilize with lasix today. Respiratory: cmv. cpap when ms permits and would look to liberte with better self airway protection. Gastrointestinal: lactulose and rifaximin. suppl. sup. Renal/Metabolic: lytles ok other then hypoNa sec to liver Infectious Disease: no abx required Hematology: plt chronic. hsq. Endocrine: ok Musculoskeletal: avoid deconditioning. multiple chronic skin ailments from excoriations. Psych/Social: social work f/u; d/w pts sister who expressed understanding of care Supportive and preventative care as ordered. SUP: ppi VTE prophylaxis: heparin Diaz catheter given critical illness, monitoring needs for accurate assessment of CLAUDINE and KDIGO criteria for critically ill patients and to avoid potential harms of urinary retention, skin breakdown/ulcers. Disposition: ICU Code Status: Full presently Critical Care Time: 35min Raoul Tapia DO
[2017-04-22] MEDS: RiFAXimin* 550 MG TAB SCH ×2 (11:51→21:12)
[2017-04-22] MEDS: Lansoprazole susp Kit 3 MG/ML (30 MG = 10 ML) G TUBE SCH (11:51)
[2017-04-22] MEDS: Folic Acid TAB* 1 MG PO SCH (11:51)
[2017-04-22] MEDS: Magnesium Oxide TAB* 400 MG PO SCH ×2 (11:51→21:12)
[2017-04-22] MEDS: Thiamine TAB* 100 MG TAB PO SCH (11:52)
[2017-04-22] MEDS: Spironolactone TAB* 25 MG PO SCH (11:52)
[2017-04-23] MEDS: Propofol* 1000 MG (10 MG/ML 100 ml) @ Per Protocol (in ICU Pyxis) IV SCH ×2 (00:27→07:03)
[2017-04-23] MEDS: Chlorhexidine MOUTHWASH 0.12%* 15 ML UDC TOPICAL SCH ×6 (02:53→22:00)
[2017-04-23 05:32] LABS: INR 1.43 (0.77-1.02)
[2017-04-23 05:39] LABS: ABS Basophils 0.1 10^3/ul (0-0.2); ABS Eosinophils 0.3 10^3/ul (0-0.6); ABS Lymphocytes 1.1 10^3/ul (1.0-4.8); ABS Monocytes 0.9 10^3/ul (0-0.8); ABS Neutrophils 3.9 10^3/ul (1.5-7.7); ABS Nucleated RBC 0 10^3/ul; Eosinophil % 4.6 % (0-6); Hematocrit 27 % (42-52); Hemoglobin 9.4 g/dl (14.0-18.0); Lymphocyte % 17.5 % (25-47); Mean Corpuscular HGB Conc 35 g/dl (31-36); Mean Corpuscular Hemoglobin 37 pg (27-31); Mean Corpuscular Volume 105 fL (80-94); Mean Platelet Volume 8 um3 (7.4-10.4); Nucleated Red Blood Cells % 0; Platelet Count 64 10^3/ul (150-450); Red Blood Count 2.53 10^6/ul (4.0-5.4); Red Cell Distribution Width 20 % (10.5-15); White Blood Count 6.2 10^3/ul (3.5-10.8)
[2017-04-23 05:44] LABS: EGFR Non-African American 98.2 (>60)
[2017-04-23] MEDS: Heparin VIAL(*) 5000 UNITS/ML VIAL (FIVE THOUSAND) SUBCUT SCH ×2 (06:15→20:39)
--- NOTE | 2017-04-23 08:12 | RAD ---
INDICATION: Respiratory failure and altered mental status COMPARISON: Most recent comparison chest x-ray is dated April 21, 2017 TECHNIQUE: Single AP portable view of the chest was obtained. FINDINGS: Image quality is compromised due to the relative inferiority of a portable chest x-ray. The endotracheal tube appears to be appropriately positioned above the ruby and flushed with the lower margin of the clavicular heads. There is a gastric tube terminating below the diaphragm at the expected location of the gastroduodenal junction. A stent overlying the right of midline right upper quadrant is likely a TIPS stent. The heart and mediastinum exhibit normal size and contour. The lungs are grossly clear. There is no evidence of a large pleural effusion. Visualized bones are normal for the patient's age. IMPRESSION: 1. Appropriately positioned lines and tubes. 2. Likely TIPS stent overlying the liver . Please correlate to the patient's surgical history. This could be associated with both encephalopathy as well as respiratory distress secondary to right heart cardiac failure.
[2017-04-23] MEDS: Lansoprazole susp Kit 3 MG/ML (30 MG = 10 ML) G TUBE SCH (09:13)
[2017-04-23] MEDS: Thiamine TAB* 100 MG TAB PO SCH (09:14)
[2017-04-23] MEDS: RiFAXimin* 550 MG TAB SCH ×2 (09:14→20:40)
[2017-04-23] MEDS: Folic Acid TAB* 1 MG PO SCH (09:14)
[2017-04-23] MEDS: Magnesium Oxide TAB* 400 MG PO SCH ×2 (09:15→20:39)
[2017-04-23] MEDS: Spironolactone TAB* 25 MG PO SCH (09:33)
[2017-04-23] MEDS ORDERED: NS 0.9% 1000 ML* 1,000 ML IV SCH (10:45)
--- NOTE | 2017-04-23 10:56 | PN ---
Progress Note - Progress Note Date of Service: 04/23/17 Note: Progress Note Critical Care 24 hour events/significant events: -remains intubated; on propofol but eyes open, doesnt follow commands earlier -more responsive off propofol now, can follow commands -no other pressors, fluids; on 35% fio2 -comfortable appearing on vent -tmax 99.7, tachycardic -no bowel movements yet despite lactulose Tele: nsr Vitals: Vital Signs Temp 99.5 F 04/23/17 10:01 Pulse 103 04/23/17 10:01 Resp 14 04/23/17 10:00 BP 119/61 04/23/17 10:00 Pulse Ox 97 04/23/17 10:01 Intake & Output 04/22/17 04/23/17 04/23/17 18:59 06:59 18:59 Intake Total 1020 651.0 666 Output Total 1800 975 Balance -780 -324.0 666 Weight 218 lb 4.122 oz 213 lb 2.992 oz Intake: Medicated IV 145.0 CC - Propofol/Diprivan 145.0 Tube Feeding 970 426 666 Tube Feeding Flush Amount 50 80 Output: Diaz 1800 975 O2/Vent: 14/450/+5/35%; sats 100% Infusions: propofol at 18, now discontinued Medications: Chlorhexidine Gluconate (Peridex Mouth Wash 0.12%*) 15 ml TOPICAL Q4H [facility] Last Admin: 04/23/17 09:13 Dose: 15 ml Folic Acid (Folvite Tab*) 0.5 mg PO DAILY [facility] Last Admin: 04/23/17 09:14 Dose: 0.5 mg Heparin Sodium (Porcine) (Heparin Vial(*)) 5,000 units SUBCUT Q12HR [facility] Propofol (Diprivan*) 100 mls @ 10.886 mls/hr IV .(Initial Rate) [facility]; 20 MCG/KG/ MIN PRN Reason: Protocol Last Admin: 04/23/17 07:03 Dose: 11.9 mls/hr Sodium Chloride (Ns 0.9% 1000 Ml*) 1,000 mls @ 50 mls/hr IV PER RATE [facility] Lactulose (Lactulose*) 30 ml NG TUBE TID [facility] Last Admin: 04/23/17 09:13 Dose: 30 ml Lansoprazole (Lansoprazole Susp Kit) 30 mg G TUBE DAILY [facility] Last Admin: 04/23/17 09:13 Dose: 30 mg Magnesium Oxide (Magox 400 Tab*) 400 mg PO BID [facility] Last Admin: 04/23/17 09:15 Dose: 400 mg Ondansetron HCl (Zofran Inj*) 4 mg IV Q6H PRN PRN Reason: NAUSEA Rifaximin (Xifaxan*) 550 mg .SEE ORDER BID [facility] Last Admin: 04/23/17 09:14 Dose: 550 mg Spironolactone (Aldactone Tab*) 125 mg PO DAILY [facility] Last Admin: 04/23/17 09:33 Dose: 125 mg Thiamine HCl (Vitamin B-1 Tab*) 100 mg PO DAILY [facility] Last Admin: 04/23/17 09:14 Dose: 100 mg Physical Exam: General: intubated, awake, more alert slowly Head: normocephalic, atraumatic HEENT: no pallor, no icterus, moist mucous membranes Neck: soft, supple, no jvd CVS: normal rate, normal rhythm, no murmur Resp: bilateral air entry, no rhales, no wheeze, no rhonchi, no acc muscle use Abdomen: soft, nontender, nondistended, bowel sounds present Ext: pulses+, warm, no edema Skin: some left arm edema, no erythema, some blisters with breakdown on arms only. Neuro: intubated, was more sedated, more awake, can follow some commands and knod to questions Labs: Imaging: Cxr 04/23- ett above ruby, no acute infiltrates Assessment: 56y M pmhx of Anemia, HTN, hemochromatosis, Cirrhosis, Gi bleed, PUD , past seizure, anxiety, depression; comes to ER for change in mental status on 04/18/2017. Developed worsening encephalopathy despite lactulose/rifaxamin. \ -Encephalopathy, suspected hepatic -Acute Respiratory Failure, 2/2 to encephalopathy -anemia -thrombocytopenia Plan: Neuro- suspected hepatic encephalopathy. Seems like mental status improving with lactulose/rifaxamin. Off propofol now, will keep off. Will use opiates prn if restless. Noted ammonia 149, increased. Clinically improved though. Cont current lactulose/rifax dosing. Neurochecks. Keep off sedatives. r/o any underlying infectious etiology CVS- hemodyn stable. No hypotension. Start NS 50cc/hr for now. Resp- intubated, on AC 35%. Stable, no distress, synched with vent. Can try cpap. Will hold extubation unless he is consistently with good mental status and not waxing/waning. ID- low grade temps, tmax 99.7. wbc normal 6. No hemodyn change. CXR clear. Blood cx x2 now. No abx at this time, no clear source. Mental status improved with tx of hyperammonemia. Monitor. GI- ngt, cont lactulose/rifaxamin. No bowel movement yet. PPI for prophylaxis. No bleeding noted. Keep NPO today. Renal- Cr okay. Making urine, positive balance though. NS 50cc/hour. Diaz in place, can d/c likely today if mental status improving or if we plan to extubate in coming 24 hours. Heme- hg stable, anemia. Thrombocytopenia, stable. No bleeding. On heparin sq for proph, dec to bid. Endo- fingersticks as needed. Musculsk- bedrest for now. Can place into chair on vent if waking more. Wounds- blistering on arm, keep elevated, dry dressings. Monitor if any worsening, may need duplex if still not improving. Nutrition- npo DVT prophylaxis: heparin sq, scds GI prophylaxis: lansoprazole Central Line: no Arterial Line: no Diaz Cathetor: yes Disposition: icu for hepatic encephalopathy and respiratory failure Code Status: full code Total Critical Care time is 40 minutes, excluding procedures/teaching Louie Walton MD [employer] Cut Off Saw Operator (Electronically Signed)
[2017-04-23] MEDS ORDERED: Vancomycin(*) 1,000 MG in NS 0.9% 250 ML* 250 ML IVPB ONE (12:02)
[2017-04-23] MEDS ORDERED: Zosyn per Pharmacy* NOTE FOLLOW UP PRN (12:21)
[2017-04-23] MEDS: NS 0.9% 1000 ML* 1,000 ML IV SCH (12:22)
[2017-04-23] MEDS ORDERED: Piperacillin/Tazobac ADVAN(*) 3.375 GM in NS 0.9% 100 ML* 100 ML IVPB ONE (12:30)
[2017-04-23] MEDS ORDERED: Vancomycin per Pharmacy* NOTE FOLLOW UP PRN (15:39)
[2017-04-23] MEDS ORDERED: fentaNYL* 50 MCG/ML 2 ML VIAL (100 MCG VIAL) IV SLOW PU PRN (16:40)
[2017-04-23] MEDS ORDERED: Piperacillin/Tazobactam 13.5 GM IV 24 hour continuous infusion IVPB SCH ×2 (18:00)
[2017-04-23] MEDS: Piperacillin/Tazobactam 13.5 GM IV 24 hour continuous infusion IVPB SCH ×2 (20:33)
--- NOTE | 2017-04-23 20:42 | CONS ---
CC: Dr. Kamlesh Garsia * CONSULTATION REPORT: DATE OF CONSULT: 04/22/17 PROVIDER: Dr. Kamlesh Garsia HISTORY OF PRESENT ILLNESS: Giovanni is a 56-year-old male who was brought in by ambulance on 04/18/17 with altered mental status x1 day. He was found on the floor by his sister, slow to respond. We were asked to consult today because of a swollen left elbow. The patient is intubated and has no family or friends with him. At this time, I was able to speak with his nurse, but otherwise subjective reporting was minimal. ALLERGIES: His allergies include ACETAMINOPHEN and NSAIDS. HOME MEDICATIONS: As listed in chart. PAST MEDICAL HISTORY: Anemia, hemochromatosis, hypertension, history of pleural effusion, history of cirrhosis, history of GI bleed, history of jaundice , history of ulcer, history of seizures. PAST SURGICAL HISTORY: Ring finger tendon surgery, hernia repair. FAMILY HISTORY: Father passed of liver cancer at age 65. SOCIAL HISTORY: No alcohol use. No substance abuse. No smoking. REVIEW OF SYSTEMS: The patient is unable to communicate. PHYSICAL EXAM: Appearance: The patient is alert. He does not respond in any way to questioning. He is intubated. Skin: He has abrasions over bilateral elbows. Musculoskeletal: Right elbow is nontender to palpation. It is not swollen. It is no fluctuant. It is not erythematous. There is no discharge. There is a scabbed over abrasion over the olecranon. The left elbow is mildly erythematous surrounding roughly 1.5 cm area of scabbed over abrasion. There does appear to be an area with previous white discharge, though there is no current discharge. It is fluctuant over the olecranon. The patient did not wince to full elbow extension or flexion to 90 degrees without. There is erythema over the left olecranon. Skin: There is no streaking erythema as noted. There are no tophi of ears, nose, or fingers. There is no bony enlargement of his fingers. Neurologic: The patient responds to verbal stimuli as well as light touch. He is unable to answer any questions. LAD: no lymphadenopathy of left axilla. ASSESSMENT: Gout vs less likley cellulitis vs septic joint vs bursitis PLAN: We will continue to watch the patient for any sign of infection. We will await crystal fluid analysis. Dr Garsia to see 04/24/17 for further consultation. DHAVAL VITAL [id number]/[facility] #: [id number] [facility]
[2017-04-23] MEDS: Vancomycin(*) 1,000 MG in NS 0.9% 250 ML* 250 ML IVPB SCH (21:59)
[2017-04-24] MEDS: Chlorhexidine MOUTHWASH 0.12%* 15 ML UDC TOPICAL SCH ×5 (01:57→18:28)
[2017-04-24] MEDS: Vancomycin(*) 1,000 MG in NS 0.9% 250 ML* 250 ML IVPB SCH ×2 (06:15→14:17)
[2017-04-24 06:44] LABS: Hematocrit 27 % (42-52); Hemoglobin 9.3 g/dl (14.0-18.0); Mean Corpuscular HGB Conc 35 g/dl (31-36); Mean Corpuscular Hemoglobin 37 pg (27-31); Mean Corpuscular Volume 106 fL (80-94); Mean Platelet Volume 8 um3 (7.4-10.4); Platelet Count 62 10^3/ul (150-450); Red Blood Count 2.51 10^6/ul (4.0-5.4); Red Cell Distribution Width 21 % (10.5-15); White Blood Count 6.4 10^3/ul (3.5-10.8)
[2017-04-24 06:55] LABS: EGFR Non-African American 112.5 (>60)
[2017-04-24 06:59] LABS: INR 1.28 (0.77-1.02)
[2017-04-24] MEDS: RiFAXimin* 550 MG TAB SCH ×2 (08:19→20:37)
[2017-04-24] MEDS: Spironolactone TAB* 25 MG PO SCH (08:19)
[2017-04-24] MEDS: Magnesium Oxide TAB* 400 MG PO SCH ×2 (08:19→20:37)
[2017-04-24] MEDS: Folic Acid TAB* 1 MG PO SCH (08:19)
[2017-04-24] MEDS: Lansoprazole susp Kit 3 MG/ML (30 MG = 10 ML) G TUBE SCH (08:20)
[2017-04-24] MEDS: Thiamine TAB* 100 MG TAB PO SCH (08:20)
[2017-04-24] MEDS: Heparin VIAL(*) 5000 UNITS/ML VIAL (FIVE THOUSAND) SUBCUT SCH ×2 (08:20→20:37)
--- NOTE | 2017-04-24 11:26 | PN ---
Progress Note - Progress Note Date of Service: 04/24/17 Note: Progress Note Critical Care 24 hour events/significant events: -doing well, more alert, able to follow commands -on cpap -extubated this morning to facemask -overnight no events, off sedation -left arm expressed whitish material, likely gout Tele: nsr Vitals: Vital Signs Temp 98.2 F 04/24/17 09:01 Pulse 82 04/24/17 09:01 Resp 12 04/24/17 08:30 BP 116/62 04/24/17 09:00 Pulse Ox 99 04/24/17 10:35 Intake & Output 04/23/17 04/24/17 04/24/17 18:59 06:59 18:59 Intake Total 1657 1781 Output Total 475 525 Balance 1182 1256 Weight 217 lb 9.54 oz Intake: IV Fluids 298 1406 NS (0.9%) 198 925 Vancomycin 281 Zosyn 100 200 IVPB 270 Vancomycin 270 Medicated IV 39 CC - Propofol/Diprivan 39 Tube Feeding 1050 375 Output: Dumont 475 525 Tube Feeding Residual 0 Amount Wasted O2/Vent: facemask now Infusions: none Medications: Chlorhexidine Gluconate (Peridex Mouth Wash 0.12%*) 15 ml TOPICAL Q4H [facility] Last Admin: 04/24/17 08:20 Dose: 15 ml Fentanyl Citrate (Fentanyl*) 25 mcg IV SLOW PU Q2H PRN PRN Reason: DISCOMFORT Folic Acid (Folvite Tab*) 0.5 mg PO DAILY [facility] Last Admin: 04/24/17 08:19 Dose: 0.5 mg Heparin Sodium (Porcine) (Heparin Vial(*)) 5,000 units SUBCUT Q12HR [facility] Last Admin: 04/24/17 08:20 Dose: 5,000 units Sodium Chloride (Ns 0.9% 1000 Ml*) 1,000 mls @ 50 mls/hr IV PER RATE [facility] Last Admin: 04/23/17 12:22 Dose: 50 mls/hr Vancomycin HCl 1,000 mg/ (Sodium Chloride) 250 mls @ 166.667 mls/hr IVPB Q8H [facility] Last Admin: 04/24/17 06:15 Dose: 166.667 mls/hr Piperacillin Sod/Tazobactam (Sod 13.5 gm/ Sodium Chloride) 500 mls @ 20.833 mls /hr IVPB 1999 [facility] Last Admin: 04/23/17 20:33 Dose: 20.833 mls/hr Lactulose (Lactulose*) 30 ml NG TUBE TID [facility] Last Admin: 04/24/17 08:20 Dose: 30 ml Lansoprazole (Lansoprazole Susp Kit) 30 mg G TUBE DAILY [facility] Last Admin: 04/24/17 08:20 Dose: 30 mg Magnesium Oxide (Magox 400 Tab*) 400 mg PO BID [facility] Last Admin: 04/24/17 08:19 Dose: 400 mg Ondansetron HCl (Zofran Inj*) 4 mg IV Q6H PRN PRN Reason: NAUSEA Pharmacy Consult (Zosyn Per Pharmacy*) 1 note FOLLOW UP . PRN PRN Reason: PER PROTOCOL Pharmacy Consult (Vancomycin Per Pharmacy*) 1 note FOLLOW UP . PRN PRN Reason: PER PROTOCOL Pharmacy Profile Note (Vancomycin Trough Check) 1 note FOLLOW UP 1330 ONE Stop: 04/24/17 13:31 Rifaximin (Xifaxan*) 550 mg .SEE ORDER BID [facility] Last Admin: 04/24/17 08:19 Dose: 550 mg Spironolactone (Aldactone Tab*) 125 mg PO DAILY [facility] Last Admin: 04/24/17 08:19 Dose: 125 mg Thiamine HCl (Vitamin B-1 Tab*) 100 mg PO DAILY [facility] Last Admin: 04/24/17 08:20 Dose: 100 mg Physical Exam: General: awake, more alert, no diaphoresis Head: normocephalic, atraumatic HEENT: no pallor, no icterus, moist mucous membranes Neck: soft, supple, no jvd CVS: normal rate, normal rhythm, no murmur Resp: bilateral air entry, no rhales, no wheeze, no rhonchi, no acc muscle use Abdomen: soft, nontender, nondistended, bowel sounds present Ext: pulses+, warm, no edema Skin: left arm mild blisters and swelling; left elbow discharge consistent with gout from olecrenon process. Neuro: was intubated, now extubated and follows commands Labs: Laboratory Results - last 24 hr 04/23/17 04/24/17 04/24/17 11:45 06:28 06:28 WBC RBC Hgb Hct MCV MCH MCHC RDW Plt Count MPV INR (Anticoag Therapy) Sodium 133 Potassium 4.7 Chloride 105 Carbon Dioxide 26 Anion Gap 2 BUN 26 H Creatinine 0.72 Est GFR ( Amer) 144.7 Est GFR (Non-Af Amer) 112.5 BUN/Creatinine Ratio 36.1 H Glucose 119 H Calcium 8.5 L Ammonia 132 H Fluid Crystals Monosodium urate Fluid Crystal Interp 04/24/17 04/24/17 06:28 06:28 WBC 6.4 RBC 2.51 L Hgb 9.3 L Hct 27 L MCV 106 H MCH 37 H MCHC 35 RDW 21 H Plt Count 62 L MPV 8 INR (Anticoag Therapy) 1.28 H Sodium Potassium Chloride Carbon Dioxide Anion Gap BUN Creatinine Est GFR ( Amer) Est GFR (Non-Af Amer) BUN/Creatinine Ratio Glucose Calcium Ammonia Fluid Crystals Fluid Crystal Interp Imaging: Cxr 04/23- ett above ruby, no acute infiltrates Assessment: 56y M pmhx of Anemia, HTN, hemochromatosis, Cirrhosis, Gi bleed, PUD , past seizure, anxiety, depression; comes to ER for change in mental status on 04/18/2017. Developed worsening encephalopathy despite lactulose/rifaxamin. \ -Encephalopathy, suspected hepatic -Acute Respiratory Failure, 2/2 to encephalopathy -anemia -thrombocytopenia Plan: Neuro- suspected hepatic encephalopathy. Seems like mental status improved. cont lactulose/rifaxamin. may need ngt. Clinically improved though. Neurochecks. Keep off sedatives. r/o any underlying infectious etiology CVS- hemodyn stable. No hypotension. NS 50cc/hr for now. Resp- now extubated. no distress. cont to monitor airway. ID- low grade temps, tmax 99.7 but improved now. wbc normal. No hemodyn change. CXR clear. Blood cx sent, pending. will give 1 more day of vanco/zosyn and likely d/c if no growth. GI- cont lactulose/rifaxamin. may need ngt if poor swallow. Small bowel movement. off feeds now. PPI for prophylaxis. swallow eval. Renal- Cr okay. Making urine, positive balance though. NS 50cc/hour. d/c dumont today. Heme- hg stable, anemia. Thrombocytopenia, stable. No bleeding. On heparin sq for proph. Endo- fingersticks as needed. Musculsk- bedrest, can do oob to chair. Wounds- blistering on arm, keep elevated, dry dressings. duplex left arm. Nutrition- swallow eval DVT prophylaxis: heparin sq, scds GI prophylaxis: lansoprazole Central Line: no Arterial Line: no Dumont Cathetor: yes Disposition: icu for hepatic encephalopathy and respiratory failure Code Status: full code Total Critical Care time is 30 minutes, excluding procedures/teaching Louie Walton MD Extra Hand (Electronically Signed)
[2017-04-24] MEDS ORDERED: Vancomycin Trough Check NOTE FOLLOW UP ONE (13:30)
--- NOTE | 2017-04-24 13:45 | RAD ---
Indication: Left upper extremity edema. Duplex Doppler sonography of the deep venous system of the left M was performed. Bilaterally the internal jugular veins appear patent with normal phasic flow. The subclavian veins appear patent. The left axillary vein, brachial vein, basilic vein, cephalic vein, radial vein and ulnar veins appear patent and compressible. IMPRESSION: No evidence of deep venous thrombosis of the left upper extremity is noted.
--- NOTE | 2017-04-24 15:52 | PN ---
Progress Note - Progress Note Date of Service: 04/24/17 Note: noted growth of staph epi and c.perfringens from wound cultures today left arm less red, less blistering, nontender to touch; definitely more swollen than left arm wound on left olectrnon with less drainage of tophous material, mild erythema. may consider CT scan of left arm but clinically improved, tmax 99, hemodyn stable, less erythematous and angry looking left arm. Will d/c vanco. cont zosyn for c.perfringins coverage. suspect a degree of cellulitus with anaerobe, nec fasc? gas gangrene? will add on cpk, check cpk next draw cont IVF. no need for surgical consultation at this time, re-eval in AM for any acute progression requiring consultation. Louie Walton MD marine chronometer assembler
[2017-04-24] MEDS: Piperacillin/Tazobactam 13.5 GM IV 24 hour continuous infusion IVPB SCH ×2 (20:36)
--- NOTE | 2017-04-24 22:08 | PN ---
Progress Note - Progress Note Date of Service: 04/24/17 SOAP: Subjective: I was consulted by telephone yesterday for a possible septic olecranon bursitis. I reviewed the findings and consult note from ortho PA Shakira Marques. The description by Shakira and ICU staff seemed consistent with gout and I asked that crystals be sent of the exudate material along with gram stain and cultures. Patient denied left elbow pain during our visit today Objective: NAD - sometimes easier or more difficult to understand his spoken word LUE: - ~ 3 x 3 cm area of skin defect about the posterior tip of the left elbow with a white material resembling gouty tophus present in the area of skin defect - No erythema besides a thin line, less than 1 mm about the margin of the skin defect - No fluctuance or significant soft tissue swelling about the olecranon bursa or elbow joint - No tenderness to palpation about the posterior elbow - No pain with PROM elbow joint- full flexion and extension - Generalized soft tissue swelling about the extremities including the left upper extremity. Patient has several skin tear, full thickness, about the left forearm LLE: - Great toe IP joint has nodular swelling consistent with tophus Microbiology 04/23/17 11:45 Body Fluid - Elbow Left Gram Stain - Final 04/23/17 11:45 Body Fluid - Elbow Left Body Fluid Culture - Preliminary Staphylococcus Epidermidis Clostridium Perfringens Selected Entries 04/24/17 04/24/17 04/24/17 21:30 22:00 22:01 Temperature 98.1 F 98.1 F 98.1 F Heart Rate 82 Respiratory 13 Rate Blood Pressure 122/69 (mmHg) O2 Sat by Pulse 96 Oximetry Laboratory Tests 04/23/17 04/23/17 04/24/17 05:15 11:45 06:28 WBC 6.2 6.4 Neut % (Auto) 62.8 Fluid Crystals Monosodium urate Duplex U/S today negative for DVT Assessment: Gouty left olecranon bursitis with small skin defect/wound Plan: - No sign of infection of the left olecranon bursa or left elbow on exam today - I performed limited debridement of some tophaceous material to try to spur on healing of the skin defect and covered with dressing. - Recommend wound care consult to help with posterior elbow wound healing as well as forearm skin tear healing - I discourage antibiotics given lack of clear infection based on labs/vitals/ physical exam. Cultured organisms seem likely to be from skin louie given site of culture swab. - Please don't hesitate to call me for re-evaluation.
[2017-04-25 06:58] LABS: Hematocrit 28 % (42-52); Hemoglobin 9.6 g/dl (14.0-18.0); Mean Corpuscular HGB Conc 35 g/dl (31-36); Mean Corpuscular Hemoglobin 37 pg (27-31); Mean Corpuscular Volume 107 fL (80-94); Mean Platelet Volume 8 um3 (7.4-10.4); Platelet Count 57 10^3/ul (150-450); Red Blood Count 2.56 10^6/ul (4.0-5.4); Red Cell Distribution Width 20 % (10.5-15); White Blood Count 4.7 10^3/ul (3.5-10.8)
[2017-04-25 07:02] LABS: EGFR Non-African American 133.7 (>60)
--- NOTE | 2017-04-25 07:38 | RAD ---
INDICATION: Nasogastric tube placement. COMPARISON: Comparison is made with a prior study from April 23, 2017. TECHNIQUE: A portable view of the chest was obtained. FINDINGS: Cardiac and mediastinal contours appear to be within normal limits. There is a nasogastric tube present which demonstrates normal course. The catheter tip projects in the left upper quadrant. The lungs are underinflated. There is an infiltrate in the left lower lobe and a small left pleural effusion which is progressed slightly. There is a stent catheter which projects in the right upper quadrant. IMPRESSION: LEFT LOWER LOBE INFILTRATE AND SMALL LEFT PLEURAL EFFUSION DEMONSTRATING INTERVAL PROGRESSION.
--- NOTE | 2017-04-25 09:04 | PN ---
Progress Note - Progress Note Date of Service: 04/25/17 Note: Progress Note Critical Care 24 hour events/significant events: -extubated yesterday, doing well, on RA now, no distress, sat 100%, rr18 -reinserted ngt, recieveing lactulose/rifax -mental status better, speaks more, able to answer questions, slower to respond though -mittens on for safety -no other events noted; afebrile. no diarrhea. 1 bowel movement Tele: nsr Vitals: Vital Signs Temp 97.9 F 04/25/17 08:00 Pulse 71 04/25/17 06:30 Resp 13 04/25/17 06:30 BP 138/69 04/25/17 06:00 Pulse Ox 99 04/25/17 06:30 Intake & Output 04/24/17 04/25/17 04/25/17 18:59 06:59 18:59 Intake Total 1138 1389 Output Total 375 700 Balance 763 689 Weight 216 lb 7.903 oz Intake: IV Fluids 85 1109 NS (0.9%) 85 938 Zosyn 171 IVPB 443 165 Vancomycin 283 Zosyn 160 165 Tube Feeding 610 115 Output: Dumont 375 700 Other: Date of Last Bowel 04/24/17 Movement # Bowel Movements 1 Estimated Stool Amount Large O2/Vent: RA Infusions: ns 50cc/hr Medications: Fentanyl Citrate (Fentanyl*) 25 mcg IV SLOW PU Q2H PRN PRN Reason: DISCOMFORT Folic Acid (Folvite Tab*) 0.5 mg PO DAILY [facility] Last Admin: 04/24/17 08:19 Dose: 0.5 mg Heparin Sodium (Porcine) (Heparin Vial(*)) 5,000 units SUBCUT Q12HR [facility] Last Admin: 04/24/17 20:37 Dose: 5,000 units Sodium Chloride (Ns 0.9% 1000 Ml*) 1,000 mls @ 50 mls/hr IV PER RATE [facility] Last Admin: 04/23/17 12:22 Dose: 50 mls/hr Piperacillin Sod/Tazobactam (Sod 13.5 gm/ Sodium Chloride) 500 mls @ 20.833 mls /hr IVPB 2000 [facility] Last Admin: 04/24/17 20:36 Dose: 20.833 mls/hr Lactulose (Lactulose*) 30 ml NG TUBE TID [facility] Last Admin: 04/24/17 20:37 Dose: 30 ml Lansoprazole (Lansoprazole Susp Kit) 30 mg G TUBE DAILY [facility] Last Admin: 04/24/17 08:20 Dose: 30 mg Magnesium Oxide (Magox 400 Tab*) 400 mg PO BID [facility] Last Admin: 04/24/17 20:37 Dose: 400 mg Ondansetron HCl (Zofran Inj*) 4 mg IV Q6H PRN PRN Reason: NAUSEA Pharmacy Consult (Zosyn Per Pharmacy*) 1 note FOLLOW UP . PRN PRN Reason: PER PROTOCOL Rifaximin (Xifaxan*) 550 mg .SEE ORDER BID [facility] Last Admin: 04/24/17 20:37 Dose: 550 mg Spironolactone (Aldactone Tab*) 125 mg PO DAILY [facility] Last Admin: 04/24/17 08:19 Dose: 125 mg Thiamine HCl (Vitamin B-1 Tab*) 100 mg PO DAILY [facility] Last Admin: 04/24/17 08:20 Dose: 100 mg Physical Exam: General: awake, alert, no diaphoresis Head: normocephalic, atraumatic HEENT: no pallor, no icterus, moist mucous membranes Neck: soft, supple, no jvd CVS: normal rate, normal rhythm, no murmur Resp: bilateral air entry, no rhales, no wheeze, no rhonchi, no acc muscle use Abdomen: soft, nontender, nondistended, bowel sounds present Ext: pulses+, warm, no edema Skin: left arm mild blisters and swelling, seems less swelling, no erythema, nontender; left elbow drainage improved Neuro: awake, alert, oriented x2, moves all ext Labs: Laboratory Results - last 24 hr 04/23/17 04/24/17 04/24/17 11:45 06:28 12:50 WBC RBC Hgb Hct MCV MCH MCHC RDW Plt Count MPV Sodium 133 Potassium 4.7 Chloride 105 Carbon Dioxide 26 Anion Gap 2 BUN 26 H Creatinine 0.72 Est GFR ( Amer) 144.7 Est GFR (Non-Af Amer) 112.5 BUN/Creatinine Ratio 36.1 H Glucose 119 H Calcium 8.5 L Ammonia Total Creatine Kinase 192 Fluid Crystals Monosodium urate Fluid Crystal Interp Vancomycin Trough 5.8 04/25/17 04/25/17 04/25/17 06:30 06:30 06:30 WBC 4.7 RBC 2.56 L Hgb 9.6 L Hct 28 L MCV 107 H MCH 37 H MCHC 35 RDW 20 H Plt Count 57 L MPV 8 Sodium 134 Potassium 4.4 Chloride 107 Carbon Dioxide 25 Anion Gap 2 BUN 22 Creatinine 0.62 L Est GFR ( Amer) 172.0 Est GFR (Non-Af Amer) 133.7 BUN/Creatinine Ratio 35.5 H Glucose 104 H Calcium 8.7 Ammonia 81 H Total Creatine Kinase Fluid Crystals Fluid Crystal Interp Vancomycin Trough Imaging: Cxr 04/23- ett above ruyb, no acute infiltrates 04/24 LUE duplex - no dvt Assessment: 56y M pmhx of Anemia, HTN, hemochromatosis, Cirrhosis, Gi bleed, PUD , past seizure, anxiety, depression; comes to ER for change in mental status on 04/18/2017. Developed worsening encephalopathy despite lactulose/rifaxamin. \ -Encephalopathy, suspected hepatic; improving -Acute Respiratory Failure, 2/2 to encephalopathy; extubated 04/24 -anemia -thrombocytopenia Plan: Neuro- suspected hepatic encephalopathy. improving. cont lactulose and rifaxamin. neurochecks q4h. asp prec. fall prec. CVS- hemodyn stable. No hypotension. NS 50cc/hr for now. Resp- RA, no distress ID- afebrile. wbc normal. noted left arm growth of C.Perfringens. He did have swelling and slightly wbc count. Could this have been a gout flare? but not typical growth of this C.perfringens organism. No crepituse on elbow. Improved though, will cont with zosyn for 5-7 days, no surgical intervention needed, nontoxic. Day#3 of Zosyn today. GI- cont lactulose/rifaxamin. ngt+ for now. repeat swallow eval. cont feeds via ngt osmolite. PPI for prophylaxis. Renal- Cr okay. Making urine, positive balance though. Can prob dec Ns further to 30cc/hour. d/c dumont today. Heme- hg stable, anemia. Thrombocytopenia, stable. No bleeding. On heparin sq for proph. Endo- fingersticks as needed. Musculsk- oob to chair. Wounds- blistering on arm, keep elevated, dry dressings. duplex left arm negative. Nutrition- swallow eval. cont ngt feeds osmolite for now. DVT prophylaxis: heparin sq, scds GI prophylaxis: lansoprazole Central Line: no Arterial Line: no Dumont Cathetor: yes, d/c today Disposition: stable for transfer to monitored bed; needs palliative care consultation for further plan at request of daughter. Code Status: full code Louie Walton MD [employer] (Electronically Signed)
[2017-04-25] MEDS: NS 0.9% 1000 ML* 1,000 ML IV SCH (09:41)
[2017-04-25] MEDS: Folic Acid TAB* 1 MG PO SCH (10:36)
[2017-04-25] MEDS: Magnesium Oxide TAB* 400 MG PO SCH ×2 (10:36→22:04)
[2017-04-25] MEDS: RiFAXimin* 550 MG TAB SCH (10:36)
[2017-04-25] MEDS: Thiamine TAB* 100 MG TAB PO SCH (10:41)
[2017-04-25] MEDS: Heparin VIAL(*) 5000 UNITS/ML VIAL (FIVE THOUSAND) SUBCUT SCH ×2 (10:41→22:03)
[2017-04-25] MEDS: Spironolactone TAB* 25 MG PO SCH (10:41)
[2017-04-25] MEDS: Lansoprazole susp Kit 3 MG/ML (30 MG = 10 ML) G TUBE SCH (11:16)
[2017-04-25] MEDS: RiFAXimin* 550 MG TAB PO SCH (22:04)
[2017-04-25] MEDS: Piperacillin/Tazobactam 13.5 GM IV 24 hour continuous infusion IVPB SCH ×2 (22:59)
[2017-04-26] MEDS: Omeprazole CAP* 20 MG PO SCH (05:43)
[2017-04-26 08:21] LABS: Hematocrit 25 % (42-52); Hemoglobin 8.9 g/dl (14.0-18.0); Mean Corpuscular HGB Conc 35 g/dl (31-36); Mean Corpuscular Hemoglobin 38 pg (27-31); Mean Corpuscular Volume 107 fL (80-94); Mean Platelet Volume 8 um3 (7.4-10.4); Platelet Count 63 10^3/ul (150-450); Red Blood Count 2.35 10^6/ul (4.0-5.4); Red Cell Distribution Width 20 % (10.5-15); White Blood Count 4.7 10^3/ul (3.5-10.8)
[2017-04-26 08:24] LABS: EGFR Non-African American 116.2 (>60)
[2017-04-26] MEDS: Spironolactone TAB* 25 MG PO SCH (10:14)
[2017-04-26] MEDS: NS 0.9% 1000 ML* 1,000 ML IV SCH (10:14)
[2017-04-26] MEDS: RiFAXimin* 550 MG TAB PO SCH ×2 (10:14→21:24)
[2017-04-26] MEDS: Magnesium Oxide TAB* 400 MG PO SCH ×2 (10:15→21:24)
[2017-04-26] MEDS: Thiamine TAB* 100 MG TAB PO SCH (10:15)
[2017-04-26] MEDS: Heparin VIAL(*) 5000 UNITS/ML VIAL (FIVE THOUSAND) SUBCUT SCH ×2 (10:15→21:29)
[2017-04-26] MEDS: Folic Acid TAB* 1 MG PO SCH (10:15)
--- NOTE | 2017-04-26 11:21 | PN ---
Subjective Date of Service: 04/26/17 Interval History: Patient seen and examined at bedside. Denies fever, chills, shortness of breath , chest discomfort, N/V/D. Pt states that he has "had a set back in his recovery " when asked what happened to cause him to come to the hospital, he states that he remembers me from previous admissions. Giovanni states that his sister Antonietta is his HCP. Discussed with Giovanni if he was interested in a palliative care consult and he says yes. Family History: Unchanged from Admission Social History: Unchanged from Admission Past Medical History: Unchanged from Admission Objective Active Medications: Folic Acid (Folvite Tab*) 0.5 mg PO DAILY [facility] Heparin Sodium (Porcine) (Heparin Vial(*)) 5,000 units SUBCUT Q12HR [facility] Sodium Chloride (Ns 0.9% 1000 Ml*) 1,000 mls @ 50 mls/hr IV PER RATE [facility] Piperacillin Sod/Tazobactam (Sod 13.5 gm/ Sodium Chloride) 500 mls @ 20.833 mls /hr IVPB 2000 [facility] Lactulose (Lactulose*) 30 ml PO TID [facility] Magnesium Oxide (Magox 400 Tab*) 400 mg PO BID [facility] Omeprazole (Prilosec Cap*) 40 mg PO DAILY@0600 [facility] Ondansetron HCl (Zofran Inj*) 4 mg IV Q6H PRN Reason: NAUSEA Pharmacy Consult (Zosyn Per Pharmacy*) 1 note FOLLOW UP . PRN Rifaximin (Xifaxan*) 550 mg PO BID [facility] Spironolactone (Aldactone Tab*) 125 mg PO DAILY [facility] Thiamine HCl (Vitamin B-1 Tab*) 100 mg PO DAILY [facility] Vital Signs - 8 hr 04/26/17 04/26/17 04/26/17 03:47 07:49 08:00 Temperature 98.1 F 97.8 F Pulse Rate 90 86 Respiratory 16 15 18 Rate Blood Pressure 118/66 105/47 (mmHg) O2 Sat by Pulse 99 96 Oximetry Oxygen Devices in Use Now: None Appearance: NAD, sitting up in bed Ears/Nose/Mouth/Throat: Mucous Membranes Moist Respiratory: Symmetrical Chest Expansion and Respiratory Effort, Clear to Auscultation Cardiovascular: NL Sounds; No Murmurs; No JVD, RRR Abdominal: NL Sounds; No Tenderness; No Distention Extremities: - - Trace to 1+ bilateral LE and UE edema Skin: - - many skin tears and abrasions Neurological: - - Alert and Oriented to self Lines/Tubes/Other Access: Clean, Dry and Intact Peripheral IV - site benign Nutrition: Taking PO's Result Diagrams: 04/26/17 07:58 04/26/17 07:58 Microbiology and Other Data: Microbiology 04/18/17 17:33 Influenza Types A,B Antigen (URSULA) - Final Nasal Specimen received for Influenza A/B Molecular testing Assess/Plan/Problems-Billing Assessment: Mr. Quevedo is a 56 yo male with PMH significant for cirrhosis, hepatic encephalopathy, GERD and hemochromatosis who presented to the emergency room with complaints of progressing confusion and falls - Patient Problems (1) Hepatic encephalopathy Code(s): K72.90 - HEPATIC FAILURE, UNSPECIFIED WITHOUT COMA SNOMED Code(s): 11987895 Comment: - Continues to have confusion and be lethargic. - Has not moved his bowels in 24 hours - Will increase lactulose and continue rifaximin (2) Acute respiratory failure Code(s): J96.00 - ACUTE RESPIRATORY FAILURE, UNSP W HYPOXIA OR HYPERCAPNIA SNOMED Code(s): 36323959 Comment: - Suspect secondary to encephalopathy - Resolved, extubated 04/24 (3) Left elbow pain Code(s): M25.522 - PAIN IN LEFT ELBOW SNOMED Code(s): 80909585 Comment: - S/P wound culture growing - Staph epidermidis and clostridium perringens - Ortho consult, input appreciated (They suspect Gouty left olecranon bursitis with small skin defect/wound) - Will ask ID to consult (4) Physical deconditioning Code(s): R53.81 - OTHER MALAISE SNOMED Code(s): 71001811817451 Comment: - PT/OT ordered (5) Pancytopenia Code(s): D61.818 - OTHER PANCYTOPENIA SNOMED Code(s): 575938614 Comment: - Secondary to cirrhosis/portal HTN. - Stable. (6) Cirrhosis Comment: - Secondary to hemochromatosis and alcoholism. - Continue Aldactone. (7) GERD (gastroesophageal reflux disease) Code(s): K21.9 - GASTRO-ESOPHAGEAL REFLUX DISEASE WITHOUT ESOPHAGITIS SNOMED Code(s): 445837373 Comment: - Continue omeprazole (8) Rhabdomyolysis Code(s): M62.82 - RHABDOMYOLYSIS SNOMED Code(s): 430495897 Comment: - Resolved (9) DVT prophylaxis Code(s): [id number] - SNOMED Code(s): 018508682 Comment: - SCD's, no pharmacologic prophylaxis due to thrombocytopenia (10) Full code status Code(s): Z78.9 - OTHER SPECIFIED HEALTH STATUS SNOMED Code(s): 991032511 Status and Disposition: Inpatient. Will discharge when medically stable, may need rehab.
--- NOTE | 2017-04-26 20:14 | PN ---
Progress Note - Progress Note Date of Service: 04/26/17 SOAP: Subjective: Patient now on floor and more able to converse. He describes some swelling x 2-3 weeks left elbow. He seems confused as to the timing. He denies pain left elbow now. Objective: LUE: - No axillary lymphadenopathy - Soft tissue swelling about left elbow, more compared with contralateral right elbow - Mild amount fluid palpable in olecranon bursa - 3 x 2 cm area skin defect with gouty tophus material visible - No pain whatsoever with PROM elbow. Some wrist pain with PROM forearm. 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 Gout L olecranon mild bursitis and moderate elbow soft tissue swelling Plan: - Still no clear sign of infection. Tomorrow, I will see patient again and elbow is still swollen I will consider aspiration of olecranon bursa and or elbow joint to rule out infection more definitively. - DSD to wounds
[2017-04-26] MEDS: Piperacillin/Tazobactam 13.5 GM IV 24 hour continuous infusion IVPB SCH ×2 (21:24)
[2017-04-26] MEDS: Amoxicillin/Clavulanate TAB* 500 MG PO SCH (21:24)
--- NOTE | 2017-04-27 00:15 | CONS ---
CONSULTATION REPORT: DATE OF CONSULT: 04/26/17 REQUESTING PROVIDER: Isabel Jarvis NP CONSULTING SERVICE: Infectious Disease. REASON FOR CONSULTATION: Left elbow ulcer. IMPRESSION: 1. Left arm diffuse edema. Left elbow range of motion is intact. There is a 1.5- cm ragged ulcer o tiffany the olecranon with some cheese-like discharge. Swab shows monosodium urate crystals, Clostridium perfringens and Staph epidermitis. I do not think there is a septic arthritis or bursitis. There m ay be a component of soft tissue infection and I suspect a mild cellulitis along with the primary par alysis which is gout. 2. Admission after being down and rhabdomyolysis. 3. Hepatic encephalopathy. 4. Cirrhosis. RECOMMENDATION: 1. Discontinue Zosyn. 2. Start Augmentin for another 3 days to cover cellulitis. 3. Consider rheumatology evaluation. I will add an uric acid level. HISTORY OF PRESENT ILLNESS: This is a 56-year-old male with hepatic cephalopathy, admitted after tahir ng found down. He can provide some of the details of his history, which I am not sure are accurate o r not given his baseline mental status issues. The rest is from review of the medical record and dis cussion with Isabel Jarvis NP. He was apparently rearranging boxes at apartment, some thing either box or furniture fell on him and he was trapped under it for a day, came to the hospital by ambulance on April 18. Review of his stay so far shows no fever during his stay. Because of progressive encephalopathy, he was eventually intubated, was in the intensive care unit, extubated, t ransferred to the medical floor on the . He has been seen by Dr. Garsia, who agreed there was n ot a bursitis. He debrided some of the tophus. He has been on Zosyn since April 23 and has appar ently tolerated that well. He has no other complaints other than that he wants to go home. PAST MEDICAL HISTORY: 1. Cirrhosis. 2. Hepatic encephalopathy. 3. Tophaceous gout. 4. Hemochromatosis. 5. Alcohol abuse. 6. Status post TIPS. 7. History of a PleurX catheter, which has since been removed. 8. Status post hernia repair. MEDICATIONS: 1. Folic acid. 2. Heparin subcutaneous injection. 3. Lactulose. 4. Magnesium oxide. 5. Zofran. 6. Omeprazole. 7. Zosyn 13.5 mg via extended infusion. 8. Rifaximin. 9. Spironolactone. 10. Thiamine. ALLERGIES: NSAIDS and TYLENOL. FAMILY HISTORY: Mother had coronary disease, father had bladder cancer. SOCIAL HISTORY: He lives in [facility]. He had been in a nursing facility. He is a nonsmoker. Denies recent alcohol. REVIEW OF SYSTEMS: A 14-point review of systems is negative except as noted above. PHYSICAL EXAM: Vital Signs: Temperature is 37, heart rate 80, respiratory rate 15, blood pressure 1 05/47, O2 sat 96% on room air. In general, he is awake, not in distress. Neurologic: He is oriente d x2, follows commands, moves all extremities. HEENT: There is no conjunctival hemorrhage. Orophary nx: Without lesions. Neck: Supple without nuchal rigidity. Lymph Nodes: There is no inguinal, axi llary, or epitrochlear lymphadenopathy. Heart: Regular rate and rhythm without murmurs, rubs, or ga llops. Lungs: There are decreased breath sounds at the bases without wheeze or rales. Abdomen: So ft, nontender, nondistended. There is bowel sounds present. Skin: There is no rash or splinter hem orrhage. There are scattered eschar and excoriation. Musculoskeletal: The left arm is diffusely ed ematous without crepitus or fluctuance. Left elbow flexion and extension, pronation and supination a re intact. There is a 1.5-cm ulcer over the olecranon with some whitish discharge. There is a thin rim of erythema. There is no expressible fluid. DIAGNOSTIC STUDIES/LAB DATA: White blood cell count of 4, hemoglobin 8.9, platelets 63. Creatinine is 0.7. Please see impressions and recommendations outlined above, which I have discussed with Isabel Richardson NP. Thank you for asking me to see Mr. Quevedo in consultation. [id number]/[facility] #: [id number]
[2017-04-27] MEDS: Omeprazole CAP* 20 MG PO SCH (05:07)
[2017-04-27 07:07] LABS: Hematocrit 26 % (42-52); Hemoglobin 9.2 g/dl (14.0-18.0); Mean Corpuscular HGB Conc 35 g/dl (31-36); Mean Corpuscular Hemoglobin 38 pg (27-31); Mean Corpuscular Volume 107 fL (80-94); Mean Platelet Volume 8 um3 (7.4-10.4); Platelet Count 71 10^3/ul (150-450); Red Blood Count 2.43 10^6/ul (4.0-5.4); Red Cell Distribution Width 20 % (10.5-15); White Blood Count 4.9 10^3/ul (3.5-10.8)
[2017-04-27 07:09] LABS: EGFR Non-African American 156.8 (>60)
[2017-04-27] MEDS: Magnesium Oxide TAB* 400 MG PO SCH ×2 (09:20→21:38)
[2017-04-27] MEDS: Spironolactone TAB* 25 MG PO SCH (09:20)
[2017-04-27] MEDS: Folic Acid TAB* 1 MG PO SCH (09:20)
[2017-04-27] MEDS: RiFAXimin* 550 MG TAB PO SCH ×2 (09:20→21:37)
[2017-04-27] MEDS: Amoxicillin/Clavulanate TAB* 500 MG PO SCH ×2 (09:20→21:38)
[2017-04-27] MEDS: Heparin VIAL(*) 5000 UNITS/ML VIAL (FIVE THOUSAND) SUBCUT SCH ×2 (09:20→21:37)
[2017-04-27] MEDS: Thiamine TAB* 100 MG TAB PO SCH (09:21)
--- NOTE | 2017-04-27 11:09 | PN ---
Subjective Date of Service: 04/27/17 Interval History: Patient seen and examined at bedside. Denies fever, chills, shortness of breath , chest discomfort, N/V/D. Pt states that he has left elbow pain with palpation and is able to move his left arm without difficulty. Pt's sister states that she doesn't think he is drinking alcohol and hasn't seen evidence in his apartment of drinking alcohol. She states that she feels he just stops taking his medications and started eating a high sodium diet. Also discussed a palliative care consult and the need to have a MOLST form completed/revised. Antonietta also reports that his daughters are estranged and don't want to make medical decisions for him. Family History: Unchanged from Admission Social History: Unchanged from Admission Past Medical History: Unchanged from Admission Objective Active Medications: Amoxicillin/Clavulanate Potassium (Augmentin Tab*) 500 mg PO BID [facility] Stop: 04/28/17 09:01 Folic Acid (Folvite Tab*) 0.5 mg PO DAILY [facility] Heparin Sodium (Porcine) (Heparin Vial(*)) 5,000 units SUBCUT Q12HR [facility] Sodium Chloride (Ns 0.9% 1000 Ml*) 1,000 mls @ 50 mls/hr IV PER RATE [facility] Piperacillin Sod/Tazobactam (Sod 13.5 gm/ Sodium Chloride) 500 mls @ 20.833 mls /hr IVPB 2000 [facility] Lactulose (Lactulose*) 30 ml PO Q6H [facility] Magnesium Oxide (Magox 400 Tab*) 400 mg PO BID [facility] Omeprazole (Prilosec Cap*) 40 mg PO DAILY@0600 [facility] Ondansetron HCl (Zofran Inj*) 4 mg IV Q6H PRN Reason: NAUSEA Pharmacy Consult (Zosyn Per Pharmacy*) 1 note FOLLOW UP . PRN Rifaximin (Xifaxan*) 550 mg PO BID [facility] Spironolactone (Aldactone Tab*) 125 mg PO DAILY [facility] Thiamine HCl (Vitamin B-1 Tab*) 100 mg PO DAILY [facility] Vital Signs - 8 hr 04/27/17 04/27/17 04/27/17 03:19 08:00 08:04 Temperature 97.8 F 97.9 F Pulse Rate 96 88 Respiratory 16 18 18 Rate Blood Pressure 128/67 109/60 (mmHg) O2 Sat by Pulse 100 98 Oximetry Oxygen Devices in Use Now: None Appearance: NAD, sitting up in bed Ears/Nose/Mouth/Throat: Mucous Membranes Moist Respiratory: Symmetrical Chest Expansion and Respiratory Effort, Clear to Auscultation Cardiovascular: NL Sounds; No Murmurs; No JVD, RRR Abdominal: NL Sounds; No Tenderness; No Distention Extremities: - - Bilateral UE edema Skin: - - Multiple areas of abrasions on UEs. Neurological: Alert and Oriented x 3, NL Muscle Strength and Tone Lines/Tubes/Other Access: Clean, Dry and Intact Peripheral IV - site benign Nutrition: Taking PO's Result Diagrams: 04/27/17 06:47 04/27/17 06:47 Additional Lab and Data: Microbiology and Other Data: Microbiology 04/18/17 17:33 Influenza Types A,B Antigen (URSULA) - Final Nasal Specimen received for Influenza A/B Molecular testing Assess/Plan/Problems-Billing Assessment: Mr. Quevedo is a 56 yo male with PMH significant for cirrhosis, hepatic encephalopathy, GERD and hemochromatosis who presented to the emergency room with complaints of progressing confusion and falls - Patient Problems (1) Hepatic encephalopathy Code(s): K72.90 - HEPATIC FAILURE, UNSPECIFIED WITHOUT COMA SNOMED Code(s): 31943552 Comment: - Continues to have confusion and be lethargic. - Multiple BMs this AM - Continue rifaximin and lactulose (2) Left elbow pain Code(s): M25.522 - PAIN IN LEFT ELBOW SNOMED Code(s): 08804521 Comment: - S/P wound culture growing - Staph epidermidis and clostridium perringens - Uric acid ~ 3 - Ortho consult, input appreciated (They suspect Gouty left olecranon bursitis with small skin defect/wound) - ID consult, appreciate input - Suspect gout and cellulitis - Stop zosyn and continue augmentin (3) Acute respiratory failure Code(s): J96.00 - ACUTE RESPIRATORY FAILURE, UNSP W HYPOXIA OR HYPERCAPNIA SNOMED Code(s): 67666247 Comment: - Suspect secondary to encephalopathy - Resolved, extubated 04/24 (4) Physical deconditioning Code(s): R53.81 - OTHER MALAISE SNOMED Code(s): 71931391902438 Comment: - PT/OT ordered (5) Pancytopenia Code(s): D61.818 - OTHER PANCYTOPENIA SNOMED Code(s): 479030976 Comment: - Secondary to cirrhosis/portal HTN - Stable (6) Cirrhosis Comment: - Secondary to hemochromatosis and alcoholism - Continue Aldactone (7) GERD (gastroesophageal reflux disease) Code(s): K21.9 - GASTRO-ESOPHAGEAL REFLUX DISEASE WITHOUT ESOPHAGITIS SNOMED Code(s): 397338259 Comment: - Continue omeprazole (8) Rhabdomyolysis Code(s): M62.82 - RHABDOMYOLYSIS SNOMED Code(s): 683022179 Comment: - Resolved (9) DVT prophylaxis Code(s): LUU9429 - SNOMED Code(s): 775969509 Comment: - SCD's, no pharmacologic prophylaxis due to thrombocytopenia (10) Full code status Code(s): Z78.9 - OTHER SPECIFIED HEALTH STATUS SNOMED Code(s): 336551644 Status and Disposition: Inpatient. Will discharge when medically stable, may need rehab.
--- NOTE | 2017-04-27 20:28 | PN ---
Progress Note - Progress Note Date of Service: 04/27/17 SOAP: Subjective: Denies left elbow pain. Objective: NAD. Able to answer questions with clarity now. LUE: - Swelling soft tissue about elbow, perhaps decreased since yesterday - No erythema skin - Nodularity to olecranon bursa with wound defect with exposed tophus - No pain whatsoever with FROM active/passive elbow - No tenderness to palpation olecranon bursa. Decreased, but present tenderness to palpation global about elbow - NVID Selected Entries 04/27/17 18:25 Temperature 97.7 F Pulse Rate 86 Respiratory 18 Rate Blood Pressure 116/66 (mmHg) O2 Sat by Pulse 98 Oximetry Laboratory Tests 04/27/17 06:47 WBC 4.9 Assessment: Gouty left olecranon bursitis with skin erosion Soft tissue swelling left elbow Possible gouty attack left elbow joint itself (in addition) versus possible ? cellulitis Plan: - Recommend treatment of gouty flare with medications - No added information would be gained with aspiration of joint or bursa as no infection of either on exam - DSD to left posterior elbow, wound care consult - Antibiotics persistence is up to ID. Soft tissue swelling seems more likely to be from a gouty flare including the elbow joint although cellulitis is possible
[2017-04-28] MEDS: Omeprazole CAP* 20 MG PO SCH (05:02)
[2017-04-28] MEDS: Folic Acid TAB* 1 MG PO SCH (08:35)
[2017-04-28] MEDS: Heparin VIAL(*) 5000 UNITS/ML VIAL (FIVE THOUSAND) SUBCUT SCH ×2 (08:35→22:17)
[2017-04-28] MEDS: Thiamine TAB* 100 MG TAB PO SCH (08:36)
[2017-04-28] MEDS: Amoxicillin/Clavulanate TAB* 500 MG PO SCH (08:36)
[2017-04-28] MEDS: Spironolactone TAB* 25 MG PO SCH (08:36)
[2017-04-28] MEDS: Magnesium Oxide TAB* 400 MG PO SCH ×2 (08:36→22:18)
[2017-04-28] MEDS: RiFAXimin* 550 MG TAB PO SCH ×2 (08:40→22:17)
--- NOTE | 2017-04-28 15:35 | PN ---
Subjective Date of Service: 04/28/17 Interval History: Patient seen and examined at bedside. He is OOB to chair with a bed alarm and continues to get up and set off the alarm. He is pleasant and responds fairly appropriately but cannot directly answer where he is or questions as to date but will state "That's right" when offered the correct answer. He denies fever/ chills, CP, SOB, n/v. Reports left elbow pain is getting better. Family History: Unchanged from Admission Social History: Unchanged from Admission Past Medical History: Unchanged from Admission Objective Active Medications: Folic Acid (Folvite Tab*) 0.5 mg PO DAILY [facility] Last Admin: 04/28/17 08:35 Dose: 0.5 mg Heparin Sodium (Porcine) (Heparin Vial(*)) 5,000 units SUBCUT Q12HR [facility] Last Admin: 04/28/17 08:35 Dose: 5,000 units Lactulose (Lactulose*) 30 ml PO Q6H [facility] Last Admin: 04/28/17 08:35 Dose: 30 ml Magnesium Oxide (Magox 400 Tab*) 400 mg PO BID [facility] Last Admin: 04/28/17 08:36 Dose: 400 mg Omeprazole (Prilosec Cap*) 40 mg PO DAILY@0600 [facility] Last Admin: 04/28/17 05:02 Dose: 40 mg Ondansetron HCl (Zofran Inj*) 4 mg IV Q6H PRN PRN Reason: NAUSEA Rifaximin (Xifaxan*) 550 mg PO BID [facility] Last Admin: 04/28/17 08:40 Dose: 550 mg Spironolactone (Aldactone Tab*) 125 mg PO DAILY [facility] Last Admin: 04/28/17 08:36 Dose: 125 mg Thiamine HCl (Vitamin B-1 Tab*) 100 mg PO DAILY [facility] Last Admin: 04/28/17 08:36 Dose: 100 mg Vital Signs - 8 hr 04/28/17 08:00 Temperature 97.8 F Pulse Rate 88 Respiratory 18 Rate Blood Pressure 113/61 (mmHg) O2 Sat by Pulse 97 Oximetry Oxygen Devices in Use Now: None Appearance: Male patient, OOB to chair, NAD Ears/Nose/Mouth/Throat: Clear Oropharnyx, Mucous Membranes Moist Neck: NL Appearance and Movements; NL JVP Respiratory: Symmetrical Chest Expansion and Respiratory Effort, Clear to Auscultation Cardiovascular: NL Sounds; No Murmurs; No JVD, RRR Abdominal: NL Sounds; No Tenderness; No Distention Extremities: - - BUE edema Skin: - - Multiple abrasions noted to BUE and ecchymosis to face, BUE Neurological: NL Muscle Strength and Tone, - - Alert, oriented to self, able to identify year, unable to name hospital or where he is, not well oriented to situation Lines/Tubes/Other Access: Clean, Dry and Intact Peripheral IV Nutrition: Taking PO's Result Diagrams: 04/27/17 06:47 04/27/17 06:47 Additional Lab and Data: Lab Results 04/18/17 04/18/17 04/18/17 Range/Units 14:00 14:00 14:00 WBC 10.5 (3.5-10.8) 10^3/ul RBC 3.62 L (4.0-5.4) 10^6/ul Hgb 12.9 L (14.0-18.0) g/dl Hct 37 L (42-52) % MCV 102 H (80-94) fL MCH 36 H (27-31) pg MCHC 35 (31-36) g/dl RDW 18 H (10.5-15) % Plt Count 87 L (150-450) 10^3/ul MPV 8 (7.4-10.4) um3 Neut % (Auto) 75.0 (38-83) % Lymph % (Auto) 11.6 L (25-47) % Miller % (Auto) 12.0 H (1-9) % Eos % (Auto) 0.7 (0-6) % Baso % (Auto) 0.7 (0-2) % Absolute Neuts (auto) 7.9 H (1.5-7.7) 10^3/ul Absolute Lymphs (auto) 1.2 (1.0-4.8) 10^3/ul Absolute Monos (auto) 1.3 H (0-0.8) 10^3/ul Absolute Eos (auto) 0.1 (0-0.6) 10^3/ul Absolute Basos (auto) 0.1 (0-0.2) 10^3/ul Absolute Nucleated RBC 0 10^3/ul Nucleated RBC % 0.1 INR (Anticoag Therapy) (0.77-1.02) APTT (26.0-36.3) seconds Sodium 134 (133-145) mmol/L Potassium 4.8 (3.5-5.0) mmol/L Chloride 103 (101-111) mmol/L Carbon Dioxide 22 (22-32) mmol/L Anion Gap 9 (2-11) mmol/L BUN 47 H (6-24) mg/dL Creatinine 1.25 H (0.67-1.17) mg/dL Est GFR ( Amer) 76.6 (>60) Est GFR (Non-Af Amer) 59.5 (>60) BUN/Creatinine Ratio 37.6 H (8-20) Glucose 97 (70-100) mg/dL Lactic Acid (0.5-2.0) mmol/L Calcium 9.3 (8.6-10.3) mg/dL Magnesium 2.2 (1.9-2.7) mg/dL Total Bilirubin 8.60 H (0.2-1.0) mg/dL AST 172 H (13-39) U/L ALT 64 H (7-52) U/L Alkaline Phosphatase 82 (34-104) U/L Troponin I 0.01 (<0.04) ng/mL B-Natriuretic Peptide 42 ( - 100) pg/mL Total Protein 6.5 (6.4-8.9) g/dL Albumin 2.8 L (3.2-5.2) g/dL Globulin 3.7 (2-4) g/dL Albumin/Globulin Ratio 0.8 L (1-3) TSH 1.96 (0.34-5.60) mcIU/mL Urine Color Urine Appearance Urine pH (5-9) Ur Specific [place] (1.010-1.030) Urine Protein (Negative) Urine Ketones (Negative) Urine Blood (Negative) Urine Nitrate (Negative) Urine Bilirubin (Negative) Urine Urobilinogen (Negative) Ur Leukocyte Esterase (Negative) Urine Glucose (Negative) Urine Opiates Screen (None Detect) Ur Barbiturates Screen (None Detect) Ur Phencyclidine Scrn (None Detect) Ur Amphetamines Screen (None Detect) U Benzodiazepines Scrn (None Detect) Urine Cocaine Screen (None Detect) U Cannabinoids Screen (None Detect) Serum Alcohol < 10 (<10) mg/dL 0104/18/17 04/18/17 Range/Units 14:00 14:00 14:37 WBC (3.5-10.8) 10^3/ul RBC (4.0-5.4) 10^6/ul Hgb (14.0-18.0) g/dl Hct (42-52) % MCV (80-94) fL MCH (27-31) pg MCHC (31-36) g/dl RDW (10.5-15) % Plt Count (150-450) 10^3/ul MPV (7.4-10.4) um3 Neut % (Auto) (38-83) % Lymph % (Auto) (25-47) % Miller % (Auto) (1-9) % Eos % (Auto) (0-6) % Baso % (Auto) (0-2) % Absolute Neuts (auto) (1.5-7.7) 10^3/ul Absolute Lymphs (auto) (1.0-4.8) 10^3/ul Absolute Monos (auto) (0-0.8) 10^3/ul Absolute Eos (auto) (0-0.6) 10^3/ul Absolute Basos (auto) (0-0.2) 10^3/ul Absolute Nucleated RBC 10^3/ul Nucleated RBC % INR (Anticoag Therapy) 1.62 H (0.77-1.02) APTT 38.6 H (26.0-36.3) seconds Sodium (133-145) mmol/L Potassium (3.5-5.0) mmol/L Chloride (101-111) mmol/L Carbon Dioxide (22-32) mmol/L Anion Gap (2-11) mmol/L BUN (6-24) mg/dL Creatinine (0.67-1.17) mg/dL Est GFR ( Amer) (>60) Est GFR (Non-Af Amer) (>60) BUN/Creatinine Ratio (8-20) Glucose (70-100) mg/dL Lactic Acid 3.5 H* (0.5-2.0) mmol/L Calcium (8.6-10.3) mg/dL Magnesium (1.9-2.7) mg/dL Total Bilirubin (0.2-1.0) mg/dL AST (13-39) U/L ALT (7-52) U/L Alkaline Phosphatase (34-104) U/L Troponin I (<0.04) ng/mL B-Natriuretic Peptide ( - 100) pg/mL Total Protein (6.4-8.9) g/dL Albumin (3.2-5.2) g/dL Globulin (2-4) g/dL Albumin/Globulin Ratio (1-3) TSH (0.34-5.60) mcIU/mL Urine Color Urine Appearance Urine pH (5-9) Ur Specific [place] (1.010-1.030) Urine Protein (Negative) Urine Ketones (Negative) Urine Blood (Negative) Urine Nitrate (Negative) Urine Bilirubin (Negative) Urine Urobilinogen (Negative) Ur Leukocyte Esterase (Negative) Urine Glucose (Negative) Urine Opiates Screen None detected (None Detect) Ur Barbiturates Screen None detected (None Detect) Ur Phencyclidine Scrn None detected (None Detect) Ur Amphetamines Screen None detected (None Detect) U Benzodiazepines Scrn None detected (None Detect) Urine Cocaine Screen None detected (None Detect) U Cannabinoids Screen None detected (None Detect) Serum Alcohol (<10) mg/dL 04/18/17 Range/Units 14:37 WBC (3.5-10.8) 10^3/ul RBC (4.0-5.4) 10^6/ul Hgb (14.0-18.0) g/dl Hct (42-52) % MCV (80-94) fL MCH (27-31) pg MCHC (31-36) g/dl RDW (10.5-15) % Plt Count (150-450) 10^3/ul MPV (7.4-10.4) um3 Neut % (Auto) (38-83) % Lymph % (Auto) (25-47) % Miller % (Auto) (1-9) % Eos % (Auto) (0-6) % Baso % (Auto) (0-2) % Absolute Neuts (auto) (1.5-7.7) 10^3/ul Absolute Lymphs (auto) (1.0-4.8) 10^3/ul Absolute Monos (auto) (0-0.8) 10^3/ul Absolute Eos (auto) (0-0.6) 10^3/ul Absolute Basos (auto) (0-0.2) 10^3/ul Absolute Nucleated RBC 10^3/ul Nucleated RBC % INR (Anticoag Therapy) (0.77-1.02) APTT (26.0-36.3) seconds Sodium (133-145) mmol/L Potassium (3.5-5.0) mmol/L Chloride (101-111) mmol/L Carbon Dioxide (22-32) mmol/L Anion Gap (2-11) mmol/L BUN (6-24) mg/dL Creatinine (0.67-1.17) mg/dL Est GFR ( Amer) (>60) Est GFR (Non-Af Amer) (>60) BUN/Creatinine Ratio (8-20) Glucose (70-100) mg/dL Lactic Acid (0.5-2.0) mmol/L Calcium (8.6-10.3) mg/dL Magnesium (1.9-2.7) mg/dL Total Bilirubin (0.2-1.0) mg/dL AST (13-39) U/L ALT (7-52) U/L Alkaline Phosphatase (34-104) U/L Troponin I (<0.04) ng/mL B-Natriuretic Peptide ( - 100) pg/mL Total Protein (6.4-8.9) g/dL Albumin (3.2-5.2) g/dL Globulin (2-4) g/dL Albumin/Globulin Ratio (1-3) TSH (0.34-5.60) mcIU/mL Urine Color Radha Urine Appearance Cloudy Urine pH 5.0 (5-9) Ur Specific [place] 1.030 (1.010-1.030) Urine Protein Negative (Negative) Urine Ketones Negative (Negative) Urine Blood Negative (Negative) Urine Nitrate Negative (Negative) Urine Bilirubin Negative (Negative) Urine Urobilinogen Positive H (Negative) Ur Leukocyte Esterase Negative (Negative) Urine Glucose Negative (Negative) Urine Opiates Screen (None Detect) Ur Barbiturates Screen (None Detect) Ur Phencyclidine Scrn (None Detect) Ur Amphetamines Screen (None Detect) U Benzodiazepines Scrn (None Detect) Urine Cocaine Screen (None Detect) U Cannabinoids Screen (None Detect) Serum Alcohol (<10) mg/dL Microbiology and Other Data: Microbiology 04/18/17 17:33 Influenza Types A,B Antigen (URSULA) - Final Nasal Specimen received for Influenza A/B Molecular testing Assess/Plan/Problems-Billing Assessment: Mr. Quevedo is a 56 yo male with PMH significant for cirrhosis, hepatic encephalopathy, GERD and hemochromatosis who presented to the emergency room with complaints of progressing confusion, falls - Patient Problems (1) Hepatic encephalopathy Code(s): K72.90 - HEPATIC FAILURE, UNSPECIFIED WITHOUT COMA Comment: Multiple etiologies, but most likely liver disease. Encephalopathy may be worsened secondary to recent hypoxia/intubation. Appears to wax and wane; ammonia levels do not correspond to level of confusion. Continue rifaximin and lactulose. (2) Left elbow pain Code(s): M25.522 - PAIN IN LEFT ELBOW Comment: S/P wound culture growing - Staph epidermidis and clostridium perringens Uric acid ~ 3 Ortho consult, input appreciated (suspect gouty left olecranon bursitis with small skin defect/wound) ID consult, appreciate input Suspect gout and cellulitis Continue Augmentin. (3) Acute respiratory failure Code(s): J96.00 - ACUTE RESPIRATORY FAILURE, UNSP W HYPOXIA OR HYPERCAPNIA Comment: Suspect secondary to encephalopathy Resolved, extubated 04/24 (4) Physical deconditioning Code(s): R53.81 - OTHER MALAISE Comment: PT/OT ordered (5) Pancytopenia Code(s): D61.818 - OTHER PANCYTOPENIA Comment: Secondary to cirrhosis/portal HTN Stable (6) Cirrhosis Comment: Secondary to hemochromatosis and alcoholism Continue spironolactone. (7) GERD (gastroesophageal reflux disease) Code(s): K21.9 - GASTRO-ESOPHAGEAL REFLUX DISEASE WITHOUT ESOPHAGITIS Comment : Continue omeprazole. (8) Rhabdomyolysis Code(s): M62.82 - RHABDOMYOLYSIS Comment: Resolved (9) DVT prophylaxis Comment: SCD's, no pharmacologic prophylaxis due to thrombocytopenia (10) Full code status Code(s): Z78.9 - OTHER SPECIFIED HEALTH STATUS Status and Disposition: Inpatient admission. Family requests palliative care consult. Consult also placed for psychiatry to re-eval and help with capacity determination. Patient with previous history of being found to lack capacity to manage safe discharge plan and options as evidenced by recurrent readmissions and medication non- adherence. Patient was accepting of SNF placement previously and was then found to have capacity, at which point he was discharged to [facility]. Patient apparently signed out of [facility] and moved back into his own apartment and was found down again and with same concern for medication non-adherence. Currently with continued encephalopathy. Capacity evaluation and palliative care consults to help guide discharge planning.
[2017-04-29] MEDS: Omeprazole CAP* 20 MG PO SCH (04:56)
[2017-04-29 06:37] LABS: Hematocrit 24 % (42-52); Hemoglobin 8.5 g/dl (14.0-18.0); Mean Corpuscular HGB Conc 35 g/dl (31-36); Mean Corpuscular Hemoglobin 38 pg (27-31); Mean Corpuscular Volume 108 fL (80-94); Mean Platelet Volume 8 um3 (7.4-10.4); Platelet Count 71 10^3/ul (150-450); Red Blood Count 2.23 10^6/ul (4.0-5.4); Red Cell Distribution Width 21 % (10.5-15); White Blood Count 3.7 10^3/ul (3.5-10.8)
[2017-04-29 06:38] LABS: EGFR Non-African American 131.3 (>60)
[2017-04-29] MEDS: RiFAXimin* 550 MG TAB PO SCH ×2 (09:44→20:54)
[2017-04-29] MEDS: Spironolactone TAB* 25 MG PO SCH (09:49)
[2017-04-29] MEDS: Magnesium Oxide TAB* 400 MG PO SCH ×2 (09:49→20:54)
[2017-04-29] MEDS: Thiamine TAB* 100 MG TAB PO SCH (09:50)
[2017-04-29] MEDS: Folic Acid TAB* 1 MG PO SCH (09:50)
[2017-04-29] MEDS: Heparin VIAL(*) 5000 UNITS/ML VIAL (FIVE THOUSAND) SUBCUT SCH (09:51)
--- NOTE | 2017-04-29 11:02 | CONSULT ---
Palliative / Hospice Consult Ordering Provider: Amber Nunez - Subjective Code Status: Full Code-Needs Follow Up Advance Directives Location: In Chart MOLST Part A Completed: Yes - DNR Date: 04/29/17 MOLST Part E Completed:: Yes - DNI, no feeding tube, Comfort meaures only Date: 04/29/17 HCP Completed: Yes - Sister Antonietta Rios - History or Present Illness History or Present Illness: This 56 year old man with end-stage liver disease and hepatic encephalopathy, hemochromatosis and malnutrition is admitted for the first time in 2018, but was an inpatient here 5 times in 2015 and 6 times in 2017. On this occsion his encephalopathy was severe enough that he required intubation in the ICU. Advance directives from August 2016 established full code and intubation status. The patient has had a complicated social situation, with refusal to remain in [facility], then leaving [facility] as his rent was increased, then living temporarily with his mother before obtaining his own apartment one week prior to this admission. The patient had a TIPS procedure int he past, and was on a transplant list but then was deemed ineligible for transplant on the basis of his high MELD score. He denies being noncompliant with his medications but seems to have relapsing encephalopathy when he is not in a supervised setting. Nevertheless, he insists that he wants to try to live on his own as long as possible. He was supposed to have a capacity evaluation today, but I found that he was quite lucid today, and able to discuss his situation quite cogently. Lab Values: Abnormal Lab Results 04/29/17 04/29/17 05:57 05:57 WBC 3.7 RBC 2.23 L Hgb 8.5 L Hct 24 L MCV 108 H MCH 38 H MCHC 35 RDW 21 H Plt Count 71 L MPV 8 Sodium 133 Potassium 4.5 Chloride 106 Carbon Dioxide 26 Anion Gap 1 L BUN 15 Creatinine 0.63 L Est GFR ( Amer) 168.8 Est GFR (Non-Af Amer) 131.3 BUN/Creatinine Ratio 23.8 H Glucose 88 Calcium 8.7 Laboratory Last Values WBC 3.7 10^3/ul (3.5-10.8) 04/29/17 05:57 RBC 2.23 10^6/ul (4.0-5.4) L 04/29/17 05:57 Hgb 8.5 g/dl (14.0-18.0) L 04/29/17 05:57 Hct 24 % (42-52) L 04/29/17 05:57 MCV 108 fL (80-94) H 04/29/17 05:57 MCH 38 pg (27-31) H 04/29/17 05:57 MCHC 35 g/dl (31-36) 04/29/17 05:57 RDW 21 % (10.5-15) H 04/29/17 05:57 Plt Count 71 10^3/ul (150-450) L 04/29/17 05:57 MPV 8 um3 (7.4-10.4) 04/29/17 05:57 Neut % (Auto) 62.8 % (38-83) 04/23/17 05:15 Lymph % (Auto) 17.5 % (25-47) L 04/23/17 05:15 Grand % (Auto) 14.1 % (1-9) H 04/23/17 05:15 Eos % (Auto) 4.6 % (0-6) 04/23/17 05:15 Baso % (Auto) 1.0 % (0-2) 04/23/17 05:15 Absolute Neuts (auto) 3.9 10^3/ul (1.5-7.7) 04/23/17 05:15 Absolute Lymphs (auto) 1.1 10^3/ul (1.0-4.8) 04/23/17 05:15 Absolute Monos (auto) 0.9 10^3/ul (0-0.8) H 04/23/17 05:15 Absolute Eos (auto) 0.3 10^3/ul (0-0.6) 04/23/17 05:15 Absolute Basos (auto) 0.1 10^3/ul (0-0.2) 04/23/17 05:15 Absolute Nucleated RBC 0 10^3/ul 04/23/17 05:15 Nucleated RBC % 0 04/23/17 05:15 INR (Anticoag Therapy) 1.28 (0.77-1.02) H 04/24/17 06:28 APTT 38.6 seconds (26.0-36.3) H 04/18/17 14:00 Patient Temperature Not Reportable 04/21/17 05:30 ABG pH 7.48 (7.35-7.45) H 04/21/17 05:30 ABG pH (Temp Correct) Not Reportable 04/20/17 22:57 ABG pCO2 33 mmHg (35-45) L 04/21/17 05:30 ABG pCO2 (Temp Corrct Not Reportable 04/20/17 22:57 ABG pO2 289 mmHg (80-100) H 04/21/17 05:30 ABG pO2 (Temp Correct Not Reportable 04/20/17 22:57 ABG HCO3 26.0 mmol/L (19-31) 04/21/17 05:30 ABG O2 Saturation 100.7 % (95-98) H 04/21/17 05:30 ABG Base Excess 1.4 (-2.0-2.0) 04/21/17 05:30 VBG pH 7.50 (7.33-7.43) H 04/23/17 05:15 VBG pCO2 39 mmHg (41-51) L 04/23/17 05:15 VBG pO2 106 mmHg (35-45) H 04/23/17 05:15 VBG HCO3 30.2 mmol/L (24-28) H 04/23/17 05:15 VBG O2 Saturation 99.7 % (70-80) H 04/23/17 05:15 VBG Base Excess 6.7 (0-4) H 04/23/17 05:15 Respiration Rate 14 04/21/17 05:30 O2 Delivery Device C2 04/21/17 05:30 Ventilator Type 580 04/21/17 05:30 Vent Mode cmv 04/21/17 05:30 FiO2 100 04/21/17 05:30 Inspiratory Time .9 04/21/17 05:30 PEEP 5 04/21/17 05:30 Pressure Support Not Reportable 04/21/17 05:30 Pressure Control Not Reportable 04/21/17 05:30 EPAP Not Reportable 04/21/17 05:30 IPAP Not Reportable 04/21/17 05:30 BiPAP Not Reportable 04/21/17 05:30 Sodium 133 mmol/L (133-145) 04/29/17 05:57 Potassium 4.5 mmol/L (3.5-5.0) 04/29/17 05:57 Chloride 106 mmol/L (101-111) 04/29/17 05:57 Carbon Dioxide 26 mmol/L (22-32) 04/29/17 05:57 Anion Gap 1 mmol/L (2-11) L 04/29/17 05:57 BUN 15 mg/dL (6-24) 04/29/17 05:57 Creatinine 0.63 mg/dL (0.67-1.17) L 04/29/17 05:57 Est GFR ( Amer) 168.8 (>60) 04/29/17 05:57 Est GFR (Non-Af Amer) 131.3 (>60) 04/29/17 05:57 BUN/Creatinine Ratio 23.8 (8-20) H 04/29/17 05:57 Glucose 88 mg/dL (70-100) 04/29/17 05:57 POC Glucose (mg/dL) 125 mg/dL (70-100) H 04/20/17 22:46 Lactic Acid 1.9 mmol/L (0.5-2.0) 04/19/17 06:51 Uric Acid 3.0 mg/dL (4.4-7.6) L 04/26/17 07:58 Calcium 8.7 mg/dL (8.6-10.3) 04/29/17 05:57 Phosphorus 2.9 mg/dL (2.5-5.0) 04/23/17 05:15 Magnesium 2.0 mg/dL (1.9-2.7) 04/23/17 05:15 Total Bilirubin 4.40 mg/dL (0.2-1.0) H 04/23/17 05:15 AST 107 U/L (13-39) H 04/23/17 05:15 ALT 47 U/L (7-52) 04/23/17 05:15 Alkaline Phosphatase 74 U/L (34-104) 04/23/17 05:15 Ammonia 81 mol/L (16-53) H 04/25/17 06:30 Total Creatine Kinase 192 U/L (10-223) 04/24/17 06:28 Troponin I 0.01 ng/mL (<0.04) 04/18/17 14:00 B-Natriuretic Peptide 42 pg/mL (-100) 04/18/17 14:00 Total Protein 4.8 g/dL (6.4-8.9) L 04/23/17 05:15 Albumin 2.0 g/dL (3.2-5.2) L 04/23/17 05:15 Globulin 2.8 g/dL (2-4) 04/23/17 05:15 Albumin/Globulin Ratio 0.7 (1-3) L 04/23/17 05:15 TSH 1.96 mcIU/mL (0.34-5.60) 04/18/17 14:00 Urine Color Radha 04/18/17 14:37 Urine Appearance Cloudy 04/18/17 14:37 Urine pH 5.0 (5-9) 04/18/17 14:37 Ur Specific Nickerson 1.030 (1.010-1.030) 04/18/17 14:37 Urine Protein Negative (Negative) 04/18/17 14:37 Urine Ketones Negative (Negative) 04/18/17 14:37 Urine Blood Negative (Negative) 04/18/17 14:37 Urine Nitrate Negative (Negative) 04/18/17 14:37 Urine Bilirubin Negative (Negative) 04/18/17 14:37 Urine Urobilinogen Positive (Negative) H 04/18/17 14:37 Ur Leukocyte Esterase Negative (Negative) 04/18/17 14:37 Urine Glucose Negative (Negative) 04/18/17 14:37 Fluid Crystals Monosodium urate 04/23/17 11:45 Fluid Crystal Interp 04/23/17 11:45 Vancomycin Trough 5.8 mcg/mL 04/24/17 12:50 Urine Opiates Screen None detected (None Detect) 04/18/17 14:37 Ur Barbiturates Screen None detected (None Detect) 04/18/17 14:37 Ur Phencyclidine Scrn None detected (None Detect) 04/18/17 14:37 Ur Amphetamines Screen None detected (None Detect) 04/18/17 14:37 U Benzodiazepines Scrn None detected (None Detect) 04/18/17 14:37 Urine Cocaine Screen None detected (None Detect) 04/18/17 14:37 U Cannabinoids Screen None detected (None Detect) 04/18/17 14:37 Serum Alcohol < 10 mg/dL (<10) 04/18/17 14:00 Influenza A (Rapid) Negative (Negative) 04/18/17 17:37 Influenza B (Rapid) Negative (Negative) 04/18/17 17:37 - Objective Active Medications: Folic Acid (Folvite Tab*) 0.5 mg PO DAILY [facility] Last Admin: 04/29/17 09:50 Dose: 0.5 mg Heparin Sodium (Porcine) (Heparin Vial(*)) 5,000 units SUBCUT Q12HR [facility] Last Admin: 04/29/17 09:51 Dose: 5,000 units Lactulose (Lactulose*) 30 ml PO Q6H [facility] Last Admin: 04/29/17 09:51 Dose: 30 ml Magnesium Oxide (Magox 400 Tab*) 400 mg PO BID [facility] Last Admin: 04/29/17 09:49 Dose: 400 mg Omeprazole (Prilosec Cap*) 40 mg PO DAILY@0600 [facility] Last Admin: 04/29/17 04:56 Dose: 40 mg Ondansetron HCl (Zofran Inj*) 4 mg IV Q6H PRN PRN Reason: NAUSEA Rifaximin (Xifaxan*) 550 mg PO BID [facility] Last Admin: 04/29/17 09:44 Dose: 550 mg Spironolactone (Aldactone Tab*) 125 mg PO DAILY [facility] Last Admin: 04/29/17 09:49 Dose: 125 mg Thiamine HCl (Vitamin B-1 Tab*) 100 mg PO DAILY [facility] Last Admin: 04/29/17 09:50 Dose: 100 mg Vital Signs: Vital Signs: Temp Pulse Resp BP Pulse Ox 98.0 F 96 16 111/69 99 04/29/17 07:33 04/29/17 07:33 04/29/17 08:00 04/29/17 07:33 04/29/17 07:33 Patient Weight: Weight 212 lb Intake and Output: Intake & Output 04/27/17 04/28/17 04/29/17 04/30/17 06:59 06:59 06:59 06:59 Intake Total 3363 2799 1850 360 Output Total 0 500 700 Balance 3363 2299 1150 360 Weight 216 lb 12.8 oz 216 lb 8 oz 212 lb Intake: IV Fluids 2161 999 0 NS (0.9%) 1433 999 0 Zosyn 728 IVPB 242 200 Zosyn 242 200 Oral 960 1600 1850 360 Output: Urine 0 500 700 Other: Estimated Void Large Medium # Bowel Movements 1 1 0 Estimated Stool Amount Small Large Medium # Voids 1 1 4 ADLs: Meal Record Start: 04/18/17 21: 05 Freq: DAILY@0900,1400,1800 Status: Complete Protocol: Created 04/18/17 21:05 System (Rec: 04/18/17 21:05 System MED-M03) Document 04/19/17 09:00 [id number] (Rec: 04/19/17 12:55 [id number] MED-C11) Document 04/19/17 13:33 [id number] (Rec: 04/19/17 13:50 [id number] MED-C09) Document 04/19/17 18:00 BPV3423 (Rec: 04/19/17 23:12 ERS6943 MED-C09) Document 04/20/17 09:00 JXA6263 (Rec: 04/20/17 10:43 LOV0632 MED-C11) Document 04/20/17 13:46 ZJL5440 (Rec: 04/20/17 13:46 KJW4511 MED-C11) Document 04/20/17 18:00 DYC4480 (Rec: 04/20/17 21:18 GTC1066 MED-C09) ADLs: Meal Record Start: 04/21/17 04: 55 Freq: 09,13,18 Status: Active Protocol: Created 04/21/17 04:55 [id number] (Rec: 04/21/17 04:55 GXT9511 ICU-C12) Document 04/21/17 08:55 TYO7775 (Rec: 04/21/17 08:55 YOF4548 ICU-C14) Document 04/22/17 09:00 YMS0466 (Rec: 04/22/17 09:23 RXB2163 ICU-C06) Document 04/22/17 13:00 FCX8149 (Rec: 04/22/17 13:36 WEW6382 ICU-C06) Document 04/22/17 18:00 TFV2745 (Rec: 04/22/17 18:26 FOV7964 ICU-C06) Document 04/23/17 09:00 GHI4269 (Rec: 04/23/17 09:58 BLK3849 ICU-M15) Document 04/23/17 13:00 SDR3481 (Rec: 04/23/17 13:40 JGN2232 ICU-C12) Document 04/23/17 17:46 DMV6240 (Rec: 04/23/17 17:46 YZN8284 ICU-C12) Document 04/24/17 09:00 CBA9964 (Rec: 04/24/17 09:29 PCF3851 ICU-C15) Document 04/24/17 13:00 DXI2930 (Rec: 04/24/17 14:20 SEE8536 ICU-C10) Document 04/24/17 18:00 SFV0833 (Rec: 04/24/17 20:31 LWZ6659 ICU-C25) Document 04/25/17 09:00 CTV3273 (Rec: 04/25/17 12:51 RHL1249 ICU-C15) Document 04/25/17 14:21 LYX9161 (Rec: 04/25/17 14:21 NCK1403 ICU-M15) Document 04/25/17 18:00 LBX4884 (Rec: 04/25/17 19:31 MJF1690 MED-C11) Document 04/26/17 09:00 EUG7631 (Rec: 04/26/17 09:26 SQR1196 MED-C11) Document 04/26/17 13:00 OVW3102 (Rec: 04/26/17 14:37 IBJ6951 MED-C09) Document 04/26/17 18:00 XJL4950 (Rec: 04/26/17 19:12 BHH9813 MED-C09) Document 04/27/17 09:00 OTB3948 (Rec: 04/27/17 10:52 FTR8281 MED-C11) Document 04/27/17 13:00 CYG4865 (Rec: 04/27/17 15:04 KTV1891 MED-C11) Document 04/27/17 18:00 VTW1345 (Rec: 04/27/17 23:04 JKK2073 MED-C11) Document 04/28/17 09:00 UMV5012 (Rec: 04/28/17 10:13 SKJ8319 MED-M01) Document 04/28/17 12:59 YHE1720 (Rec: 04/28/17 12:59 DOE4400 MED-M01) Document 04/28/17 18:00 MTZ6985 (Rec: 04/28/17 18:29 QUI9569 MED-C07) Document 04/29/17 09:00 JJV2022 (Rec: 04/29/17 10:20 RPM2477 MED-C05) Intake and Output Start: 04/18/17 21: 05 Freq: DAILY@0600,1400,2200 Status: Complete Protocol: Created 04/18/17 21:05 System (Rec: 04/18/17 21:05 System MED-M03) Document 04/18/17 22:00 BMS3671 (Rec: 04/18/17 23:00 WNG8083 MED-C11) Document 04/19/17 05:50 TMW9646 (Rec: 04/19/17 05:51 FIH8923 MED-M03) Document 04/19/17 13:33 RGO8886 (Rec: 04/19/17 13:50 KYI9659 MED-C09) Document 04/19/17 22:00 KUF5683 (Rec: 04/19/17 23:18 YYU1284 MED-C09) Document 04/20/17 06:00 KYM9074 (Rec: 04/20/17 06:23 SND5439 MEDL-C02) Document 04/20/17 13:46 EZB0087 (Rec: 04/20/17 13:46 VRQ3025 MED-C11) Document 04/20/17 22:00 TKB8165 (Rec: 04/20/17 23:17 RLP0230 MED-C09) Intake and Output Start: 04/21/17 04: 55 Freq: 06,14,22 Status: Active Protocol: Created 04/21/17 04:55 CLI6600 (Rec: 04/21/17 04:55 UCC1122 ICU-C12) Document 04/21/17 06:36 BVF0900 (Rec: 04/21/17 06:36 KSE3009 ICU-M15) Document 04/21/17 13:27 HQA5392 (Rec: 04/21/17 13:27 KSZ6023 ICU-C12) Document 04/21/17 13:42 NSM8665 (Rec: 04/21/17 13:42 OQI6035 ICU-C12) Document 04/21/17 22:00 RDG3798 (Rec: 04/21/17 22:04 RYG8847 ICU-C25) Document 04/22/17 06:00 WWR2067 (Rec: 04/22/17 06:07 GCC6465 ICU-C15) Document 04/22/17 14:00 UCT4747 (Rec: 04/22/17 17:39 XTI0436 ICU-C06) Document 04/22/17 14:52 BMI2594 (Rec: 04/22/17 14:53 YIG7836 ICU-M15) Document 04/22/17 22:00 HGT6497 (Rec: 04/22/17 23:45 LKT6475 ICU-C25) Document 04/23/17 05:48 XXR2176 (Rec: 04/23/17 05:48 EWR3577 ICU-C14) Document 04/23/17 14:00 IQK1098 (Rec: 04/23/17 16:20 CUM5653 ICU-C12) Document 04/23/17 21:42 YGQ9624 (Rec: 04/23/17 21:42 MLG9149 ICU-C20) Document 04/23/17 22:12 XWW4437 (Rec: 04/23/17 22:12 XIL6562 ICU-M15) Document 04/24/17 06:00 NTD1614 (Rec: 04/24/17 06:38 UMO5996 ICU-C20) Document 04/24/17 08:00 FVS1690 (Rec: 04/24/17 19:22 WXE9162 ICU-C12) Document 04/24/17 14:00 SAL9814 (Rec: 04/24/17 14:20 NIN9471 ICU-C10) Document 04/24/17 19:55 XJE9117 (Rec: 04/24/17 19:56 VOT1180 ICU-C12) Document 04/24/17 22:00 SGN6045 (Rec: 04/24/17 22:22 HWI8964 ICU-C12) Document 04/25/17 03:15 NLC1624 (Rec: 04/25/17 03:16 CSC3026 ICU-C12) Document 04/25/17 05:57 HWY0388 (Rec: 04/25/17 05:57 LHS5377 ICU-C20) Document 04/25/17 09:48 BBZ8929 (Rec: 04/25/17 09:48 BWG3994 ICU-M15) Document 04/25/17 14:00 XKK9169 (Rec: 04/25/17 14:21 VRD2036 ICU-M15) Document 04/25/17 22:00 YLA7229 (Rec: 04/25/17 23:28 AJO7506 MED-C11) Document 04/26/17 04:25 CTR0843 (Rec: 04/26/17 04:25 PLR9616 MEDL-C01) Document 04/26/17 14:00 URK7127 (Rec: 04/26/17 14:36 PON8806 MED-C09) Document 04/26/17 22:00 XII1867 (Rec: 04/26/17 23:35 GWP1498 MED-C09) Document 04/27/17 00:49 PTA7146 (Rec: 04/27/17 00:49 CYG9621 MED-C26) Document 04/27/17 14:00 NPZ6518 (Rec: 04/27/17 15:04 GZK9148 MED-C11) Document 04/27/17 22:00 KVZ6938 (Rec: 04/27/17 23:22 CKH2570 MED-C12) Document 04/27/17 22:00 EDJ9600 (Rec: 04/27/17 23:04 IYY1839 MED-C11) Document 04/28/17 04:40 SXE0450 (Rec: 04/28/17 04:40 MCY4557 MEDL-C01) Document 04/28/17 13:42 LFE1314 (Rec: 04/28/17 13:43 DMC7225 MED-C09) Document 04/28/17 22:00 KCX5517 (Rec: 04/28/17 22:19 SIR9372 MED-C07) Document 04/29/17 06:00 TOU0731 (Rec: 04/29/17 06:17 FSR4944 MED-C42) General Impression: Pleasant male with scattered ecchymoses, appearing comfortable and communicative while reclining in bed Head: Symmetrical Eyes: PERRLA, - - sclera icteric Ears/Nose/Mouth/Throat: Clear Oropharnyx, Mucous Membranes Moist Neck: NL Appearance and Movements; NL JVP Cardiovascular: NL Sounds; No Murmurs; No JVD, RRR Respiratory: Symmetrical Chest Expansion and Respiratory Effort - Ascies Abdominal: - - ascitic abdominal distention Extremities: - - BUE edema Neurological: Alert and Oriented x 3, NL Muscle Strength and Tone - Assessment Assessment: I questioned the patient closely about his understanding of his disease, and he is able to understand that he has end-stage disease and he needs to adjust his expectations on that basis. He decided to change his code status to DNR, and to request no further hospitalizations in favor of comfort measures only. He is interested in hospice services and is insistent on returning home, but will certainly need drier helper at home, with some increased supervision of his medication compliance. He refused an offer of a hospice residence bed today. I spoke at great length with his sister today and described the decisions that Giovanni has made, and she agrees with them, but still worries about his financial circumstances. Apparently he was approved for Medicaid, but did not follow through on the details. His sister is very anxious and believes he would benefit from rehab. I see that he was evaluated by PT on admission, when he was confused and needed frequent redirecting, and he should probably have another PT evaluation to see if he is able to ambulate independently before a decision on disposition is made. In any event, he certainly qualifies for hospice services with a prognosis of 6 months or less based on his cirrhotic hepatic failure with encephalopathy and high MELD score, elevated PT/INR, ascites, paraesophageal varices, and severe malnutrition. - Plan Consult Plan (MU): Hospice - Time On Unit Date of Evaluation: 04/29/17 Hospice Consult Time in: 10:00 Hospice Consult Time Out: 11:45 Hospice Consult Time Total: 105
--- NOTE | 2017-04-29 12:58 | CONSULT ---
Consult Consult: Consult for Medical Decision Making Capacity S: Psychiatry is asked to evaluate the decision making capacity of this 56 y.o. white male with a history of severe liver dysfunction, alcohol dependence in remission and hemochromatosis, with multiple prior admissions to the [facility] medical service for hepatic encephalopathy. I spoke with the primary inpatient provider, hospitalist nurse practitioner Simona Nesbitt, who reports that the patient remains encephalopathic and confused. She states that his diagnosis is hepatic encephalopathy and that SNF placement is medically indicated, however, the patient has declined this. She further reports that the risks of refusing such care are physical injuries and possible from falling. On exam the patient is calm and cooperative. He is known to this clinician from prior consultation interactions. He clearly states his diagnosis but is unaware of the treatment that is recommended. "They just want to send me home. " When asked about the risks of declining SNF placement, he is vague, stating "The risks would be that I couldn't make good things happen." He is unable to concretize his understanding of possible negative outcomes any further than this. Mr. Quevedo displays clear deficits in spacial and temporal orientation, for example stating the date as "June 01" and the building as "a health care facility in [place]." O: the patient is calm, cooperative, dressed in a patient gown; has large purple contusion on his left face; euthymic with full affect; denies SI, HI, AH or VH; insight and judgment are impaired; cognitively he is confused, scoring 16 /30 on an MMSE with points lost for the following: day, date, month, building, town, state, county, floor, attention (spelled WORLD backwards as "[place]") and delayed recall. A/P: Capacity: the patient is able to state his diagnosis but not the medically indicated treatment nor the risks of refusing said treatment. He performs poorly on a structured cognitive assessment. By definition he lacks capacity to make informed medical decisions. Capacity is fluid and subject to change. Psychiatry can be re-consulted in the event of a change in his mentation or clinical presentation.
--- NOTE | 2017-04-29 15:32 | PN ---
Subjective Date of Service: 04/29/17 Interval History: Patient seen and examined, cooperative. Answering appropriately, complaint of pain in his knees today but says he tries to ambulate in his room. Denies chest pain, no n/v/d, no SOB. No further complaints. Says he's not sure what his plan is supposed to be. Explained that I would evaluate recommendations from all disciplines and we would proved a safe plan for him. He says he is in agreement but I am concerned that he does not fully comprehend what that entails. Family History: Unchanged from Admission Social History: Unchanged from Admission Past Medical History: Unchanged from Admission Objective Active Medications: Folic Acid (Folvite Tab*) 0.5 mg PO DAILY [facility] Last Admin: 04/29/17 09:50 Dose: 0.5 mg Lactulose (Lactulose*) 30 ml PO Q6H [facility] Last Admin: 04/29/17 09:51 Dose: 30 ml Magnesium Oxide (Magox 400 Tab*) 400 mg PO BID [facility] Last Admin: 04/29/17 09:49 Dose: 400 mg Omeprazole (Prilosec Cap*) 40 mg PO DAILY@0600 [facility] Last Admin: 04/29/17 04:56 Dose: 40 mg Ondansetron HCl (Zofran Inj*) 4 mg IV Q6H PRN PRN Reason: NAUSEA Rifaximin (Xifaxan*) 550 mg PO BID [facility] Last Admin: 04/29/17 09:44 Dose: 550 mg Spironolactone (Aldactone Tab*) 125 mg PO DAILY [facility] Last Admin: 04/29/17 09:49 Dose: 125 mg Thiamine HCl (Vitamin B-1 Tab*) 100 mg PO DAILY [facility] Last Admin: 04/29/17 09:50 Dose: 100 mg Vital Signs - 8 hr 04/29/17 04/29/17 07:33 08:00 Temperature 98.0 F Pulse Rate 96 Respiratory 16 16 Rate Blood Pressure 111/69 (mmHg) O2 Sat by Pulse 99 Oximetry Oxygen Devices in Use Now: None Eyes: No Scleral Icterus, PERRLA Ears/Nose/Mouth/Throat: Mucous Membranes Moist Neck: NL Appearance and Movements; NL JVP, Trachea Midline Respiratory: Symmetrical Chest Expansion and Respiratory Effort, - - diminished at the bases bilaterally, no wheeze noted Cardiovascular: RRR Abdominal: - - abdominal distension/ascites noted Extremities: No Edema, No Clubbing, Cyanosis, - Skin: - - wound right elbow, no drainage noted Neurological: - - alert to person and place Nutrition: Taking PO's Result Diagrams: 04/29/17 05:57 04/29/17 05:57 Additional Lab and Data: Lab Results 04/18/17 04/18/17 04/18/17 Range/Units 14:00 14:00 14:00 WBC 10.5 (3.5-10.8) 10^3/ul RBC 3.62 L (4.0-5.4) 10^6/ul Hgb 12.9 L (14.0-18.0) g/dl Hct 37 L (42-52) % MCV 102 H (80-94) fL MCH 36 H (27-31) pg MCHC 35 (31-36) g/dl RDW 18 H (10.5-15) % Plt Count 87 L (150-450) 10^3/ul MPV 8 (7.4-10.4) um3 Neut % (Auto) 75.0 (38-83) % Lymph % (Auto) 11.6 L (25-47) % [place] % (Auto) 12.0 H (1-9) % Eos % (Auto) 0.7 (0-6) % Baso % (Auto) 0.7 (0-2) % Absolute Neuts (auto) 7.9 H (1.5-7.7) 10^3/ul Absolute Lymphs (auto) 1.2 (1.0-4.8) 10^3/ul Absolute Monos (auto) 1.3 H (0-0.8) 10^3/ul Absolute Eos (auto) 0.1 (0-0.6) 10^3/ul Absolute Basos (auto) 0.1 (0-0.2) 10^3/ul Absolute Nucleated RBC 0 10^3/ul Nucleated RBC % 0.1 INR (Anticoag Therapy) (0.77-1.02) APTT (26.0-36.3) seconds Sodium 134 (133-145) mmol/L Potassium 4.8 (3.5-5.0) mmol/L Chloride 103 (101-111) mmol/L Carbon Dioxide 22 (22-32) mmol/L Anion Gap 9 (2-11) mmol/L BUN 47 H (6-24) mg/dL Creatinine 1.25 H (0.67-1.17) mg/dL Est GFR ( Amer) 76.6 (>60) Est GFR (Non-Af Amer) 59.5 (>60) BUN/Creatinine Ratio 37.6 H (8-20) Glucose 97 (70-100) mg/dL Lactic Acid (0.5-2.0) mmol/L Calcium 9.3 (8.6-10.3) mg/dL Magnesium 2.2 (1.9-2.7) mg/dL Total Bilirubin 8.60 H (0.2-1.0) mg/dL AST 172 H (13-39) U/L ALT 64 H (7-52) U/L Alkaline Phosphatase 82 (34-104) U/L Troponin I 0.01 (<0.04) ng/mL B-Natriuretic Peptide 42 ( - 100) pg/mL Total Protein 6.5 (6.4-8.9) g/dL Albumin 2.8 L (3.2-5.2) g/dL Globulin 3.7 (2-4) g/dL Albumin/Globulin Ratio 0.8 L (1-3) TSH 1.96 (0.34-5.60) mcIU/mL Urine Color Urine Appearance Urine pH (5-9) Ur Specific [place] (1.010-1.030) Urine Protein (Negative) Urine Ketones (Negative) Urine Blood (Negative) Urine Nitrate (Negative) Urine Bilirubin (Negative) Urine Urobilinogen (Negative) Ur Leukocyte Esterase (Negative) Urine Glucose (Negative) Urine Opiates Screen (None Detect) Ur Barbiturates Screen (None Detect) Ur Phencyclidine Scrn (None Detect) Ur Amphetamines Screen (None Detect) U Benzodiazepines Scrn (None Detect) Urine Cocaine Screen (None Detect) U Cannabinoids Screen (None Detect) Serum Alcohol < 10 (<10) mg/dL 04/18/17 04/18/17 04/18/17 Range/Units 14:00 14:00 14:37 WBC (3.5-10.8) 10^3/ul RBC (4.0-5.4) 10^6/ul Hgb (14.0-18.0) g/dl Hct (42-52) % MCV (80-94) fL MCH (27-31) pg MCHC (31-36) g/dl RDW (10.5-15) % Plt Count (150-450) 10^3/ul MPV (7.4-10.4) um3 Neut % (Auto) (38-83) % Lymph % (Auto) (25-47) % [place] % (Auto) (1-9) % Eos % (Auto) (0-6) % Baso % (Auto) (0-2) % Absolute Neuts (auto) (1.5-7.7) 10^3/ul Absolute Lymphs (auto) (1.0-4.8) 10^3/ul Absolute Monos (auto) (0-0.8) 10^3/ul Absolute Eos (auto) (0-0.6) 10^3/ul Absolute Basos (auto) (0-0.2) 10^3/ul Absolute Nucleated RBC 10^3/ul Nucleated RBC % INR (Anticoag Therapy) 1.62 H (0.77-1.02) APTT 38.6 H (26.0-36.3) seconds Sodium (133-145) mmol/L Potassium (3.5-5.0) mmol/L Chloride (101-111) mmol/L Carbon Dioxide (22-32) mmol/L Anion Gap (2-11) mmol/L BUN (6-24) mg/dL Creatinine (0.67-1.17) mg/dL Est GFR ( Amer) (>60) Est GFR (Non-Af Amer) (>60) BUN/Creatinine Ratio (8-20) Glucose (70-100) mg/dL Lactic Acid 3.5 H* (0.5-2.0) mmol/L Calcium (8.6-10.3) mg/dL Magnesium (1.9-2.7) mg/dL Total Bilirubin (0.2-1.0) mg/dL AST (13-39) U/L ALT (7-52) U/L Alkaline Phosphatase (34-104) U/L Troponin I (<0.04) ng/mL B-Natriuretic Peptide ( - 100) pg/mL Total Protein (6.4-8.9) g/dL Albumin (3.2-5.2) g/dL Globulin (2-4) g/dL Albumin/Globulin Ratio (1-3) TSH (0.34-5.60) mcIU/mL Urine Color Urine Appearance Urine pH (5-9) Ur Specific [place] (1.010-1.030) Urine Protein (Negative) Urine Ketones (Negative) Urine Blood (Negative) Urine Nitrate (Negative) Urine Bilirubin (Negative) Urine Urobilinogen (Negative) Ur Leukocyte Esterase (Negative) Urine Glucose (Negative) Urine Opiates Screen None detected (None Detect) Ur Barbiturates Screen None detected (None Detect) Ur Phencyclidine Scrn None detected (None Detect) Ur Amphetamines Screen None detected (None Detect) U Benzodiazepines Scrn None detected (None Detect) Urine Cocaine Screen None detected (None Detect) U Cannabinoids Screen None detected (None Detect) Serum Alcohol (<10) mg/dL 04/18/17 Range/Units 14:37 WBC (3.5-10.8) 10^3/ul RBC (4.0-5.4) 10^6/ul Hgb (14.0-18.0) g/dl Hct (42-52) % MCV (80-94) fL MCH (27-31) pg MCHC (31-36) g/dl RDW (10.5-15) % Plt Count (150-450) 10^3/ul MPV (7.4-10.4) um3 Neut % (Auto) (38-83) % Lymph % (Auto) (25-47) % [place] % (Auto) (1-9) % Eos % (Auto) (0-6) % Baso % (Auto) (0-2) % Absolute Neuts (auto) (1.5-7.7) 10^3/ul Absolute Lymphs (auto) (1.0-4.8) 10^3/ul Absolute Monos (auto) (0-0.8) 10^3/ul Absolute Eos (auto) (0-0.6) 10^3/ul Absolute Basos (auto) (0-0.2) 10^3/ul Absolute Nucleated RBC 10^3/ul Nucleated RBC % INR (Anticoag Therapy) (0.77-1.02) APTT (26.0-36.3) seconds Sodium (133-145) mmol/L Potassium (3.5-5.0) mmol/L Chloride (101-111) mmol/L Carbon Dioxide (22-32) mmol/L Anion Gap (2-11) mmol/L BUN (6-24) mg/dL Creatinine (0.67-1.17) mg/dL Est GFR ( Amer) (>60) Est GFR (Non-Af Amer) (>60) BUN/Creatinine Ratio (8-20) Glucose (70-100) mg/dL Lactic Acid (0.5-2.0) mmol/L Calcium (8.6-10.3) mg/dL Magnesium (1.9-2.7) mg/dL Total Bilirubin (0.2-1.0) mg/dL AST (13-39) U/L ALT (7-52) U/L Alkaline Phosphatase (34-104) U/L Troponin I (<0.04) ng/mL B-Natriuretic Peptide ( - 100) pg/mL Total Protein (6.4-8.9) g/dL Albumin (3.2-5.2) g/dL Globulin (2-4) g/dL Albumin/Globulin Ratio (1-3) TSH (0.34-5.60) mcIU/mL Urine Color Radha Urine Appearance Cloudy Urine pH 5.0 (5-9) Ur Specific [place] 1.030 (1.010-1.030) Urine Protein Negative (Negative) Urine Ketones Negative (Negative) Urine Blood Negative (Negative) Urine Nitrate Negative (Negative) Urine Bilirubin Negative (Negative) Urine Urobilinogen Positive H (Negative) Ur Leukocyte Esterase Negative (Negative) Urine Glucose Negative (Negative) Urine Opiates Screen (None Detect) Ur Barbiturates Screen (None Detect) Ur Phencyclidine Scrn (None Detect) Ur Amphetamines Screen (None Detect) U Benzodiazepines Scrn (None Detect) Urine Cocaine Screen (None Detect) U Cannabinoids Screen (None Detect) Serum Alcohol (<10) mg/dL Microbiology and Other Data: Microbiology 04/18/17 17:33 Influenza Types A,B Antigen (URSULA) - Final Nasal Specimen received for Influenza A/B Molecular testing Assess/Plan/Problems-Billing Assessment: This is a 56year old male with hx sig for hepatic encephalopathy, acute respiratory failure with intubation, extensive liver disease and hemochromatosis that has been admitted for increasing falls and confusion. - Patient Problems (1) Left elbow pain Code(s): M25.522 - PAIN IN LEFT ELBOW SNOMED Code(s): 95418507 Comment: - gouty arthritis with a component of cellulitis - ortho and ID consult appreciated - wound culture with staph epidermidis and clostridium perfringens and Uric acid ~ 3 - Continue Augmentin (2) Physical deconditioning Code(s): R53.81 - OTHER MALAISE SNOMED Code(s): 93087226568229 Comment: - Continue PT/OT (3) Pancytopenia Current Visit: Yes Status: Chronic Code(s): D61.818 - OTHER PANCYTOPENIA SNOMED Code(s): 029044007 Comment: Secondary to cirrhosis/portal HTN Stable (4) Altered mental status Current Visit: No Status: Acute Code(s): R41.82 - ALTERED MENTAL STATUS, UNSPECIFIED SNOMED Code(s): 393463390 Comment: - Improving, likely secondary to hepatic encephalopathy from medication non- adherence. - Ammonia level does not appear to be directly correlated with patient's mental status. - UA negative, no other acute pathology noted. CT brain negative. - Continue lactulose and rifaximin. - Psychiatry consult, Pt lacks capcity to decline NHP. (5) Cirrhosis Current Visit: No Status: Chronic Comment: Secondary to hemochromatosis and alcoholism Continue spironolactone. (6) Hepatic encephalopathy Code(s): K72.90 - HEPATIC FAILURE, UNSPECIFIED WITHOUT COMA SNOMED Code(s): 73643902 Comment: - Multifactorial with severe liver disease and recent intubation/hypoxia - some improvment noted but still encelopathic - Continue to treat ammonia, however patient refuses lactulose at home as per sister - Continue rifaximin and lactulose (7) Thrombocytopenia Code(s): D69.6 - THROMBOCYTOPENIA, UNSPECIFIED SNOMED Code(s): 233210249 Comment: - 2/2 liver disease - DC heparin today, high risk for bleeding - Monitor PLTs and coags (8) DVT prophylaxis Code(s): AAE9339 - SNOMED Code(s): 417003117 Comment: - SCD's only (9) GERD (gastroesophageal reflux disease) Code(s): K21.9 - GASTRO-ESOPHAGEAL REFLUX DISEASE WITHOUT ESOPHAGITIS SNOMED Code(s): 259212185 Comment: - Continue omeprazole. (10) Alcoholic liver disease Code(s): K70.9 - ALCOHOLIC LIVER DISEASE, UNSPECIFIED SNOMED Code(s): 47673720 Comment: - s/p TIPS, with advancing hepatic encephalopathy - Hospice consult appreciated - Psychiatric consult appreciated for capacity (11) Acute respiratory failure Code(s): J96.00 - ACUTE RESPIRATORY FAILURE, UNSP W HYPOXIA OR HYPERCAPNIA SNOMED Code(s): 66985325 Comment: - Resolved and extubated 04/24/17 - Likely 2/2 encephalopathy Status and Disposition: Patient with previous history of being found to lack capacity to manage safe discharge plan and options as evidenced by recurrent readmissions and medication non-adherence. Condition is worsening. Palliative/hospice consult appreciated as well as psychiatric. Patient does not have capacity to sign himself into home hospice, although he is hospice appropriate. Discussed extensively with his sister/FREDDY Mane on the phone today. She will discuss with her brothers and likely they will sign him on to hospice care but the family needs to determine level of care and support needed. Will defer to hospice team for additional recs. Counseling and/or Coordination of Care Minutes: Time spent 60mins.
[2017-04-30] MEDS: Omeprazole CAP* 20 MG PO SCH (05:28)
[2017-04-30] MEDS: Thiamine TAB* 100 MG TAB PO SCH (09:26)
[2017-04-30] MEDS: RiFAXimin* 550 MG TAB PO SCH ×2 (09:26→21:03)
[2017-04-30] MEDS: Spironolactone TAB* 25 MG PO SCH (09:26)
[2017-04-30] MEDS: Folic Acid TAB* 1 MG PO SCH (09:26)
[2017-04-30] MEDS: Magnesium Oxide TAB* 400 MG PO SCH ×2 (09:27→21:03)
--- NOTE | 2017-04-30 12:31 | PN ---
Subjective Date of Service: 04/30/17 Interval History: Patient seen and examined. No acute overnight events. Patient remains intermittently confused but appropriate. No complaints today. Denies headache fever or chills, no chest pain, no SOB. Family History: Unchanged from Admission Social History: Unchanged from Admission Past Medical History: Unchanged from Admission Objective Active Medications: Folic Acid (Folvite Tab*) 0.5 mg PO DAILY [facility] Last Admin: 04/30/17 09:26 Dose: 0.5 mg Lactulose (Lactulose*) 30 ml PO Q6H [facility] Last Admin: 04/30/17 09:27 Dose: 30 ml Magnesium Oxide (Magox 400 Tab*) 400 mg PO BID [facility] Last Admin: 04/30/17 09:27 Dose: 400 mg Omeprazole (Prilosec Cap*) 40 mg PO DAILY@0600 [facility] Last Admin: 04/30/17 05:28 Dose: 40 mg Ondansetron HCl (Zofran Inj*) 4 mg IV Q6H PRN PRN Reason: NAUSEA Rifaximin (Xifaxan*) 550 mg PO BID [facility] Last Admin: 04/30/17 09:26 Dose: 550 mg Spironolactone (Aldactone Tab*) 125 mg PO DAILY [facility] Last Admin: 04/30/17 09:26 Dose: 125 mg Thiamine HCl (Vitamin B-1 Tab*) 100 mg PO DAILY [facility] Last Admin: 04/30/17 09:26 Dose: 100 mg Oxygen Devices in Use Now: None Appearance: Alert, NAD Eyes: No Scleral Icterus, PERRLA Ears/Nose/Mouth/Throat: Mucous Membranes Moist Neck: NL Appearance and Movements; NL JVP, Trachea Midline Respiratory: Symmetrical Chest Expansion and Respiratory Effort - diminished bases Cardiovascular: NL Sounds; No Murmurs; No JVD, RRR, No Edema Abdominal: - - abdominal ascites Extremities: No Edema, No Clubbing, Cyanosis Skin: - - right elbow wound, dry bed Neurological: NL Gait, - - A&Ox2 Nutrition: Taking PO's Result Diagrams: 04/29/17 05:57 04/29/17 05:57 Additional Lab and Data: Lab Results 04/18/17 04/18/17 04/18/17 Range/Units 14:00 14:00 14:00 WBC 10.5 (3.5-10.8) 10^3/ul RBC 3.62 L (4.0-5.4) 10^6/ul Hgb 12.9 L (14.0-18.0) g/dl Hct 37 L (42-52) % MCV 102 H (80-94) fL MCH 36 H (27-31) pg MCHC 35 (31-36) g/dl RDW 18 H (10.5-15) % Plt Count 87 L (150-450) 10^3/ul MPV 8 (7.4-10.4) um3 Neut % (Auto) 75.0 (38-83) % Lymph % (Auto) 11.6 L (25-47) % [place] % (Auto) 12.0 H (1-9) % Eos % (Auto) 0.7 (0-6) % Baso % (Auto) 0.7 (0-2) % Absolute Neuts (auto) 7.9 H (1.5-7.7) 10^3/ul Absolute Lymphs (auto) 1.2 (1.0-4.8) 10^3/ul Absolute Monos (auto) 1.3 H (0-0.8) 10^3/ul Absolute Eos (auto) 0.1 (0-0.6) 10^3/ul Absolute Basos (auto) 0.1 (0-0.2) 10^3/ul Absolute Nucleated RBC 0 10^3/ul Nucleated RBC % 0.1 INR (Anticoag Therapy) (0.77-1.02) APTT (26.0-36.3) seconds Sodium 134 (133-145) mmol/L Potassium 4.8 (3.5-5.0) mmol/L Chloride 103 (101-111) mmol/L Carbon Dioxide 22 (22-32) mmol/L Anion Gap 9 (2-11) mmol/L BUN 47 H (6-24) mg/dL Creatinine 1.25 H (0.67-1.17) mg/dL Est GFR ( Amer) 76.6 (>60) Est GFR (Non-Af Amer) 59.5 (>60) BUN/Creatinine Ratio 37.6 H (8-20) Glucose 97 (70-100) mg/dL Lactic Acid (0.5-2.0) mmol/L Calcium 9.3 (8.6-10.3) mg/dL Magnesium 2.2 (1.9-2.7) mg/dL Total Bilirubin 8.60 H (0.2-1.0) mg/dL AST 172 H (13-39) U/L ALT 64 H (7-52) U/L Alkaline Phosphatase 82 (34-104) U/L Troponin I 0.01 (<0.04) ng/mL B-Natriuretic Peptide 42 ( - 100) pg/mL Total Protein 6.5 (6.4-8.9) g/dL Albumin 2.8 L (3.2-5.2) g/dL Globulin 3.7 (2-4) g/dL Albumin/Globulin Ratio 0.8 L (1-3) TSH 1.96 (0.34-5.60) mcIU/mL Urine Color Urine Appearance Urine pH (5-9) Ur Specific [place] (1.010-1.030) Urine Protein (Negative) Urine Ketones (Negative) Urine Blood (Negative) Urine Nitrate (Negative) Urine Bilirubin (Negative) Urine Urobilinogen (Negative) Ur Leukocyte Esterase (Negative) Urine Glucose (Negative) Urine Opiates Screen (None Detect) Ur Barbiturates Screen (None Detect) Ur Phencyclidine Scrn (None Detect) Ur Amphetamines Screen (None Detect) U Benzodiazepines Scrn (None Detect) Urine Cocaine Screen (None Detect) U Cannabinoids Screen (None Detect) Serum Alcohol < 10 (<10) mg/dL 04/18/17 04/18/17 04/18/17 Range/Units 14:00 14:00 14:37 WBC (3.5-10.8) 10^3/ul RBC (4.0-5.4) 10^6/ul Hgb (14.0-18.0) g/dl Hct (42-52) % MCV (80-94) fL MCH (27-31) pg MCHC (31-36) g/dl RDW (10.5-15) % Plt Count (150-450) 10^3/ul MPV (7.4-10.4) um3 Neut % (Auto) (38-83) % Lymph % (Auto) (25-47) % [place] % (Auto) (1-9) % Eos % (Auto) (0-6) % Baso % (Auto) (0-2) % Absolute Neuts (auto) (1.5-7.7) 10^3/ul Absolute Lymphs (auto) (1.0-4.8) 10^3/ul Absolute Monos (auto) (0-0.8) 10^3/ul Absolute Eos (auto) (0-0.6) 10^3/ul Absolute Basos (auto) (0-0.2) 10^3/ul Absolute Nucleated RBC 10^3/ul Nucleated RBC % INR (Anticoag Therapy) 1.62 H (0.77-1.02) APTT 38.6 H (26.0-36.3) seconds Sodium (133-145) mmol/L Potassium (3.5-5.0) mmol/L Chloride (101-111) mmol/L Carbon Dioxide (22-32) mmol/L Anion Gap (2-11) mmol/L BUN (6-24) mg/dL Creatinine (0.67-1.17) mg/dL Est GFR ( Amer) (>60) Est GFR (Non-Af Amer) (>60) BUN/Creatinine Ratio (8-20) Glucose (70-100) mg/dL Lactic Acid 3.5 H* (0.5-2.0) mmol/L Calcium (8.6-10.3) mg/dL Magnesium (1.9-2.7) mg/dL Total Bilirubin (0.2-1.0) mg/dL AST (13-39) U/L ALT (7-52) U/L Alkaline Phosphatase (34-104) U/L Troponin I (<0.04) ng/mL B-Natriuretic Peptide ( - 100) pg/mL Total Protein (6.4-8.9) g/dL Albumin (3.2-5.2) g/dL Globulin (2-4) g/dL Albumin/Globulin Ratio (1-3) TSH (0.34-5.60) mcIU/mL Urine Color Urine Appearance Urine pH (5-9) Ur Specific [place] (1.010-1.030) Urine Protein (Negative) Urine Ketones (Negative) Urine Blood (Negative) Urine Nitrate (Negative) Urine Bilirubin (Negative) Urine Urobilinogen (Negative) Ur Leukocyte Esterase (Negative) Urine Glucose (Negative) Urine Opiates Screen None detected (None Detect) Ur Barbiturates Screen None detected (None Detect) Ur Phencyclidine Scrn None detected (None Detect) Ur Amphetamines Screen None detected (None Detect) U Benzodiazepines Scrn None detected (None Detect) Urine Cocaine Screen None detected (None Detect) U Cannabinoids Screen None detected (None Detect) Serum Alcohol (<10) mg/dL 04/18/17 Range/Units 14:37 WBC (3.5-10.8) 10^3/ul RBC (4.0-5.4) 10^6/ul Hgb (14.0-18.0) g/dl Hct (42-52) % MCV (80-94) fL MCH (27-31) pg MCHC (31-36) g/dl RDW (10.5-15) % Plt Count (150-450) 10^3/ul MPV (7.4-10.4) um3 Neut % (Auto) (38-83) % Lymph % (Auto) (25-47) % [place] % (Auto) (1-9) % Eos % (Auto) (0-6) % Baso % (Auto) (0-2) % Absolute Neuts (auto) (1.5-7.7) 10^3/ul Absolute Lymphs (auto) (1.0-4.8) 10^3/ul Absolute Monos (auto) (0-0.8) 10^3/ul Absolute Eos (auto) (0-0.6) 10^3/ul Absolute Basos (auto) (0-0.2) 10^3/ul Absolute Nucleated RBC 10^3/ul Nucleated RBC % INR (Anticoag Therapy) (0.77-1.02) APTT (26.0-36.3) seconds Sodium (133-145) mmol/L Potassium (3.5-5.0) mmol/L Chloride (101-111) mmol/L Carbon Dioxide (22-32) mmol/L Anion Gap (2-11) mmol/L BUN (6-24) mg/dL Creatinine (0.67-1.17) mg/dL Est GFR ( Amer) (>60) Est GFR (Non-Af Amer) (>60) BUN/Creatinine Ratio (8-20) Glucose (70-100) mg/dL Lactic Acid (0.5-2.0) mmol/L Calcium (8.6-10.3) mg/dL Magnesium (1.9-2.7) mg/dL Total Bilirubin (0.2-1.0) mg/dL AST (13-39) U/L ALT (7-52) U/L Alkaline Phosphatase (34-104) U/L Troponin I (<0.04) ng/mL B-Natriuretic Peptide ( - 100) pg/mL Total Protein (6.4-8.9) g/dL Albumin (3.2-5.2) g/dL Globulin (2-4) g/dL Albumin/Globulin Ratio (1-3) TSH (0.34-5.60) mcIU/mL Urine Color Radha Urine Appearance Cloudy Urine pH 5.0 (5-9) Ur Specific [place] 1.030 (1.010-1.030) Urine Protein Negative (Negative) Urine Ketones Negative (Negative) Urine Blood Negative (Negative) Urine Nitrate Negative (Negative) Urine Bilirubin Negative (Negative) Urine Urobilinogen Positive H (Negative) Ur Leukocyte Esterase Negative (Negative) Urine Glucose Negative (Negative) Urine Opiates Screen (None Detect) Ur Barbiturates Screen (None Detect) Ur Phencyclidine Scrn (None Detect) Ur Amphetamines Screen (None Detect) U Benzodiazepines Scrn (None Detect) Urine Cocaine Screen (None Detect) U Cannabinoids Screen (None Detect) Serum Alcohol (<10) mg/dL Microbiology and Other Data: Microbiology 04/18/17 17:33 Influenza Types A,B Antigen (URSULA) - Final Nasal Specimen received for Influenza A/B Molecular testing Assess/Plan/Problems-Billing Assessment: This is a 56year old male with hx sig for hepatic encephalopathy, acute respiratory failure with intubation, extensive liver disease and hemochromatosis that has been admitted for increasing falls and confusion. - Patient Problems (1) Left elbow pain Code(s): M25.522 - PAIN IN LEFT ELBOW SNOMED Code(s): 64720065 Comment: - gouty arthritis with a component of cellulitis - ortho and ID consult appreciated - wound culture with staph epidermidis and clostridium perfringens and Uric acid ~ 3 - Continue Augmentin (2) Physical deconditioning Code(s): R53.81 - OTHER MALAISE SNOMED Code(s): 78598852494477 Comment: - Continue PT/OT (3) Pancytopenia Current Visit: Yes Status: Chronic Code(s): D61.818 - OTHER PANCYTOPENIA SNOMED Code(s): 193383646 Comment: Secondary to cirrhosis/portal HTN Stable (4) Altered mental status Current Visit: No Status: Acute Code(s): R41.82 - ALTERED MENTAL STATUS, UNSPECIFIED SNOMED Code(s): 582419076 Comment: - Wax and wane 2/2 to hepatic encephalopathy - Ammonia level does not appear to be directly correlated with patient's mental status. - UA negative, no other acute pathology noted. CT brain negative. - Continue lactulose and rifaximin. (5) Cirrhosis Current Visit: No Status: Chronic Comment: - Secondary to hemochromatosis and alcoholism - Continue spironolactone. (6) Hepatic encephalopathy Code(s): K72.90 - HEPATIC FAILURE, UNSPECIFIED WITHOUT COMA SNOMED Code(s): 08421433 Comment: - Multifactorial with severe liver disease and recent intubation/hypoxia - some improvment noted but still encelopathic - Continue to treat ammonia, however patient refuses lactulose at home as per sister - Continue rifaximin and lactulose (7) Thrombocytopenia Code(s): D69.6 - THROMBOCYTOPENIA, UNSPECIFIED SNOMED Code(s): 806096240 Comment: - 2/2 liver disease - DC heparin today, high risk for bleeding - Monitor PLTs and coags (8) DVT prophylaxis Code(s): HPY1097 - SNOMED Code(s): 397876284 Comment: - SCD's only (9) GERD (gastroesophageal reflux disease) Code(s): K21.9 - GASTRO-ESOPHAGEAL REFLUX DISEASE WITHOUT ESOPHAGITIS SNOMED Code(s): 041691271 Comment: - Continue omeprazole. (10) Alcoholic liver disease Code(s): K70.9 - ALCOHOLIC LIVER DISEASE, UNSPECIFIED SNOMED Code(s): 16669740 Comment: - s/p TIPS, with advancing hepatic encephalopathy - Hospice consult appreciated - Psychiatric consult appreciated for capacity (11) Acute respiratory failure Code(s): J96.00 - ACUTE RESPIRATORY FAILURE, UNSP W HYPOXIA OR HYPERCAPNIA SNOMED Code(s): 43007629 Comment: - Resolved and extubated 04/24/17 - Likely 2/2 encephalopathy Status and Disposition: Patient with previous history of being found to lack capacity to manage safe discharge plan and options as evidenced by recurrent readmissions and medication non-adherence. Condition is worsening. Discussed with Palliative and CM today - they have also reached out to family for plan. May DC to the Residence vs. Home Hospice depending on finances and necessary support. Counseling and/or Coordination of Care Minutes: coordinated with staff
[2017-05-01] MEDS: Omeprazole CAP* 20 MG PO SCH (05:09)
[2017-05-01] MEDS: Folic Acid TAB* 1 MG PO SCH (08:49)
[2017-05-01] MEDS: Magnesium Oxide TAB* 400 MG PO SCH ×2 (08:49→21:54)
[2017-05-01] MEDS: Spironolactone TAB* 25 MG PO SCH (08:49)
[2017-05-01] MEDS: Thiamine TAB* 100 MG TAB PO SCH (08:49)
[2017-05-01] MEDS: RiFAXimin* 550 MG TAB PO SCH ×2 (08:49→21:54)
--- NOTE | 2017-05-01 19:31 | PN ---
Subjective Date of Service: 05/01/17 Interval History: Patient seen and and examined. No acute distress. Feeling well, no complaints. Appropriate mood today. answering questions appropriately. Family History: Unchanged from Admission Social History: Unchanged from Admission Past Medical History: Unchanged from Admission Objective Active Medications: Folic Acid (Folvite Tab*) 0.5 mg PO DAILY [facility] Last Admin: 05/01/17 08:49 Dose: 0.5 mg Lactulose (Lactulose*) 30 ml PO Q6H [facility] Last Admin: 05/01/17 16:22 Dose: 30 ml Magnesium Oxide (Magox 400 Tab*) 400 mg PO BID [facility] Last Admin: 05/01/17 08:49 Dose: 400 mg Omeprazole (Prilosec Cap*) 40 mg PO DAILY@0600 [facility] Last Admin: 05/01/17 05:09 Dose: 40 mg Ondansetron HCl (Zofran Inj*) 4 mg IV Q6H PRN PRN Reason: NAUSEA Rifaximin (Xifaxan*) 550 mg PO BID [facility] Last Admin: 05/01/17 08:49 Dose: 550 mg Spironolactone (Aldactone Tab*) 125 mg PO DAILY [facility] Last Admin: 05/01/17 08:49 Dose: 125 mg Thiamine HCl (Vitamin B-1 Tab*) 100 mg PO DAILY [facility] Last Admin: 05/01/17 08:49 Dose: 100 mg Vital Signs - 8 hr 05/01/17 15:53 Temperature 98.1 F Pulse Rate 97 Respiratory 16 Rate Blood Pressure 129/67 (mmHg) O2 Sat by Pulse 100 Oximetry Oxygen Devices in Use Now: None Appearance: Alert, NAD Ears/Nose/Mouth/Throat: NL Teeth, Lips, Gums, Mucous Membranes Moist Neck: Trachea Midline Respiratory: Symmetrical Chest Expansion and Respiratory Effort, Clear to Auscultation Cardiovascular: NL Sounds; No Murmurs; No JVD, RRR Abdominal: NL Sounds; No Tenderness; No Distention, - - ascites, stable Extremities: No Edema, No Clubbing, Cyanosis Skin: - - right elbow wound, improving Neurological: Alert and Oriented x 3, - Nutrition: Taking PO's Result Diagrams: 04/29/17 05:57 04/29/17 05:57 Additional Lab and Data: Lab Results 04/18/17 04/18/17 04/18/17 Range/Units 14:00 14:00 14:00 WBC 10.5 (3.5-10.8) 10^3/ul RBC 3.62 L (4.0-5.4) 10^6/ul Hgb 12.9 L (14.0-18.0) g/dl Hct 37 L (42-52) % MCV 102 H (80-94) fL MCH 36 H (27-31) pg MCHC 35 (31-36) g/dl RDW 18 H (10.5-15) % Plt Count 87 L (150-450) 10^3/ul MPV 8 (7.4-10.4) um3 Neut % (Auto) 75.0 (38-83) % Lymph % (Auto) 11.6 L (25-47) % Lassen % (Auto) 12.0 H (1-9) % Eos % (Auto) 0.7 (0-6) % Baso % (Auto) 0.7 (0-2) % Absolute Neuts (auto) 7.9 H (1.5-7.7) 10^3/ul Absolute Lymphs (auto) 1.2 (1.0-4.8) 10^3/ul Absolute Monos (auto) 1.3 H (0-0.8) 10^3/ul Absolute Eos (auto) 0.1 (0-0.6) 10^3/ul Absolute Basos (auto) 0.1 (0-0.2) 10^3/ul Absolute Nucleated RBC 0 10^3/ul Nucleated RBC % 0.1 INR (Anticoag Therapy) (0.77-1.02) APTT (26.0-36.3) seconds Sodium 134 (133-145) mmol/L Potassium 4.8 (3.5-5.0) mmol/L Chloride 103 (101-111) mmol/L Carbon Dioxide 22 (22-32) mmol/L Anion Gap 9 (2-11) mmol/L BUN 47 H (6-24) mg/dL Creatinine 1.25 H (0.67-1.17) mg/dL Est GFR ( Amer) 76.6 (>60) Est GFR (Non-Af Amer) 59.5 (>60) BUN/Creatinine Ratio 37.6 H (8-20) Glucose 97 (70-100) mg/dL Lactic Acid (0.5-2.0) mmol/L Calcium 9.3 (8.6-10.3) mg/dL Magnesium 2.2 (1.9-2.7) mg/dL Total Bilirubin 8.60 H (0.2-1.0) mg/dL AST 172 H (13-39) U/L ALT 64 H (7-52) U/L Alkaline Phosphatase 82 (34-104) U/L Troponin I 0.01 (<0.04) ng/mL B-Natriuretic Peptide 42 ( - 100) pg/mL Total Protein 6.5 (6.4-8.9) g/dL Albumin 2.8 L (3.2-5.2) g/dL Globulin 3.7 (2-4) g/dL Albumin/Globulin Ratio 0.8 L (1-3) TSH 1.96 (0.34-5.60) mcIU/mL Urine Color Urine Appearance Urine pH (5-9) Ur Specific [place] (1.010-1.030) Urine Protein (Negative) Urine Ketones (Negative) Urine Blood (Negative) Urine Nitrate (Negative) Urine Bilirubin (Negative) Urine Urobilinogen (Negative) Ur Leukocyte Esterase (Negative) Urine Glucose (Negative) Urine Opiates Screen (None Detect) Ur Barbiturates Screen (None Detect) Ur Phencyclidine Scrn (None Detect) Ur Amphetamines Screen (None Detect) U Benzodiazepines Scrn (None Detect) Urine Cocaine Screen (None Detect) U Cannabinoids Screen (None Detect) Serum Alcohol < 10 (<10) mg/dL 04/18/17 04/18/17 04/18/17 Range/Units 14:00 14:00 14:37 WBC (3.5-10.8) 10^3/ul RBC (4.0-5.4) 10^6/ul Hgb (14.0-18.0) g/dl Hct (42-52) % MCV (80-94) fL MCH (27-31) pg MCHC (31-36) g/dl RDW (10.5-15) % Plt Count (150-450) 10^3/ul MPV (7.4-10.4) um3 Neut % (Auto) (38-83) % Lymph % (Auto) (25-47) % Lassen % (Auto) (1-9) % Eos % (Auto) (0-6) % Baso % (Auto) (0-2) % Absolute Neuts (auto) (1.5-7.7) 10^3/ul Absolute Lymphs (auto) (1.0-4.8) 10^3/ul Absolute Monos (auto) (0-0.8) 10^3/ul Absolute Eos (auto) (0-0.6) 10^3/ul Absolute Basos (auto) (0-0.2) 10^3/ul Absolute Nucleated RBC 10^3/ul Nucleated RBC % INR (Anticoag Therapy) 1.62 H (0.77-1.02) APTT 38.6 H (26.0-36.3) seconds Sodium (133-145) mmol/L Potassium (3.5-5.0) mmol/L Chloride (101-111) mmol/L Carbon Dioxide (22-32) mmol/L Anion Gap (2-11) mmol/L BUN (6-24) mg/dL Creatinine (0.67-1.17) mg/dL Est GFR ( Amer) (>60) Est GFR (Non-Af Amer) (>60) BUN/Creatinine Ratio (8-20) Glucose (70-100) mg/dL Lactic Acid 3.5 H* (0.5-2.0) mmol/L Calcium (8.6-10.3) mg/dL Magnesium (1.9-2.7) mg/dL Total Bilirubin (0.2-1.0) mg/dL AST (13-39) U/L ALT (7-52) U/L Alkaline Phosphatase (34-104) U/L Troponin I (<0.04) ng/mL B-Natriuretic Peptide ( - 100) pg/mL Total Protein (6.4-8.9) g/dL Albumin (3.2-5.2) g/dL Globulin (2-4) g/dL Albumin/Globulin Ratio (1-3) TSH (0.34-5.60) mcIU/mL Urine Color Urine Appearance Urine pH (5-9) Ur Specific [place] (1.010-1.030) Urine Protein (Negative) Urine Ketones (Negative) Urine Blood (Negative) Urine Nitrate (Negative) Urine Bilirubin (Negative) Urine Urobilinogen (Negative) Ur Leukocyte Esterase (Negative) Urine Glucose (Negative) Urine Opiates Screen None detected (None Detect) Ur Barbiturates Screen None detected (None Detect) Ur Phencyclidine Scrn None detected (None Detect) Ur Amphetamines Screen None detected (None Detect) U Benzodiazepines Scrn None detected (None Detect) Urine Cocaine Screen None detected (None Detect) U Cannabinoids Screen None detected (None Detect) Serum Alcohol (<10) mg/dL 04/18/17 Range/Units 14:37 WBC (3.5-10.8) 10^3/ul RBC (4.0-5.4) 10^6/ul Hgb (14.0-18.0) g/dl Hct (42-52) % MCV (80-94) fL MCH (27-31) pg MCHC (31-36) g/dl RDW (10.5-15) % Plt Count (150-450) 10^3/ul MPV (7.4-10.4) um3 Neut % (Auto) (38-83) % Lymph % (Auto) (25-47) % Lassen % (Auto) (1-9) % Eos % (Auto) (0-6) % Baso % (Auto) (0-2) % Absolute Neuts (auto) (1.5-7.7) 10^3/ul Absolute Lymphs (auto) (1.0-4.8) 10^3/ul Absolute Monos (auto) (0-0.8) 10^3/ul Absolute Eos (auto) (0-0.6) 10^3/ul Absolute Basos (auto) (0-0.2) 10^3/ul Absolute Nucleated RBC 10^3/ul Nucleated RBC % INR (Anticoag Therapy) (0.77-1.02) APTT (26.0-36.3) seconds Sodium (133-145) mmol/L Potassium (3.5-5.0) mmol/L Chloride (101-111) mmol/L Carbon Dioxide (22-32) mmol/L Anion Gap (2-11) mmol/L BUN (6-24) mg/dL Creatinine (0.67-1.17) mg/dL Est GFR ( Amer) (>60) Est GFR (Non-Af Amer) (>60) BUN/Creatinine Ratio (8-20) Glucose (70-100) mg/dL Lactic Acid (0.5-2.0) mmol/L Calcium (8.6-10.3) mg/dL Magnesium (1.9-2.7) mg/dL Total Bilirubin (0.2-1.0) mg/dL AST (13-39) U/L ALT (7-52) U/L Alkaline Phosphatase (34-104) U/L Troponin I (<0.04) ng/mL B-Natriuretic Peptide ( - 100) pg/mL Total Protein (6.4-8.9) g/dL Albumin (3.2-5.2) g/dL Globulin (2-4) g/dL Albumin/Globulin Ratio (1-3) TSH (0.34-5.60) mcIU/mL Urine Color Radha Urine Appearance Cloudy Urine pH 5.0 (5-9) Ur Specific [place] 1.030 (1.010-1.030) Urine Protein Negative (Negative) Urine Ketones Negative (Negative) Urine Blood Negative (Negative) Urine Nitrate Negative (Negative) Urine Bilirubin Negative (Negative) Urine Urobilinogen Positive H (Negative) Ur Leukocyte Esterase Negative (Negative) Urine Glucose Negative (Negative) Urine Opiates Screen (None Detect) Ur Barbiturates Screen (None Detect) Ur Phencyclidine Scrn (None Detect) Ur Amphetamines Screen (None Detect) U Benzodiazepines Scrn (None Detect) Urine Cocaine Screen (None Detect) U Cannabinoids Screen (None Detect) Serum Alcohol (<10) mg/dL Microbiology and Other Data: Microbiology 04/18/17 17:33 Influenza Types A,B Antigen (URSULA) - Final Nasal Specimen received for Influenza A/B Molecular testing Assess/Plan/Problems-Billing Assessment: This is a 56year old male with hx sig for hepatic encephalopathy, acute respiratory failure with intubation, extensive liver disease and hemochromatosis that has been admitted for increasing falls and confusion, now improved. - Patient Problems (1) Left elbow pain Code(s): M25.522 - PAIN IN LEFT ELBOW SNOMED Code(s): 74730876 Comment: - gouty arthritis with a component of cellulitis, improved - ortho and ID consult appreciated, stable - wound culture with staph epidermidis and clostridium perfringens and Uric acid ~ 3 - Continue Augmentin, stable (2) Physical deconditioning Code(s): R53.81 - OTHER MALAISE SNOMED Code(s): 66447892243085 Comment: - Continue PT/OT, improving (3) Pancytopenia Current Visit: Yes Status: Chronic Code(s): D61.818 - OTHER PANCYTOPENIA SNOMED Code(s): 552935835 Comment: Secondary to cirrhosis/portal HTN Stable (4) Altered mental status Current Visit: No Status: Acute Code(s): R41.82 - ALTERED MENTAL STATUS, UNSPECIFIED SNOMED Code(s): 021272751 Comment: - Wax and wane 2/2 to hepatic encephalopathy, but marked improvement last 48 hours - Continue lactulose and rifaximin. (5) Cirrhosis Current Visit: No Status: Chronic Comment: - Secondary to hemochromatosis and alcoholism - Continue spironolactone. (6) Hepatic encephalopathy Code(s): K72.90 - HEPATIC FAILURE, UNSPECIFIED WITHOUT COMA SNOMED Code(s): 18374255 Comment: - Multifactorial with severe liver disease and recent intubation/hypoxia - some improvment noted but still encelopathic - Continue rifaximin and lactulose (7) Thrombocytopenia Code(s): D69.6 - THROMBOCYTOPENIA, UNSPECIFIED SNOMED Code(s): 418861128 Comment: - 2/2 liver disease - No s/s bleeding (8) DVT prophylaxis Code(s): BCS2206 - SNOMED Code(s): 318277406 Comment: - SCD's only (9) GERD (gastroesophageal reflux disease) Code(s): K21.9 - GASTRO-ESOPHAGEAL REFLUX DISEASE WITHOUT ESOPHAGITIS SNOMED Code(s): 451183106 Comment: - Continue omeprazole. (10) Alcoholic liver disease Code(s): K70.9 - ALCOHOLIC LIVER DISEASE, UNSPECIFIED SNOMED Code(s): 39122972 Comment: - s/p TIPS, with advancing hepatic encephalopathy - Will be transitioned to hospice at [place] - Does not have capacity per psych (11) Acute respiratory failure Code(s): J96.00 - ACUTE RESPIRATORY FAILURE, UNSP W HYPOXIA OR HYPERCAPNIA SNOMED Code(s): 92661040 Comment: - Resolved and extubated 04/24/17 - Likely 2/2 encephalopathy Status and Disposition: Patient with previous history of being found to lack capacity to manage safe discharge plan and options as evidenced by recurrent readmissions and medication non-adherence. Condition is worsening. [facility] and discharge to the [facility]idence on saturday for hospice. Counseling and/or Coordination of Care Minutes: coordinated with staff
[2017-05-02] MEDS: Omeprazole CAP* 20 MG PO SCH (05:34)
[2017-05-02] MEDS: RiFAXimin* 550 MG TAB PO SCH ×2 (09:20→21:07)
[2017-05-02] MEDS: Spironolactone TAB* 25 MG PO SCH (09:20)
[2017-05-02] MEDS: Folic Acid TAB* 1 MG PO SCH (09:21)
[2017-05-02] MEDS: Magnesium Oxide TAB* 400 MG PO SCH ×2 (09:21→21:07)
[2017-05-02] MEDS: Thiamine TAB* 100 MG TAB PO SCH (09:21)
--- NOTE | 2017-05-02 12:42 | PN ---
Subjective Date of Service: 05/02/17 Interval History: Patient seen and examined. No acute changes overnight. No complaints today. Pending transfer to The [facility] tomorrow. No pain, no n/v, mildly confused at times but appropriate. Family History: Unchanged from Admission Social History: Unchanged from Admission Past Medical History: Unchanged from Admission Objective Active Medications: Folic Acid (Folvite Tab*) 0.5 mg PO DAILY [facility] Last Admin: 05/02/17 09:21 Dose: 0.5 mg Lactulose (Lactulose*) 30 ml PO Q6H [facility] Last Admin: 05/02/17 09:20 Dose: 30 ml Magnesium Oxide (Magox 400 Tab*) 400 mg PO BID [facility] Last Admin: 05/02/17 09:21 Dose: 400 mg Omeprazole (Prilosec Cap*) 40 mg PO DAILY@0600 [facility] Last Admin: 05/02/17 05:34 Dose: 40 mg Ondansetron HCl (Zofran Inj*) 4 mg IV Q6H PRN PRN Reason: NAUSEA Rifaximin (Xifaxan*) 550 mg PO BID [facility] Last Admin: 05/02/17 09:20 Dose: 550 mg Spironolactone (Aldactone Tab*) 125 mg PO DAILY [facility] Last Admin: 05/02/17 09:20 Dose: 125 mg Thiamine HCl (Vitamin B-1 Tab*) 100 mg PO DAILY [facility] Last Admin: 05/02/17 09:21 Dose: 100 mg Vital Signs - 8 hr 05/02/17 05/02/17 07:33 09:31 Temperature 97.9 F Pulse Rate 84 Respiratory 18 18 Rate Blood Pressure 109/59 (mmHg) O2 Sat by Pulse 97 Oximetry Oxygen Devices in Use Now: None Appearance: Resting comfortably Ears/Nose/Mouth/Throat: NL Teeth, Lips, Gums, Mucous Membranes Moist Neck: NL Appearance and Movements; NL JVP Respiratory: Symmetrical Chest Expansion and Respiratory Effort, Clear to Auscultation Cardiovascular: NL Sounds; No Murmurs; No JVD Abdominal: NL Sounds; No Tenderness; No Distention, - - ascites at baseline Extremities: No Edema, No Clubbing, Cyanosis Skin: - - left elbow wound improving Neurological: Alert and Oriented x 3 Nutrition: Taking PO's Result Diagrams: 04/29/17 05:57 04/29/17 05:57 Assess/Plan/Problems-Billing Assessment: This is a 56year old male with hx sig for hepatic encephalopathy, acute respiratory failure with intubation, extensive liver disease and hemochromatosis that has been admitted for increasing falls and confusion, now improved and being discharge to the [facility]idence for hospice/palliative care. - Patient Problems (1) Left elbow pain Code(s): M25.522 - PAIN IN LEFT ELBOW SNOMED Code(s): 03689929 Comment: - gouty arthritis with a component of cellulitis, now resolved, - Completed augmentin - wound culture with staph epidermidis and clostridium perfringens and Uric acid ~ 3 (2) Physical deconditioning Code(s): R53.81 - OTHER MALAISE SNOMED Code(s): 08069555265314 Comment: - Continue PT/OT, improving (3) Pancytopenia Current Visit: Yes Status: Chronic Code(s): D61.818 - OTHER PANCYTOPENIA SNOMED Code(s): 193981050 Comment: Secondary to cirrhosis/portal HTN Stable (4) Altered mental status Current Visit: No Status: Acute Code(s): R41.82 - ALTERED MENTAL STATUS, UNSPECIFIED SNOMED Code(s): 984985289 Comment: - Wax and wane 2/2 to hepatic encephalopathy, but marked improvement continues - Continue lactulose and rifaximin - Baseline stable today (5) Cirrhosis Current Visit: No Status: Chronic Comment: - Secondary to hemochromatosis and alcoholism - Continue spironolactone. (6) Hepatic encephalopathy Code(s): K72.90 - HEPATIC FAILURE, UNSPECIFIED WITHOUT COMA SNOMED Code(s): 74419735 Comment: - Multifactorial with severe liver disease and recent intubation/hypoxia - Continue rifaximin and lactulose (7) Thrombocytopenia Code(s): D69.6 - THROMBOCYTOPENIA, UNSPECIFIED SNOMED Code(s): 543108790 Comment: - 2/2 liver disease - No s/s bleeding (8) DVT prophylaxis Code(s): PTF3896 - SNOMED Code(s): 887338489 Comment: - SCD's only (9) GERD (gastroesophageal reflux disease) Code(s): K21.9 - GASTRO-ESOPHAGEAL REFLUX DISEASE WITHOUT ESOPHAGITIS SNOMED Code(s): 287319219 Comment: - Continue omeprazole. (10) Alcoholic liver disease Code(s): K70.9 - ALCOHOLIC LIVER DISEASE, UNSPECIFIED SNOMED Code(s): 98346548 Comment: - s/p TIPS, with advancing hepatic encephalopathy - Will be transitioned to hospice at [place] - Does not have capacity per psych (11) Acute respiratory failure Code(s): J96.00 - ACUTE RESPIRATORY FAILURE, UNSP W HYPOXIA OR HYPERCAPNIA SNOMED Code(s): 00072852 Comment: - Resolved and extubated 04/24/17 - Likely 2/2 encephalopathy Status and Disposition: Patient with previous history of being found to lack capacity to manage safe discharge plan and options as evidenced by recurrent readmissions and medication non-adherence. Condition is worsening. Discharge to the Residence on saturday for hospice. Counseling and/or Coordination of Care Minutes: coordinated with SW and CM
[2017-05-03] MEDS: Omeprazole CAP* 20 MG PO SCH (04:57)
[2017-05-03] MEDS: Spironolactone TAB* 25 MG PO SCH (07:53)
[2017-05-03] MEDS: Folic Acid TAB* 1 MG PO SCH (07:53)
[2017-05-03] MEDS: RiFAXimin* 550 MG TAB PO SCH (07:53)
[2017-05-03] MEDS: Thiamine TAB* 100 MG TAB PO SCH (07:54)
[2017-05-03] MEDS: Magnesium Oxide TAB* 400 MG PO SCH (07:54)
[2017-05-03 07:58] VITALS: BP 123/70
--- NOTE | 2017-05-03 09:21 | PN ---
Subjective Date of Service: 05/03/17 Interval History: Mr. Quevedo denies any complaint this morning and is happy with the plan for transfer to the [facility]ospice Residence. Family History: Unchanged from Admission Social History: Unchanged from Admission Past Medical History: Unchanged from Admission Objective Active Medications: Folic Acid (Folvite Tab*) 0.5 mg PO DAILY [facility] Lactulose (Lactulose*) 30 ml PO Q6H [facility] Magnesium Oxide (Magox 400 Tab*) 400 mg PO BID [facility] Omeprazole (Prilosec Cap*) 40 mg PO DAILY@0600 [facility] Ondansetron HCl (Zofran Inj*) 4 mg IV Q6H PRN Rifaximin (Xifaxan*) 550 mg PO BID [facility] Spironolactone (Aldactone Tab*) 125 mg PO DAILY [facility] Thiamine HCl (Vitamin B-1 Tab*) 100 mg PO DAILY [facility] Vital Signs: Temp Pulse Resp BP Pulse Ox 97.6 F 86 16 123/70 97 05/03/17 07:41 05/03/17 07:41 05/03/17 07:58 05/03/17 07:41 05/03/17 07:41 Oxygen Devices in Use Now: None Appearance: Male sitting up in chair with laptop in NAD Eyes: - - Scleral icterus Ears/Nose/Mouth/Throat: Mucous Membranes Moist Neck: Trachea Midline Respiratory: Symmetrical Chest Expansion and Respiratory Effort Skin: - - Skin dry and flaky Neurological: Alert and Oriented x 3 Nutrition: Taking PO's Result Diagrams: 04/29/17 05:57 04/29/17 05:57 Additional Lab and Data: . Microbiology and Other Data: . Assess/Plan/Problems-Billing Assessment: Mr. Quevedo is a 56year old male with PMH significant for hepatic encephalopathy , acute respiratory failure with intubation, extensive liver disease and hemochromatosis that has been admitted for increasing falls and confusion, with plans for discharge to the [facility]. - Patient Problems (1) Hepatic encephalopathy Comment: - Multifactorial with severe liver disease and recent intubation/hypoxia - Continue rifaximin and lactulose (2) Alcoholic liver disease Comment: - s/p TIPS, with advancing hepatic encephalopathy - Will be transitioned to hospice at [place] - Does not have capacity per psych (3) Pancytopenia Comment: - Secondary to cirrhosis/portal HTN - Stable (4) Acute respiratory failure Comment: - Resolved and extubated 04/24/17 - Likely 2/2 encephalopathy (5) Left elbow pain Comment: - Gouty arthritis with a component of cellulitis, now resolved. - Completed augmentin. - Wound culture with staph epidermidis and clostridium perfringens and Uric acid ~ 3 (6) Rhabdomyolysis Comment: - Resolved (7) DVT prophylaxis Comment: - SCD's only Status and Disposition: Discharge to the Hospice Residence.
--- NOTE | 2017-05-03 17:00 | DS ---
ADDENDUM NOW INCLUDED ON THIS REPORT CC: Dr. Alvarez * DISCHARGE SUMMARY: DATE OF ADMISSION: 04/18/17 DATE OF DISCHARGE: 05/03/17 PRIMARY CARE PHYSICIAN: Dr. Alvarez. ATTENDING PHYSICIAN: Dr. Steven Vale * (dictated provided by Diamond Ashley NP) PRIMARY DIAGNOSES: 1. Hepatic encephalopathy, decompensated liver failure. 2. Acute hypoxic respiratory failure, requiring intubation. SECONDARY DIAGNOSES: 1. Pancytopenia. 2. Liver cirrhosis secondary to alcoholism and hemochromatosis. 3. History of EtOH abuse. 4. History of transjugular intrahepatic portosystemic shunt procedure. 5. History of PleurX catheter placement and removal. 6. History of hernia repair. MEDICATIONS AT THE TIME OF DISCHARGE: 1. Folic acid 0.5 mg p.o. daily. 2. Lactulose 30 mL p.o. q.6 hours. 3. Magnesium oxide 400 mg p.o. b.i.d. 4. Omeprazole 40 mg p.o. daily. 5. Rifaximin 550 mg p.o. b.i.d. 6. Spironolactone 125 mg p.o. daily. 7. Thiamine 100 mg p.o. daily. HOSPITAL COURSE: Mr. Quevedo is a 56-year-old male with past medical history of liver cirrhosis secondary to alcoholism and hemochromatosis with episodes of hepatic encephalopathy, who presented to the hospital on 04/18/17 with concern for fall with unknown downtime. Please see the dictated H and P from Zack Dockery NP, for complete details. In brief, at the time of admission, the patient was very confused and was unable to provide further information. He had been found on the floor, but no further information was available. In the emergency room, he had multiple imaging studies includin. Brain CT: "No acute intracranial pathology." 2. Chest x-ray: "Stigmata of chronic obstructive pulmonary disease and emphysema. No acute cardiopulmonary process is evident. Stigmata of hepatic cirrhosis with TIPS stent and esophageal varices coils." 3. Maxillofacial CT shows: "No evidence of fracture." 4. Cervical spine CT shows: "Mild degenerative disk disease and osteoarthritis with no acute osseous injury to the cervical spine." His labs are all consistent with previous given history of cirrhosis. Mr. Quevedo was admitted to the hospital after concern for hepatic encephalopathy. Though he was down in the ground for a long period of time, he did not ever have a significantly high total creatine kinase, on arrival it was 2259 and has cleared quickly. On 04/20/17, the patient was the subject of a rapid response team call due to unresponsiveness. He required intubation and transferred to the intensive care unit. While in the ICU, the patient was noted to have redness and purulent drainage to a pre-existing elbow wound likely related to his prolonged downtime. He was treated with antibiotics for this and received an orthopedic consultation on 04/23/17. There was concern that this was gout versus less likely cellulitis, septic joint, or bursitis. The crystals were consistent with gout, but he did complete a full course of Augmentin out of concern for superficial cellulitis. The patient was extubated on 04/24/17 as his mental status improved. The patient was seen in consultation by Dr. Tamela Sanabria from palliative care services on 04/29/17. She discussed prognosis and overall goals of care with the patient and his family. It was clear that the patient has end-stage disease with recent admissions to the hospital for hepatic encephalopathy requiring intubation. He opted to change his code status to DNR and pursue comfort measures only. Mr. Quevedo had been accepted by the hospice residence for palliative care and hospice treatment for end of life. Mr. Quevedo is medically stable for transfer to hospice residence today. DISPOSITION: To hospice. DIET: Comfort diet. ACTIVITY: As tolerated. FOLLOWUP PLANS: Please follow up as needed with hospice care team for comfort measures. TIME SPENT: Approximately 60 minutes was spent in the discharge of this patient , more than half that time was spent with the patient at the bedside reviewing the events leading up this hospitalization, during this hospitalization, reviewing the medical record, and performing the discharge. ADDENDUM: Please note that Mr. Quevedo was originally on Lasix 40 mg daily at the time of admission. This medication has been held throughout this hospitalization and is not being continued at the time of discharge; however, the patient should be monitored for fluid retention and Lasix could be resumed as needed outpatient. DIAMOND ASHLEY NP [id number]/[facility] #: [id number]/[facility] #: [id number] KENNETHD
--- NOTE | 2017-05-03 21:30 | DS ---
DISCHARGE SUMMARY: ADDENDUM: Please note that Mr. Quevedo was originally on Lasix 40 mg daily at the time of admission. This medication has been held throughout this hospitalization and is not being continued at the time of discharge; however, the patient should be monitored for fluid retention and Lasix could be resumed as needed outpatient. RACHELL MCLEAN NP [id number]/[facility] #: [id number] MARCO ANTONIO
== END 2017-05-03 10:20 | disposition hospice, inpatient (51) | DRG 441 ==
LOC: ED 13:04 → MED 16:54 → ICU 04-21 04:07 → MED 04-25 15:20
PROVIDERS: ADMIT Internal Medicine; ATTEND Internal Medicine
PROC: 0T9B70Z Drainage of Bladder with Drainage Device, Via Natural or Artificial Opening (ICD-10-PCS; 2017-04-18)
PROC: 5A1945Z Respiratory Ventilation, 24-96 Consecutive Hours (ICD-10-PCS; principal; 2017-04-21)
PROC: 0BH17EZ Insertion of Endotracheal Airway into Trachea, Via Natural or Artificial Opening (ICD-10-PCS; 2017-04-21)
PROC: 0BP1XDZ Removal of Intraluminal Device from Trachea, External Approach (ICD-10-PCS; 2017-04-24)
PROC: 0TPBX0Z Removal of Drainage Device from Bladder, External Approach (ICD-10-PCS; 2017-04-25)
DX: K72.01 Acute and subacute hepatic failure with coma (principal); J96.01 Acute respiratory failure with hypoxia; D61.818 Other pancytopenia; B96.7 Clostridium perfringens [C. perfringens] as the cause of diseases classified elsewhere; E44.0 Moderate protein-calorie malnutrition; I85.10 Secondary esophageal varices without bleeding; D69.6 Thrombocytopenia, unspecified; K72.11 Chronic hepatic failure with coma; E87.1 Hypo-osmolality and hyponatremia; K76.6 Portal hypertension; L03.114 Cellulitis of left upper limb; E83.119 Hemochromatosis, unspecified; E86.0 Dehydration; Z66 Do not resuscitate; T79.6XXA Traumatic ischemia of muscle, initial encounter; K21.9 Gastro-esophageal reflux disease without esophagitis; K70.30 Alcoholic cirrhosis of liver without ascites; D64.9 Anemia, unspecified; B95.7 Other staphylococcus as the cause of diseases classified elsewhere; W17.89XA Other fall from one level to another, initial encounter; S70.322A Blister (nonthermal), left thigh, initial encounter; S80.212A Abrasion, left knee, initial encounter; S80.211A Abrasion, right knee, initial encounter; F32.9 Major depressive disorder, single episode, unspecified; F41.9 Anxiety disorder, unspecified; I10 Essential (primary) hypertension; M50.30 Other cervical disc degeneration, unspecified cervical region; M47.9 Spondylosis, unspecified; M1A.9XX1 Chronic gout, unspecified, with tophus (tophi); Z88.6 Allergy status to analgesic agent; Z88.8 Allergy status to other drugs, medicaments and biological substances; Z80.0 Family history of malignant neoplasm of digestive organs; Z83.79 Family history of other diseases of the digestive system; Z82.49 Family history of ischemic heart disease and other diseases of the circulatory system; Z80.52 Family history of malignant neoplasm of bladder; Z68.25 Body mass index [BMI] 25.0-25.9, adult; Z91.14 Patient's other noncompliance with medication regimen; Z87.11 Personal history of peptic ulcer disease; Y92.009 Unspecified place in unspecified non-institutional (private) residence as the place of occurrence of the external cause
CPT/HCPCS: 36415; 36600; 70450; 70486; 71045; 72125; 80048; 80053; 80202; 80307; 80320; 81003; 82140; 82550; 82803; 83605; 83735; 83880; 84100; 84443; 84484; 84550; 85025; 85027; 85610; 85730; 87040; 87070; 87076; 87077; 87186; 87205; 87502; 87641; 89060; 93005; 94003; 94667; 94760; A9270-GY; G0480; J0330; J1644; J1940; J2543; J2704; J3370